=== PATIENT | male | born 1955 | race Caucasian/White ===

== ENCOUNTER 2017-03-17 10:30 | Outpatient (RCR) | payer MEDICARE, SELFPAY ==
[2017-03-10 10:02] VITALS: BP 137/74; PULSE 81; RESP 16; TEMP 36.6; BMI 32.7
--- NOTE | 2017-03-10 13:37 | PCM.WC.HP ---
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 History of Wound: This 61-year-old diabetic male presents to the wound center with chief complaint of nonhealing ulcer to right posterior heel. Patient states on February 21 he believes he stepped on a staple walking down the stairs and had a tear in his skin. This progressed over the following days into an ulcer. Patient saw Dr. See originally, who according to the patient ordered labs and x-rays. Dr. See also gave the patient a CAM walker. Eventually Dr. See sent the patient to [facility] wound center with the patient has been the last 2 weeks. While there the patient has been undergoing every other day dressing changes consisting of medihoney and a dry sterile dressing. Patient also states that he has had vascular studies done, however he cannot remember if it was venous, arterial, or both. The patient also recently received a knee walker for the right side. He has not used it much yet. The also states that the patient has not keeping pressure off of his right foot as much as he should be. Patient denies any purulence to the area. The patient denies any feelings of nausea, vomiting, chills, fever at this time. Past Medical History Past Medical History: please see intake list Allergies/Adverse Reactions: Allergies No Known Allergies Allergy (Verified 03/10/17 10:37) Home Medications: Ambulatory Orders Medication Instructions Recorded Aspirin [Aspirin, Baby] 81 mg PO DAILY@0800 08/13/14 Fish Oil/Dha/Epa [Fish Oil 1,200 1,200 mg PO 4X/DAY 08/13/14 mg Fish Oil] Flavoring Agent [Cinnamon] 1,000 mg PO 4X/DAY 08/13/14 Gabapentin [Neurontin] 200 mg PO DAILY 08/13/14 Gabapentin [Neurontin] 600 mg PO QHS 08/13/14 Insulin Aspart [Novolog] 10 unit SQ TID 08/13/14 Insulin Glargine,Hum.rec.anlog 30 unit SC QHS 08/13/14 [Lantus] Lisinopril [Zestril] 10 mg PO DAILY 08/13/14 Multivit-Min/FA/Lycopene/Lut 1 each PO DAILY 08/13/14 [Centrum Silver Tablet] Saw [place] 450 mg PO DAILY 08/13/14 Cholecalciferol (Vitamin D3) 100 gm MC DAILY 03/10/17 [Vitamin D3] Chromium Amino Acid Chelate 400 mcg PO DAILY 03/10/17 [Chromium] Smoking Status: Never smoker Tobacco Use: Non-smoker Review of Systems Constitutional: Reports: Weight Change. Denies: Chills, Fever Cardiovascular: Denies: Chest Pain, Palpitations Respiratory: Denies: Cough, Shortness of Breath Musculoskeletal: Reports: Foot Pain - slight tenderness to right heel Skin: Reports: Wounds - right heel - Physical Exam Vital Signs Temp Pulse Resp BP 97.8 F 81 16 137/74 H 03/10/17 10:02 03/10/17 10:02 03/10/17 10:02 03/10/17 10:02 General: Alert, Oriented x3, Cooperative Extremities: Capillary Refill Less than 3 Seconds, No Calf Tenderness - Negative Wojciech and Guerrero sign bilateral, Diminished Peripheral Pulses - DP pulses faintly palpable bilateral. PT pulses nonpalpable due to perimalleolar edema., Edema - Bilateral lower extremity edema, Tenderness - Slight tenderness to right heel Skin: Ulcer/ Wound - Chronic nonpressure nonhealing ulcer to plantar/posterior aspect right heel. Ulcer dimensions are noted below. Ulcer is unstageable due to overlying eschar that is well adhered. No surrounding cellulitis noted. No purulence. No malodor. No fluctuance appreciated at this time. No other signs of acute infection noted today. Wound Measurements and Assessment WC - Nurse 1 - General Ulcer Measurement Start: 03/10/17 10:02 Freq: Status: Active Protocol: Activity Type Activity Date Activity User E-Sign Co-Sign Detail Recorded Client Recorded Date Recorded By Document 03/10/17 10:02 [email or web address] [id number] 03/10/17 10:30 BMF 03/10/17 10:02 Wound Center Nurse 1 [Ulcer Assessment Protocol: WC.WD.LOC] #2- RT HEEL -Combined with other wound No -Current Size (cm) - Length 1.5 -Current Size (cm) - Width 3.9 -Current Size (cm) - Depth 0.3 -Total Square Cm 5.85 -Date of Last Picture (Recall this 03/10/17 field) -Photo Taken Yes -Epithelialization None Present -Tunneling No -Undermining/Tunneling Yes -Undermining/Tunneling Starts (O' 4 clock) -Undermining/Tunneling Ends (O'clock) 2 -Maximum Distance (cm) 0.2 -Exudate Amt Small (1-33%) -Exudate Type Serosanguineous -Wound Margin Distinct, Outline Attached -Granulation Amt Small (1-33%) -Granulation Quality Pale Red -Slough/Fibrin Yes -Necrosis Amt Large (67-100%) -Necrotic Tissue Type Eschar -Structure Exposed N/A -Texture (Miguelina-wound Skin Appearance) Callus Scarring -Moisture (Miguelina-wound Skin Appearance Dry/Scaly ) -Color (Miguelina-wound Skin Appearance) Assessed -Temperature (Miguelina-wound Skin No Abnormality Appearance) (Pt Warm) -Tenderness on Palpation (Miguelina-wound No Skin Appearance) -Ulcer Cleansing Rinsed/ Irrigated with Saline -Foul Odor after Cleansing No -Anesthetic Used 4% Lidocaine Solution [Edema Assessment] -Lower Limb Edema Present Yes -Right Calf (cm) 36 -Point of measurement (cm from the 1 medial instep) -Point of Measurement (cm from the 22.5 medial instep) -Point of measurement (cm from the 33.2 medial instep) -Point of Measurement (cm from the 19.9 medial instep) SANTHOSH - Nurse 2 - General Ulcer CM Notes Start: 03/10/17 10:02 Freq: Status: Active Protocol: Activity Type Activity Date Activity User E-Sign Co-Sign Detail Recorded Client Recorded Date Recorded By Document 03/10/17 11:29 MW [id number] 03/10/17 11:50 MW 03/10/17 11:29 Wound Center Nurse 2 [Procedure/Treatment] #2- RT HEEL -Time 11:29 -Correct Patient Yes -Correct Side, Site, Position Yes -Correct Procedure Yes -Procedure Performed No -Post Debridement Size (cm) - Length 1.5 -Post Debridement Size (cm) - Width 3.9 -Post Debridement Size (cm) - Depth 0.3 -Total Square Cm 5.85 -Wound/Ulcer Outcome Not Healed -Ulcer Cleansing Rinsed/ Irrigated with Saline -Foul Odor after Cleansing No -Cetacaine [place] No -Bleeding Controlled with Pressure -Treatment Response Procedure Tolerated Well [See Physician Procedure note for Specifics] Pain Scale: 0-10 Numeric [Pain] -Is Patient Pain Free? Yes Musculoskeletal: Tenderness - Slight tenderness appreciated to right posterior heel. Neurological: - - Protective sensation absent to greater than 2 out of 5 pedal sites tested at random using a 5.07 Wiley Raymon monofilament. Psych/Mental Status: Normal Affect, Appropriate Debridement Note Post-Debridement Measurements/Treatment WC - Nurse 2 - General Ulcer CM Notes Start: 03/10/17 10:02 Freq: Status: Active Protocol: Activity Type Activity Date Activity User E-Sign Co-Sign Detail Recorded Client Recorded Date Recorded By Document 03/10/17 11:29 MW [id number] 03/10/17 11:50 MW 03/10/17 11:29 Wound Center Nurse 2 #2- RT HEEL -Time 11:29 -Correct Patient Yes -Correct Side, Site, Position Yes -Correct Procedure Yes -Procedure Performed No -Post Debridement Size (cm) - Length 1.5 -Post Debridement Size (cm) - Width 3.9 -Post Debridement Size (cm) - Depth 0.3 -Total Square Cm 5.85 -Wound/Ulcer Outcome Not Healed -Ulcer Cleansing Rinsed/ Irrigated with Saline -Foul Odor after Cleansing No -Cetacaine [place] No -Bleeding Controlled with Pressure -Treatment Response Procedure Tolerated Well Pain Scale: 0-10 Numeric Is Patient Pain Free? 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 DM with neuropathy. PVD. Malnutrition. Plan: Initial patient examination and evaluation completed. No extensive debridement completed today due to no diagnostic testing studies. Saint was applied to the wound base followed by moistened 4 x 4's, dry 4 x 4's, Kerlix, and a light Tubigrip. Prescription for Santyl was given to the patient. He is to perform daily dressing changes consisting of the previously noted dressing. Repeat x-rays were ordered 3 views of the right foot as well as calcaneal axial. We will contact Dr. See's office, as well as [facility], in order to obtain any lab in other diagnostic testing that was completed. The results will all be reviewed before the patient's next visit, and any remaining lab work or diagnostic testing will be ordered at that time. It was stressed to the patient how important is to keep pressure off of his heel at all times. He was encouraged to use the knee walker at all times while walking. While sitting or laying in bed he was instructed to keep the heel floating over the edge of a pillow in order to have absolutely no pressure to the area. I also discussed with the patient the importance of a high protein diet to help supplement wound healing. Patient and the patient's were educated on signs and symptoms of local and systemic infection and were instructed to go to the emergency room immediately should they notice any. All questions were answered to the patient and the patient's satisfaction. They will follow-up in clinic in 1 week for further evaluation, or sooner if needed.
--- NOTE | 2017-03-14 14:27 | RAD_ITS ---
STUDY: X-RAY - RIGHT FOOT CLINICAL: Male, 61 years old. Right heel ulcer TECHNIQUE: 4 view(s) of the foot. COMPARISON: None. FINDINGS: Normal talus, calcaneus, and tarsal bones. Normal visualized subtalar, talonavicular, calcaneocuboid, tarsal and tarsometatarsal articulations. Normal metatarsi. Normal metatarsophalangeal joint of the great toe. Normal tibial and fibular sesamoid bones. Normal interphalangeal joint of the great toe. Normal phalanges of the great toe. Normal second through fifth metatarsophalangeal joints. Normal interphalangeal joints and phalanges of the lesser toes. There is a plantar heel ulcer. There are no central stimulator is. There are vascular calcifications RAD/Foot min 3 Views IMPRESSION: Plantar heel ulcer. No signs of osteomyelitis Electronically Signed: Byron Horta MD, FACR at 15:55 EST , Service support ,
[2017-03-17 10:46] VITALS: BP 143/73; PULSE 76; RESP 18; TEMP 36.8; BMI 32.7
--- NOTE | 2017-03-17 13:48 | PCM.WC.PN ---
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 Status: Acute Current Visit: Yes Code(s): L97.419 - Non-pressure chronic ulcer of right heel and midfoot with unspecified severity (2) Type 2 diabetes mellitus with diabetic polyneuropathy Status: Acute Current Visit: Yes Code(s): E11.42 - Type 2 diabetes mellitus with diabetic polyneuropathy (3) PVD (peripheral vascular disease) Status: Suspected Current Visit: Yes Code(s): I73.9 - Peripheral vascular disease, unspecified (4) Malnutrition Status: Suspected Current Visit: Yes Code(s): E46 - Unspecified protein-calorie malnutrition (5) Lower extremity edema Status: Chronic Current Visit: Yes Code(s): R60.0 - Localized edema Type of Wound Date of Service: 03/17/17 Chief Complaint: Chronic non healing ulcer to right posterior heel with fat layer exposed. History of Wound: This 61-year-old diabetic male presents for follow up of chronic nonhealing ulcer to right posterior heel. Patient states on February 21 he believes he stepped on a staple walking down the stairs and had a tear in his skin. This progressed over the following days into an ulcer. Patient has seen Dr. See as well as gone to [facility] wound center in the past. While at [facility], the patient was undergoing every other day dressing changes consisting of medihoney and a dry sterile dressing. The patient has a knee walker and claims to be using it, but not all the time. The also states that the patient has not keeping pressure off of his right foot as much as he should be, even after last weeks visit, although he has gotten better. They feel there has been improvement in the area since starting santyl last week. Patient denies any purulence to the area. The patient denies any feelings of nausea, vomiting, chills, fever at this time. Progress of Wound: Improving since last week. - Physical Exam Vital Signs Temp Pulse Resp BP 98.2 F 76 18 143/73 H 03/17/17 10:46 03/17/17 10:46 03/17/17 10:46 03/17/17 10:46 General: Alert, Oriented x3, Cooperative, No apparent distress Extremities: Capillary Refill Less than 3 Seconds, No Calf Tenderness - Negative stephan and iverson sign bilateral, Diminished Peripheral Pulses - DP pulses faintly palpable bilateral. PT pulses non palpable due to edema, Edema - bilateral lower extremity Skin: Ulcer/ Wound - Chronic nonpressure nonhealing ulcer to plantar/posterior aspect right heel. Ulcer dimensions are noted below. Adherent eschar no longer covering ulcer. Ulcer noted to be down to fat layer. Hyperkeratotic tissue noted surrounding ulcer. No surrounding cellulitis noted. No purulence. No malodor. No fluctuance appreciated at this time. No other signs of acute infection noted today. Center of ulcer had small area that probed 0.5 cm, but no probe to bone noted. Wound Measurements and Assessment - Nurse 1 - General Ulcer Measurement Start: 03/10/17 10:02 Freq: Status: Active Protocol: Activity Type Activity Date Activity User E-Sign Co-Sign Detail Recorded Client Recorded Date Recorded By Document 03/17/17 10:46 [id number] 03/17/17 10:50 03/17/17 10:46 Wound Center Nurse 1 [Ulcer Assessment Protocol: .WD.LOC] #2- RT HEEL -Combined with other wound No -Current Size (cm) - Length 1.8 -Current Size (cm) - Width 2.1 -Current Size (cm) - Depth 0.6 -Total Square Cm 3.78 -Photo Taken No -Epithelialization None Present -Tunneling No -Undermining/Tunneling No -Classification - Thickness Full Thickness without Exposed Support Structure -Exudate Amt Small (1-33%) -Exudate Type Serosanguineous -Wound Margin Fibrotic Scar, Thickened Scar -Granulation Amt Medium (34-66%) -Granulation Quality Pale [place] -Slough/Fibrin Yes -Necrosis Amt Medium (34-66%) -Necrotic Tissue Type Adherent Slough -Structure Exposed Fascia Fat Layer Exposed -Texture (Miguelina-wound Skin Appearance) Callus Friable Localized Edema Scarring -Moisture (Miguelina-wound Skin Appearance Maceration ) -Color (Miguelina-wound Skin Appearance) Ecchymosis Erythema -Temperature (Miguelina-wound Skin No Abnormality Appearance) (Pt Warm) -Tenderness on Palpation (Miguelina-wound No Skin Appearance) -Ulcer Cleansing Rinsed/ Irrigated with Saline -Foul Odor after Cleansing No -Anesthetic Used 4% Lidocaine Solution [Edema Assessment] -Lower Limb Edema Present Yes -Right Calf (cm) 34.2 -Right Ankle (cm) 22.2 - Nurse 2 - General Ulcer CM Notes Start: 03/10/17 10:02 Freq: Status: Active Protocol: Activity Type Activity Date Activity User E-Sign Co-Sign Detail Recorded Client Recorded Date Recorded By Document 03/17/17 11:31 MW [id number] 03/17/17 11:48 MW 03/17/17 11:31 Wound Center Nurse 2 [Procedure/Treatment] #2- RT HEEL -Time 11:31 -Correct Patient Yes -Correct Side, Site, Position Yes -Correct Procedure Yes -Procedure Performed Yes -Type of Procedure Debridement -Clinical Debridement Selective -Post Debridement Size (cm) - Length 1.8 -Post Debridement Size (cm) - Width 2.7 -Post Debridement Size (cm) - Depth 0.5 -Total Square Cm 4.86 -Wound/Ulcer Outcome Not Healed -Ulcer Cleansing Rinsed/ Irrigated with Saline -Foul Odor after Cleansing No -Bioengineered Tissue No -Cetacaine [place] No -Bleeding Controlled with Pressure -Treatment Response Procedure Tolerated Well [See Physician Procedure note for Specifics] Pain Scale: 0-10 Numeric [Pain] -Is Patient Pain Free? Yes Musculoskeletal: - - muscle strenght 5/5 for inverters, everters, dorsiflexors, and plantarflexors of the feet Neurological: - - epicritic sensation grossly absent from bilateral feet Psych/Mental Status: Normal Affect, Appropriate Debridement Note Post-Debridement Measurements/Treatment - Nurse 2 - General Ulcer CM Notes Start: 03/10/17 10:02 Freq: Status: Active Protocol: Activity Type Activity Date Activity User E-Sign Co-Sign Detail Recorded Client Recorded Date Recorded By Document 03/10/17 11:29 MW [id number] 03/10/17 11:50 MW Document 03/17/17 11:31 MW [id number] 03/17/17 11:48 MW 03/10/17 03/17/17 11:29 11:31 Wound Center Nurse 2 #2- RT HEEL -Time 11:29 11:31 -Correct Patient Yes Yes -Correct Side, Site, Position Yes Yes -Correct Procedure Yes Yes -Procedure Performed No Yes -Type of Procedure Debridement -Clinical Debridement Selective -Post Debridement Size (cm) - Length 1.5 1.8 -Post Debridement Size (cm) - Width 3.9 2.7 -Post Debridement Size (cm) - Depth 0.3 0.5 -Total Square Cm 5.85 4.86 -Wound/Ulcer Outcome Not Healed Not Healed -Ulcer Cleansing Rinsed/ Rinsed/ Irrigated with Irrigated with Saline Saline -Foul Odor after Cleansing No No -Bioengineered Tissue No -Cetacaine [place] No No -Bleeding Controlled with Pressure Pressure -Treatment Response Procedure Procedure Tolerated Well Tolerated Well Pain Scale: 0-10 Numeric Is Patient Pain Free? Yes Yes Wound debrided: right posterior plantar heel Laterality: Right Wound Grade/Stage: 2 Type of Debridement: Selective debridement Anesthesia Used: 4% Lidocaine Solution Depth: in the subcutaneous layer Percentage of wound debrided: 100 Instrument Used: 3mm curette Tissue Removed: slough, fibrin Severity: Fat Layer Exposed Amount of bleeding with debridement: Mild Bleeding Controlled with: Pressure Patient tolerated procedure well Assessment/Plan Clinical Impression(s) from Imaging Studies Foot X-Ray 03/14/17 14:27 IMPRESSION: Plantar heel ulcer. 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 DM with neuropathy. Malnutrition. Plan: Patient was again examined and evaluated today. Selective debridement completed as noted in the clinical panel. Hyperkeratotic rim was removed surrounding the ulcer. Santyl was again applied to the wound base followed by moistened 4 x 4's, dry 4 x 4's, Kerlix, and a light Tubigrip. He is to perform daily dressing changes consisting of the previously noted dressing. There was still some slough, fibrous tissue appreciated during todays visit so I would like to try one more week of santyl. Repeat x-rays were ordered 3 views of the right foot as well as calcaneal axial, and the results were read as ulcer to the heel with no signs of osteomyelitis noted. LEAS studies were reviewed that were faxed over from [facility], that showed a right LEONOR of 1.29. The report also suggested that a CTA may be warranted to assess vascular flow. Venous duplex scan and reflux study was also performed. The impression stated that 1. Venous duplex scan of both lower extremities is negative for deep venous thrombosis or obvious deep venous insufficiency. 2. Superficial venous insufficiency noted in the right greater saphenous vein to the knee and to the left greater saphenous vein also to the knee with some chronic nonocclusive thrombotic changes elsewhere in the superficial veins. We also obtained notes from Dr. See's office as well as patient's labs, these were reviewed and are in the patient's chart. Hemoglobin A1c was ordered today as well as a pre-albumin. We will review these results prior to next week's visit. It was again stressed to the patient how important is to keep pressure off of his heel at all times. He is to use the knee scooter at all times while walking. While sitting or laying in bed he was instructed to keep the heel floating over the edge of a pillow in order to have absolutely no pressure to the area. I also discussed with the patient the importance of a high protein diet to help supplement wound healing. Patient and the patient's were educated on signs and symptoms of local and systemic infection and were instructed to go to the emergency room immediately should they notice any. All questions were answered to the patient and the patient's satisfaction. They will follow-up in clinic in 1 week for further evaluation, or sooner if needed.
--- NOTE | 2017-03-17 13:59 | PN.PCM_ITS ---
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 Status: Acute Current Visit: Yes Code(s): L97.419 - Non-pressure chronic ulcer of right heel and midfoot with unspecified severity (2) Type 2 diabetes mellitus with diabetic polyneuropathy Status: Acute Current Visit: Yes Code(s): E11.42 - Type 2 diabetes mellitus with diabetic polyneuropathy (3) PVD (peripheral vascular disease) Status: Suspected Current Visit: Yes Code(s): I73.9 - Peripheral vascular disease, unspecified (4) Malnutrition Status: Suspected Current Visit: Yes Code(s): E46 - Unspecified protein- calorie malnutrition (5) Lower extremity edema Status: Chronic Current Visit: Yes Code(s): R60.0 - Localized edema Type of Wound Date of Service: 03/17/17 Chief Complaint: Chronic non healing ulcer to right posterior heel with fat layer exposed. History of Wound: This 61-year-old diabetic male presents for follow up of chronic nonhealing ulcer to right posterior heel. Patient states on February 21 he believes he stepped on a staple walking down the stairs and had a tear in his skin. This progressed over the following days into an ulcer. Patient has seen Dr. See as well as gone to [facility] wound center in the past. While at [facility], the patient was undergoing every other day dressing changes consisting of medihoney and a dry sterile dressing. The patient has a knee walker and claims to be using it, but not all the time. The also states that the patient has not keeping pressure off of his right foot as much as he should be, even after last weeks visit, although he has gotten better. They feel there has been improvement in the area since starting santyl last week. Patient denies any purulence to the area. The patient denies any feelings of nausea, vomiting, chills, fever at this time. Progress of Wound: Improving since last week. - Physical Exam Vital Signs Temp Pulse Resp BP 98.2 F 76 18 143/73 H 03/17/17 10:46 03/17/17 10:46 03/17/17 10:46 03/17/17 10:46 General: Alert, Oriented x3, Cooperative, No apparent distress Extremities: Capillary Refill Less than 3 Seconds, No Calf Tenderness - Negative stephan and iverson sign bilateral, Diminished Peripheral Pulses - DP pulses faintly palpable bilateral. PT pulses non palpable due to edema, Edema - bilateral lower extremity Skin: Ulcer/ Wound - Chronic nonpressure nonhealing ulcer to plantar/posterior aspect right heel. Ulcer dimensions are noted below. Adherent eschar no longer covering ulcer. Ulcer noted to be down to fat layer. Hyperkeratotic tissue noted surrounding ulcer. No surrounding cellulitis noted. No purulence. No malodor. No fluctuance appreciated at this time. No other signs of acute infection noted today. Center of ulcer had small area that probed 0.5 cm, but no probe to bone noted. Wound Measurements and Assessment - Nurse 1 - General Ulcer Measurement Start: 03/10/17 10:02 Freq: Status: Active Protocol: Activity Type Activity Date Activity User E-Sign Co-Sign Detail Recorded Client Recorded Date Recorded By Document 03/17/17 10:46 [id number] 03/17/17 10:50 03/17/17 10:46 Wound Center Nurse 1 [Ulcer Assessment Protocol: .WD.LOC] #2- RT HEEL -Combined with other wound No -Current Size (cm) - Length 1.8 -Current Size (cm) - Width 2.1 -Current Size (cm) - Depth 0.6 -Total Square Cm 3.78 -Photo Taken No -Epithelialization None Present -Tunneling No -Undermining/Tunneling No -Classification - Thickness Full Thickness without Exposed Support Structure -Exudate Amt Small (1-33%) -Exudate Type Serosanguineous -Wound Margin Fibrotic Scar, Thickened Scar -Granulation Amt Medium (34-66%) -Granulation Quality Pale [place] -Slough/Fibrin Yes -Necrosis Amt Medium (34-66%) -Necrotic Tissue Type Adherent Slough -Structure Exposed Fascia Fat Layer Exposed -Texture (Miguelina-wound Skin Appearance) Callus Friable Localized Edema Scarring -Moisture (Miguelina-wound Skin Appearance Maceration ) -Color (Miguelina-wound Skin Appearance) Ecchymosis Erythema -Temperature (Miguelina-wound Skin No Abnormality Appearance) (Pt Warm) -Tenderness on Palpation (Miguelina-wound No Skin Appearance) -Ulcer Cleansing Rinsed/ Irrigated with Saline -Foul Odor after Cleansing No -Anesthetic Used 4% Lidocaine Solution [Edema Assessment] -Lower Limb Edema Present Yes -Right Calf (cm) 34.2 -Right Ankle (cm) 22.2 - Nurse 2 - General Ulcer CM Notes Start: 03/10/17 10:02 Freq: Status: Active Protocol: Activity Type Activity Date Activity User E-Sign Co-Sign Detail Recorded Client Recorded Date Recorded By Document 03/17/17 11:31 MW [id number] 03/17/17 11:48 MW 03/17/17 11:31 Wound Center Nurse 2 [Procedure/Treatment] #2- RT HEEL -Time 11:31 -Correct Patient Yes -Correct Side, Site, Position Yes -Correct Procedure Yes -Procedure Performed Yes -Type of Procedure Debridement -Clinical Debridement Selective -Post Debridement Size (cm) - Length 1.8 -Post Debridement Size (cm) - Width 2.7 -Post Debridement Size (cm) - Depth 0.5 -Total Square Cm 4.86 -Wound/Ulcer Outcome Not Healed -Ulcer Cleansing Rinsed/ Irrigated with Saline -Foul Odor after Cleansing No -Bioengineered Tissue No -Cetacaine [place] No -Bleeding Controlled with Pressure -Treatment Response Procedure Tolerated Well [See Physician Procedure note for Specifics] Pain Scale: 0-10 Numeric [Pain] -Is Patient Pain Free? Yes Musculoskeletal: - - muscle strenght 5/5 for inverters, everters, dorsiflexors, and plantarflexors of the feet Neurological: - - epicritic sensation grossly absent from bilateral feet Psych/Mental Status: Normal Affect, Appropriate Debridement Note Post-Debridement Measurements/Treatment - Nurse 2 - General Ulcer CM Notes Start: 03/10/17 10:02 Freq: Status: Active Protocol: Activity Type Activity Date Activity User E-Sign Co-Sign Detail Recorded Client Recorded Date Recorded By Document 03/10/17 11:29 MW [id number] 03/10/17 11:50 MW Document 03/17/17 11:31 MW [id number] 03/17/17 11:48 MW 03/10/17 03/17/17 11:29 11:31 Wound Center Nurse 2 #2- RT HEEL -Time 11:29 11:31 -Correct Patient Yes Yes -Correct Side, Site, Position Yes Yes -Correct Procedure Yes Yes -Procedure Performed No Yes -Type of Procedure Debridement -Clinical Debridement Selective -Post Debridement Size (cm) - Length 1.5 1.8 -Post Debridement Size (cm) - Width 3.9 2.7 -Post Debridement Size (cm) - Depth 0.3 0.5 -Total Square Cm 5.85 4.86 -Wound/Ulcer Outcome Not Healed Not Healed -Ulcer Cleansing Rinsed/ Rinsed/ Irrigated with Irrigated with Saline Saline -Foul Odor after Cleansing No No -Bioengineered Tissue No -Cetacaine [place] No No -Bleeding Controlled with Pressure Pressure -Treatment Response Procedure Procedure Tolerated Well Tolerated Well Pain Scale: 0-10 Numeric Is Patient Pain Free? Yes Yes Wound debrided: right posterior plantar heel Laterality: Right Wound Grade/Stage: 2 Type of Debridement: Selective debridement Anesthesia Used: 4% Lidocaine Solution Depth: in the subcutaneous layer Percentage of wound debrided: 100 Instrument Used: 3mm curette Tissue Removed: slough, fibrin Severity: Fat Layer Exposed Amount of bleeding with debridement: Mild Bleeding Controlled with: Pressure Patient tolerated procedure well Assessment/Plan Clinical Impression(s) from Imaging Studies Foot X-Ray 03/14/17 14:27 IMPRESSION: Plantar heel ulcer. 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 DM with neuropathy. Malnutrition. Plan: Patient was again examined and evaluated today. Selective debridement completed as noted in the clinical panel. Hyperkeratotic rim was removed surrounding the ulcer. Santyl was again applied to the wound base followed by moistened 4 x 4's, dry 4 x 4's, Kerlix, and a light Tubigrip. He is to perform daily dressing changes consisting of the previously noted dressing. There was still some slough, fibrous tissue appreciated during todays visit so I would like to try one more week of santyl. Repeat x-rays were ordered 3 views of the right foot as well as calcaneal axial, and the results were read as ulcer to the heel with no signs of osteomyelitis noted. LEAS studies were reviewed that were faxed over from [facility], that showed a right LEONOR of 1.29. The report also suggested that a CTA may be warranted to assess vascular flow. Venous duplex scan and reflux study was also performed. The impression stated that 1. Venous duplex scan of both lower extremities is negative for deep venous thrombosis or obvious deep venous insufficiency. 2. Superficial venous insufficiency noted in the right greater saphenous vein to the knee and to the left greater saphenous vein also to the knee with some chronic nonocclusive thrombotic changes elsewhere in the superficial veins. We also obtained notes from Dr. See's office as well as patient's labs, these were reviewed and are in the patient's chart. Hemoglobin A1c was ordered today as well as a pre- albumin. We will review these results prior to next week's visit. It was again stressed to the patient how important is to keep pressure off of his heel at all times. He is to use the knee scooter at all times while walking. While sitting or laying in bed he was instructed to keep the heel floating over the edge of a pillow in order to have absolutely no pressure to the area. I also discussed with the patient the importance of a high protein diet to help supplement wound healing. Patient and the patient's were educated on signs and symptoms of local and systemic infection and were instructed to go to the emergency room immediately should they notice any. All questions were answered to the patient and the patient's satisfaction. They will follow- up in clinic in 1 week for further evaluation, or sooner if needed.
[2017-03-17 15:35] LABS: Prealbumin 15.8 mg/dL (20.0-40.0)
[2017-03-17 15:38] LABS: Hemoglobin A1c 8.2 % (4.2-6.3)
== END 2017-03-23 23:59 ==
LOC: WC 10:30
PROVIDERS: Visit Provider Podiatrist
DX: E11.621 Type 2 diabetes mellitus with foot ulcer (principal); E11.42 Type 2 diabetes mellitus with diabetic polyneuropathy; E11.51 Type 2 diabetes mellitus with diabetic peripheral angiopathy without gangrene; R60.0 Localized edema; L97.412 Non-pressure chronic ulcer of right heel and midfoot with fat layer exposed; L85.9 Epidermal thickening, unspecified
CPT/HCPCS: 73630; 83036; 84134; 97597; 97602; 99203; G0463

== ENCOUNTER 2017-04-14 10:30 | Outpatient (RCR) | payer MEDICARE, SELFPAY ==
[2017-03-17 10:46] VITALS: BP 143/73
[2017-03-24 01:12] VITALS: PULSE 76; RESP 18; TEMP 36.8
[2017-03-24 15:21] VITALS: BP 150/66; PULSE 84; RESP 18; TEMP 37.1; BMI 32.7
--- NOTE | 2017-03-24 17:07 | PCM.WC.PN ---
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 Status: Acute Current Visit: Yes Code(s): L97.419 - Non-pressure chronic ulcer of right heel and midfoot with unspecified severity (2) Type 2 diabetes mellitus with diabetic polyneuropathy Status: Acute Current Visit: Yes Code(s): E11.42 - Type 2 diabetes mellitus with diabetic polyneuropathy (3) Lower extremity edema Status: Chronic Current Visit: Yes Code(s): R60.0 - Localized edema (4) Malnutrition Status: Suspected Current Visit: Yes Code(s): E46 - Unspecified protein-calorie malnutrition (5) PVD (peripheral vascular disease) Status: Suspected Current Visit: Yes Code(s): I73.9 - Peripheral vascular disease, unspecified Type of Wound Date of Service: 03/25/17 Chief Complaint: Chronic non healing ulcer to right posterior heel with fat layer exposed. History of Wound: This 61-year-old diabetic male presents for follow up of chronic nonhealing ulcer to right posterior heel. Patient states on February 21 he believes he stepped on a staple walking down the stairs and had a tear in his skin. This progressed over the following days into an ulcer. Patient has seen Dr. See as well as gone to [facility] wound center in the past. While at [facility] beds at the [facility], the patient was undergoing every other day dressing changes consisting of medihoney and a dry sterile dressing. The patient has a knee walker and claims to be using it, but not all the time. The also states that the patient has not keeping pressure off of his right foot as much as he should be, even after last weeks visit, although he has gotten better. They feel there has been improvement in the area since starting santyl last week. Patient denies any purulence to the area. The patient denies any feelings of nausea, vomiting, chills, fever at this time. Progress of Wound: Stable - Physical Exam Vital Signs Temp Pulse Resp BP 98.7 F 84 18 150/66 H 03/24/17 15:21 03/24/17 15:21 03/24/17 15:21 03/24/17 15:21 General: Alert, Oriented x3, Cooperative, No apparent distress HEENT: PERRLA, EOMI Cardiovascular: Regular rate Extremities: No clubbing, No cyanosis, Diminished Peripheral Pulses, Edema Skin: Ulcer/ Wound - Chronic nonhealing ulcer plantar/posterior right heel. Boggy eschar covering ulcer with center of ulcer down to the fat layer, hyperkeratotic tissue present surrounding ulcer bed, no drainage or malodor at this time. Wound Measurements and Assessment WC - Nurse 1 - General Ulcer Measurement Start: 03/24/17 15:21 Freq: Status: Active Protocol: Activity Type Activity Date Activity User E-Sign Co-Sign Detail Recorded Client Recorded Date Recorded By Document 03/24/17 15:21 DL [id number] 03/24/17 15:27 DL 03/24/17 15:21 Wound Center Nurse 1 [Ulcer Assessment Protocol: SANTHOSH.WD.LOC] #2- RT HEEL -Current Size (cm) - Length 2.9 -Current Size (cm) - Width 4 -Current Size (cm) - Depth 0.5 -Total Square Cm 11.6 -Photo Taken No -Exudate Amt Medium (34-66%) -Exudate Type Serosanguineous -Wound Margin Distinct, Outline Attached -Granulation Amt Small (1-33%) -Granulation Quality [place] -Necrosis Amt Large (67-100%) -Necrotic Tissue Type Eschar -Structure Exposed N/A -Texture (Miguelina-wound Skin Appearance) Scarring -Moisture (Miguelina-wound Skin Appearance Dry/Scaly ) -Color (Miguelina-wound Skin Appearance) Hemosiderin Staining Rubor -Temperature (Miguelina-wound Skin No Abnormality Appearance) (Pt Warm) -Tenderness on Palpation (Miguelina-wound No Skin Appearance) -Ulcer Cleansing Rinsed/ Irrigated with Saline -Foul Odor after Cleansing No -Anesthetic Used 4% Lidocaine Solution [Edema Assessment] -Right Calf (cm) 35.2 -Right Ankle (cm) 21.8 WC - Nurse 2 - General Ulcer CM Notes Start: 03/24/17 15:21 Freq: Status: Active Protocol: Activity Type Activity Date Activity User E-Sign Co-Sign Detail Recorded Client Recorded Date Recorded By Document 03/24/17 16:18 DV [id number] 03/24/17 16:23 DV 03/24/17 16:18 Wound Center Nurse 2 [Procedure/Treatment] #2- RT HEEL -Time 16:19 -Correct Patient Yes -Correct Side, Site, Position Yes -Correct Procedure Yes -Procedure Performed Yes -Type of Procedure Debridement -Clinical Debridement Selective -Post Debridement Size (cm) - Length 2.9 -Post Debridement Size (cm) - Width 3.7 -Post Debridement Size (cm) - Depth 0.6 -Total Square Cm 10.73 -Wound/Ulcer Outcome Not Healed [See Physician Procedure note for Specifics] Pain Scale: 0-10 Numeric [Pain] -Is Patient Pain Free? Yes Psych/Mental Status: Normal Affect, Alert and oriented to time, place, person, mood and affect Debridement Note Post-Debridement Measurements/Treatment WC - Nurse 2 - General Ulcer CM Notes Start: 03/24/17 15:21 Freq: Status: Active Protocol: Activity Type Activity Date Activity User E-Sign Co-Sign Detail Recorded Client Recorded Date Recorded By Document 03/24/17 16:18 DV [id number] 03/24/17 16:23 DV 03/24/17 16:18 Wound Center Nurse 2 #2- RT HEEL -Time 16:19 -Correct Patient Yes -Correct Side, Site, Position Yes -Correct Procedure Yes -Procedure Performed Yes -Type of Procedure Debridement -Clinical Debridement Selective -Post Debridement Size (cm) - Length 2.9 -Post Debridement Size (cm) - Width 3.7 -Post Debridement Size (cm) - Depth 0.6 -Total Square Cm 10.73 -Wound/Ulcer Outcome Not Healed Pain Scale: 0-10 Numeric Is Patient Pain Free? Yes Wound debrided: Right heel Laterality: Right Wound Grade/Stage: Unstageable Type of Debridement: Selective debridement Anesthesia Used: 4% Lidocaine Solution Depth: - - Selective debridement to opening of center ulceration Percentage of wound debrided: 20 Instrument Used: 5mm curette Tissue Removed: Slough and adherent tissue center of ulceration Severity: Fat Layer Exposed Amount of bleeding with debridement: None Patient tolerated procedure well Assessment/Plan Active Problems Non-pressure chronic ulcer of right heel and midfoot with unspecified severity (Acute) Type 2 diabetes mellitus with diabetic polyneuropathy (Acute) Lower extremity edema (Chronic) Assessment: Ulcer to right heel with stable eschar. DM with neuropathy. Malnutrition. Plan: Patient was again examined and evaluated today in Dr. De La Torre's absence. Selective debridement completed as noted in the clinical panel. Santyl was again applied to the wound base followed by moistened 4 x 4's, dry 4 x 4's, Kerlix, and a light Tubigrip. He is to perform daily dressing changes consisting of the previously noted dressing. Continue with Santyl. Repeat x-rays were ordered 3 views of the right foot as well as calcaneal axial, and the results were read as ulcer to the heel with no signs of osteomyelitis noted. LEAS studies were reviewed that were faxed over from [facility], that showed a right LEONOR of 1.29. The report also suggested that a CTA may be warranted to assess vascular flow. Venous duplex scan and reflux study was also performed. The impression stated that 1. Venous duplex scan of both lower extremities is negative for deep venous thrombosis or obvious deep venous insufficiency. 2. Superficial venous insufficiency noted in the right greater saphenous vein to the knee and to the left greater saphenous vein also to the knee with some chronic nonocclusive thrombotic changes elsewhere in the superficial veins. We also obtained notes from Dr. See's office as well as patient's labs, these were reviewed and are in the patient's chart. Hemoglobin A1c 8.2 and pre-albumin 15.8, these values were reviewed with the patient and instructed him the importance of increasing his protein intake and of getting better control of his diabetes, gave him information about [facility] endocrinology practice. It was again stressed to the patient how important is to keep pressure off of his heel at all times. He is to use the knee scooter at all times while walking. While sitting or laying in bed he was instructed to keep the heel floating over the edge of a pillow in order to have absolutely no pressure to the area. I also discussed with the patient the importance of a high protein diet to help supplement wound healing. Patient and the patient's were educated on signs and symptoms of local and systemic infection and were instructed to go to the emergency room immediately should they notice any. A culture was collected during today's [facility] visit. All questions were answered to the patient and the patient's satisfaction. They will follow-up in clinic in 1 week for further evaluation, or sooner if needed. This note was generated with [employer] software. It may contain incorrect words, spelling, and punctuation that were not noted in checking the note before signing.
--- NOTE | 2017-03-25 17:18 | PN.PCM_ITS ---
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 Status: Acute Current Visit: Yes Code(s): L97.419 - Non-pressure chronic ulcer of right heel and midfoot with unspecified severity (2) Type 2 diabetes mellitus with diabetic polyneuropathy Status: Acute Current Visit: Yes Code(s): E11.42 - Type 2 diabetes mellitus with diabetic polyneuropathy (3) Lower extremity edema Status: Chronic Current Visit: Yes Code(s): R60.0 - Localized edema (4) Malnutrition Status: Suspected Current Visit: Yes Code(s): E46 - Unspecified protein- calorie malnutrition (5) PVD (peripheral vascular disease) Status: Suspected Current Visit: Yes Code(s): I73.9 - Peripheral vascular disease, unspecified Type of Wound Date of Service: 03/25/17 Chief Complaint: Chronic non healing ulcer to right posterior heel with fat layer exposed. History of Wound: This 61-year-old diabetic male presents for follow up of chronic nonhealing ulcer to right posterior heel. Patient states on February 21 he believes he stepped on a staple walking down the stairs and had a tear in his skin. This progressed over the following days into an ulcer. Patient has seen Dr. See as well as gone to [facility] wound center in the past. While at [facility], the patient was undergoing every other day dressing changes consisting of medihoney and a dry sterile dressing. The patient has a knee walker and claims to be using it, but not all the time. The also states that the patient has not keeping pressure off of his right foot as much as he should be, even after last weeks visit, although he has gotten better. They feel there has been improvement in the area since starting santyl last week. Patient denies any purulence to the area. The patient denies any feelings of nausea, vomiting, chills, fever at this time. Progress of Wound: Stable - Physical Exam Vital Signs Temp Pulse Resp BP 98.7 F 84 18 150/66 H 03/24/17 15:21 03/24/17 15:21 03/24/17 15:21 03/24/17 15:21 General: Alert, Oriented x3, Cooperative, No apparent distress HEENT: PERRLA, EOMI Cardiovascular: Regular rate Extremities: No clubbing, No cyanosis, Diminished Peripheral Pulses, Edema Skin: Ulcer/ Wound - Chronic nonhealing ulcer plantar/posterior right heel. Boggy eschar covering ulcer with center of ulcer down to the fat layer, hyperkeratotic tissue present surrounding ulcer bed, no drainage or malodor at this time. Wound Measurements and Assessment WC - Nurse 1 - General Ulcer Measurement Start: 03/24/17 15:21 Freq: Status: Active Protocol: Activity Type Activity Date Activity User E-Sign Co-Sign Detail Recorded Client Recorded Date Recorded By Document 03/24/17 15:21 DL [id number] 03/24/17 15:27 DL 03/24/17 15:21 Wound Center Nurse 1 [Ulcer Assessment Protocol: SANTHOSH.WD.LOC] #2- RT HEEL -Current Size (cm) - Length 2.9 -Current Size (cm) - Width 4 -Current Size (cm) - Depth 0.5 -Total Square Cm 11.6 -Photo Taken No -Exudate Amt Medium (34-66%) -Exudate Type Serosanguineous -Wound Margin Distinct, Outline Attached -Granulation Amt Small (1-33%) -Granulation Quality [place] -Necrosis Amt Large (67-100%) -Necrotic Tissue Type Eschar -Structure Exposed N/A -Texture (Miguelina-wound Skin Appearance) Scarring -Moisture (Miguelina-wound Skin Appearance Dry/Scaly ) -Color (Miguelina-wound Skin Appearance) Hemosiderin Staining Rubor -Temperature (Miguelina-wound Skin No Abnormality Appearance) (Pt Warm) -Tenderness on Palpation (Miguelina-wound No Skin Appearance) -Ulcer Cleansing Rinsed/ Irrigated with Saline -Foul Odor after Cleansing No -Anesthetic Used 4% Lidocaine Solution [Edema Assessment] -Right Calf (cm) 35.2 -Right Ankle (cm) 21.8 WC - Nurse 2 - General Ulcer CM Notes Start: 03/24/17 15:21 Freq: Status: Active Protocol: Activity Type Activity Date Activity User E-Sign Co-Sign Detail Recorded Client Recorded Date Recorded By Document 03/24/17 16:18 DV [id number] 03/24/17 16:23 DV 03/24/17 16:18 Wound Center Nurse 2 [Procedure/Treatment] #2- RT HEEL -Time 16:19 -Correct Patient Yes -Correct Side, Site, Position Yes -Correct Procedure Yes -Procedure Performed Yes -Type of Procedure Debridement -Clinical Debridement Selective -Post Debridement Size (cm) - Length 2.9 -Post Debridement Size (cm) - Width 3.7 -Post Debridement Size (cm) - Depth 0.6 -Total Square Cm 10.73 -Wound/Ulcer Outcome Not Healed [See Physician Procedure note for Specifics] Pain Scale: 0-10 Numeric [Pain] -Is Patient Pain Free? Yes Psych/Mental Status: Normal Affect, Alert and oriented to time, place, person, mood and affect Debridement Note Post-Debridement Measurements/Treatment WC - Nurse 2 - General Ulcer CM Notes Start: 03/24/17 15:21 Freq: Status: Active Protocol: Activity Type Activity Date Activity User E-Sign Co-Sign Detail Recorded Client Recorded Date Recorded By Document 03/24/17 16:18 DV [id number] 03/24/17 16:23 DV 03/24/17 16:18 Wound Center Nurse 2 #2- RT HEEL -Time 16:19 -Correct Patient Yes -Correct Side, Site, Position Yes -Correct Procedure Yes -Procedure Performed Yes -Type of Procedure Debridement -Clinical Debridement Selective -Post Debridement Size (cm) - Length 2.9 -Post Debridement Size (cm) - Width 3.7 -Post Debridement Size (cm) - Depth 0.6 -Total Square Cm 10.73 -Wound/Ulcer Outcome Not Healed Pain Scale: 0-10 Numeric Is Patient Pain Free? Yes Wound debrided: Right heel Laterality: Right Wound Grade/Stage: Unstageable Type of Debridement: Selective debridement Anesthesia Used: 4% Lidocaine Solution Depth: - - Selective debridement to opening of center ulceration Percentage of wound debrided: 20 Instrument Used: 5mm curette Tissue Removed: Slough and adherent tissue center of ulceration Severity: Fat Layer Exposed Amount of bleeding with debridement: None Patient tolerated procedure well Assessment/Plan Active Problems Non-pressure chronic ulcer of right heel and midfoot with unspecified severity ( Acute) Type 2 diabetes mellitus with diabetic polyneuropathy (Acute) Lower extremity edema (Chronic) Assessment: Ulcer to right heel with stable eschar. DM with neuropathy. Malnutrition. Plan: Patient was again examined and evaluated today in Dr. De La Torre's absence. Selective debridement completed as noted in the clinical panel. Santyl was again applied to the wound base followed by moistened 4 x 4's, dry 4 x 4's, Kerlix, and a light Tubigrip. He is to perform daily dressing changes consisting of the previously noted dressing. Continue with Santyl. Repeat x- rays were ordered 3 views of the right foot as well as calcaneal axial, and the results were read as ulcer to the heel with no signs of osteomyelitis noted. LEAS studies were reviewed that were faxed over from [facility], that showed a right LEONOR of 1.29. The report also suggested that a CTA may be warranted to assess vascular flow. Venous duplex scan and reflux study was also performed. The impression stated that 1. Venous duplex scan of both lower extremities is negative for deep venous thrombosis or obvious deep venous insufficiency. 2. Superficial venous insufficiency noted in the right greater saphenous vein to the knee and to the left greater saphenous vein also to the knee with some chronic nonocclusive thrombotic changes elsewhere in the superficial veins. We also obtained notes from Dr. See's office as well as patient's labs, these were reviewed and are in the patient's chart. Hemoglobin A1c 8.2 and pre- albumin 15.8, these values were reviewed with the patient and instructed him the importance of increasing his protein intake and of getting better control of his diabetes, gave him information about [facility] endocrinology practice. It was again stressed to the patient how important is to keep pressure off of his heel at all times. He is to use the knee scooter at all times while walking. While sitting or laying in bed he was instructed to keep the heel floating over the edge of a pillow in order to have absolutely no pressure to the area. I also discussed with the patient the importance of a high protein diet to help supplement wound healing. Patient and the patient's were educated on signs and symptoms of local and systemic infection and were instructed to go to the emergency room immediately should they notice any. A culture was collected during today's [facility] visit. All questions were answered to the patient and the patient's satisfaction. They will follow-up in clinic in 1 week for further evaluation, or sooner if needed. This note was generated with [employer] software. It may contain incorrect words, spelling, and punctuation that were not noted in checking the note before signing.
[2017-04-01 09:13] VITALS: BP 140/48; PULSE 79; RESP 18; TEMP 37.2; BMI 32.7
--- NOTE | 2017-04-01 12:45 | PCM.WC.PN ---
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 Status: Acute Current Visit: Yes Code(s): L97.419 - Non-pressure chronic ulcer of right heel and midfoot with unspecified severity (2) Type 2 diabetes mellitus with diabetic polyneuropathy Status: Acute Current Visit: Yes Code(s): E11.42 - Type 2 diabetes mellitus with diabetic polyneuropathy (3) Lower extremity edema Status: Chronic Current Visit: Yes Code(s): R60.0 - Localized edema (4) Malnutrition Status: Suspected Current Visit: Yes Code(s): E46 - Unspecified protein-calorie malnutrition (5) PVD (peripheral vascular disease) Status: Suspected Current Visit: Yes Code(s): I73.9 - Peripheral vascular disease, unspecified Type of Wound Date of Service: 04/01/17 Chief Complaint: Chronic non healing ulcer to right posterior heel with fat layer exposed. History of Wound: This 61-year-old diabetic male presents for follow up of chronic nonhealing ulcer to right posterior heel. Patient states on February 21 he believes he stepped on a staple walking down the stairs and had a tear in his skin. This progressed over the following days into an ulcer. Patient has seen Dr. See as well as gone to [facility] wound center in the past. While at [facility], the patient was undergoing every other day dressing changes consisting of medihoney and a dry sterile dressing. The patient has a knee walker and claims to be using it, but not all the time. The also states that the patient has not keeping pressure off of his right foot as much as he should be, even after last weeks visit, although he has gotten better. They feel there has been improvement in the area since starting santyl last week. Patient denies any purulence to the area. The patient denies any feelings of nausea, vomiting, chills, fever at this time. Progress of Wound: Today was the first time I have seen the heel it had a lot of callus around the ulcer with some necrotic areas in the center and covered with a thin film of yellow slough. Maceration around the lateral edges in but skin area was firm to touch not soft or mushy. She has been using Santyl to the area to clean. The wound itself has an odor patient has MRSA and another bug growing and it patient was started on Bactrim but that does not cover the MRSA patient will be started on rifampin daily and metronidazole for the anaerobes. She is to continue the Santyl at this point - Physical Exam Vital Signs Temp Pulse Resp BP 98.9 F 79 18 140/48 H 04/01/17 09:13 04/01/17 09:13 04/01/17 09:13 04/01/17 09:13 General: Oriented x3, Cooperative, Well developed HEENT: Atraumatic, PERRLA Oral: Moist Mucosa Neck: Supple, No JVD Lungs: Clear to auscultation, Normal air movement Cardiovascular: Regular rate, Regular Rhythm Abdomen: Bowel Sounds Present, Soft, Non Tender, No Hepato-splenomegaly Extremities: No clubbing, No edema, - - Right heel B[place] ulcer Wound Measurements and Assessment - Nurse 1 - General Ulcer Measurement Start: 03/24/17 15:21 Freq: Status: Active Protocol: Activity Type Activity Date Activity User E-Sign Co-Sign Detail Recorded Client Recorded Date Recorded By Document 04/01/17 09:13 [id number] 04/01/17 09:18 04/01/17 09:13 Wound Center Nurse 1 [Ulcer Assessment Protocol: .WD.LOC] #2- RT HEEL -Combined with other wound No -Current Size (cm) - Length 2.9 -Current Size (cm) - Width 3.5 -Current Size (cm) - Depth 0.3 -Total Square Cm 10.15 -Photo Taken No -Epithelialization None Present -Tunneling No -Undermining/Tunneling No -Circular Undermining No -Classification - Thickness Full Thickness without Exposed Support Structure -Exudate Amt Large (67-100%) -Exudate Type Purulent -Wound Margin Thickened & Rolled Under -Granulation Amt None Present (0 %) -Granulation Quality N/A -Slough/Fibrin Yes -Necrosis Amt Large (67-100%) -Necrotic Tissue Type Adherent Slough -Structure Exposed Fascia Fat Layer Exposed -Texture (Miguelina-wound Skin Appearance) Callus Friable Localized Edema Scarring -Moisture (Miguelina-wound Skin Appearance Maceration ) -Color (Miguelina-wound Skin Appearance) Erythema -Temperature (Miguelina-wound Skin No Abnormality Appearance) (Pt Warm) -Tenderness on Palpation (Miguelina-wound No Skin Appearance) -Ulcer Cleansing Rinsed/ Irrigated with Saline -Foul Odor after Cleansing No -Anesthetic Used 4% Lidocaine Solution [Edema Assessment] -Lower Limb Edema Present Yes -Right Calf (cm) 36.0 -Right Ankle (cm) 22.5 - Nurse 2 - General Ulcer CM Notes Start: 03/24/17 15:21 Freq: Status: Active Protocol: Activity Type Activity Date Activity User E-Sign Co-Sign Detail Recorded Client Recorded Date Recorded By Document 04/01/17 09:52 MW [id number] 04/01/17 10:11 MW 04/01/17 09:52 Wound Center Nurse 2 [Procedure/Treatment] #2- RT HEEL -Time 09:54 -Correct Patient Yes -Correct Side, Site, Position Yes -Correct Procedure Yes -Procedure Performed Yes -Type of Procedure Debridement -Clinical Debridement Subcutaneous -Post Debridement Size (cm) - Length 2.7 -Post Debridement Size (cm) - Width 3.7 -Post Debridement Size (cm) - Depth 0.3 -Total Square Cm 9.99 -Wound/Ulcer Outcome Not Healed -Ulcer Cleansing Rinsed/ Irrigated with Saline -Foul Odor after Cleansing No -Bioengineered Tissue No -Bleeding Controlled with Pressure -Treatment Response Procedure Tolerated Well [See Physician Procedure note for Specifics] Musculoskeletal: No Tenderness to Palpation of Joints or Extremities Lymphatic: No Cervical, Supraclavicular, or Inguinal Adenopathy Neurological: Cranial nerves II-XII grossly intact, Neuro grossly intact Psych/Mental Status: Normal Affect, Appropriate, Alert and oriented to time, place, person, mood and affect Debridement Note Post-Debridement Measurements/Treatment - Nurse 2 - General Ulcer CM Notes Start: 03/24/17 15:21 Freq: Status: Active Protocol: Activity Type Activity Date Activity User E-Sign Co-Sign Detail Recorded Client Recorded Date Recorded By Document 03/24/17 16:18 DV [id number] 03/24/17 16:23 DV Document 04/01/17 09:52 MW [id number] 04/01/17 10:11 MW 03/24/17 04/01/17 16:18 09:52 Wound Center Nurse 2 #2- RT HEEL -Time 16:19 09:54 -Correct Patient Yes Yes -Correct Side, Site, Position Yes Yes -Correct Procedure Yes Yes -Procedure Performed Yes Yes -Type of Procedure Debridement Debridement -Clinical Debridement Selective Subcutaneous -Post Debridement Size (cm) - Length 2.9 2.7 -Post Debridement Size (cm) - Width 3.7 3.7 -Post Debridement Size (cm) - Depth 0.6 0.3 -Total Square Cm 10.73 9.99 -Wound/Ulcer Outcome Not Healed Not Healed -Ulcer Cleansing Rinsed/ Irrigated with Saline -Foul Odor after Cleansing No -Bioengineered Tissue No -Bleeding Controlled with Pressure -Treatment Response Procedure Tolerated Well Pain Scale: 0-10 Numeric Is Patient Pain Free? Yes Wound debrided: Heel ulcer Laterality: Right Type of Debridement: Excisional debridement Anesthesia Used: 5% Lidocaine Gel Depth: Down to and including healthy tissue, in the subcutaneous layer, to muscle Percentage of wound debrided: 100 Instrument Used: 5mm curette, #15 blade, Forceps, - - Scissors Tissue Removed: Necrotic slough Severity: Fat Layer Exposed Amount of bleeding with debridement: Mild Bleeding Controlled with: Compression and gauze Assessment/Plan Active Problems Lower extremity edema (Chronic) Type 2 diabetes mellitus with diabetic polyneuropathy (Acute) Non-pressure chronic ulcer of right heel and midfoot with unspecified severity (Acute) Assessment: Ulcer to right heel with stable eschar. DM with neuropathy. Malnutrition. Plan: Patient was again examined and evaluated today in Dr. De La Torre's absence. . Santyl was again applied to the wound base followed by Adaptic and 4 x 4's, dry 4 x 4's, Kerlix, and a light Tubigrip. He is to perform daily dressing changes consisting of the previously noted dressing. Continue with Santyl. Repeat x-rays were ordered 3 views of the right foot as well as calcaneal axial, and the results were read as ulcer to the heel with no signs of osteomyelitis noted. LEAS studies were reviewed that were faxed over from [facility], that showed a right LEONOR of 1.29. The report also suggested that a CTA may be warranted to assess vascular flow. Venous duplex scan and reflux study was also performed. The impression stated that 1. Venous duplex scan of both lower extremities is negative for deep venous thrombosis or obvious deep venous insufficiency. 2. Superficial venous insufficiency noted in the right greater saphenous vein to the knee and to the left greater saphenous vein also to the knee with some chronic nonocclusive thrombotic changes elsewhere in the superficial veins. We also obtained notes from Dr. See's office as well as patient's labs, these were reviewed and are in the patient's chart. Hemoglobin A1c 8.2 and pre-albumin 15.8, these values were reviewed with the patient and instructed him the importance of increasing his protein intake and of getting better control of his diabetes, gave him information about [facility] endocrinology practice. It was again stressed to the patient how important is to keep pressure off of his heel at all times. He is to use the knee scooter at all times while walking. While sitting or laying in bed he was instructed to keep the heel floating over the edge of a pillow in order to have absolutely no pressure to the area. I also discussed with the patient the importance of a high protein diet to help supplement wound healing. Patient and the patient's were educated on signs and symptoms of local and systemic infection and were instructed to go to the emergency room immediately should they notice any. A culture was collected during today's [facility] visit. All questions were answered to the patient and the patient's satisfaction. They will follow-up in clinic in 1 week for further evaluation, or sooner if needed. This note was generated with [employer] dictation software. It may contain incorrect words, spelling, and punctuation that were not noted in checking the note before signing.
--- NOTE | 2017-04-01 12:53 | PN.PCM_ITS ---
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 Status: Acute Current Visit: Yes Code(s): L97.419 - Non-pressure chronic ulcer of right heel and midfoot with unspecified severity (2) Type 2 diabetes mellitus with diabetic polyneuropathy Status: Acute Current Visit: Yes Code(s): E11.42 - Type 2 diabetes mellitus with diabetic polyneuropathy (3) Lower extremity edema Status: Chronic Current Visit: Yes Code(s): R60.0 - Localized edema (4) Malnutrition Status: Suspected Current Visit: Yes Code(s): E46 - Unspecified protein- calorie malnutrition (5) PVD (peripheral vascular disease) Status: Suspected Current Visit: Yes Code(s): I73.9 - Peripheral vascular disease, unspecified Type of Wound Date of Service: 04/01/17 Chief Complaint: Chronic non healing ulcer to right posterior heel with fat layer exposed. History of Wound: This 61-year-old diabetic male presents for follow up of chronic nonhealing ulcer to right posterior heel. Patient states on February 21 he believes he stepped on a staple walking down the stairs and had a tear in his skin. This progressed over the following days into an ulcer. Patient has seen Dr. See as well as gone to [facility] wound center in the past. While at [facility], the patient was undergoing every other day dressing changes consisting of medihoney and a dry sterile dressing. The patient has a knee walker and claims to be using it, but not all the time. The also states that the patient has not keeping pressure off of his right foot as much as he should be, even after last weeks visit, although he has gotten better. They feel there has been improvement in the area since starting santyl last week. Patient denies any purulence to the area. The patient denies any feelings of nausea, vomiting, chills, fever at this time. Progress of Wound: Today was the first time I have seen the heel it had a lot of callus around the ulcer with some necrotic areas in the center and covered with a thin film of yellow slough. Maceration around the lateral edges in but skin area was firm to touch not soft or mushy. She has been using Santyl to the area to clean. The wound itself has an odor patient has MRSA and another bug growing and it patient was started on Bactrim but that does not cover the MRSA patient will be started on rifampin daily and metronidazole for the anaerobes. She is to continue the Santyl at this point - Physical Exam Vital Signs Temp Pulse Resp BP 98.9 F 79 18 140/48 H 04/01/17 09:13 04/01/17 09:13 04/01/17 09:13 04/01/17 09:13 General: Oriented x3, Cooperative, Well developed HEENT: Atraumatic, PERRLA Oral: Moist Mucosa Neck: Supple, No JVD Lungs: Clear to auscultation, Normal air movement Cardiovascular: Regular rate, Regular Rhythm Abdomen: Bowel Sounds Present, Soft, Non Tender, No Hepato-splenomegaly Extremities: No clubbing, No edema, - - Right heel Bittick ulcer Wound Measurements and Assessment - Nurse 1 - General Ulcer Measurement Start: 03/24/17 15:21 Freq: Status: Active Protocol: Activity Type Activity Date Activity User E-Sign Co-Sign Detail Recorded Client Recorded Date Recorded By Document 04/01/17 09:13 [id number] 04/01/17 09:18 04/01/17 09:13 Wound Center Nurse 1 [Ulcer Assessment Protocol: .WD.LOC] #2- RT HEEL -Combined with other wound No -Current Size (cm) - Length 2.9 -Current Size (cm) - Width 3.5 -Current Size (cm) - Depth 0.3 -Total Square Cm 10.15 -Photo Taken No -Epithelialization None Present -Tunneling No -Undermining/Tunneling No -Circular Undermining No -Classification - Thickness Full Thickness without Exposed Support Structure -Exudate Amt Large (67-100%) -Exudate Type Purulent -Wound Margin Thickened & Rolled Under -Granulation Amt None Present (0 %) -Granulation Quality N/A -Slough/Fibrin Yes -Necrosis Amt Large (67-100%) -Necrotic Tissue Type Adherent Slough -Structure Exposed Fascia Fat Layer Exposed -Texture (Miguelina-wound Skin Appearance) Callus Friable Localized Edema Scarring -Moisture (Miguelina-wound Skin Appearance Maceration ) -Color (Miguelina-wound Skin Appearance) Erythema -Temperature (Miguelina-wound Skin No Abnormality Appearance) (Pt Warm) -Tenderness on Palpation (Miguelina-wound No Skin Appearance) -Ulcer Cleansing Rinsed/ Irrigated with Saline -Foul Odor after Cleansing No -Anesthetic Used 4% Lidocaine Solution [Edema Assessment] -Lower Limb Edema Present Yes -Right Calf (cm) 36.0 -Right Ankle (cm) 22.5 - Nurse 2 - General Ulcer CM Notes Start: 03/24/17 15:21 Freq: Status: Active Protocol: Activity Type Activity Date Activity User E-Sign Co-Sign Detail Recorded Client Recorded Date Recorded By Document 04/01/17 09:52 MW [id number] 04/01/17 10:11 MW 04/01/17 09:52 Wound Center Nurse 2 [Procedure/Treatment] #2- RT HEEL -Time 09:54 -Correct Patient Yes -Correct Side, Site, Position Yes -Correct Procedure Yes -Procedure Performed Yes -Type of Procedure Debridement -Clinical Debridement Subcutaneous -Post Debridement Size (cm) - Length 2.7 -Post Debridement Size (cm) - Width 3.7 -Post Debridement Size (cm) - Depth 0.3 -Total Square Cm 9.99 -Wound/Ulcer Outcome Not Healed -Ulcer Cleansing Rinsed/ Irrigated with Saline -Foul Odor after Cleansing No -Bioengineered Tissue No -Bleeding Controlled with Pressure -Treatment Response Procedure Tolerated Well [See Physician Procedure note for Specifics] Musculoskeletal: No Tenderness to Palpation of Joints or Extremities Lymphatic: No Cervical, Supraclavicular, or Inguinal Adenopathy Neurological: Cranial nerves II-XII grossly intact, Neuro grossly intact Psych/Mental Status: Normal Affect, Appropriate, Alert and oriented to time, place, person, mood and affect Debridement Note Post-Debridement Measurements/Treatment - Nurse 2 - General Ulcer CM Notes Start: 03/24/17 15:21 Freq: Status: Active Protocol: Activity Type Activity Date Activity User E-Sign Co-Sign Detail Recorded Client Recorded Date Recorded By Document 03/24/17 16:18 DV [id number] 03/24/17 16:23 DV Document 04/01/17 09:52 MW [id number] 04/01/17 10:11 MW 03/24/17 04/01/17 16:18 09:52 Wound Center Nurse 2 #2- RT HEEL -Time 16:19 09:54 -Correct Patient Yes Yes -Correct Side, Site, Position Yes Yes -Correct Procedure Yes Yes -Procedure Performed Yes Yes -Type of Procedure Debridement Debridement -Clinical Debridement Selective Subcutaneous -Post Debridement Size (cm) - Length 2.9 2.7 -Post Debridement Size (cm) - Width 3.7 3.7 -Post Debridement Size (cm) - Depth 0.6 0.3 -Total Square Cm 10.73 9.99 -Wound/Ulcer Outcome Not Healed Not Healed -Ulcer Cleansing Rinsed/ Irrigated with Saline -Foul Odor after Cleansing No -Bioengineered Tissue No -Bleeding Controlled with Pressure -Treatment Response Procedure Tolerated Well Pain Scale: 0-10 Numeric Is Patient Pain Free? Yes Wound debrided: Heel ulcer Laterality: Right Type of Debridement: Excisional debridement Anesthesia Used: 5% Lidocaine Gel Depth: Down to and including healthy tissue, in the subcutaneous layer, to muscle Percentage of wound debrided: 100 Instrument Used: 5mm curette, #15 blade, Forceps, - - Scissors Tissue Removed: Necrotic slough Severity: Fat Layer Exposed Amount of bleeding with debridement: Mild Bleeding Controlled with: Compression and gauze Assessment/Plan Active Problems Lower extremity edema (Chronic) Type 2 diabetes mellitus with diabetic polyneuropathy (Acute) Non-pressure chronic ulcer of right heel and midfoot with unspecified severity ( Acute) Assessment: Ulcer to right heel with stable eschar. DM with neuropathy. Malnutrition. Plan: Patient was again examined and evaluated today in Dr. De La Torre's absence. . Santyl was again applied to the wound base followed by Adaptic and 4 x 4's, dry 4 x 4's, Kerlix, and a light Tubigrip. He is to perform daily dressing changes consisting of the previously noted dressing. Continue with Santyl. Repeat x- rays were ordered 3 views of the right foot as well as calcaneal axial, and the results were read as ulcer to the heel with no signs of osteomyelitis noted. LEAS studies were reviewed that were faxed over from [facility], that showed a right LEONOR of 1.29. The report also suggested that a CTA may be warranted to assess vascular flow. Venous duplex scan and reflux study was also performed. The impression stated that 1. Venous duplex scan of both lower extremities is negative for deep venous thrombosis or obvious deep venous insufficiency. 2. Superficial venous insufficiency noted in the right greater saphenous vein to the knee and to the left greater saphenous vein also to the knee with some chronic nonocclusive thrombotic changes elsewhere in the superficial veins. We also obtained notes from Dr. See's office as well as patient's labs, these were reviewed and are in the patient's chart. Hemoglobin A1c 8.2 and pre- albumin 15.8, these values were reviewed with the patient and instructed him the importance of increasing his protein intake and of getting better control of his diabetes, gave him information about [facility] endocrinology practice. It was again stressed to the patient how important is to keep pressure off of his heel at all times. He is to use the knee scooter at all times while walking. While sitting or laying in bed he was instructed to keep the heel floating over the edge of a pillow in order to have absolutely no pressure to the area. I also discussed with the patient the importance of a high protein diet to help supplement wound healing. Patient and the patient's were educated on signs and symptoms of local and systemic infection and were instructed to go to the emergency room immediately should they notice any. A culture was collected during today's [facility] visit. All questions were answered to the patient and the patient's satisfaction. They will follow-up in clinic in 1 week for further evaluation, or sooner if needed. This note was generated with [employer] dictation software. It may contain incorrect words, spelling, and punctuation that were not noted in checking the note before signing.
[2017-04-07 10:32] VITALS: BP 140/61; PULSE 95; RESP 16; TEMP 37; BMI 32.7
--- NOTE | 2017-04-07 13:07 | PCM.WC.PN ---
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 Status: Acute Current Visit: Yes Code(s): L97.419 - Non-pressure chronic ulcer of right heel and midfoot with unspecified severity (2) Type 2 diabetes mellitus with diabetic polyneuropathy Status: Acute Current Visit: Yes Code(s): E11.42 - Type 2 diabetes mellitus with diabetic polyneuropathy (3) Lower extremity edema Status: Chronic Current Visit: Yes Code(s): R60.0 - Localized edema (4) Malnutrition Status: Suspected Current Visit: Yes Code(s): E46 - Unspecified protein-calorie malnutrition (5) PVD (peripheral vascular disease) Status: Suspected Current Visit: Yes Code(s): I73.9 - Peripheral vascular disease, unspecified Type of Wound Date of Service: 04/07/17 Chief Complaint: Chronic non healing ulcer to right posterior heel with fat layer exposed. History of Wound: This 61-year-old diabetic male presents for follow up of chronic nonhealing ulcer to right posterior heel. Patient states on February 21 he believes he stepped on a staple walking down the stairs and had a tear in his skin. This progressed over the following days into an ulcer. Patient has seen Dr. See as well as gone to [facility] wound center in the past. While at [facility], the patient was undergoing every other day dressing changes consisting of medihoney and a dry sterile dressing. The patient has a knee walker and claims to be using it, but not all the time. The also states that the patient has not keeping pressure off of his right foot as much as he should be, even after last weeks visit, although he has gotten better. Patient denies any purulence to the area. The patient denies any feelings of nausea, vomiting, chills, fever at this time. Progress of Wound: No significant improvement since last weeks debridment. The ulcer has some necrotic areas in the center and covered with a thin film of yellow slough. The hyperkeratotic rim has been removed since last week. Improved area of maceration around the lateral edges in but skin area was firm to touch not soft. They have continued using Santyl to the area. No odor appreciated today. Patient has MRSA and another bug growing and it patient was started on Bactrim but that does not cover the MRSA. Patient has also been on rifampin daily and metronidazole for the anaerobes. - Physical Exam Vital Signs Temp Pulse Resp BP 98.6 F 95 16 140/61 H 04/07/17 10:32 04/07/17 10:32 04/07/17 10:32 04/07/17 10:32 General: Alert, Oriented x3, Cooperative, No apparent distress Extremities: Capillary Refill Less than 3 Seconds, No Calf Tenderness - Negative Wojciech and Guerrero sign bilateral, Diminished Peripheral Pulses - DP pulses faintly palpable bilateral. PT pulses nonpalpable bilateral due to edema, Edema - Bilateral lower extremity Skin: Ulcer/ Wound - Chronic nonpressure nonhealing ulcer to plantar/posterior aspect of the right heel. Ulcer dimensions noted below. Slight hyperkeratotic rim appreciated. Ulcer base is majority of adherent slough and fibrous tissue. Slight maceration appreciated around parts of the ulcer. Some necrotic tissue also appreciated. Slight erythema appreciated around the ulcer, however no cellulitis or extending cellulitis is appreciated, or increase in warmth. No purulence, no malodor. No fluctuance. Very slight bogginess appreciated to the center of the ulcer. Small area of probing to the center of the ulcer, but does not probe to bone. Wound Measurements and Assessment SANTHOSH - Nurse 1 - General Ulcer Measurement Start: 03/24/17 15:21 Freq: Status: Active Protocol: Activity Type Activity Date Activity User E-Sign Co-Sign Detail Recorded Client Recorded Date Recorded By Document 04/07/17 10:32 [facility] [id number] 04/07/17 10:44 [facility] 04/07/17 10:32 Wound Center Nurse 1 [Ulcer Assessment Protocol: SANTHOSH.WD.LOC] #2- RT HEEL -Combined with other wound No -Current Size (cm) - Length 3.5 -Current Size (cm) - Width 3.4 -Current Size (cm) - Depth 0.1 -Total Square Cm 11.90 -Date of Last Picture (Recall this 04/07/17 field) -Photo Taken Yes -Epithelialization None Present -Tunneling No -Undermining/Tunneling No -Exudate Amt Small (1-33%) -Exudate Type Serosanguineous -Wound Margin Distinct, Outline Attached -Granulation Amt None Present (0 %) -Slough/Fibrin Yes -Necrosis Amt Large (67-100%) -Necrotic Tissue Type Adherent Slough -Structure Exposed N/A -Texture (Miguelina-wound Skin Appearance) Localized Edema Scarring -Moisture (Miguelina-wound Skin Appearance Dry/Scaly ) -Color (Miguelina-wound Skin Appearance) Erythema -Temperature (Miguelina-wound Skin No Abnormality Appearance) (Pt Warm) -Tenderness on Palpation (Miguelina-wound Yes Skin Appearance) -Ulcer Cleansing Rinsed/ Irrigated with Saline -Foul Odor after Cleansing No -Anesthetic Used 4% Lidocaine Solution [Edema Assessment] -Lower Limb Edema Present No -Right Calf (cm) 35.9 -Right Ankle (cm) 21.8 WC - Nurse 2 - General Ulcer CM Notes Start: 03/24/17 15:21 Freq: Status: Active Protocol: Activity Type Activity Date Activity User E-Sign Co-Sign Detail Recorded Client Recorded Date Recorded By Document 04/07/17 10:55 MW [id number] 04/07/17 11:12 MW 04/07/17 10:55 Wound Center Nurse 2 [Procedure/Treatment] #2- RT HEEL -Time 10:55 -Correct Patient Yes -Correct Side, Site, Position Yes -Correct Procedure Yes -Procedure Performed Yes -Type of Procedure Debridement -Clinical Debridement Subcutaneous -Post Debridement Size (cm) - Length 2.9 -Post Debridement Size (cm) - Width 3.5 -Post Debridement Size (cm) - Depth 0.3 -Total Square Cm 10.15 -Wound/Ulcer Outcome Not Healed -Ulcer Cleansing Rinsed/ Irrigated with Saline -Foul Odor after Cleansing No -Bioengineered Tissue No -Bleeding Controlled with Pressure -Treatment Response Procedure Tolerated Well [See Physician Procedure note for Specifics] Pain Scale: 0-10 Numeric [Pain] -Is Patient Pain Free? Yes Musculoskeletal: - - Decreased ankle joint dorsiflexion bilateral Neurological: - - Epicritic sensation grossly absent from bilateral feet. Psych/Mental Status: Normal Affect, Appropriate Debridement Note Post-Debridement Measurements/Treatment WC - Nurse 2 - General Ulcer CM Notes Start: 03/24/17 15:21 Freq: Status: Active Protocol: Activity Type Activity Date Activity User E-Sign Co-Sign Detail Recorded Client Recorded Date Recorded By Document 03/24/17 16:18 DV [id number] 03/24/17 16:23 DV Document 04/01/17 09:52 MW [id number] 04/01/17 10:11 MW Document 04/07/17 10:55 MW [id number] 04/07/17 11:12 MW 03/24/17 04/01/17 04/07/17 16:18 09:52 10:55 Wound Center Nurse 2 #2- RT HEEL -Time 16:19 09:54 10:55 -Correct Patient Yes Yes Yes -Correct Side, Site, Position Yes Yes Yes -Correct Procedure Yes Yes Yes -Procedure Performed Yes Yes Yes -Type of Procedure Debridement Debridement Debridement -Clinical Debridement Selective Subcutaneous Subcutaneous -Post Debridement Size (cm) - Length 2.9 2.7 2.9 -Post Debridement Size (cm) - Width 3.7 3.7 3.5 -Post Debridement Size (cm) - Depth 0.6 0.3 0.3 -Total Square Cm 10.73 9.99 10.15 -Wound/Ulcer Outcome Not Healed Not Healed Not Healed -Ulcer Cleansing Rinsed/ Rinsed/ Irrigated with Irrigated with Saline Saline -Foul Odor after Cleansing No No -Bioengineered Tissue No No -Bleeding Controlled with Pressure Pressure -Treatment Response Procedure Procedure Tolerated Well Tolerated Well Pain Scale: 0-10 Numeric Is Patient Pain Free? Yes Yes Wound debrided: Right posterior plantar heel Laterality: Right Wound Grade/Stage: 2 Type of Debridement: Excisional debridement Anesthesia Used: 4% Lidocaine Solution Depth: in the subcutaneous layer Percentage of wound debrided: 100 Instrument Used: #15 blade, Forceps Tissue Removed: Adherent slough and fibrous tissue Severity: Fat Layer Exposed Amount of bleeding with debridement: Mild Bleeding Controlled with: Pressure Patient tolerated procedure well Assessment/Plan Active Problems Lower extremity edema (Chronic) Type 2 diabetes mellitus with diabetic polyneuropathy (Acute) Non-pressure chronic ulcer of right heel and midfoot with unspecified severity (Acute) Assessment: Ulcer to right heel with stable eschar. DM with neuropathy. Malnutrition. Plan: Patient was again examined and evaluated. No significant improvment in ulcer since last week. Slightly more slough and very slight boggyness appreciated to the ulcer. Debridement was completed as described in the clinical panel. Following debridement, Santyl was applied followed by a dry sterile dressing. Patient is to have daily dressing changes consisting of the above dressing. Due to slight maceration and boggyness, the patient was instructed to discontinue use of adaptic and saline moistened gauze. Patient to continue with high protein diet and it was again stressed how important keeping blood sugar under control is to healing process. It was also again stressed to the patient how important is to keep pressure off of his heel at all times. He is to use the knee scooter at all times while walking. While sitting or laying in bed he was instructed to keep the heel floating over the edge of a pillow in order to have absolutely no pressure to the area. Patient still has CAM boot in the room that I told him not to wear because of increased pressure. The also informs me that he does occasionally put pressure on his heel as well as wears the boot at home. I again stressed that while the patient is at home he is to be non weight bearing at all times with his foot elevated and the heel floated. Patient and the patient's were educated on signs and symptoms of local and systemic infection and were instructed to go to the emergency room immediately should they notice any. Patient is to continue all prescribed antibiotics until they are gone. All questions were answered to the patient and the patient's satisfaction. At this time, I am concerned with the patient's compliance. They will follow-up in clinic in 1 week for further evaluation, or sooner if needed. This note was generated with [employer] dictation software. It may contain incorrect words, spelling, and punctuation that were not noted in checking the note before signing.
--- NOTE | 2017-04-07 13:17 | PN.PCM_ITS ---
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 Status: Acute Current Visit: Yes Code(s): L97.419 - Non-pressure chronic ulcer of right heel and midfoot with unspecified severity (2) Type 2 diabetes mellitus with diabetic polyneuropathy Status: Acute Current Visit: Yes Code(s): E11.42 - Type 2 diabetes mellitus with diabetic polyneuropathy (3) Lower extremity edema Status: Chronic Current Visit: Yes Code(s): R60.0 - Localized edema (4) Malnutrition Status: Suspected Current Visit: Yes Code(s): E46 - Unspecified protein- calorie malnutrition (5) PVD (peripheral vascular disease) Status: Suspected Current Visit: Yes Code(s): I73.9 - Peripheral vascular disease, unspecified Type of Wound Date of Service: 04/07/17 Chief Complaint: Chronic non healing ulcer to right posterior heel with fat layer exposed. History of Wound: This 61-year-old diabetic male presents for follow up of chronic nonhealing ulcer to right posterior heel. Patient states on February 21 he believes he stepped on a staple walking down the stairs and had a tear in his skin. This progressed over the following days into an ulcer. Patient has seen Dr. See as well as gone to [facility] wound center in the past. While at [facility], the patient was undergoing every other day dressing changes consisting of medihoney and a dry sterile dressing. The patient has a knee walker and claims to be using it, but not all the time. The also states that the patient has not keeping pressure off of his right foot as much as he should be, even after last weeks visit, although he has gotten better. Patient denies any purulence to the area. The patient denies any feelings of nausea, vomiting, chills, fever at this time. Progress of Wound: No significant improvement since last weeks debridment. The ulcer has some necrotic areas in the center and covered with a thin film of yellow slough. The hyperkeratotic rim has been removed since last week. Improved area of maceration around the lateral edges in but skin area was firm to touch not soft. They have continued using Santyl to the area. No odor appreciated today. Patient has MRSA and another bug growing and it patient was started on Bactrim but that does not cover the MRSA. Patient has also been on rifampin daily and metronidazole for the anaerobes. - Physical Exam Vital Signs Temp Pulse Resp BP 98.6 F 95 16 140/61 H 04/07/17 10:32 04/07/17 10:32 04/07/17 10:32 04/07/17 10:32 General: Alert, Oriented x3, Cooperative, No apparent distress Extremities: Capillary Refill Less than 3 Seconds, No Calf Tenderness - Negative Wojciech and Guerrero sign bilateral, Diminished Peripheral Pulses - DP pulses faintly palpable bilateral. PT pulses nonpalpable bilateral due to edema , Edema - Bilateral lower extremity Skin: Ulcer/ Wound - Chronic nonpressure nonhealing ulcer to plantar/posterior aspect of the right heel. Ulcer dimensions noted below. Slight hyperkeratotic rim appreciated. Ulcer base is majority of adherent slough and fibrous tissue. Slight maceration appreciated around parts of the ulcer. Some necrotic tissue also appreciated. Slight erythema appreciated around the ulcer, however no cellulitis or extending cellulitis is appreciated, or increase in warmth. No purulence, no malodor. No fluctuance. Very slight bogginess appreciated to the center of the ulcer. Small area of probing to the center of the ulcer, but does not probe to bone. Wound Measurements and Assessment SANTHOSH - Nurse 1 - General Ulcer Measurement Start: 03/24/17 15:21 Freq: Status: Active Protocol: Activity Type Activity Date Activity User E-Sign Co-Sign Detail Recorded Client Recorded Date Recorded By Document 04/07/17 10:32 [facility] [id number] 04/07/17 10:44 [facility] 04/07/17 10:32 Wound Center Nurse 1 [Ulcer Assessment Protocol: SANTHOSH.WD.LOC] #2- RT HEEL -Combined with other wound No -Current Size (cm) - Length 3.5 -Current Size (cm) - Width 3.4 -Current Size (cm) - Depth 0.1 -Total Square Cm 11.90 -Date of Last Picture (Recall this 04/07/17 field) -Photo Taken Yes -Epithelialization None Present -Tunneling No -Undermining/Tunneling No -Exudate Amt Small (1-33%) -Exudate Type Serosanguineous -Wound Margin Distinct, Outline Attached -Granulation Amt None Present (0 %) -Slough/Fibrin Yes -Necrosis Amt Large (67-100%) -Necrotic Tissue Type Adherent Slough -Structure Exposed N/A -Texture (Miguelina-wound Skin Appearance) Localized Edema Scarring -Moisture (Miguelina-wound Skin Appearance Dry/Scaly ) -Color (Miguelina-wound Skin Appearance) Erythema -Temperature (Miguelina-wound Skin No Abnormality Appearance) (Pt Warm) -Tenderness on Palpation (Miguelina-wound Yes Skin Appearance) -Ulcer Cleansing Rinsed/ Irrigated with Saline -Foul Odor after Cleansing No -Anesthetic Used 4% Lidocaine Solution [Edema Assessment] -Lower Limb Edema Present No -Right Calf (cm) 35.9 -Right Ankle (cm) 21.8 WC - Nurse 2 - General Ulcer CM Notes Start: 03/24/17 15:21 Freq: Status: Active Protocol: Activity Type Activity Date Activity User E-Sign Co-Sign Detail Recorded Client Recorded Date Recorded By Document 04/07/17 10:55 MW [id number] 04/07/17 11:12 MW 04/07/17 10:55 Wound Center Nurse 2 [Procedure/Treatment] #2- RT HEEL -Time 10:55 -Correct Patient Yes -Correct Side, Site, Position Yes -Correct Procedure Yes -Procedure Performed Yes -Type of Procedure Debridement -Clinical Debridement Subcutaneous -Post Debridement Size (cm) - Length 2.9 -Post Debridement Size (cm) - Width 3.5 -Post Debridement Size (cm) - Depth 0.3 -Total Square Cm 10.15 -Wound/Ulcer Outcome Not Healed -Ulcer Cleansing Rinsed/ Irrigated with Saline -Foul Odor after Cleansing No -Bioengineered Tissue No -Bleeding Controlled with Pressure -Treatment Response Procedure Tolerated Well [See Physician Procedure note for Specifics] Pain Scale: 0-10 Numeric [Pain] -Is Patient Pain Free? Yes Musculoskeletal: - - Decreased ankle joint dorsiflexion bilateral Neurological: - - Epicritic sensation grossly absent from bilateral feet. Psych/Mental Status: Normal Affect, Appropriate Debridement Note Post-Debridement Measurements/Treatment WC - Nurse 2 - General Ulcer CM Notes Start: 03/24/17 15:21 Freq: Status: Active Protocol: Activity Type Activity Date Activity User E-Sign Co-Sign Detail Recorded Client Recorded Date Recorded By Document 03/24/17 16:18 DV [id number] 03/24/17 16:23 DV Document 04/01/17 09:52 MW [id number] 04/01/17 10:11 MW Document 04/07/17 10:55 MW [id number] 04/07/17 11:12 MW 03/24/17 04/01/17 04/07/17 16:18 09:52 10:55 Wound Center Nurse 2 #2- RT HEEL -Time 16:19 09:54 10:55 -Correct Patient Yes Yes Yes -Correct Side, Site, Position Yes Yes Yes -Correct Procedure Yes Yes Yes -Procedure Performed Yes Yes Yes -Type of Procedure Debridement Debridement Debridement -Clinical Debridement Selective Subcutaneous Subcutaneous -Post Debridement Size (cm) - Length 2.9 2.7 2.9 -Post Debridement Size (cm) - Width 3.7 3.7 3.5 -Post Debridement Size (cm) - Depth 0.6 0.3 0.3 -Total Square Cm 10.73 9.99 10.15 -Wound/Ulcer Outcome Not Healed Not Healed Not Healed -Ulcer Cleansing Rinsed/ Rinsed/ Irrigated with Irrigated with Saline Saline -Foul Odor after Cleansing No No -Bioengineered Tissue No No -Bleeding Controlled with Pressure Pressure -Treatment Response Procedure Procedure Tolerated Well Tolerated Well Pain Scale: 0-10 Numeric Is Patient Pain Free? Yes Yes Wound debrided: Right posterior plantar heel Laterality: Right Wound Grade/Stage: 2 Type of Debridement: Excisional debridement Anesthesia Used: 4% Lidocaine Solution Depth: in the subcutaneous layer Percentage of wound debrided: 100 Instrument Used: #15 blade, Forceps Tissue Removed: Adherent slough and fibrous tissue Severity: Fat Layer Exposed Amount of bleeding with debridement: Mild Bleeding Controlled with: Pressure Patient tolerated procedure well Assessment/Plan Active Problems Lower extremity edema (Chronic) Type 2 diabetes mellitus with diabetic polyneuropathy (Acute) Non-pressure chronic ulcer of right heel and midfoot with unspecified severity ( Acute) Assessment: Ulcer to right heel with stable eschar. DM with neuropathy. Malnutrition. Plan: Patient was again examined and evaluated. No significant improvment in ulcer since last week. Slightly more slough and very slight boggyness appreciated to the ulcer. Debridement was completed as described in the clinical panel. Following debridement, Santyl was applied followed by a dry sterile dressing. Patient is to have daily dressing changes consisting of the above dressing. Due to slight maceration and boggyness, the patient was instructed to discontinue use of adaptic and saline moistened gauze. Patient to continue with high protein diet and it was again stressed how important keeping blood sugar under control is to healing process. It was also again stressed to the patient how important is to keep pressure off of his heel at all times. He is to use the knee scooter at all times while walking. While sitting or laying in bed he was instructed to keep the heel floating over the edge of a pillow in order to have absolutely no pressure to the area. Patient still has CAM boot in the room that I told him not to wear because of increased pressure. The also informs me that he does occasionally put pressure on his heel as well as wears the boot at home. I again stressed that while the patient is at home he is to be non weight bearing at all times with his foot elevated and the heel floated. Patient and the patient's were educated on signs and symptoms of local and systemic infection and were instructed to go to the emergency room immediately should they notice any. Patient is to continue all prescribed antibiotics until they are gone. All questions were answered to the patient and the patient's satisfaction. At this time, I am concerned with the patient' s compliance. They will follow-up in clinic in 1 week for further evaluation, or sooner if needed. This note was generated with [employer] dictation software. It may contain incorrect words, spelling, and punctuation that were not noted in checking the note before signing.
[2017-04-14 10:29] VITALS: BP 123/80; PULSE 85; RESP 18; TEMP 36.4; BMI 32.7
--- NOTE | 2017-04-14 12:22 | PCM.WC.PN ---
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 Status: Acute Current Visit: Yes Code(s): L97.419 - Non-pressure chronic ulcer of right heel and midfoot with unspecified severity (2) Type 2 diabetes mellitus with diabetic polyneuropathy Status: Acute Current Visit: Yes Code(s): E11.42 - Type 2 diabetes mellitus with diabetic polyneuropathy (3) Lower extremity edema Status: Chronic Current Visit: Yes Code(s): R60.0 - Localized edema (4) Malnutrition Status: Suspected Current Visit: Yes Code(s): E46 - Unspecified protein-calorie malnutrition (5) PVD (peripheral vascular disease) Status: Suspected Current Visit: Yes Code(s): I73.9 - Peripheral vascular disease, unspecified Type of Wound Date of Service: 04/14/17 Chief Complaint: Chronic non healing ulcer to right posterior heel with fat layer exposed. History of Wound: This 61-year-old diabetic male presents for follow up of chronic nonhealing ulcer to right posterior heel. Patient states on February 21 he believes he stepped on a staple walking down the stairs and had a tear in his skin. This progressed over the following days into an ulcer. Patient has seen Dr. See as well as gone to [facility] wound center in the past. While at [facility], the patient was undergoing every other day dressing changes consisting of medihoney and a dry sterile dressing. The patient has a knee walker and claims to be using it, but not all the time. The also states that the patient has not keeping pressure off of his right foot as much as he should be, even after last weeks visit, although he has gotten better. Patient denies any purulence to the area. The patient denies any feelings of nausea, vomiting, chills, fever at this time. Progress of Wound: No change in ulcer since last week. The ulcer is still covered by thick adherent slough. There is slight hyperkeratotic rim surrounding ulcer still today. Improved area of maceration around the lateral edges in but skin area was firm to touch not soft. The patient and his have continued using Santyl to the area. No odor appreciated today. Patient has MRSA and another bug growing and it patient was started on Bactrim but that does not cover the MRSA. Patient has also been on rifampin daily and metronidazole for the anaerobes. Patient has completed bactrim and says he has two days left of other antibiotics. He again presents to clinic today wearing his CAM boot. - Physical Exam Vital Signs Temp Pulse Resp BP 97.5 F L 85 18 123/80 H 04/14/17 10:29 04/14/17 10:29 04/14/17 10:29 04/14/17 10:29 General: Alert, Oriented x3, Cooperative, No apparent distress Extremities: Capillary Refill Less than 3 Seconds, No Calf Tenderness - negative stephan and iverson sign, Diminished Peripheral Pulses - DP pulses faintly palpable and PT pulses non palpable due to slight edema, Edema - slight lower extremity Skin: Ulcer/ Wound - Chronic nonpressure nonhealing ulcer to plantar/posterior aspect of the right heel. Ulcer dimensions noted below. Slight hyperkeratotic rim appreciated. Ulcer base is majority of thick adherent slough and fibrous tissue. Slight maceration appreciated around parts of the ulcer. Some necrotic tissue also appreciated. Improved erythema appreciated around the ulcer, and continues to be no cellulitis or extending cellulitis appreciated. No increase in warmth. No purulence, no malodor. No fluctuance. Small area of probing to the center of the ulcer, but does not probe to bone. Area probes slightly deeper this week and is getting closer to bone. Wound Measurements and Assessment WC - Nurse 1 - General Ulcer Measurement Start: 03/24/17 15:21 Freq: Status: Active Protocol: Activity Type Activity Date Activity User E-Sign Co-Sign Detail Recorded Client Recorded Date Recorded By Document 04/14/17 10:29 [facility] [id number] 04/14/17 10:35 [facility] 04/14/17 10:29 Wound Center Nurse 1 [Ulcer Assessment] #2- RT HEEL -Combined with other wound No -Current Size (cm) - Length 2.9 -Current Size (cm) - Width 3.4 -Current Size (cm) - Depth 0.1 -Total Square Cm 9.86 -Photo Taken No -Epithelialization None Present -Tunneling No -Undermining/Tunneling No -Exudate Amt Small (1-33%) -Exudate Type Serous -Wound Margin Distinct, Outline Attached -Granulation Amt None Present (0 %) -Slough/Fibrin Yes -Necrosis Amt Large (67-100%) -Necrotic Tissue Type Adherent Slough -Structure Exposed N/A -Texture (Miguelina-wound Skin Appearance) Callus Scarring -Moisture (Miguelina-wound Skin Appearance Dry/Scaly ) -Color (Miguelina-wound Skin Appearance) Erythema -Temperature (Miguelina-wound Skin No Abnormality Appearance) (Pt Warm) -Tenderness on Palpation (Miguelina-wound No Skin Appearance) -Ulcer Cleansing Rinsed/ Irrigated with Saline -Foul Odor after Cleansing No -Anesthetic Used 4% Lidocaine Solution [Edema Assessment] -Lower Limb Edema Present No -Right Calf (cm) 35.7 -Right Ankle (cm) 21.9 WC - Nurse 2 - General Ulcer CM Notes Start: 03/24/17 15:21 Freq: Status: Active Protocol: Activity Type Activity Date Activity User E-Sign Co-Sign Detail Recorded Client Recorded Date Recorded By Document 04/14/17 10:59 MW [id number] 04/14/17 11:24 MW 04/14/17 10:59 Wound Center Nurse 2 [Procedure/Treatment] #2- RT HEEL -Time 10:59 -Correct Patient Yes -Correct Side, Site, Position Yes -Correct Procedure Yes -Procedure Performed Yes -Type of Procedure Debridement -Clinical Debridement Subcutaneous -Post Debridement Size (cm) - Length 3.0 -Post Debridement Size (cm) - Width 3.5 -Post Debridement Size (cm) - Depth 1.0 -Total Square Cm 10.50 -Wound/Ulcer Outcome Amputation -Ulcer Cleansing Rinsed/ Irrigated with Saline -Foul Odor after Cleansing No -Bioengineered Tissue No -Bleeding Controlled with Pressure -Treatment Response Procedure Tolerated Well [See Physician Procedure note for Specifics] Pain Scale: 0-10 Numeric [Pain] -Is Patient Pain Free? Yes Musculoskeletal: - - decreased ankle joint dorsiflexion Neurological: - - epicritic sensation grossly absent from feet Psych/Mental Status: Normal Affect, Appropriate Debridement Note Post-Debridement Measurements/Treatment WC - Nurse 2 - General Ulcer CM Notes Start: 03/24/17 15:21 Freq: Status: Active Protocol: Activity Type Activity Date Activity User E-Sign Co-Sign Detail Recorded Client Recorded Date Recorded By Document 03/24/17 16:18 DV [id number] 03/24/17 16:23 DV Document 04/01/17 09:52 MW [id number] 04/01/17 10:11 MW Document 04/07/17 10:55 MW [id number] 04/07/17 11:12 MW Document 04/14/17 10:59 MW [id number] 04/14/17 11:24 MW 03/24/17 04/01/17 04/07/17 16:18 09:52 10:55 Wound Center Nurse 2 #2- RT HEEL -Time 16:19 09:54 10:55 -Correct Patient Yes Yes Yes -Correct Side, Site, Position Yes Yes Yes -Correct Procedure Yes Yes Yes -Procedure Performed Yes Yes Yes -Type of Procedure Debridement Debridement Debridement -Clinical Debridement Selective Subcutaneous Subcutaneous -Post Debridement Size (cm) - Length 2.9 2.7 2.9 -Post Debridement Size (cm) - Width 3.7 3.7 3.5 -Post Debridement Size (cm) - Depth 0.6 0.3 0.3 -Total Square Cm 10.73 9.99 10.15 -Wound/Ulcer Outcome Not Healed Not Healed Not Healed -Ulcer Cleansing Rinsed/ Rinsed/ Irrigated with Irrigated with Saline Saline -Foul Odor after Cleansing No No -Bioengineered Tissue No No -Bleeding Controlled with Pressure Pressure -Treatment Response Procedure Procedure Tolerated Well Tolerated Well Pain Scale: 0-10 Numeric Is Patient Pain Free? Yes Yes 04/14/17 10:59 Wound Center Nurse 2 #2- RT HEEL -Time 10:59 -Correct Patient Yes -Correct Side, Site, Position Yes -Correct Procedure Yes -Procedure Performed Yes -Type of Procedure Debridement -Clinical Debridement Subcutaneous -Post Debridement Size (cm) - Length 3.0 -Post Debridement Size (cm) - Width 3.5 -Post Debridement Size (cm) - Depth 1.0 -Total Square Cm 10.50 -Wound/Ulcer Outcome Amputation -Ulcer Cleansing Rinsed/ Irrigated with Saline -Foul Odor after Cleansing No -Bioengineered Tissue No -Bleeding Controlled with Pressure -Treatment Response Procedure Tolerated Well Pain Scale: 0-10 Numeric Is Patient Pain Free? Yes Wound debrided: Right posterior plantar heel Laterality: Right Wound Grade/Stage: 3 Type of Debridement: Excisional debridement Anesthesia Used: 4% Lidocaine Solution Depth: in the subcutaneous layer Percentage of wound debrided: 100 Instrument Used: #15 blade, Forceps Tissue Removed: adherent slough, necrotic tissue, hyperkeratotic rim, fibrin Severity: Fat Layer Exposed Amount of bleeding with debridement: None Patient tolerated procedure well Assessment/Plan Active Problems Lower extremity edema (Chronic) Type 2 diabetes mellitus with diabetic polyneuropathy (Acute) Non-pressure chronic ulcer of right heel and midfoot with unspecified severity (Acute) Assessment: Ulcer to right heel with stable eschar. DM with neuropathy. Malnutrition. Plan: Patient was again examined and evaluated today. No significant improvment in ulcer again since last week. Ulcer completely covered by slough. Area of probing appreciated that is almost to bone. Debridement was completed as described in the clinical panel. Following debridement, Santyl was applied followed by a dry sterile dressing. Patient is to have daily dressing changes consisting of the above dressing for another week. Patient will be referred to Dr. Rios to have his vascular status further evaluated and to see what he feels the patient's healing potential will be if a surgical debridement is warranted. We will fax over the patient's LEAS and Venous duplex exam he had completed at [facility] in February. Patient also given order for follow up x-ray examination of the right foot 3 views as well as a calcaneal axial view. Patient to continue with high protein diet and it was again stressed how important keeping blood sugar under control is to healing process. After explicitly telling the patient and his that the patient is to not wear the CAM walker or any other shoes that will add pressure to the heal, the patient again showed up in clinic today wearing his CAM walker. It was also again stressed to the patient how important is to keep pressure off of his heel at all times and that this includes any type of pressure at all. I informed them that the reason there has been no improvement in recent weeks is because there is still being pressure applied to the heal. Since it seems to be slowly worsening with thick adherent slough, I informed the patient that there is a high likelihood that he will need a surgical debridement. I also again informed him and his that long standing heel ulcers that are deep like his, can lead to extensive debridements, partial calcaneal amputations, or even more proximal amputations on the leg. He is to use the knee scooter at all times while walking. While sitting or laying in bed he was instructed to keep the heel floating over the edge of a pillow in order to have absolutely no pressure to the area. Patient and the patient's were educated on signs and symptoms of local and systemic infection and were instructed to go to the emergency room immediately should they notice any. Patient is to continue all prescribed antibiotics until they are gone. All questions were answered to the patient and the patient's satisfaction. I continue to be concerned with the patient's compliance. They will follow-up in clinic in 1 week for further evaluation, or sooner if needed. This note was generated with [employer] dictation software. It may contain incorrect words, spelling, and punctuation that were not noted in checking the note before signing.
--- NOTE | 2017-04-14 12:33 | PN.PCM_ITS ---
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 Status: Acute Current Visit: Yes Code(s): L97.419 - Non-pressure chronic ulcer of right heel and midfoot with unspecified severity (2) Type 2 diabetes mellitus with diabetic polyneuropathy Status: Acute Current Visit: Yes Code(s): E11.42 - Type 2 diabetes mellitus with diabetic polyneuropathy (3) Lower extremity edema Status: Chronic Current Visit: Yes Code(s): R60.0 - Localized edema (4) Malnutrition Status: Suspected Current Visit: Yes Code(s): E46 - Unspecified protein- calorie malnutrition (5) PVD (peripheral vascular disease) Status: Suspected Current Visit: Yes Code(s): I73.9 - Peripheral vascular disease, unspecified Type of Wound Date of Service: 04/14/17 Chief Complaint: Chronic non healing ulcer to right posterior heel with fat layer exposed. History of Wound: This 61-year-old diabetic male presents for follow up of chronic nonhealing ulcer to right posterior heel. Patient states on February 21 he believes he stepped on a staple walking down the stairs and had a tear in his skin. This progressed over the following days into an ulcer. Patient has seen Dr. See as well as gone to [facility] wound center in the past. While at [facility], the patient was undergoing every other day dressing changes consisting of medihoney and a dry sterile dressing. The patient has a knee walker and claims to be using it, but not all the time. The also states that the patient has not keeping pressure off of his right foot as much as he should be, even after last weeks visit, although he has gotten better. Patient denies any purulence to the area. The patient denies any feelings of nausea, vomiting, chills, fever at this time. Progress of Wound: No change in ulcer since last week. The ulcer is still covered by thick adherent slough. There is slight hyperkeratotic rim surrounding ulcer still today. Improved area of maceration around the lateral edges in but skin area was firm to touch not soft. The patient and his have continued using Santyl to the area. No odor appreciated today. Patient has MRSA and another bug growing and it patient was started on Bactrim but that does not cover the MRSA. Patient has also been on rifampin daily and metronidazole for the anaerobes. Patient has completed bactrim and says he has two days left of other antibiotics. He again presents to clinic today wearing his CAM boot. - Physical Exam Vital Signs Temp Pulse Resp BP 97.5 F L 85 18 123/80 H 04/14/17 10:29 04/14/17 10:29 04/14/17 10:29 04/14/17 10:29 General: Alert, Oriented x3, Cooperative, No apparent distress Extremities: Capillary Refill Less than 3 Seconds, No Calf Tenderness - negative stephan and iverson sign, Diminished Peripheral Pulses - DP pulses faintly palpable and PT pulses non palpable due to slight edema, Edema - slight lower extremity Skin: Ulcer/ Wound - Chronic nonpressure nonhealing ulcer to plantar/posterior aspect of the right heel. Ulcer dimensions noted below. Slight hyperkeratotic rim appreciated. Ulcer base is majority of thick adherent slough and fibrous tissue. Slight maceration appreciated around parts of the ulcer. Some necrotic tissue also appreciated. Improved erythema appreciated around the ulcer, and continues to be no cellulitis or extending cellulitis appreciated. No increase in warmth. No purulence, no malodor. No fluctuance. Small area of probing to the center of the ulcer, but does not probe to bone. Area probes slightly deeper this week and is getting closer to bone. Wound Measurements and Assessment WC - Nurse 1 - General Ulcer Measurement Start: 03/24/17 15:21 Freq: Status: Active Protocol: Activity Type Activity Date Activity User E-Sign Co-Sign Detail Recorded Client Recorded Date Recorded By Document 04/14/17 10:29 [facility] [id number] 04/14/17 10:35 [facility] 04/14/17 10:29 Wound Center Nurse 1 [Ulcer Assessment] #2- RT HEEL -Combined with other wound No -Current Size (cm) - Length 2.9 -Current Size (cm) - Width 3.4 -Current Size (cm) - Depth 0.1 -Total Square Cm 9.86 -Photo Taken No -Epithelialization None Present -Tunneling No -Undermining/Tunneling No -Exudate Amt Small (1-33%) -Exudate Type Serous -Wound Margin Distinct, Outline Attached -Granulation Amt None Present (0 %) -Slough/Fibrin Yes -Necrosis Amt Large (67-100%) -Necrotic Tissue Type Adherent Slough -Structure Exposed N/A -Texture (Miguelina-wound Skin Appearance) Callus Scarring -Moisture (Miguelina-wound Skin Appearance Dry/Scaly ) -Color (Miguelina-wound Skin Appearance) Erythema -Temperature (Miguelina-wound Skin No Abnormality Appearance) (Pt Warm) -Tenderness on Palpation (Miguelina-wound No Skin Appearance) -Ulcer Cleansing Rinsed/ Irrigated with Saline -Foul Odor after Cleansing No -Anesthetic Used 4% Lidocaine Solution [Edema Assessment] -Lower Limb Edema Present No -Right Calf (cm) 35.7 -Right Ankle (cm) 21.9 WC - Nurse 2 - General Ulcer CM Notes Start: 03/24/17 15:21 Freq: Status: Active Protocol: Activity Type Activity Date Activity User E-Sign Co-Sign Detail Recorded Client Recorded Date Recorded By Document 04/14/17 10:59 MW [id number] 04/14/17 11:24 MW 04/14/17 10:59 Wound Center Nurse 2 [Procedure/Treatment] #2- RT HEEL -Time 10:59 -Correct Patient Yes -Correct Side, Site, Position Yes -Correct Procedure Yes -Procedure Performed Yes -Type of Procedure Debridement -Clinical Debridement Subcutaneous -Post Debridement Size (cm) - Length 3.0 -Post Debridement Size (cm) - Width 3.5 -Post Debridement Size (cm) - Depth 1.0 -Total Square Cm 10.50 -Wound/Ulcer Outcome Amputation -Ulcer Cleansing Rinsed/ Irrigated with Saline -Foul Odor after Cleansing No -Bioengineered Tissue No -Bleeding Controlled with Pressure -Treatment Response Procedure Tolerated Well [See Physician Procedure note for Specifics] Pain Scale: 0-10 Numeric [Pain] -Is Patient Pain Free? Yes Musculoskeletal: - - decreased ankle joint dorsiflexion Neurological: - - epicritic sensation grossly absent from feet Psych/Mental Status: Normal Affect, Appropriate Debridement Note Post-Debridement Measurements/Treatment WC - Nurse 2 - General Ulcer CM Notes Start: 03/24/17 15:21 Freq: Status: Active Protocol: Activity Type Activity Date Activity User E-Sign Co-Sign Detail Recorded Client Recorded Date Recorded By Document 03/24/17 16:18 DV [id number] 03/24/17 16:23 DV Document 04/01/17 09:52 MW [id number] 04/01/17 10:11 MW Document 04/07/17 10:55 MW [id number] 04/07/17 11:12 MW Document 04/14/17 10:59 MW [id number] 04/14/17 11:24 MW 03/24/17 04/01/17 04/07/17 16:18 09:52 10:55 Wound Center Nurse 2 #2- RT HEEL -Time 16:19 09:54 10:55 -Correct Patient Yes Yes Yes -Correct Side, Site, Position Yes Yes Yes -Correct Procedure Yes Yes Yes -Procedure Performed Yes Yes Yes -Type of Procedure Debridement Debridement Debridement -Clinical Debridement Selective Subcutaneous Subcutaneous -Post Debridement Size (cm) - Length 2.9 2.7 2.9 -Post Debridement Size (cm) - Width 3.7 3.7 3.5 -Post Debridement Size (cm) - Depth 0.6 0.3 0.3 -Total Square Cm 10.73 9.99 10.15 -Wound/Ulcer Outcome Not Healed Not Healed Not Healed -Ulcer Cleansing Rinsed/ Rinsed/ Irrigated with Irrigated with Saline Saline -Foul Odor after Cleansing No No -Bioengineered Tissue No No -Bleeding Controlled with Pressure Pressure -Treatment Response Procedure Procedure Tolerated Well Tolerated Well Pain Scale: 0-10 Numeric Is Patient Pain Free? Yes Yes 04/14/17 10:59 Wound Center Nurse 2 #2- RT HEEL -Time 10:59 -Correct Patient Yes -Correct Side, Site, Position Yes -Correct Procedure Yes -Procedure Performed Yes -Type of Procedure Debridement -Clinical Debridement Subcutaneous -Post Debridement Size (cm) - Length 3.0 -Post Debridement Size (cm) - Width 3.5 -Post Debridement Size (cm) - Depth 1.0 -Total Square Cm 10.50 -Wound/Ulcer Outcome Amputation -Ulcer Cleansing Rinsed/ Irrigated with Saline -Foul Odor after Cleansing No -Bioengineered Tissue No -Bleeding Controlled with Pressure -Treatment Response Procedure Tolerated Well Pain Scale: 0-10 Numeric Is Patient Pain Free? Yes Wound debrided: Right posterior plantar heel Laterality: Right Wound Grade/Stage: 3 Type of Debridement: Excisional debridement Anesthesia Used: 4% Lidocaine Solution Depth: in the subcutaneous layer Percentage of wound debrided: 100 Instrument Used: #15 blade, Forceps Tissue Removed: adherent slough, necrotic tissue, hyperkeratotic rim, fibrin Severity: Fat Layer Exposed Amount of bleeding with debridement: None Patient tolerated procedure well Assessment/Plan Active Problems Lower extremity edema (Chronic) Type 2 diabetes mellitus with diabetic polyneuropathy (Acute) Non-pressure chronic ulcer of right heel and midfoot with unspecified severity ( Acute) Assessment: Ulcer to right heel with stable eschar. DM with neuropathy. Malnutrition. Plan: Patient was again examined and evaluated today. No significant improvment in ulcer again since last week. Ulcer completely covered by slough. Area of probing appreciated that is almost to bone. Debridement was completed as described in the clinical panel. Following debridement, Santyl was applied followed by a dry sterile dressing. Patient is to have daily dressing changes consisting of the above dressing for another week. Patient will be referred to Dr. Rios to have his vascular status further evaluated and to see what he feels the patient's healing potential will be if a surgical debridement is warranted. We will fax over the patient's LEAS and Venous duplex exam he had completed at [facility] in February. Patient also given order for follow up x-ray examination of the right foot 3 views as well as a calcaneal axial view. Patient to continue with high protein diet and it was again stressed how important keeping blood sugar under control is to healing process. After explicitly telling the patient and his that the patient is to not wear the CAM walker or any other shoes that will add pressure to the heal, the patient again showed up in clinic today wearing his CAM walker. It was also again stressed to the patient how important is to keep pressure off of his heel at all times and that this includes any type of pressure at all. I informed them that the reason there has been no improvement in recent weeks is because there is still being pressure applied to the heal. Since it seems to be slowly worsening with thick adherent slough, I informed the patient that there is a high likelihood that he will need a surgical debridement. I also again informed him and his that long standing heel ulcers that are deep like his, can lead to extensive debridements, partial calcaneal amputations, or even more proximal amputations on the leg. He is to use the knee scooter at all times while walking. While sitting or laying in bed he was instructed to keep the heel floating over the edge of a pillow in order to have absolutely no pressure to the area. Patient and the patient's were educated on signs and symptoms of local and systemic infection and were instructed to go to the emergency room immediately should they notice any. Patient is to continue all prescribed antibiotics until they are gone. All questions were answered to the patient and the patient's satisfaction. I continue to be concerned with the patient's compliance. They will follow-up in clinic in 1 week for further evaluation, or sooner if needed. This note was generated with [employer] dictation software. It may contain incorrect words, spelling, and punctuation that were not noted in checking the note before signing.
--- NOTE | 2017-04-18 18:15 | RAD_ITS ---
STUDY: X-RAY - RIGHT FOOT CLINICAL: Male, 61 years old. Foot ulcer. TECHNIQUE: 3 view(s) of the foot. COMPARISON: March 14, 2017. FINDINGS: Normal talus, calcaneus, and tarsal bones. Normal visualized subtalar, talonavicular, calcaneocuboid, tarsal and tarsometatarsal articulations. Normal metatarsi. Normal metatarsophalangeal joint of the great toe. Normal tibial and fibular sesamoid bones. Normal interphalangeal joint of the great toe. Normal phalanges of the great toe. Normal second through fifth metatarsophalangeal joints. Normal interphalangeal joints and phalanges of the lesser toes. Plantar heel ulcer slightly larger as compared to prior study. Vascular calcifications are noted in the ankle and foot. RAD/Foot min 3 Views IMPRESSION: Slight increase in size of plantar heel ulcer. Electronically Signed: Lance Angelo MD at 4:13 EST , Service support ,
--- NOTE | 2017-04-18 18:16 | RAD_ITS ---
STUDY: X-RAY - RIGHT CALCANEUS REASON FOR EXAM: Male, 61 years old. Foot ulcer on heel. TECHNIQUE: 3 view(s) of the calcaneus were obtained. COMPARISON: Right foot April 18, 2017 and March 14, 2017. FINDINGS: Alignment of the calcaneus is normal. No fracture or dislocation. There is subtle lucency involving the posterior inferior cortex, seen on the lateral view, not present previously. This suggests demineralization secondary to inflammation. Plantar heel ulcer slightly increased in size since March 14, 2017. RAD/Calcaneus min 2 Views IMPRESSION: Increase in size plantar heel ulcer. Demineralization of a focal area of the posterior calcaneus adjacent to the ulcer which may represent osteomyelitis. Consider correlation with MRI or 3 phase limited bone scan. Electronically Signed: Lance Angelo MD at 4:17 EST , Service support ,
== END 2017-04-20 23:59 ==
LOC: WC 10:30
PROVIDERS: Visit Provider Podiatrist
DX: E11.621 Type 2 diabetes mellitus with foot ulcer (principal); E11.42 Type 2 diabetes mellitus with diabetic polyneuropathy; R60.0 Localized edema; E11.51 Type 2 diabetes mellitus with diabetic peripheral angiopathy without gangrene; L97.412 Non-pressure chronic ulcer of right heel and midfoot with fat layer exposed; L84 Corns and callosities; B95.62 Methicillin resistant Staphylococcus aureus infection as the cause of diseases classified elsewhere
CPT/HCPCS: 11042; 73630; 73650; 87070; 87075; 87077; 87186; 87205

== ENCOUNTER → 2017-05-09 12:52 | Outpatient (CLI) | payer MEDICARE, SELFPAY ==
--- NOTE | 2017-05-09 12:54 | ADUL_ITS ---
Reason For Study: Claudication Right Velocities Ext. Iliac Artery, dist = 98 cm./sec. Common Femoral Artery, dist = 89 cm./sec. Supf Femoral Artery, prox = 122 cm./sec. Supf Femoral Artery, mid = 93 cm./sec. Supf Femoral Artery, dist. = 75 cm./sec. Profunda Femoral Artery = 74 cm./sec. Popliteal Artery, prox. = 79 cm./sec. Popliteal Artery, mid = 82 cm./sec. Popliteal Artery, dist = 92 cm./sec. Post. Tibial Artery, prox = 49 cm./sec. Post. Tibial Artery, mid = 94 cm./sec. Post. Tibial Artery, dist = 344 cm./sec. Peroneal Artery, prox = 77 cm./sec. Peroneal Artery, mid = 83 cm./sec. Peroneal Artery,dist = 69 cm./sec. Ant. Tibial Artery, prox = 95 cm./sec. Ant. Tibial Artery, mid = 77 cm./sec. Ant. Tibial Artery, dist = 100 cm./sec. Rt DPA: 127 cm/s Rt SLEEVE SETTER LOCKSTITCH distal: prox to stenosis: 17cm/s, stenosis: 344cm/s, distal to stenosis: 22cm/s. Procedure Exam performed in department. Interpretation Summary 1. Right leg with severe stenosis in posterior tibial artery. Otherwise normal flow throughout leg through anterior tibial and peroneal. Ordering Physician: Adolfo Riso Referring Physician: Asha Lofton [facility] Performed By: Julienne Butterfield, JOSSELYN, RVT
--- NOTE | 2017-05-11 11:47 | LEAS ---
Arterial Study - Arterial Study Arterial Study: Date of scan 05/09/[address] Rios Interpretation: Right lower extremity with pulsatile flow noted in adequate waveform down through the ankle out through the digits duplex shows biphasic flow the posterior tibial and triphasic flow of the dorsalis pedis. ABIs unable to measure secondary noncompressibility throughout. Digital brachial index 0.5 Left lower extremity again with fairly normal waveform down at the ankle slightly diminished compared to the right side. Waveform out through the digits maintained. Duplex shows biphasic flow the posterior tibial and triphasic flow the dorsalis pedis. There is noncompressibility in both vessels unable to determine an LEONOR. Digital brachial index 0.42 Impression: 1. Right lower extremity with some evidence of arterial occlusive disease at rest with noncompressibility of the vessels consistent with medial calcinosis. But maintained triphasic flow through the dorsalis pedis. Next #2. Left lower extremity with some evidence of arterial occlusive disease at rest with noncompressibility of the vessels consistent with medial calcinosis. He does have triphasic flow the dorsalis pedis. 3. Bilateral small vessel disease with the digit brachial index 0.5 on the right 0.42 on the left
--- NOTE | 2017-05-11 11:51 | LEAS_ITS ---
Arterial Study - Arterial Study Arterial Study: Date of scan 05/09/[address] Rios Interpretation: Right lower extremity with pulsatile flow noted in adequate waveform down through the ankle out through the digits duplex shows biphasic flow the posterior tibial and triphasic flow of the dorsalis pedis. ABIs unable to measure secondary noncompressibility throughout. Digital brachial index 0.5 Left lower extremity again with fairly normal waveform down at the ankle slightly diminished compared to the right side. Waveform out through the digits maintained. Duplex shows biphasic flow the posterior tibial and triphasic flow the dorsalis pedis. There is noncompressibility in both vessels unable to determine an LEONOR. Digital brachial index 0.42 Impression: 1. Right lower extremity with some evidence of arterial occlusive disease at rest with noncompressibility of the vessels consistent with medial calcinosis. But maintained triphasic flow through the dorsalis pedis. Next #2. Left lower extremity with some evidence of arterial occlusive disease at rest with noncompressibility of the vessels consistent with medial calcinosis. He does have triphasic flow the dorsalis pedis. 3. Bilateral small vessel disease with the digit brachial index 0.5 on the right 0.42 on the left
== END ==
PROVIDERS: Visit Provider Surgery Vascular Surgery
DX: I70.212 Atherosclerosis of native arteries of extremities with intermittent claudication, left leg (principal); I70.234 Atherosclerosis of native arteries of right leg with ulceration of heel and midfoot
CPT/HCPCS: 93922; 93926

== ENCOUNTER 2017-05-19 10:15 | Outpatient (RCR) | payer MEDICARE, SELFPAY ==
[2017-04-21 00:54] VITALS: BP 140/48; PULSE 85; RESP 18; TEMP 36.4; BMI 32.7
[2017-04-21 10:37] VITALS: BP 118/74; PULSE 78; RESP 16; TEMP 36.4; BMI 32.7
--- NOTE | 2017-04-21 14:13 | PCM.WC.PN ---
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 Status: Acute Current Visit: No Code(s): L97.419 - Non-pressure chronic ulcer of right heel and midfoot with unspecified severity (2) Malnutrition Status: Suspected Current Visit: No Code(s): E46 - Unspecified protein-calorie malnutrition (3) PVD (peripheral vascular disease) Status: Suspected Current Visit: No Code(s): I73.9 - Peripheral vascular disease, unspecified (4) Type 2 diabetes mellitus with diabetic polyneuropathy Status: Acute Current Visit: No Code(s): E11.42 - Type 2 diabetes mellitus with diabetic polyneuropathy (5) Lower extremity edema Status: Chronic Current Visit: No Code(s): R60.0 - Localized edema Type of Wound Date of Service: 04/21/17 Chief Complaint: Chronic non healing ulcer to right posterior heel with fat layer exposed. History of Wound: This 61-year-old diabetic male presents for follow up of chronic nonhealing ulcer to right posterior heel. Patient states on February 21 he believes he stepped on a staple walking down the stairs and had a tear in his skin. This progressed over the following days into an ulcer. Patient has seen Dr. See as well as gone to [facility] wound center in the past. While at [facility], the patient was undergoing every other day dressing changes consisting of medihoney and a dry sterile dressing. The patient has a knee walker and claims to be using it, but not all the time. The also states that the patient has not keeping pressure off of his right foot as much as he should be, even after last weeks visit, although he has gotten better. Patient denies any purulence to the area. The patient denies any feelings of nausea, vomiting, chills, fever at this time. Progress of Wound: No change in ulcer since last week. The ulcer is still covered by thick adherent slough. There is slight hyperkeratotic rim surrounding ulcer still today. No maceration to the melanie-ulcer area. The patient and his have continued using Santyl to the area. No odor appreciated today. Patient had previously been cultured with MRSA and had been placed on appropriate antibiotics as noted in previous notes. He and his state that his chiropractor instructed him to clean his ulcer site with an enzyme beauty parlor cleaner. They are unsure exactly what it is. - Physical Exam Vital Signs Temp Pulse Resp BP 97.5 F L 78 16 118/74 04/21/17 10:37 04/21/17 10:37 04/21/17 10:37 04/21/17 10:37 General: Alert, Oriented x3, Cooperative, No apparent distress Extremities: Capillary Refill Less than 3 Seconds, No Calf Tenderness - Negative Wojciech and Guerrero sign, Diminished Peripheral Pulses - DP pulses faintly palpable and PT pulses nonpalpable due to slight edema to the lower extremity., Edema - Slight lower extremity edema. Patient says he is not using his compression Tubigrip's. Skin: Ulcer/ Wound - Chronic nonhealing ulcer to plantar posterior aspect of the right heel. The ulcer measurements are noted below. Slight hyperkeratotic rim appreciated again today. The ulcer base is majority of thick adherent slough and fibrous tissue. No surrounding erythema or cellulitis is appreciated today. No increase in warmth appreciated today. No purulence, no malodor, no fluctuance. There continues to be a small area that probes close to bone, and there is also some undermining appreciated from 3:00 to 9:00 and is approximately 1.5 cm at its deepest. Wound Measurements and Assessment WC - Nurse 1 - General Ulcer Measurement Start: 04/21/17 10:37 Freq: Status: Active Protocol: Activity Type Activity Date Activity User E-Sign Co-Sign Detail Recorded Client Recorded Date Recorded By Document 04/21/17 10:37 [facility] [id number] 04/21/17 10:46 [facility] 04/21/17 10:37 Wound Center Nurse 1 [Ulcer Assessment] #2- RT HEEL -Combined with other wound No -Current Size (cm) - Length 2.9 -Current Size (cm) - Width 3.5 -Current Size (cm) - Depth 1.1 -Total Square Cm 10.15 -Photo Taken No -Epithelialization None Present -Tunneling No -Undermining/Tunneling No -Exudate Amt Small (1-33%) -Exudate Type Serous -Wound Margin Distinct, Outline Attached -Granulation Amt None Present (0 %) -Slough/Fibrin Yes -Necrosis Amt Large (67-100%) -Necrotic Tissue Type Adherent Slough -Structure Exposed N/A -Texture (Melanie-wound Skin Appearance) Callus Scarring -Moisture (Melanie-wound Skin Appearance Maceration ) Dry/Scaly -Color (Melanie-wound Skin Appearance) Erythema -Temperature (Melanie-wound Skin No Abnormality Appearance) (Pt Warm) -Tenderness on Palpation (Melanie-wound Yes Skin Appearance) -Ulcer Cleansing Rinsed/ Irrigated with Saline -Foul Odor after Cleansing No -Anesthetic Used 4% Lidocaine Solution [Edema Assessment] -Lower Limb Edema Present No -Right Calf (cm) 35.1 -Right Ankle (cm) 21.6 - Nurse 2 - General Ulcer CM Notes Start: 04/21/17 10:37 Freq: Status: Active Protocol: Activity Type Activity Date Activity User E-Sign Co-Sign Detail Recorded Client Recorded Date Recorded By Document 04/21/17 11:31 MW [id number] 04/21/17 11:52 MW 04/21/17 11:31 Wound Center Nurse 2 [Procedure/Treatment] #2- RT HEEL -Time 11:31 -Correct Patient Yes -Correct Side, Site, Position Yes -Correct Procedure Yes -Procedure Performed Yes -Type of Procedure Debridement -Clinical Debridement Subcutaneous -Post Debridement Size (cm) - Length 3.1 -Post Debridement Size (cm) - Width 3.0 -Post Debridement Size (cm) - Depth 1.5 -Total Square Cm 9.30 -Wound/Ulcer Outcome Not Healed -Ulcer Cleansing Rinsed/ Irrigated with Saline -Foul Odor after Cleansing No -Bioengineered Tissue No -Bleeding Controlled with Pressure -Treatment Response Procedure Tolerated Well [See Physician Procedure note for Specifics] Pain Scale: 0-10 Numeric [Pain] -Is Patient Pain Free? Yes Musculoskeletal: - - Decreased ankle joint dorsiflexion bilateral. Neurological: - - Epicritic sensation grossly absent from bilateral feet Psych/Mental Status: Normal Affect, Appropriate Debridement Note Post-Debridement Measurements/Treatment WC - Nurse 2 - General Ulcer CM Notes Start: 04/21/17 10:37 Freq: Status: Active Protocol: Activity Type Activity Date Activity User E-Sign Co-Sign Detail Recorded Client Recorded Date Recorded By Document 04/21/17 11:31 MW [id number] 04/21/17 11:52 MW 04/21/17 11:31 Wound Center Nurse 2 #2- RT HEEL -Time 11:31 -Correct Patient Yes -Correct Side, Site, Position Yes -Correct Procedure Yes -Procedure Performed Yes -Type of Procedure Debridement -Clinical Debridement Subcutaneous -Post Debridement Size (cm) - Length 3.1 -Post Debridement Size (cm) - Width 3.0 -Post Debridement Size (cm) - Depth 1.5 -Total Square Cm 9.30 -Wound/Ulcer Outcome Not Healed -Ulcer Cleansing Rinsed/ Irrigated with Saline -Foul Odor after Cleansing No -Bioengineered Tissue No -Bleeding Controlled with Pressure -Treatment Response Procedure Tolerated Well Pain Scale: 0-10 Numeric Is Patient Pain Free? Yes Wound debrided: Right posterior plantar heel Laterality: Right Wound Grade/Stage: 3 Type of Debridement: Excisional debridement Anesthesia Used: 4% Lidocaine Solution Depth: in the subcutaneous layer Percentage of wound debrided: 100 Instrument Used: #15 blade, Forceps, - - Scissors Tissue Removed: Adherent slough, fibrin, hyperkeratotic tissue Severity: Fat Layer Exposed Amount of bleeding with debridement: Mild Bleeding Controlled with: Pressure Patient tolerated procedure well Assessment/Plan Assessment: Ulcer to right heel with stable eschar. DM with neuropathy. Malnutrition. Plan: Patient was again examined and evaluated today. No significant improvment in ulcer again since last week. Ulcer completely covered by slough. Area of probing still appreciated that is almost to bone. Undermining also appreciated this week as well. Debridement was completed as described in the clinical panel. Following debridement, Santyl was applied followed by a dry sterile dressing. Patient is to have daily dressing changes consisting of the above dressing for another week. Patient saw Dr. Rios recently, who will be suggesting a duplex arterial study that the patient will be having completed at [facility] in the near future. We will wait to see what Dr. Rios's assessment is if the patient ends up needing a surgical debridement in the future. Os calcis x-rays were obtained and the results were read as showing an increase in ulcer size since last x-rays examination, as well as showing demineralization of a focal area of the posterior calcaneus adjacent to the ulcer which may represent osteomyelitis. Consider correlation with MRI or 3 phase limited bone scan. The patient was scheduled today for an MRI of the left foot. Results will be reviewed. Patient to continue with high protein diet and it was again stressed how important keeping blood sugar under control is to healing process. It was also again stressed to the patient how important is to keep pressure off of his heel at all times and that this includes any type of pressure at all, as the patient has been noncompliant in the past with this. I informed them that the reason there has been no improvement in recent weeks is because there is still being pressure applied to the heal. Since it seems to be slowly worsening with thick adherent slough, I informed the patient that there is a high likelihood that he will need a surgical debridement. I also again informed him and his that long standing heel ulcers that are deep like his, can lead to extensive debridements, partial calcaneal amputations, or even more proximal amputations on the leg. He is to use the knee scooter at all times while walking. While sitting or laying in bed he was instructed to keep the heel floating over the edge of a pillow in order to have absolutely no pressure to the area. The patient and his were also instructed to stop cleaning or putting anything on the ulcer site that is not prescribed by the wound healing center. They were instructed this time to stop using the enzyme cleaning supply that was given to them by their chiropractor. Patient and the patient's were educated on signs and symptoms of local and systemic infection and were instructed to go to the emergency room immediately should they notice any. All questions were answered to the patient and the patient's satisfaction. I continue to be concerned with the patient's compliance. They will follow-up in clinic in 1 week for further evaluation, or sooner if needed. This note was generated with [email or web address] software. It may contain incorrect words, spelling, and punctuation that were not noted in checking the note before signing.
--- NOTE | 2017-04-21 14:25 | PN.PCM_ITS ---
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 Status: Acute Current Visit: No Code(s): L97.419 - Non-pressure chronic ulcer of right heel and midfoot with unspecified severity (2) Malnutrition Status: Suspected Current Visit: No Code(s): E46 - Unspecified protein- calorie malnutrition (3) PVD (peripheral vascular disease) Status: Suspected Current Visit: No Code(s): I73.9 - Peripheral vascular disease, unspecified (4) Type 2 diabetes mellitus with diabetic polyneuropathy Status: Acute Current Visit: No Code(s): E11.42 - Type 2 diabetes mellitus with diabetic polyneuropathy (5) Lower extremity edema Status: Chronic Current Visit: No Code(s): R60.0 - Localized edema Type of Wound Date of Service: 04/21/17 Chief Complaint: Chronic non healing ulcer to right posterior heel with fat layer exposed. History of Wound: This 61-year-old diabetic male presents for follow up of chronic nonhealing ulcer to right posterior heel. Patient states on February 21 he believes he stepped on a staple walking down the stairs and had a tear in his skin. This progressed over the following days into an ulcer. Patient has seen Dr. See as well as gone to [facility] wound center in the past. While at [facility], the patient was undergoing every other day dressing changes consisting of medihoney and a dry sterile dressing. The patient has a knee walker and claims to be using it, but not all the time. The also states that the patient has not keeping pressure off of his right foot as much as he should be, even after last weeks visit, although he has gotten better. Patient denies any purulence to the area. The patient denies any feelings of nausea, vomiting, chills, fever at this time. Progress of Wound: No change in ulcer since last week. The ulcer is still covered by thick adherent slough. There is slight hyperkeratotic rim surrounding ulcer still today. No maceration to the melanie-ulcer area. The patient and his have continued using Santyl to the area. No odor appreciated today. Patient had previously been cultured with MRSA and had been placed on appropriate antibiotics as noted in previous notes. He and his state that his chiropractor instructed him to clean his ulcer site with an enzyme tar heat exchanger cleaner. They are unsure exactly what it is. - Physical Exam Vital Signs Temp Pulse Resp BP 97.5 F L 78 16 118/74 04/21/17 10:37 04/21/17 10:37 04/21/17 10:37 04/21/17 10:37 General: Alert, Oriented x3, Cooperative, No apparent distress Extremities: Capillary Refill Less than 3 Seconds, No Calf Tenderness - Negative Wojciech and Guerrero sign, Diminished Peripheral Pulses - DP pulses faintly palpable and PT pulses nonpalpable due to slight edema to the lower extremity., Edema - Slight lower extremity edema. Patient says he is not using his compression Tubigrip's. Skin: Ulcer/ Wound - Chronic nonhealing ulcer to plantar posterior aspect of the right heel. The ulcer measurements are noted below. Slight hyperkeratotic rim appreciated again today. The ulcer base is majority of thick adherent slough and fibrous tissue. No surrounding erythema or cellulitis is appreciated today. No increase in warmth appreciated today. No purulence, no malodor, no fluctuance. There continues to be a small area that probes close to bone, and there is also some undermining appreciated from 3:00 to 9:00 and is approximately 1.5 cm at its deepest. Wound Measurements and Assessment WC - Nurse 1 - General Ulcer Measurement Start: 04/21/17 10:37 Freq: Status: Active Protocol: Activity Type Activity Date Activity User E-Sign Co-Sign Detail Recorded Client Recorded Date Recorded By Document 04/21/17 10:37 [facility] [id number] 04/21/17 10:46 [facility] 04/21/17 10:37 Wound Center Nurse 1 [Ulcer Assessment] #2- RT HEEL -Combined with other wound No -Current Size (cm) - Length 2.9 -Current Size (cm) - Width 3.5 -Current Size (cm) - Depth 1.1 -Total Square Cm 10.15 -Photo Taken No -Epithelialization None Present -Tunneling No -Undermining/Tunneling No -Exudate Amt Small (1-33%) -Exudate Type Serous -Wound Margin Distinct, Outline Attached -Granulation Amt None Present (0 %) -Slough/Fibrin Yes -Necrosis Amt Large (67-100%) -Necrotic Tissue Type Adherent Slough -Structure Exposed N/A -Texture (Melanie-wound Skin Appearance) Callus Scarring -Moisture (Melanie-wound Skin Appearance Maceration ) Dry/Scaly -Color (Melanie-wound Skin Appearance) Erythema -Temperature (Melanie-wound Skin No Abnormality Appearance) (Pt Warm) -Tenderness on Palpation (Melanie-wound Yes Skin Appearance) -Ulcer Cleansing Rinsed/ Irrigated with Saline -Foul Odor after Cleansing No -Anesthetic Used 4% Lidocaine Solution [Edema Assessment] -Lower Limb Edema Present No -Right Calf (cm) 35.1 -Right Ankle (cm) 21.6 - Nurse 2 - General Ulcer CM Notes Start: 04/21/17 10:37 Freq: Status: Active Protocol: Activity Type Activity Date Activity User E-Sign Co-Sign Detail Recorded Client Recorded Date Recorded By Document 04/21/17 11:31 MW [id number] 04/21/17 11:52 MW 04/21/17 11:31 Wound Center Nurse 2 [Procedure/Treatment] #2- RT HEEL -Time 11:31 -Correct Patient Yes -Correct Side, Site, Position Yes -Correct Procedure Yes -Procedure Performed Yes -Type of Procedure Debridement -Clinical Debridement Subcutaneous -Post Debridement Size (cm) - Length 3.1 -Post Debridement Size (cm) - Width 3.0 -Post Debridement Size (cm) - Depth 1.5 -Total Square Cm 9.30 -Wound/Ulcer Outcome Not Healed -Ulcer Cleansing Rinsed/ Irrigated with Saline -Foul Odor after Cleansing No -Bioengineered Tissue No -Bleeding Controlled with Pressure -Treatment Response Procedure Tolerated Well [See Physician Procedure note for Specifics] Pain Scale: 0-10 Numeric [Pain] -Is Patient Pain Free? Yes Musculoskeletal: - - Decreased ankle joint dorsiflexion bilateral. Neurological: - - Epicritic sensation grossly absent from bilateral feet Psych/Mental Status: Normal Affect, Appropriate Debridement Note Post-Debridement Measurements/Treatment WC - Nurse 2 - General Ulcer CM Notes Start: 04/21/17 10:37 Freq: Status: Active Protocol: Activity Type Activity Date Activity User E-Sign Co-Sign Detail Recorded Client Recorded Date Recorded By Document 04/21/17 11:31 MW [id number] 04/21/17 11:52 MW 04/21/17 11:31 Wound Center Nurse 2 #2- RT HEEL -Time 11:31 -Correct Patient Yes -Correct Side, Site, Position Yes -Correct Procedure Yes -Procedure Performed Yes -Type of Procedure Debridement -Clinical Debridement Subcutaneous -Post Debridement Size (cm) - Length 3.1 -Post Debridement Size (cm) - Width 3.0 -Post Debridement Size (cm) - Depth 1.5 -Total Square Cm 9.30 -Wound/Ulcer Outcome Not Healed -Ulcer Cleansing Rinsed/ Irrigated with Saline -Foul Odor after Cleansing No -Bioengineered Tissue No -Bleeding Controlled with Pressure -Treatment Response Procedure Tolerated Well Pain Scale: 0-10 Numeric Is Patient Pain Free? Yes Wound debrided: Right posterior plantar heel Laterality: Right Wound Grade/Stage: 3 Type of Debridement: Excisional debridement Anesthesia Used: 4% Lidocaine Solution Depth: in the subcutaneous layer Percentage of wound debrided: 100 Instrument Used: #15 blade, Forceps, - - Scissors Tissue Removed: Adherent slough, fibrin, hyperkeratotic tissue Severity: Fat Layer Exposed Amount of bleeding with debridement: Mild Bleeding Controlled with: Pressure Patient tolerated procedure well Assessment/Plan Assessment: Ulcer to right heel with stable eschar. DM with neuropathy. Malnutrition. Plan: Patient was again examined and evaluated today. No significant improvment in ulcer again since last week. Ulcer completely covered by slough. Area of probing still appreciated that is almost to bone. Undermining also appreciated this week as well. Debridement was completed as described in the clinical panel. Following debridement, Santyl was applied followed by a dry sterile dressing. Patient is to have daily dressing changes consisting of the above dressing for another week. Patient saw Dr. Rios recently, who will be suggesting a duplex arterial study that the patient will be having completed at [facility] in the near future. We will wait to see what Dr. Rios's assessment is if the patient ends up needing a surgical debridement in the future. Os calcis x-rays were obtained and the results were read as showing an increase in ulcer size since last x-rays examination, as well as showing demineralization of a focal area of the posterior calcaneus adjacent to the ulcer which may represent osteomyelitis. Consider correlation with MRI or 3 phase limited bone scan. The patient was scheduled today for an MRI of the left foot. Results will be reviewed. Patient to continue with high protein diet and it was again stressed how important keeping blood sugar under control is to healing process. It was also again stressed to the patient how important is to keep pressure off of his heel at all times and that this includes any type of pressure at all, as the patient has been noncompliant in the past with this. I informed them that the reason there has been no improvement in recent weeks is because there is still being pressure applied to the heal. Since it seems to be slowly worsening with thick adherent slough, I informed the patient that there is a high likelihood that he will need a surgical debridement. I also again informed him and his that long standing heel ulcers that are deep like his, can lead to extensive debridements, partial calcaneal amputations , or even more proximal amputations on the leg. He is to use the knee scooter at all times while walking. While sitting or laying in bed he was instructed to keep the heel floating over the edge of a pillow in order to have absolutely no pressure to the area. The patient and his were also instructed to stop cleaning or putting anything on the ulcer site that is not prescribed by the wound healing center. They were instructed this time to stop using the enzyme cleaning supply that was given to them by their chiropractor. Patient and the patient's were educated on signs and symptoms of local and systemic infection and were instructed to go to the emergency room immediately should they notice any. All questions were answered to the patient and the patient's satisfaction. I continue to be concerned with the patient's compliance. They will follow-up in clinic in 1 week for further evaluation, or sooner if needed. This note was generated with [employer] software. It may contain incorrect words, spelling, and punctuation that were not noted in checking the note before signing.
--- NOTE | 2017-04-25 07:27 | MRI_ITS ---
STUDY: MRI RIGHT REARFOOT WITHOUT CONTRAST REASON FOR EXAM: Diabetic with open wound of the right heel after stepping on a nail 02/21/2017. Evaluate osteomyelitis. TECHNIQUE: Standardized fat and water weighted pulse sequences were obtained in all 3 orthogonal planes. COMPARISON: Radiographs 04/18/2017. FINDINGS: There is a ulcer at the posterior aspect of the heel with mild adjacent edema in the subcutis adipose space (inversion recovery sagittal images 13-17). There is no demonstrated soft tissue abscess. There is mild bone edema in the posterior tuberosity of the calcaneus adjacent to the ulcer (inversion recovery sagittal images 11-17) with a small focus of decreased T1 bone marrow signal (T1 sagittal image 13), suggestive of early osteomyelitis. Normal posterior tibialis tendon. Normal flexor digitorum longus tendon. Normal flexor hallucis longus tendon. Normal peroneus longus and brevis tendons. Normal tibialis anterior tendon. Normal extensor hallucis longus tendon. Normal extensor digitorum longus tendons. Normal Achilles tendon and teno-osseous insertion. Normal plantar fascia. There is partial fat replacement of the intrinsic muscles of the rearfoot (T1 sagittal images 6-15) suggestive of peripheral arthropathy. There is mild scarring of the anterior talofibular ligament with a small ossification in the ligament (T2 axial image 26). Normal subtalar ligaments and sinus tarsi. Normal deltoid ligamentous complexes. Normal plantar calcaneonavicular (spring) ligament. Normal tibiotalar articulation. Normal talar dome. Normal subtalar articulations. Normal talonavicular articulation. Normal calcaneocuboid articulation. Normal navicular-cuneiform articulations. MRI/Lower Ext/No Jt/w/o IMPRESSION: Mild edema in the posterior tuberosity of the calcaneus deep to the skin ulcer, suggestive of early osteomyelitis. Atrophy of the intrinsic muscles of the rearfoot suggestive of peripheral neuropathy. Mild scarring of the anterior talofibular ligament. Electronically Signed: Erick Lemos MD at 9:22 EST Tel , Service support ,
--- NOTE | 2017-04-25 07:48 | RAD_ITS ---
STUDY: X-RAY - ORBITS REASON FOR EXAM: Male, 61 years old. This study is being performed as a clearance examination for exclusion of orbital metal, prior to the performance of an MRI examination. TECHNIQUE: 2 view(s) of the orbits were obtained. COMPARISON: None. FINDINGS: Normal bilateral orbits without a metallic orbital foreign body. Normal visualized facial bones. Normal paranasal sinuses. The soft tissue structures are unremarkable. RAD/Orbits for Foreign Body IMPRESSION: No demonstrated metallic orbital foreign body. The patient is cleared for an MRI examination. Electronically Signed: Colt Mejia MD at 8:25 EST Tel [phone], Service support ,
[2017-04-28 10:45] VITALS: BP 168/73; PULSE 80; RESP 18; TEMP 36.6; BMI 32.7
--- NOTE | 2017-04-28 14:40 | PCM.WC.PN ---
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 Status: Acute Current Visit: No Code(s): L97.419 - Non-pressure chronic ulcer of right heel and midfoot with unspecified severity (2) Malnutrition Status: Suspected Current Visit: No Code(s): E46 - Unspecified protein-calorie malnutrition (3) PVD (peripheral vascular disease) Status: Suspected Current Visit: No Code(s): I73.9 - Peripheral vascular disease, unspecified (4) Type 2 diabetes mellitus with diabetic polyneuropathy Status: Acute Current Visit: No Code(s): E11.42 - Type 2 diabetes mellitus with diabetic polyneuropathy (5) Lower extremity edema Status: Chronic Current Visit: No Code(s): R60.0 - Localized edema Type of Wound Date of Service: 04/28/17 Chief Complaint: Chronic non healing ulcer to right posterior heel with fat layer exposed. History of Wound: This 61-year-old diabetic male presents for follow up of chronic nonhealing ulcer to right posterior heel. Patient states on February 21 he believes he stepped on a staple walking down the stairs and had a tear in his skin. This progressed over the following days into an ulcer. Patient has seen Dr. See as well as gone to [facility] wound center in the past. While at [facility], the patient was undergoing every other day dressing changes consisting of medihoney and a dry sterile dressing. The patient has a knee walker and claims to be using it, but not all the time. The also states that the patient has not keeping pressure off of his right foot as much as he should be, even after last weeks visit, although he has gotten better. Patient denies any purulence to the area. The patient denies any feelings of nausea, vomiting, chills, fever at this time. Progress of Wound: No significant change in ulcer since last week. The ulcer is still covered by adherent slough. There is slight hyperkeratotic rim surrounding ulcer still today. No maceration to the miguelina-ulcer area. The patient and his have continued using Santyl to the area over the last week. No odor appreciated today. Patient had previously been cultured with MRSA and had been placed on appropriate antibiotics as noted in previous notes. They say since last week they have stopped trying to put the enzyme cleanser on the ulcer site. The does state that she feels as though her is still continuing to put pressure to his heel at times. - Physical Exam Vital Signs Temp Pulse Resp BP 98 F 80 18 168/73 H 04/28/17 10:45 04/28/17 10:45 04/28/17 10:45 04/28/17 10:45 General: Alert, Oriented x3, Cooperative Extremities: Capillary Refill Less than 3 Seconds, No Calf Tenderness - negative stephan and iverson sign, Diminished Peripheral Pulses - DP pulses faintly palpable and PT pulses nonpalpable due to slight edema to the lower extremity, Edema - bilateral lower extremity. patient continues to not use his tubigrips Skin: Ulcer/ Wound - Chronic nonhealing ulcer to plantar posterior aspect of the right heel. The ulcer measurements are noted below. Very small area of hyperkeratotic rim appreciated today. The ulcer base is majority of adherent slough and fibrous tissue. No surrounding erythema or cellulitis is appreciated today. No increase in warmth appreciated today. No purulence, no malodor, no fluctuance. There continues to be a small area that probes close to bone, and there continues to be some undermining appreciated from 3:00 to 9:00 and is approximately 1.5 cm at its deepest. Wound Measurements and Assessment WC - Nurse 1 - General Ulcer Measurement Start: 04/21/17 10:37 Freq: Status: Active Protocol: Activity Type Activity Date Activity User E-Sign Co-Sign Detail Recorded Client Recorded Date Recorded By Document 04/28/17 10:45 DL [id number] 04/28/17 10:56 DL 04/28/17 10:45 Wound Center Nurse 1 [Ulcer Assessment] #2- RT HEEL -Current Size (cm) - Length 2.7 -Current Size (cm) - Width 3 -Current Size (cm) - Depth 1.5 -Total Square Cm 8.1 -Photo Taken No -Undermining/Tunneling Starts (O' 9 clock) -Undermining/Tunneling Ends (O'clock) 3 -Maximum Distance (cm) 1.2 -Exudate Amt Medium (34-66%) -Exudate Type Serosanguineous -Wound Margin Distinct, Outline Attached -Granulation Amt None Present (0 %) -Necrosis Amt Large (67-100%) -Necrotic Tissue Type Adherent Slough -Structure Exposed N/A -Texture (Miguelina-wound Skin Appearance) Scarring -Moisture (Miguelina-wound Skin Appearance No Abnormality ) -Color (Miguelina-wound Skin Appearance) Rubor -Temperature (Miguelina-wound Skin No Abnormality Appearance) (Pt Warm) -Ulcer Cleansing Wound Cleanser -Foul Odor after Cleansing No -Anesthetic Used 4% Lidocaine Solution [Edema Assessment] -Right Calf (cm) 33 -Right Ankle (cm) 21.5 WC - Nurse 2 - General Ulcer CM Notes Start: 04/21/17 10:37 Freq: Status: Active Protocol: Activity Type Activity Date Activity User E-Sign Co-Sign Detail Recorded Client Recorded Date Recorded By Document 04/28/17 12:00 MW [id number] 04/28/17 12:04 MW 04/28/17 12:00 Wound Center Nurse 2 [Procedure/Treatment] #2- RT HEEL -Time 12:01 -Correct Patient Yes -Correct Side, Site, Position Yes -Correct Procedure Yes -Procedure Performed Yes -Type of Procedure Debridement -Clinical Debridement Subcutaneous -Post Debridement Size (cm) - Length 2.6 -Post Debridement Size (cm) - Width 3.0 -Post Debridement Size (cm) - Depth 1.2 -Total Square Cm 7.80 -Wound/Ulcer Outcome Not Healed -Ulcer Cleansing Rinsed/ Irrigated with Saline -Foul Odor after Cleansing No -Bioengineered Tissue No -Bleeding Controlled with Pressure -Treatment Response Procedure Tolerated Well [See Physician Procedure note for Specifics] Pain Scale: 0-10 Numeric [Pain] -Is Patient Pain Free? Yes Musculoskeletal: - - Patient denies tenderness to heel ulcer. Neurological: - - Epicritic sensation grossly absent from bilateral feet Psych/Mental Status: Normal Affect, Appropriate Debridement Note Post-Debridement Measurements/Treatment - Nurse 2 - General Ulcer CM Notes Start: 04/21/17 10:37 Freq: Status: Active Protocol: Activity Type Activity Date Activity User E-Sign Co-Sign Detail Recorded Client Recorded Date Recorded By Document 04/21/17 11:31 MW [id number] 04/21/17 11:52 MW Document 04/28/17 12:00 MW [id number] 04/28/17 12:04 MW 04/21/17 04/28/17 11:31 12:00 Wound Center Nurse 2 #2- RT HEEL -Time 11:31 12:01 -Correct Patient Yes Yes -Correct Side, Site, Position Yes Yes -Correct Procedure Yes Yes -Procedure Performed Yes Yes -Type of Procedure Debridement Debridement -Clinical Debridement Subcutaneous Subcutaneous -Post Debridement Size (cm) - Length 3.1 2.6 -Post Debridement Size (cm) - Width 3.0 3.0 -Post Debridement Size (cm) - Depth 1.5 1.2 -Total Square Cm 9.30 7.80 -Wound/Ulcer Outcome Not Healed Not Healed -Ulcer Cleansing Rinsed/ Rinsed/ Irrigated with Irrigated with Saline Saline -Foul Odor after Cleansing No No -Bioengineered Tissue No No -Bleeding Controlled with Pressure Pressure -Treatment Response Procedure Procedure Tolerated Well Tolerated Well Pain Scale: 0-10 Numeric Is Patient Pain Free? Yes Yes Wound debrided: Right posterior plantar heel Laterality: Right Wound Grade/Stage: 3 Type of Debridement: Excisional debridement Anesthesia Used: 4% Lidocaine Solution Depth: in the subcutaneous layer Percentage of wound debrided: 100 Instrument Used: #15 blade, Forceps Tissue Removed: Adherent slough, fibrous tissue, hyperkeratotic tissue Severity: Fat Layer Exposed Amount of bleeding with debridement: Mild Bleeding Controlled with: Pressure Patient tolerated procedure well Assessment/Plan Clinical Impression(s) from Imaging Studies Lower Extremity MRI 04/25/17 07:27 IMPRESSION: Mild edema in the posterior tuberosity of the calcaneus deep to the skin ulcer, suggestive of early osteomyelitis. Atrophy of the intrinsic muscles of the rearfoot suggestive of peripheral neuropathy. Mild scarring of the anterior talofibular ligament. Electronically Signed: Erick Lemos MD at 9:22 EST Tel , Service support , Orbit X-Ray 04/25/17 07:48 IMPRESSION: No demonstrated metallic orbital foreign body. The patient is cleared for an MRI examination. Electronically Signed: Colt Mejia MD at 8:25 EST Tel [phone], Service support , Assessment: Ulcer to right heel with stable eschar. DM with neuropathy. Malnutrition. Plan: Patient was again examined and evaluated today. No significant improvment in ulcer again since last week. Ulcer completely covered by slough. Area of probing still appreciated that is still almost to bone. Undermining continues to be appreciated this week as well. Debridement was completed as described in the clinical panel. Following debridement, Santyl was applied followed by a dry sterile dressing. Patient is to have daily dressing changes consisting of the above dressing for another week. Another prescription for santyl was given. Patient saw Dr. Rios recently, who ordered the patient to get a duplex arterial study that the patient will be having completed at [facility] on May 08. Soon after the test, the patient will follow up in office with Dr. Rios. We will wait to see what Dr. Rios's assessment is if the patient ends up needing a surgical debridement in the future. MRI was obtained. The official read stated that there is mild bone edema in the posterior tuberosity of the calcaneus adjacent to the ulcer with a small focus of decreased. T1 bone marrow signal, that could be suggestive of early osteomyelitis. Patient to continue with high protein diet and it was again stressed how important keeping blood sugar under control is to healing process. It was also again stressed to the patient how important is to keep pressure off of his heel at all times and that this includes any type of pressure at all, as the patient has been noncompliant in the past with this. I again informed them ad nauseum, that the reason there has been no improvement in recent weeks is because there is still being pressure applied to the heal. I again informed the patient that there is a high likelihood that he will need a surgical debridement. I also again informed him and his that there is possibility that this can lead to extensive debridements, partial calcaneal amputations, or even more proximal amputations on the leg. He is to use the knee scooter at all times while walking. While sitting or laying in bed he was instructed to keep the heel floating over the edge of a pillow in order to have absolutely no pressure to the area. The patient and his were also instructed to only dress the ulcer site as instructed at the wound center. Patient and the patient's were educated on signs and symptoms of local and systemic infection and were instructed to go to the emergency room immediately should they notice any. All questions were answered to the patient and the patient's 's satisfaction. I still continue to be concerned with the patient's compliance. They will follow-up in clinic in 1 week for further evaluation, or sooner if needed. This note was generated with [employer] software. It may contain incorrect words, spelling, and punctuation that were not noted in checking the note before signing.
--- NOTE | 2017-04-28 14:51 | PN.PCM_ITS ---
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 Status: Acute Current Visit: No Code(s): L97.419 - Non-pressure chronic ulcer of right heel and midfoot with unspecified severity (2) Malnutrition Status: Suspected Current Visit: No Code(s): E46 - Unspecified protein- calorie malnutrition (3) PVD (peripheral vascular disease) Status: Suspected Current Visit: No Code(s): I73.9 - Peripheral vascular disease, unspecified (4) Type 2 diabetes mellitus with diabetic polyneuropathy Status: Acute Current Visit: No Code(s): E11.42 - Type 2 diabetes mellitus with diabetic polyneuropathy (5) Lower extremity edema Status: Chronic Current Visit: No Code(s): R60.0 - Localized edema Type of Wound Date of Service: 04/28/17 Chief Complaint: Chronic non healing ulcer to right posterior heel with fat layer exposed. History of Wound: This 61-year-old diabetic male presents for follow up of chronic nonhealing ulcer to right posterior heel. Patient states on February 21 he believes he stepped on a staple walking down the stairs and had a tear in his skin. This progressed over the following days into an ulcer. Patient has seen Dr. See as well as gone to [facility] wound center in the past. While at [facility], the patient was undergoing every other day dressing changes consisting of medihoney and a dry sterile dressing. The patient has a knee walker and claims to be using it, but not all the time. The also states that the patient has not keeping pressure off of his right foot as much as he should be, even after last weeks visit, although he has gotten better. Patient denies any purulence to the area. The patient denies any feelings of nausea, vomiting, chills, fever at this time. Progress of Wound: No significant change in ulcer since last week. The ulcer is still covered by adherent slough. There is slight hyperkeratotic rim surrounding ulcer still today. No maceration to the miguelina-ulcer area. The patient and his have continued using Santyl to the area over the last week. No odor appreciated today. Patient had previously been cultured with MRSA and had been placed on appropriate antibiotics as noted in previous notes. They say since last week they have stopped trying to put the enzyme cleanser on the ulcer site. The does state that she feels as though her is still continuing to put pressure to his heel at times. - Physical Exam Vital Signs Temp Pulse Resp BP 98 F 80 18 168/73 H 04/28/17 10:45 04/28/17 10:45 04/28/17 10:45 04/28/17 10:45 General: Alert, Oriented x3, Cooperative Extremities: Capillary Refill Less than 3 Seconds, No Calf Tenderness - negative stephan and iverson sign, Diminished Peripheral Pulses - DP pulses faintly palpable and PT pulses nonpalpable due to slight edema to the lower extremity, Edema - bilateral lower extremity. patient continues to not use his tubigrips Skin: Ulcer/ Wound - Chronic nonhealing ulcer to plantar posterior aspect of the right heel. The ulcer measurements are noted below. Very small area of hyperkeratotic rim appreciated today. The ulcer base is majority of adherent slough and fibrous tissue. No surrounding erythema or cellulitis is appreciated today. No increase in warmth appreciated today. No purulence, no malodor, no fluctuance. There continues to be a small area that probes close to bone, and there continues to be some undermining appreciated from 3:00 to 9: 00 and is approximately 1.5 cm at its deepest. Wound Measurements and Assessment WC - Nurse 1 - General Ulcer Measurement Start: 04/21/17 10:37 Freq: Status: Active Protocol: Activity Type Activity Date Activity User E-Sign Co-Sign Detail Recorded Client Recorded Date Recorded By Document 04/28/17 10:45 DL [id number] 04/28/17 10:56 DL 04/28/17 10:45 Wound Center Nurse 1 [Ulcer Assessment] #2- RT HEEL -Current Size (cm) - Length 2.7 -Current Size (cm) - Width 3 -Current Size (cm) - Depth 1.5 -Total Square Cm 8.1 -Photo Taken No -Undermining/Tunneling Starts (O' 9 clock) -Undermining/Tunneling Ends (O'clock) 3 -Maximum Distance (cm) 1.2 -Exudate Amt Medium (34-66%) -Exudate Type Serosanguineous -Wound Margin Distinct, Outline Attached -Granulation Amt None Present (0 %) -Necrosis Amt Large (67-100%) -Necrotic Tissue Type Adherent Slough -Structure Exposed N/A -Texture (Miguelina-wound Skin Appearance) Scarring -Moisture (Miguelnia-wound Skin Appearance No Abnormality ) -Color (Miguelina-wound Skin Appearance) Rubor -Temperature (Miguelina-wound Skin No Abnormality Appearance) (Pt Warm) -Ulcer Cleansing Wound Cleanser -Foul Odor after Cleansing No -Anesthetic Used 4% Lidocaine Solution [Edema Assessment] -Right Calf (cm) 33 -Right Ankle (cm) 21.5 WC - Nurse 2 - General Ulcer CM Notes Start: 04/21/17 10:37 Freq: Status: Active Protocol: Activity Type Activity Date Activity User E-Sign Co-Sign Detail Recorded Client Recorded Date Recorded By Document 04/28/17 12:00 MW [id number] 04/28/17 12:04 MW 04/28/17 12:00 Wound Center Nurse 2 [Procedure/Treatment] #2- RT HEEL -Time 12:01 -Correct Patient Yes -Correct Side, Site, Position Yes -Correct Procedure Yes -Procedure Performed Yes -Type of Procedure Debridement -Clinical Debridement Subcutaneous -Post Debridement Size (cm) - Length 2.6 -Post Debridement Size (cm) - Width 3.0 -Post Debridement Size (cm) - Depth 1.2 -Total Square Cm 7.80 -Wound/Ulcer Outcome Not Healed -Ulcer Cleansing Rinsed/ Irrigated with Saline -Foul Odor after Cleansing No -Bioengineered Tissue No -Bleeding Controlled with Pressure -Treatment Response Procedure Tolerated Well [See Physician Procedure note for Specifics] Pain Scale: 0-10 Numeric [Pain] -Is Patient Pain Free? Yes Musculoskeletal: - - Patient denies tenderness to heel ulcer. Neurological: - - Epicritic sensation grossly absent from bilateral feet Psych/Mental Status: Normal Affect, Appropriate Debridement Note Post-Debridement Measurements/Treatment - Nurse 2 - General Ulcer CM Notes Start: 04/21/17 10:37 Freq: Status: Active Protocol: Activity Type Activity Date Activity User E-Sign Co-Sign Detail Recorded Client Recorded Date Recorded By Document 04/21/17 11:31 MW [id number] 04/21/17 11:52 MW Document 04/28/17 12:00 MW [id number] 04/28/17 12:04 MW 04/21/17 04/28/17 11:31 12:00 Wound Center Nurse 2 #2- RT HEEL -Time 11:31 12:01 -Correct Patient Yes Yes -Correct Side, Site, Position Yes Yes -Correct Procedure Yes Yes -Procedure Performed Yes Yes -Type of Procedure Debridement Debridement -Clinical Debridement Subcutaneous Subcutaneous -Post Debridement Size (cm) - Length 3.1 2.6 -Post Debridement Size (cm) - Width 3.0 3.0 -Post Debridement Size (cm) - Depth 1.5 1.2 -Total Square Cm 9.30 7.80 -Wound/Ulcer Outcome Not Healed Not Healed -Ulcer Cleansing Rinsed/ Rinsed/ Irrigated with Irrigated with Saline Saline -Foul Odor after Cleansing No No -Bioengineered Tissue No No -Bleeding Controlled with Pressure Pressure -Treatment Response Procedure Procedure Tolerated Well Tolerated Well Pain Scale: 0-10 Numeric Is Patient Pain Free? Yes Yes Wound debrided: Right posterior plantar heel Laterality: Right Wound Grade/Stage: 3 Type of Debridement: Excisional debridement Anesthesia Used: 4% Lidocaine Solution Depth: in the subcutaneous layer Percentage of wound debrided: 100 Instrument Used: #15 blade, Forceps Tissue Removed: Adherent slough, fibrous tissue, hyperkeratotic tissue Severity: Fat Layer Exposed Amount of bleeding with debridement: Mild Bleeding Controlled with: Pressure Patient tolerated procedure well Assessment/Plan Clinical Impression(s) from Imaging Studies Lower Extremity MRI 04/25/17 07:27 IMPRESSION: Mild edema in the posterior tuberosity of the calcaneus deep to the skin ulcer, suggestive of early osteomyelitis. Atrophy of the intrinsic muscles of the rearfoot suggestive of peripheral neuropathy. Mild scarring of the anterior talofibular ligament. Electronically Signed: Erick Lemos MD at 9:22 EST Tel , Service support , Orbit X-Ray 04/25/17 07:48 IMPRESSION: No demonstrated metallic orbital foreign body. The patient is cleared for an MRI examination. Electronically Signed: Colt Mejia MD at 8:25 EST Tel [phone], Service support , Assessment: Ulcer to right heel with stable eschar. DM with neuropathy. Malnutrition. Plan: Patient was again examined and evaluated today. No significant improvment in ulcer again since last week. Ulcer completely covered by slough. Area of probing still appreciated that is still almost to bone. Undermining continues to be appreciated this week as well. Debridement was completed as described in the clinical panel. Following debridement, Santyl was applied followed by a dry sterile dressing. Patient is to have daily dressing changes consisting of the above dressing for another week. Another prescription for santyl was given. Patient saw Dr. Rios recently, who ordered the patient to get a duplex arterial study that the patient will be having completed at [facility] on May 08. Soon after the test, the patient will follow up in office with Dr. Rios. We will wait to see what Dr. Rios's assessment is if the patient ends up needing a surgical debridement in the future. MRI was obtained. The official read stated that there is mild bone edema in the posterior tuberosity of the calcaneus adjacent to the ulcer with a small focus of decreased. T1 bone marrow signal, that could be suggestive of early osteomyelitis. Patient to continue with high protein diet and it was again stressed how important keeping blood sugar under control is to healing process. It was also again stressed to the patient how important is to keep pressure off of his heel at all times and that this includes any type of pressure at all, as the patient has been noncompliant in the past with this. I again informed them ad nauseum, that the reason there has been no improvement in recent weeks is because there is still being pressure applied to the heal. I again informed the patient that there is a high likelihood that he will need a surgical debridement. I also again informed him and his that there is possibility that this can lead to extensive debridements, partial calcaneal amputations, or even more proximal amputations on the leg. He is to use the knee scooter at all times while walking. While sitting or laying in bed he was instructed to keep the heel floating over the edge of a pillow in order to have absolutely no pressure to the area. The patient and his were also instructed to only dress the ulcer site as instructed at the wound center. Patient and the patient' s were educated on signs and symptoms of local and systemic infection and were instructed to go to the emergency room immediately should they notice any. All questions were answered to the patient and the patient's 's satisfaction. I still continue to be concerned with the patient's compliance. They will follow-up in clinic in 1 week for further evaluation, or sooner if needed. This note was generated with [employer] software. It may contain incorrect words, spelling, and punctuation that were not noted in checking the note before signing.
[2017-05-05 09:33] VITALS: BP 129/68; PULSE 86; RESP 20; TEMP 37; BMI 32.7
--- NOTE | 2017-05-05 12:33 | PCM.WC.PN ---
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 Status: Acute Current Visit: No Code(s): L97.419 - Non-pressure chronic ulcer of right heel and midfoot with unspecified severity (2) Malnutrition Status: Suspected Current Visit: No Code(s): E46 - Unspecified protein-calorie malnutrition (3) PVD (peripheral vascular disease) Status: Suspected Current Visit: No Code(s): I73.9 - Peripheral vascular disease, unspecified (4) Type 2 diabetes mellitus with diabetic polyneuropathy Status: Acute Current Visit: No Code(s): E11.42 - Type 2 diabetes mellitus with diabetic polyneuropathy (5) Lower extremity edema Status: Chronic Current Visit: No Code(s): R60.0 - Localized edema Type of Wound Date of Service: 05/05/17 Chief Complaint: Chronic non healing ulcer to right posterior heel with fat layer exposed. History of Wound: This 61-year-old diabetic male presents for follow up of chronic nonhealing ulcer to right posterior heel. Patient states on February 21 he believes he stepped on a staple walking down the stairs and had a tear in his skin. This progressed over the following days into an ulcer. Patient has seen Dr. See as well as gone to [facility] wound center in the past. While at [facility], the patient was undergoing every other day dressing changes consisting of medihoney and a dry sterile dressing. The patient has a knee walker and claims to be using it, but not all the time. The also states that the patient has not keeping pressure off of his right foot as much as he should be, even after last weeks visit, although he has gotten better. Patient denies any purulence to the area. The patient denies any feelings of nausea, vomiting, chills, fever at this time. Progress of Wound: Very slight improvement to base of ulcer this week. The ulcer is still covered by majority adherent slough. There is slight hyperkeratotic rim surrounding ulcer still today. Very slight maceration to the miguelina-ulcer area. The patient and his have continued using Santyl to the area over the last week. No odor appreciated today. Patient had previously been cultured with MRSA and had been placed on appropriate antibiotics as noted in previous notes. The does state that she feels that the has been puting pressure on the foot at times when he tries to walk with his crutches. - Physical Exam Vital Signs Temp Pulse Resp BP 98.6 F 86 20 H 129/68 H 05/05/17 09:33 05/05/17 09:33 05/05/17 09:33 05/05/17 09:33 General: Alert, Oriented x3, Cooperative, No apparent distress Extremities: Capillary Refill Less than 3 Seconds, No Calf Tenderness - negative stephan and iverson sign, Diminished Peripheral Pulses - DP pulses faintly palpable and PT pulses are non palpable due to aforemenitoned edema, Edema - some lower extremity edema appreciated Skin: Ulcer/ Wound - Chronic nonhealing ulcer to plantar posterior aspect of the right heel. The ulcer measurements are noted below. Very small area of hyperkeratotic rim appreciated again today. The ulcer base is majority of adherent slough and fibrous tissue. Very small amount of granular tissue noted tot he base this week as well. No surrounding erythema or cellulitis is appreciated today. No increase in warmth appreciated today. No purulence, no malodor, no fluctuance. There continues to be a small area that probes close to bone, and there continues to be some undermining appreciated from 3:00 to 9:00 and is approximately 1.5 cm at its deepest. This undermining has not gotten worse over the last week. Wound Measurements and Assessment WC - Nurse 1 - General Ulcer Measurement Start: 04/21/17 10:37 Freq: Status: Active Protocol: Activity Type Activity Date Activity User E-Sign Co-Sign Detail Recorded Client Recorded Date Recorded By Document 05/05/17 09:33 KRISSY [id number] 05/05/17 09:51 KRISSY 05/05/17 09:33 Wound Center Nurse 1 [Ulcer Assessment] #2- RT HEEL -Combined with other wound No -Current Size (cm) - Length 2.0 -Current Size (cm) - Width 2.5 -Current Size (cm) - Depth 1.0 -Total Square Cm 5.00 -Date of Last Picture (Recall this 05/05/17 field) -Photo Taken Yes -Epithelialization None Present -Tunneling No -Undermining/Tunneling Yes -Undermining/Tunneling Starts (O' 12 clock) -Undermining/Tunneling Ends (O'clock) 12 -Maximum Distance (cm) 1.0 -Circular Undermining Yes -Classification - Thickness Full Thickness without Exposed Support Structure -Exudate Amt Medium (34-66%) -Exudate Type Serosanguineous -Wound Margin Distinct, Outline Attached -Granulation Amt None Present (0 %) -Granulation Quality N/A -Slough/Fibrin Yes -Necrosis Amt Medium (34-66%) -Necrotic Tissue Type Adherent Slough -Structure Exposed Fat Layer Exposed -Texture (Miguelina-wound Skin Appearance) No Abnormality -Moisture (Miguelina-wound Skin Appearance Maceration ) -Color (Miguelina-wound Skin Appearance) No Abnormality -Temperature (Miguelina-wound Skin No Abnormality Appearance) (Pt Warm) -Tenderness on Palpation (Miguelina-wound No Skin Appearance) -Ulcer Cleansing Rinsed/ Irrigated with Saline -Foul Odor after Cleansing No -Anesthetic Used 4% Lidocaine Solution [Edema Assessment] -Lower Limb Edema Present No WC - Nurse 2 - General Ulcer CM Notes Start: 04/21/17 10:37 Freq: Status: Active Protocol: Activity Type Activity Date Activity User E-Sign Co-Sign Detail Recorded Client Recorded Date Recorded By Document 05/05/17 10:36 MW [id number] 05/05/17 10:54 MW 05/05/17 10:36 Wound Center Nurse 2 [Procedure/Treatment] #2- RT HEEL -Time 10:37 -Correct Patient Yes -Correct Side, Site, Position Yes -Correct Procedure Yes -Procedure Performed Yes -Type of Procedure Debridement -Clinical Debridement Subcutaneous -Post Debridement Size (cm) - Length 2.1 -Post Debridement Size (cm) - Width 3.0 -Post Debridement Size (cm) - Depth 1.3 -Total Square Cm 6.30 -Wound/Ulcer Outcome Not Healed -Ulcer Cleansing Rinsed/ Irrigated with Saline -Foul Odor after Cleansing No -Bioengineered Tissue No -Bleeding Controlled with Pressure -Treatment Response Procedure Tolerated Well [See Physician Procedure note for Specifics] Pain Scale: 0-10 Numeric [Pain] -Is Patient Pain Free? Yes Musculoskeletal: Tenderness - denies tenderness to ulcer site Neurological: - - epicritic sensation grossly absent from lower extremities Psych/Mental Status: Normal Affect, Appropriate Debridement Note Post-Debridement Measurements/Treatment WC - Nurse 2 - General Ulcer CM Notes Start: 04/21/17 10:37 Freq: Status: Active Protocol: Activity Type Activity Date Activity User E-Sign Co-Sign Detail Recorded Client Recorded Date Recorded By Document 04/21/17 11:31 MW [id number] 04/21/17 11:52 MW Document 04/28/17 12:00 MW [id number] 04/28/17 12:04 MW Document 05/05/17 10:36 MW [id number] 05/05/17 10:54 MW 04/21/17 04/28/17 05/05/17 11:31 12:00 10:36 Wound Center Nurse 2 #2- RT HEEL -Time 11:31 12:01 10:37 -Correct Patient Yes Yes Yes -Correct Side, Site, Position Yes Yes Yes -Correct Procedure Yes Yes Yes -Procedure Performed Yes Yes Yes -Type of Procedure Debridement Debridement Debridement -Clinical Debridement Subcutaneous Subcutaneous Subcutaneous -Post Debridement Size (cm) - Length 3.1 2.6 2.1 -Post Debridement Size (cm) - Width 3.0 3.0 3.0 -Post Debridement Size (cm) - Depth 1.5 1.2 1.3 -Total Square Cm 9.30 7.80 6.30 -Wound/Ulcer Outcome Not Healed Not Healed Not Healed -Ulcer Cleansing Rinsed/ Rinsed/ Rinsed/ Irrigated with Irrigated with Irrigated with Saline Saline Saline -Foul Odor after Cleansing No No No -Bioengineered Tissue No No No -Bleeding Controlled with Pressure Pressure Pressure -Treatment Response Procedure Procedure Procedure Tolerated Well Tolerated Well Tolerated Well Pain Scale: 0-10 Numeric Is Patient Pain Free? Yes Yes Yes Wound debrided: right plantar posterior heel Laterality: Right Wound Grade/Stage: 3 Type of Debridement: Excisional debridement Anesthesia Used: 4% Lidocaine Solution Depth: in the subcutaneous layer Percentage of wound debrided: 100 Instrument Used: #15 blade, Forceps Tissue Removed: Adherent slough, fibrous tissue, hyperkeratotic tissue Severity: Fat Layer Exposed Amount of bleeding with debridement: Mild Bleeding Controlled with: Pressure Patient tolerated procedure well Assessment/Plan Clinical Impression(s) from Imaging Studies Lower Extremity MRI 04/25/17 07:27 IMPRESSION: Mild edema in the posterior tuberosity of the calcaneus deep to the skin ulcer, suggestive of early osteomyelitis. Atrophy of the intrinsic muscles of the rearfoot suggestive of peripheral neuropathy. Mild scarring of the anterior talofibular ligament. Electronically Signed: Erick Lemos MD at 9:22 EST Tel , Service support , Orbit X-Ray 04/25/17 07:48 IMPRESSION: No demonstrated metallic orbital foreign body. The patient is cleared for an MRI examination. Electronically Signed: Colt Mejia MD at 8:25 EST Tel [phone], Service support , Assessment: Ulcer to right heel with stable eschar. DM with neuropathy. Malnutrition. Plan: Patient was again examined and evaluated today. Some improvement noted form last week to this week. Majority of ulcer still covered by slough. Area of probing still appreciated that is still almost to bone. Undermining continues to be appreciated this week as well. Debridement was completed as described in the clinical panel. The ulcer site was then cleansed with normal saline, and then a tissue sample was taken and sent for aerobic and anaerobic cultures. A swab culture was also taken for MRSA pcr. The results of each will be followed. We will also consult infectious disease to follow this patient as well. Following debridement, Santyl was applied followed by a dry sterile dressing. Patient is to have daily dressing changes consisting of the above dressing for another week. Patient saw Dr. Rios recently, who ordered the patient to get a duplex arterial study that the patient will be having completed at [facility] on May 09. Soon after the test on the , the patient will follow up in office with Dr. Rios. We will wait to see what Dr. Rios's assessment is if the patient ends up needing a surgical debridement in the future. Patient to continue with high protein diet and it was again stressed how important keeping blood sugar under control is to healing process. It was also again stressed to the patient how important is to keep pressure off of his heel at all times and that this includes any type of pressure at all, as the patient has been noncompliant in the past with this. I again informed them that the reason there has been no improvement in recent weeks is because there is still being pressure applied to the heal. I again informed the patient that there is a high likelihood that he will need a surgical debridement. I also again informed him and his that there is possibility that this can lead to extensive debridements, partial calcaneal amputations, or even more proximal amputations on the leg. He is to use the knee scooter at all times while walking. While sitting or laying in bed he was instructed to keep the heel floating over the edge of a pillow in order to have absolutely no pressure to the area. The patient and his were also instructed to only dress the ulcer site as instructed at the wound center. Patient and the patient's were educated on signs and symptoms of local and systemic infection and were instructed to go to the emergency room immediately should they notice any. All questions were answered to the patient and the patient's 's satisfaction. I still continue to be concerned with the patient's compliance. They will follow-up in clinic in 1 week for further evaluation, or sooner if needed. This note was generated with [employer] dictation software. It may contain incorrect words, spelling, and punctuation that were not noted in checking the note before signing.
--- NOTE | 2017-05-05 12:45 | PN.PCM_ITS ---
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 Status: Acute Current Visit: No Code(s): L97.419 - Non-pressure chronic ulcer of right heel and midfoot with unspecified severity (2) Malnutrition Status: Suspected Current Visit: No Code(s): E46 - Unspecified protein- calorie malnutrition (3) PVD (peripheral vascular disease) Status: Suspected Current Visit: No Code(s): I73.9 - Peripheral vascular disease, unspecified (4) Type 2 diabetes mellitus with diabetic polyneuropathy Status: Acute Current Visit: No Code(s): E11.42 - Type 2 diabetes mellitus with diabetic polyneuropathy (5) Lower extremity edema Status: Chronic Current Visit: No Code(s): R60.0 - Localized edema Type of Wound Date of Service: 05/05/17 Chief Complaint: Chronic non healing ulcer to right posterior heel with fat layer exposed. History of Wound: This 61-year-old diabetic male presents for follow up of chronic nonhealing ulcer to right posterior heel. Patient states on February 21 he believes he stepped on a staple walking down the stairs and had a tear in his skin. This progressed over the following days into an ulcer. Patient has seen Dr. See as well as gone to [facility] wound center in the past. While at [facility], the patient was undergoing every other day dressing changes consisting of medihoney and a dry sterile dressing. The patient has a knee walker and claims to be using it, but not all the time. The also states that the patient has not keeping pressure off of his right foot as much as he should be, even after last weeks visit, although he has gotten better. Patient denies any purulence to the area. The patient denies any feelings of nausea, vomiting, chills, fever at this time. Progress of Wound: Very slight improvement to base of ulcer this week. The ulcer is still covered by majority adherent slough. There is slight hyperkeratotic rim surrounding ulcer still today. Very slight maceration to the miguelina-ulcer area. The patient and his have continued using Santyl to the area over the last week. No odor appreciated today. Patient had previously been cultured with MRSA and had been placed on appropriate antibiotics as noted in previous notes. The does state that she feels that the has been puting pressure on the foot at times when he tries to walk with his crutches. - Physical Exam Vital Signs Temp Pulse Resp BP 98.6 F 86 20 H 129/68 H 05/05/17 09:33 05/05/17 09:33 05/05/17 09:33 05/05/17 09:33 General: Alert, Oriented x3, Cooperative, No apparent distress Extremities: Capillary Refill Less than 3 Seconds, No Calf Tenderness - negative stephan and iverson sign, Diminished Peripheral Pulses - DP pulses faintly palpable and PT pulses are non palpable due to aforemenitoned edema, Edema - some lower extremity edema appreciated Skin: Ulcer/ Wound - Chronic nonhealing ulcer to plantar posterior aspect of the right heel. The ulcer measurements are noted below. Very small area of hyperkeratotic rim appreciated again today. The ulcer base is majority of adherent slough and fibrous tissue. Very small amount of granular tissue noted tot he base this week as well. No surrounding erythema or cellulitis is appreciated today. No increase in warmth appreciated today. No purulence, no malodor, no fluctuance. There continues to be a small area that probes close to bone, and there continues to be some undermining appreciated from 3:00 to 9: 00 and is approximately 1.5 cm at its deepest. This undermining has not gotten worse over the last week. Wound Measurements and Assessment WC - Nurse 1 - General Ulcer Measurement Start: 04/21/17 10:37 Freq: Status: Active Protocol: Activity Type Activity Date Activity User E-Sign Co-Sign Detail Recorded Client Recorded Date Recorded By Document 05/05/17 09:33 KRISSY [id number] 05/05/17 09:51 KRISSY 05/05/17 09:33 Wound Center Nurse 1 [Ulcer Assessment] #2- RT HEEL -Combined with other wound No -Current Size (cm) - Length 2.0 -Current Size (cm) - Width 2.5 -Current Size (cm) - Depth 1.0 -Total Square Cm 5.00 -Date of Last Picture (Recall this 05/05/17 field) -Photo Taken Yes -Epithelialization None Present -Tunneling No -Undermining/Tunneling Yes -Undermining/Tunneling Starts (O' 12 clock) -Undermining/Tunneling Ends (O'clock) 12 -Maximum Distance (cm) 1.0 -Circular Undermining Yes -Classification - Thickness Full Thickness without Exposed Support Structure -Exudate Amt Medium (34-66%) -Exudate Type Serosanguineous -Wound Margin Distinct, Outline Attached -Granulation Amt None Present (0 %) -Granulation Quality N/A -Slough/Fibrin Yes -Necrosis Amt Medium (34-66%) -Necrotic Tissue Type Adherent Slough -Structure Exposed Fat Layer Exposed -Texture (Miguelina-wound Skin Appearance) No Abnormality -Moisture (Miguelina-wound Skin Appearance Maceration ) -Color (Miguelina-wound Skin Appearance) No Abnormality -Temperature (Miguelina-wound Skin No Abnormality Appearance) (Pt Warm) -Tenderness on Palpation (Miguelina-wound No Skin Appearance) -Ulcer Cleansing Rinsed/ Irrigated with Saline -Foul Odor after Cleansing No -Anesthetic Used 4% Lidocaine Solution [Edema Assessment] -Lower Limb Edema Present No WC - Nurse 2 - General Ulcer CM Notes Start: 04/21/17 10:37 Freq: Status: Active Protocol: Activity Type Activity Date Activity User E-Sign Co-Sign Detail Recorded Client Recorded Date Recorded By Document 05/05/17 10:36 MW [id number] 05/05/17 10:54 MW 05/05/17 10:36 Wound Center Nurse 2 [Procedure/Treatment] #2- RT HEEL -Time 10:37 -Correct Patient Yes -Correct Side, Site, Position Yes -Correct Procedure Yes -Procedure Performed Yes -Type of Procedure Debridement -Clinical Debridement Subcutaneous -Post Debridement Size (cm) - Length 2.1 -Post Debridement Size (cm) - Width 3.0 -Post Debridement Size (cm) - Depth 1.3 -Total Square Cm 6.30 -Wound/Ulcer Outcome Not Healed -Ulcer Cleansing Rinsed/ Irrigated with Saline -Foul Odor after Cleansing No -Bioengineered Tissue No -Bleeding Controlled with Pressure -Treatment Response Procedure Tolerated Well [See Physician Procedure note for Specifics] Pain Scale: 0-10 Numeric [Pain] -Is Patient Pain Free? Yes Musculoskeletal: Tenderness - denies tenderness to ulcer site Neurological: - - epicritic sensation grossly absent from lower extremities Psych/Mental Status: Normal Affect, Appropriate Debridement Note Post-Debridement Measurements/Treatment WC - Nurse 2 - General Ulcer CM Notes Start: 04/21/17 10:37 Freq: Status: Active Protocol: Activity Type Activity Date Activity User E-Sign Co-Sign Detail Recorded Client Recorded Date Recorded By Document 04/21/17 11:31 MW [id number] 04/21/17 11:52 MW Document 04/28/17 12:00 MW [id number] 04/28/17 12:04 MW Document 05/05/17 10:36 MW [id number] 05/05/17 10:54 MW 04/21/17 04/28/17 05/05/17 11:31 12:00 10:36 Wound Center Nurse 2 #2- RT HEEL -Time 11:31 12:01 10:37 -Correct Patient Yes Yes Yes -Correct Side, Site, Position Yes Yes Yes -Correct Procedure Yes Yes Yes -Procedure Performed Yes Yes Yes -Type of Procedure Debridement Debridement Debridement -Clinical Debridement Subcutaneous Subcutaneous Subcutaneous -Post Debridement Size (cm) - Length 3.1 2.6 2.1 -Post Debridement Size (cm) - Width 3.0 3.0 3.0 -Post Debridement Size (cm) - Depth 1.5 1.2 1.3 -Total Square Cm 9.30 7.80 6.30 -Wound/Ulcer Outcome Not Healed Not Healed Not Healed -Ulcer Cleansing Rinsed/ Rinsed/ Rinsed/ Irrigated with Irrigated with Irrigated with Saline Saline Saline -Foul Odor after Cleansing No No No -Bioengineered Tissue No No No -Bleeding Controlled with Pressure Pressure Pressure -Treatment Response Procedure Procedure Procedure Tolerated Well Tolerated Well Tolerated Well Pain Scale: 0-10 Numeric Is Patient Pain Free? Yes Yes Yes Wound debrided: right plantar posterior heel Laterality: Right Wound Grade/Stage: 3 Type of Debridement: Excisional debridement Anesthesia Used: 4% Lidocaine Solution Depth: in the subcutaneous layer Percentage of wound debrided: 100 Instrument Used: #15 blade, Forceps Tissue Removed: Adherent slough, fibrous tissue, hyperkeratotic tissue Severity: Fat Layer Exposed Amount of bleeding with debridement: Mild Bleeding Controlled with: Pressure Patient tolerated procedure well Assessment/Plan Clinical Impression(s) from Imaging Studies Lower Extremity MRI 04/25/17 07:27 IMPRESSION: Mild edema in the posterior tuberosity of the calcaneus deep to the skin ulcer, suggestive of early osteomyelitis. Atrophy of the intrinsic muscles of the rearfoot suggestive of peripheral neuropathy. Mild scarring of the anterior talofibular ligament. Electronically Signed: Erick Lemos MD at 9:22 EST Tel , Service support , Orbit X-Ray 04/25/17 07:48 IMPRESSION: No demonstrated metallic orbital foreign body. The patient is cleared for an MRI examination. Electronically Signed: Colt Mejia MD at 8:25 EST Tel [phone], Service support , Assessment: Ulcer to right heel with stable eschar. DM with neuropathy. Malnutrition. Plan: Patient was again examined and evaluated today. Some improvement noted form last week to this week. Majority of ulcer still covered by slough. Area of probing still appreciated that is still almost to bone. Undermining continues to be appreciated this week as well. Debridement was completed as described in the clinical panel. The ulcer site was then cleansed with normal saline, and then a tissue sample was taken and sent for aerobic and anaerobic cultures. A swab culture was also taken for MRSA pcr. The results of each will be followed. We will also consult infectious disease to follow this patient as well. Following debridement, Santyl was applied followed by a dry sterile dressing. Patient is to have daily dressing changes consisting of the above dressing for another week. Patient saw Dr. Rios recently, who ordered the patient to get a duplex arterial study that the patient will be having completed at [facility] on May 09. Soon after the test on the , the patient will follow up in office with Dr. Rios. We will wait to see what Dr. Rios's assessment is if the patient ends up needing a surgical debridement in the future. Patient to continue with high protein diet and it was again stressed how important keeping blood sugar under control is to healing process. It was also again stressed to the patient how important is to keep pressure off of his heel at all times and that this includes any type of pressure at all, as the patient has been noncompliant in the past with this. I again informed them that the reason there has been no improvement in recent weeks is because there is still being pressure applied to the heal. I again informed the patient that there is a high likelihood that he will need a surgical debridement. I also again informed him and his that there is possibility that this can lead to extensive debridements, partial calcaneal amputations, or even more proximal amputations on the leg. He is to use the knee scooter at all times while walking. While sitting or laying in bed he was instructed to keep the heel floating over the edge of a pillow in order to have absolutely no pressure to the area. The patient and his were also instructed to only dress the ulcer site as instructed at the wound center. Patient and the patient's were educated on signs and symptoms of local and systemic infection and were instructed to go to the emergency room immediately should they notice any. All questions were answered to the patient and the patient's 's satisfaction. I still continue to be concerned with the patient's compliance. They will follow -up in clinic in 1 week for further evaluation, or sooner if needed. This note was generated with [employer] dictation software. It may contain incorrect words, spelling, and punctuation that were not noted in checking the note before signing.
[2017-05-05 21:15] LABS: M R Staph aureus DNA By PCR Negative (Negative); Probe Check PASS; Specimen Processing Control PASS; Staph aureus DNA By PCR NEGATIVE (Negative)
[2017-05-12 10:15] VITALS: BP 139/60; PULSE 90; RESP 18; TEMP 35.9; BMI 32.7
--- NOTE | 2017-05-12 11:11 | CON.PCM_ITS ---
Problem List (1) Type 2 diabetes mellitus with diabetic polyneuropathy Status: Acute (2) Non-pressure chronic ulcer of right heel and midfoot with unspecified severity Status: Acute Reason for Consult: osteo Consulted by: Dr. De La Torre History of Present Illness: The patient is a 61 year old M with DM neuropathy and prior MRSA osteo of R toe who originally presented with R heel ulcer after stepping on a staple. Had progressive redness, ulceration, drainage, swelling. Wound cx 03/24/17 with MRSA , enterobacter, and anaerobes. Given course of rifampin, bactrim, and flagyl. Off abx for past month, and he and his think foot is slowly improving. He has been taking enzymes from his chiropracter for his foot. Minimal drainage, no fever. Seeing Dr. Rios for ongoing vascular eval. MRI of foot showed early osteo. Full ROS performed and neg except as noted above. - Medical History Past Medical History (Chronic Problems): Chronic Problems Lower extremity edema (Chronic) Allergies/Adverse Reactions: Allergies No Known Allergies Allergy (Verified 03/10/17 10:37) Home Medications: Ambulatory Orders Medication Instructions Recorded Aspirin [Aspirin, Baby] 81 mg PO DAILY@0800 08/13/14 Fish Oil/Dha/Epa [Fish Oil 1,200 1,200 mg PO 4X/DAY 08/13/14 mg Fish Oil] Flavoring Agent [Cinnamon] 1,000 mg PO 4X/DAY 08/13/14 Gabapentin [Neurontin] 100 mg PO BREAKFAST 08/13/14 Gabapentin [Neurontin] 300 mg PO QHS 08/13/14 Insulin Aspart [Novolog] 10 unit SQ TID 08/13/14 Insulin Glargine,Hum.rec.anlog 30 unit SC QHS 08/13/14 [Lantus] Lisinopril [Zestril] 10 mg PO DAILY 08/13/14 Multivit-Min/FA/Lycopene/Lut 1 each PO DAILY 08/13/14 [Centrum Silver Tablet] Saw [place] 450 mg PO DAILY 08/13/14 Cholecalciferol (Vitamin D3) 100 gm MC DAILY 03/10/17 [Vitamin D3] Chromium Amino Acid Chelate 400 mcg PO DAILY 03/10/17 [Chromium] - Social History SMOKING STATUS:: Former smoker Vital Signs Temp Pulse Resp BP 96.6 F L 90 18 139/60 H 03/22/18 10:15 05/12/17 10:15 05/12/17 10:15 05/12/17 10:15 Oxygen Delivery Method Room Air Weight: 100.425 kg Body Mass Index (BMI) 32.7 Microbiology Past 72 Hours 05/05/17 10:50 Gram Stain - Final Wound - Heel Right Wound Culture - Final Enterobacter cloacae complex Anaerobic Culture - Final Anaerobic cocci - Other Studies Radiology: [] reviewed Other Studies: [] Route of nutrition/ use of supplements: [] Nutritional Intake: [] IV Site: [] Toussaint Catheter: [] - Physical Exam General: Alert, Oriented x3, Cooperative, No apparent distress HEENT: Atraumatic, PERRLA, EOMI Neck: Supple, No Nodes Lungs: Clear to auscultation, Normal air movement Cardiovascular: Regular rate, Regular Rhythm Abdomen: Soft, Non Tender, Non-Distended Skin: Ulcer/ Wound - R heel ulcer with surrounding redness, swelling. No drainage currently. Musculoskeletal: No Tenderness to Palpation of Joints or Extremities Neurological: Cranial nerves II-XII grossly intact, - - peripheral neuropathy - Assessment/Plan Antibiotics: [] Assessment/Plan: [] R heel osteo - 03/24/17 cx with MRSA, enterobacter, and anaerobe. Given course of bactrim, rifampin, and flagyl at that time. Of note, rifampin should not be used as monotherapy for MRSA. Other MRSA oral options are limited if they are unable to afford linezolid. Most recent cx and PCR showed no MRSA, so I am ok with holding off on MRSA coverage at this point. Discussed options with him and his , and I think primary goal should be avoiding worsening of infection even though his foot has been relatively stable for the past month. Will start 6 week course of po bactrim and flagyl, checking mbp, cbc, and esr next week. Vascular intervention and surgical debridement would also help with healing and source control, and at that point would re-eval cultures and possible need for iv abx. Thank you, will follow, d/w Dr. De La Torre.
--- NOTE | 2017-05-12 13:35 | PCM.WC.PN ---
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 Status: Acute Current Visit: No Code(s): L97.419 - Non-pressure chronic ulcer of right heel and midfoot with unspecified severity (2) Malnutrition Status: Suspected Current Visit: No Code(s): E46 - Unspecified protein-calorie malnutrition (3) PVD (peripheral vascular disease) Status: Suspected Current Visit: No Code(s): I73.9 - Peripheral vascular disease, unspecified (4) Type 2 diabetes mellitus with diabetic polyneuropathy Status: Acute Current Visit: No Code(s): E11.42 - Type 2 diabetes mellitus with diabetic polyneuropathy (5) Lower extremity edema Status: Chronic Current Visit: No Code(s): R60.0 - Localized edema Type of Wound Date of Service: 05/12/17 Chief Complaint: Chronic non healing ulcer to right posterior heel with fat layer exposed. History of Wound: This 61-year-old diabetic male presents for follow up of chronic nonhealing ulcer to right posterior heel. Patient states on February 21 he believes he stepped on a staple walking down the stairs and had a tear in his skin. This progressed over the following days into an ulcer. Patient has seen Dr. See as well as gone to [facility] wound center in the past. While at [facility], the patient was undergoing every other day dressing changes consisting of medihoney and a dry sterile dressing. The patient has a knee walker and claims to be using it, but not all the time. The also states that the patient has not keeping pressure off of his right foot as much as he should be, even after last weeks visit, although he has gotten better. Patient denies any purulence to the area. The patient denies any feelings of nausea, vomiting, chills, fever at this time. Progress of Wound: Another very slight improvement to base of ulcer this week. The ulcer is still covered by majority adherent slough. There is slight hyperkeratotic rim surrounding ulcer still today. No maceration to the miguelina-ulcer area today. The patient and his have continued using Santyl to the area over the last week. No odor appreciated today. Patient had previously been cultured with MRSA and had been placed on appropriate antibiotics as noted in previous notes. The does state that she feels that the has been puting pressure on the foot at times when he tries to walk with his crutches still. - Physical Exam Vital Signs Temp Pulse Resp BP 96.6 F L 90 18 139/60 H 05/12/17 10:15 05/12/17 10:15 05/12/17 10:15 05/12/17 10:15 General: Alert, Oriented x3, Cooperative, No apparent distress Extremities: Capillary Refill Less than 3 Seconds, No Calf Tenderness - negative stephan and iverson sign, Diminished Peripheral Pulses - DP pulses faintly palpable and PT pulses are non palpable due to aforemenitoned edema, Edema - lower extremity edema noted Skin: Ulcer/ Wound - Chronic nonhealing ulcer to plantar posterior aspect of the right heel. The ulcer measurements are noted below. Very small area of hyperkeratotic rim appreciated again today. The ulcer base is majority of adherent slough and fibrous tissue. Very small amount of granular tissue noted to the base this week and is slightly improved form last week as well. No surrounding erythema or cellulitis is appreciated today. No increase in warmth appreciated today. No purulence, no malodor, no fluctuance. There continues to be a small area that probes close to bone, and there continues to be some undermining appreciated around the entire ulcer site and is approximately 1.5 cm at its deepest. This undermining has not gotten worse over the last week. Wound Measurements and Assessment WC - Nurse 1 - General Ulcer Measurement Start: 04/21/17 10:37 Freq: Status: Active Protocol: Activity Type Activity Date Activity User E-Sign Co-Sign Detail Recorded Client Recorded Date Recorded By Document 05/12/17 10:15 [id number] 05/12/17 10:36 05/12/17 10:15 Wound Center Nurse 1 [Ulcer Assessment] #2- RT HEEL -Combined with other wound No -Current Size (cm) - Length 2.0 -Current Size (cm) - Width 2.8 -Current Size (cm) - Depth 1.0 -Total Square Cm 5.60 -Photo Taken No -Epithelialization None Present -Tunneling No -Undermining/Tunneling Yes -Undermining/Tunneling Starts (O' 1 clock) -Undermining/Tunneling Ends (O'clock) 11 -Maximum Distance (cm) 1.0 -Circular Undermining Yes -Classification - Thickness Full Thickness without Exposed Support Structure -Classification - [place] Grading ( Grade 3 Diabetic Ulcer) -Exudate Amt Small (1-33%) -Exudate Type Yellow/Green -Wound Margin Fibrotic Scar, Thickened Scar -Granulation Amt Small (1-33%) -Granulation Quality [employer] -Slough/Fibrin Yes -Necrosis Amt Large (67-100%) -Necrotic Tissue Type Adherent Slough -Structure Exposed Fascia Fat Layer Exposed -Texture (Miguelina-wound Skin Appearance) Callus Localized Edema Scarring -Moisture (Miguelina-wound Skin Appearance Maceration ) -Color (Miguelina-wound Skin Appearance) Erythema -Temperature (Miguelina-wound Skin No Abnormality Appearance) (Pt Warm) -Tenderness on Palpation (Miguelina-wound No Skin Appearance) -Ulcer Cleansing Rinsed/ Irrigated with Saline -Foul Odor after Cleansing No -Anesthetic Used 5% Lidocaine Gel [Edema Assessment] -Lower Limb Edema Present Yes -Right Calf (cm) 32.5 -Right Ankle (cm) 22.5 WC - Nurse 2 - General Ulcer CM Notes Start: 04/21/17 10:37 Freq: Status: Active Protocol: Activity Type Activity Date Activity User E-Sign Co-Sign Detail Recorded Client Recorded Date Recorded By Document 05/12/17 11:14 MW [id number] 05/12/17 11:28 MW 05/12/17 11:14 Wound Center Nurse 2 [Procedure/Treatment] #2- RT HEEL -Time 11:14 -Correct Patient Yes -Correct Side, Site, Position Yes -Correct Procedure Yes -Procedure Performed Yes -Type of Procedure Debridement -Clinical Debridement Subcutaneous -Post Debridement Size (cm) - Length 2.3 -Post Debridement Size (cm) - Width 2.5 -Post Debridement Size (cm) - Depth 1.3 -Total Square Cm 5.75 -Wound/Ulcer Outcome Not Healed -Ulcer Cleansing Rinsed/ Irrigated with Saline -Foul Odor after Cleansing No -Bioengineered Tissue No -Bleeding Controlled with Pressure -Treatment Response Procedure Tolerated Well [See Physician Procedure note for Specifics] Pain Scale: 0-10 Numeric [Pain] -Is Patient Pain Free? Yes Musculoskeletal: - - denies tenderness to ulcer site Neurological: - - epicritic sensation grossly absent from lower extremities Psych/Mental Status: Normal Affect, Appropriate Debridement Note Post-Debridement Measurements/Treatment WC - Nurse 2 - General Ulcer CM Notes Start: 04/21/17 10:37 Freq: Status: Active Protocol: Activity Type Activity Date Activity User E-Sign Co-Sign Detail Recorded Client Recorded Date Recorded By Document 04/21/17 11:31 MW [id number] 04/21/17 11:52 MW Document 04/28/17 12:00 MW [id number] 04/28/17 12:04 MW Document 05/05/17 10:36 MW [id number] 05/05/17 10:54 MW Document 05/12/17 11:14 MW [id number] 05/12/17 11:28 MW 04/21/17 04/28/17 05/05/17 11:31 12:00 10:36 Wound Center Nurse 2 #2- RT HEEL -Time 11:31 12:01 10:37 -Correct Patient Yes Yes Yes -Correct Side, Site, Position Yes Yes Yes -Correct Procedure Yes Yes Yes -Procedure Performed Yes Yes Yes -Type of Procedure Debridement Debridement Debridement -Clinical Debridement Subcutaneous Subcutaneous Subcutaneous -Post Debridement Size (cm) - Length 3.1 2.6 2.1 -Post Debridement Size (cm) - Width 3.0 3.0 3.0 -Post Debridement Size (cm) - Depth 1.5 1.2 1.3 -Total Square Cm 9.30 7.80 6.30 -Wound/Ulcer Outcome Not Healed Not Healed Not Healed -Ulcer Cleansing Rinsed/ Rinsed/ Rinsed/ Irrigated with Irrigated with Irrigated with Saline Saline Saline -Foul Odor after Cleansing No No No -Bioengineered Tissue No No No -Bleeding Controlled with Pressure Pressure Pressure -Treatment Response Procedure Procedure Procedure Tolerated Well Tolerated Well Tolerated Well Pain Scale: 0-10 Numeric Is Patient Pain Free? Yes Yes Yes 05/12/17 11:14 Wound Center Nurse 2 #2- RT HEEL -Time 11:14 -Correct Patient Yes -Correct Side, Site, Position Yes -Correct Procedure Yes -Procedure Performed Yes -Type of Procedure Debridement -Clinical Debridement Subcutaneous -Post Debridement Size (cm) - Length 2.3 -Post Debridement Size (cm) - Width 2.5 -Post Debridement Size (cm) - Depth 1.3 -Total Square Cm 5.75 -Wound/Ulcer Outcome Not Healed -Ulcer Cleansing Rinsed/ Irrigated with Saline -Foul Odor after Cleansing No -Bioengineered Tissue No -Bleeding Controlled with Pressure -Treatment Response Procedure Tolerated Well Pain Scale: 0-10 Numeric Is Patient Pain Free? Yes Wound debrided: right plantar posterior heel Laterality: Right Wound Grade/Stage: 3 Type of Debridement: Excisional debridement Anesthesia Used: 4% Lidocaine Solution Depth: in the subcutaneous layer Percentage of wound debrided: 100 Instrument Used: #15 blade, Forceps Tissue Removed: adherent slough, fibrous tissue, hyperkeratotic tissue, biofilm Severity: Fat Layer Exposed Amount of bleeding with debridement: Mild Bleeding Controlled with: Pressure Patient tolerated procedure well Assessment/Plan Clinical Impression(s) from Imaging Studies Lower Extremity MRI 04/25/17 07:27 IMPRESSION: Mild edema in the posterior tuberosity of the calcaneus deep to the skin ulcer, suggestive of early osteomyelitis. Atrophy of the intrinsic muscles of the rearfoot suggestive of peripheral neuropathy. Mild scarring of the anterior talofibular ligament. Electronically Signed: Erick Lemos MD at 9:22 EST Tel , Service support , Orbit X-Ray 04/25/17 07:48 IMPRESSION: No demonstrated metallic orbital foreign body. The patient is cleared for an MRI examination. Electronically Signed: Colt Mejia MD at 8:25 EST Tel [phone], Service support , Assessment: Ulcer to right heel with stable eschar. DM with neuropathy. Malnutrition. Plan: Patient was again examined and evaluated today. Some slight improvement noted form last week to this week again. Majority of ulcer still covered by slough. Area of probing still appreciated that is still almost to bone. Undermining continues to be appreciated this week as well. Debridement was completed as described in the clinical panel. The ulcer site was then cleansed with normal saline. MRSA pcr was negative. The tissue sample sent last week grew anaerobic cocci and enterobacter cloacae complex. Dr. Naranjo with infectious disease saw the patient today as well and started him on Bactrim and Flagyl. Following debridement, Santyl was applied followed by a dry sterile dressing. Patient is to have daily dressing changes consisting of the above dressing for another week. Patient saw Dr. Rios recently, who ordered the patient to get a duplex arterial study that the patient had completed at [facility] on May 09. The patient will follow up in office with Dr. Rios on Tuesday. We will wait to see what Dr. Rios's assessment is if the patient ends up needing a surgical debridement in the future. Patient to continue with high protein diet and it was again stressed how important keeping blood sugar under control is to healing process. It was also again stressed to the patient how important is to keep pressure off of his heel at all times and that this includes any type of pressure at all, as the patient has been noncompliant in the past with this. I saw the patient in office today walkin with some pressure to his heel while trying to use crutches, even though I have told him to stick with his knee walker. I again informed them that the reason there has been no improvement in recent weeks is because there is still being pressure applied to the heal. I again informed the patient that there is a high likelihood that he will need a surgical debridement. I also again informed him and his that there is possibility that this can lead to extensive debridements, partial calcaneal amputations, or even more proximal amputations on the leg. He is to use the knee scooter at all times while walking. While sitting or laying in bed he was instructed to keep the heel floating over the edge of a pillow in order to have absolutely no pressure to the area. The patient and his were also instructed to only dress the ulcer site as instructed at the wound center. Patient and the patient's were educated on signs and symptoms of local and systemic infection and were instructed to go to the emergency room immediately should they notice any. All questions were answered to the patient and the patient's 's satisfaction. I still continue to be concerned with the patient's compliance. They will follow-up in clinic in 1 week for further evaluation, or sooner if needed. This note was generated with [employer] dictation software. It may contain incorrect words, spelling, and punctuation that were not noted in checking the note before signing.
--- NOTE | 2017-05-12 13:52 | PN.PCM_ITS ---
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 Status: Acute Current Visit: No Code(s): L97.419 - Non-pressure chronic ulcer of right heel and midfoot with unspecified severity (2) Malnutrition Status: Suspected Current Visit: No Code(s): E46 - Unspecified protein- calorie malnutrition (3) PVD (peripheral vascular disease) Status: Suspected Current Visit: No Code(s): I73.9 - Peripheral vascular disease, unspecified (4) Type 2 diabetes mellitus with diabetic polyneuropathy Status: Acute Current Visit: No Code(s): E11.42 - Type 2 diabetes mellitus with diabetic polyneuropathy (5) Lower extremity edema Status: Chronic Current Visit: No Code(s): R60.0 - Localized edema Type of Wound Date of Service: 05/12/17 Chief Complaint: Chronic non healing ulcer to right posterior heel with fat layer exposed. History of Wound: This 61-year-old diabetic male presents for follow up of chronic nonhealing ulcer to right posterior heel. Patient states on February 21 he believes he stepped on a staple walking down the stairs and had a tear in his skin. This progressed over the following days into an ulcer. Patient has seen Dr. See as well as gone to [facility] wound center in the past. While at [facility], the patient was undergoing every other day dressing changes consisting of medihoney and a dry sterile dressing. The patient has a knee walker and claims to be using it, but not all the time. The also states that the patient has not keeping pressure off of his right foot as much as he should be, even after last weeks visit, although he has gotten better. Patient denies any purulence to the area. The patient denies any feelings of nausea, vomiting, chills, fever at this time. Progress of Wound: Another very slight improvement to base of ulcer this week. The ulcer is still covered by majority adherent slough. There is slight hyperkeratotic rim surrounding ulcer still today. No maceration to the miguelina- ulcer area today. The patient and his have continued using Santyl to the area over the last week. No odor appreciated today. Patient had previously been cultured with MRSA and had been placed on appropriate antibiotics as noted in previous notes. The does state that she feels that the has been puting pressure on the foot at times when he tries to walk with his crutches still. - Physical Exam Vital Signs Temp Pulse Resp BP 96.6 F L 90 18 139/60 H 05/12/17 10:15 05/12/17 10:15 05/12/17 10:15 05/12/17 10:15 General: Alert, Oriented x3, Cooperative, No apparent distress Extremities: Capillary Refill Less than 3 Seconds, No Calf Tenderness - negative stephan and iverson sign, Diminished Peripheral Pulses - DP pulses faintly palpable and PT pulses are non palpable due to aforemenitoned edema, Edema - lower extremity edema noted Skin: Ulcer/ Wound - Chronic nonhealing ulcer to plantar posterior aspect of the right heel. The ulcer measurements are noted below. Very small area of hyperkeratotic rim appreciated again today. The ulcer base is majority of adherent slough and fibrous tissue. Very small amount of granular tissue noted to the base this week and is slightly improved form last week as well. No surrounding erythema or cellulitis is appreciated today. No increase in warmth appreciated today. No purulence, no malodor, no fluctuance. There continues to be a small area that probes close to bone, and there continues to be some undermining appreciated around the entire ulcer site and is approximately 1.5 cm at its deepest. This undermining has not gotten worse over the last week. Wound Measurements and Assessment WC - Nurse 1 - General Ulcer Measurement Start: 04/21/17 10:37 Freq: Status: Active Protocol: Activity Type Activity Date Activity User E-Sign Co-Sign Detail Recorded Client Recorded Date Recorded By Document 05/12/17 10:15 [id number] 05/12/17 10:36 05/12/17 10:15 Wound Center Nurse 1 [Ulcer Assessment] #2- RT HEEL -Combined with other wound No -Current Size (cm) - Length 2.0 -Current Size (cm) - Width 2.8 -Current Size (cm) - Depth 1.0 -Total Square Cm 5.60 -Photo Taken No -Epithelialization None Present -Tunneling No -Undermining/Tunneling Yes -Undermining/Tunneling Starts (O' 1 clock) -Undermining/Tunneling Ends (O'clock) 11 -Maximum Distance (cm) 1.0 -Circular Undermining Yes -Classification - Thickness Full Thickness without Exposed Support Structure -Classification - [place] Grading ( Grade 3 Diabetic Ulcer) -Exudate Amt Small (1-33%) -Exudate Type Yellow/Green -Wound Margin Fibrotic Scar, Thickened Scar -Granulation Amt Small (1-33%) -Granulation Quality [place] -Slough/Fibrin Yes -Necrosis Amt Large (67-100%) -Necrotic Tissue Type Adherent Slough -Structure Exposed Fascia Fat Layer Exposed -Texture (Miguelina-wound Skin Appearance) Callus Localized Edema Scarring -Moisture (Miguelina-wound Skin Appearance Maceration ) -Color (Miguelina-wound Skin Appearance) Erythema -Temperature (Miguelina-wound Skin No Abnormality Appearance) (Pt Warm) -Tenderness on Palpation (Miguelina-wound No Skin Appearance) -Ulcer Cleansing Rinsed/ Irrigated with Saline -Foul Odor after Cleansing No -Anesthetic Used 5% Lidocaine Gel [Edema Assessment] -Lower Limb Edema Present Yes -Right Calf (cm) 32.5 -Right Ankle (cm) 22.5 WC - Nurse 2 - General Ulcer CM Notes Start: 04/21/17 10:37 Freq: Status: Active Protocol: Activity Type Activity Date Activity User E-Sign Co-Sign Detail Recorded Client Recorded Date Recorded By Document 05/12/17 11:14 MW [id number] 05/12/17 11:28 MW 05/12/17 11:14 Wound Center Nurse 2 [Procedure/Treatment] #2- RT HEEL -Time 11:14 -Correct Patient Yes -Correct Side, Site, Position Yes -Correct Procedure Yes -Procedure Performed Yes -Type of Procedure Debridement -Clinical Debridement Subcutaneous -Post Debridement Size (cm) - Length 2.3 -Post Debridement Size (cm) - Width 2.5 -Post Debridement Size (cm) - Depth 1.3 -Total Square Cm 5.75 -Wound/Ulcer Outcome Not Healed -Ulcer Cleansing Rinsed/ Irrigated with Saline -Foul Odor after Cleansing No -Bioengineered Tissue No -Bleeding Controlled with Pressure -Treatment Response Procedure Tolerated Well [See Physician Procedure note for Specifics] Pain Scale: 0-10 Numeric [Pain] -Is Patient Pain Free? Yes Musculoskeletal: - - denies tenderness to ulcer site Neurological: - - epicritic sensation grossly absent from lower extremities Psych/Mental Status: Normal Affect, Appropriate Debridement Note Post-Debridement Measurements/Treatment WC - Nurse 2 - General Ulcer CM Notes Start: 04/21/17 10:37 Freq: Status: Active Protocol: Activity Type Activity Date Activity User E-Sign Co-Sign Detail Recorded Client Recorded Date Recorded By Document 04/21/17 11:31 MW [id number] 04/21/17 11:52 MW Document 04/28/17 12:00 MW [id number] 04/28/17 12:04 MW Document 05/05/17 10:36 MW [id number] 05/05/17 10:54 MW Document 05/12/17 11:14 MW [id number] 05/12/17 11:28 MW 04/21/17 04/28/17 05/05/17 11:31 12:00 10:36 Wound Center Nurse 2 #2- RT HEEL -Time 11:31 12:01 10:37 -Correct Patient Yes Yes Yes -Correct Side, Site, Position Yes Yes Yes -Correct Procedure Yes Yes Yes -Procedure Performed Yes Yes Yes -Type of Procedure Debridement Debridement Debridement -Clinical Debridement Subcutaneous Subcutaneous Subcutaneous -Post Debridement Size (cm) - Length 3.1 2.6 2.1 -Post Debridement Size (cm) - Width 3.0 3.0 3.0 -Post Debridement Size (cm) - Depth 1.5 1.2 1.3 -Total Square Cm 9.30 7.80 6.30 -Wound/Ulcer Outcome Not Healed Not Healed Not Healed -Ulcer Cleansing Rinsed/ Rinsed/ Rinsed/ Irrigated with Irrigated with Irrigated with Saline Saline Saline -Foul Odor after Cleansing No No No -Bioengineered Tissue No No No -Bleeding Controlled with Pressure Pressure Pressure -Treatment Response Procedure Procedure Procedure Tolerated Well Tolerated Well Tolerated Well Pain Scale: 0-10 Numeric Is Patient Pain Free? Yes Yes Yes 05/12/17 11:14 Wound Center Nurse 2 #2- RT HEEL -Time 11:14 -Correct Patient Yes -Correct Side, Site, Position Yes -Correct Procedure Yes -Procedure Performed Yes -Type of Procedure Debridement -Clinical Debridement Subcutaneous -Post Debridement Size (cm) - Length 2.3 -Post Debridement Size (cm) - Width 2.5 -Post Debridement Size (cm) - Depth 1.3 -Total Square Cm 5.75 -Wound/Ulcer Outcome Not Healed -Ulcer Cleansing Rinsed/ Irrigated with Saline -Foul Odor after Cleansing No -Bioengineered Tissue No -Bleeding Controlled with Pressure -Treatment Response Procedure Tolerated Well Pain Scale: 0-10 Numeric Is Patient Pain Free? Yes Wound debrided: right plantar posterior heel Laterality: Right Wound Grade/Stage: 3 Type of Debridement: Excisional debridement Anesthesia Used: 4% Lidocaine Solution Depth: in the subcutaneous layer Percentage of wound debrided: 100 Instrument Used: #15 blade, Forceps Tissue Removed: adherent slough, fibrous tissue, hyperkeratotic tissue, biofilm Severity: Fat Layer Exposed Amount of bleeding with debridement: Mild Bleeding Controlled with: Pressure Patient tolerated procedure well Assessment/Plan Clinical Impression(s) from Imaging Studies Lower Extremity MRI 04/25/17 07:27 IMPRESSION: Mild edema in the posterior tuberosity of the calcaneus deep to the skin ulcer, suggestive of early osteomyelitis. Atrophy of the intrinsic muscles of the rearfoot suggestive of peripheral neuropathy. Mild scarring of the anterior talofibular ligament. Electronically Signed: Erick Lemos MD at 9:22 EST Tel , Service support , Orbit X-Ray 04/25/17 07:48 IMPRESSION: No demonstrated metallic orbital foreign body. The patient is cleared for an MRI examination. Electronically Signed: Colt Mejia MD at 8:25 EST Tel [phone], Service support , Assessment: Ulcer to right heel with stable eschar. DM with neuropathy. Malnutrition. Plan: Patient was again examined and evaluated today. Some slight improvement noted form last week to this week again. Majority of ulcer still covered by slough. Area of probing still appreciated that is still almost to bone. Undermining continues to be appreciated this week as well. Debridement was completed as described in the clinical panel. The ulcer site was then cleansed with normal saline. MRSA pcr was negative. The tissue sample sent last week grew anaerobic cocci and enterobacter cloacae complex. Dr. Naranjo with infectious disease saw the patient today as well and started him on Bactrim and Flagyl. Following debridement, Santyl was applied followed by a dry sterile dressing. Patient is to have daily dressing changes consisting of the above dressing for another week. Patient saw Dr. Rios recently, who ordered the patient to get a duplex arterial study that the patient had completed at [facility] on May 09. The patient will follow up in office with Dr. Rios on Tuesday. We will wait to see what Dr. Rios's assessment is if the patient ends up needing a surgical debridement in the future. Patient to continue with high protein diet and it was again stressed how important keeping blood sugar under control is to healing process. It was also again stressed to the patient how important is to keep pressure off of his heel at all times and that this includes any type of pressure at all, as the patient has been noncompliant in the past with this. I saw the patient in office today walkin with some pressure to his heel while trying to use crutches, even though I have told him to stick with his knee walker. I again informed them that the reason there has been no improvement in recent weeks is because there is still being pressure applied to the heal. I again informed the patient that there is a high likelihood that he will need a surgical debridement. I also again informed him and his that there is possibility that this can lead to extensive debridements, partial calcaneal amputations, or even more proximal amputations on the leg. He is to use the knee scooter at all times while walking. While sitting or laying in bed he was instructed to keep the heel floating over the edge of a pillow in order to have absolutely no pressure to the area. The patient and his were also instructed to only dress the ulcer site as instructed at the wound center. Patient and the patient's were educated on signs and symptoms of local and systemic infection and were instructed to go to the emergency room immediately should they notice any. All questions were answered to the patient and the patient's 's satisfaction. I still continue to be concerned with the patient's compliance. They will follow -up in clinic in 1 week for further evaluation, or sooner if needed. This note was generated with [employer] dictation software. It may contain incorrect words, spelling, and punctuation that were not noted in checking the note before signing.
[2017-05-19 10:26] VITALS: BP 123/69; PULSE 78; RESP 20; TEMP 36.1; BMI 32.7
--- NOTE | 2017-05-19 15:32 | PCM.WC.PN ---
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 Status: Acute Current Visit: No Code(s): L97.419 - Non-pressure chronic ulcer of right heel and midfoot with unspecified severity (2) Malnutrition Status: Suspected Current Visit: No Code(s): E46 - Unspecified protein-calorie malnutrition (3) PVD (peripheral vascular disease) Status: Suspected Current Visit: No Code(s): I73.9 - Peripheral vascular disease, unspecified (4) Type 2 diabetes mellitus with diabetic polyneuropathy Status: Acute Current Visit: No Code(s): E11.42 - Type 2 diabetes mellitus with diabetic polyneuropathy (5) Lower extremity edema Status: Chronic Current Visit: No Code(s): R60.0 - Localized edema Type of Wound Date of Service: 05/19/17 Chief Complaint: Chronic non healing ulcer to right posterior heel with fat layer exposed. History of Wound: This 61-year-old diabetic male presents for follow up of chronic nonhealing ulcer to right posterior heel. Patient states on February 21 he believes he stepped on a staple walking down the stairs and had a tear in his skin. This progressed over the following days into an ulcer. Patient has seen Dr. See as well as gone to [facility] wound center in the past. While at [facility], the patient was undergoing every other day dressing changes consisting of medihoney and a dry sterile dressing. The patient has a knee walker and claims to be using it, but not all the time. The also states that the patient has not keeping pressure off of his right foot as much as he should be, even after last weeks visit, although he has gotten better. Patient denies any purulence to the area. The patient denies any feelings of nausea, vomiting, chills, fever at this time. Progress of Wound: Another very slight improvement to base of ulcer this week. The ulcer is still covered by majority adherent slough. There is slight hyperkeratotic rim surrounding ulcer still today. No maceration to the miguelina-ulcer area today. The patient and his have continued using Santyl to the area over the last week. No odor appreciated today. Patient had previously been cultured with MRSA and had been placed on appropriate antibiotics as noted in previous notes. They saw Dr. Rios last week. She also states that at their chiropractor office they are receiving laser treatments for circulation. - Physical Exam Vital Signs Temp Pulse Resp BP 97 F L 78 20 H 123/69 H 05/19/17 10:26 05/19/17 10:05/19/17 10:05/19/17 10:26 General: Alert, Oriented x3, Cooperative, No apparent distress Extremities: Capillary Refill Less than 3 Seconds, No Calf Tenderness - negative stephan and iverson sign bilateral, Diminished Peripheral Pulses - DP pulses palpable and PT pulses non palpable due to lower extremity edema, Edema - bilateral lower extremity edema Skin: Ulcer/ Wound - Chronic nonhealing ulcer to plantar posterior aspect of the right heel. The ulcer measurements are noted below. Very small area of hyperkeratotic rim appreciated again today. The ulcer base is majority of adherent slough and fibrous tissue. Slightly more granular tissue noted this week at the base. No surrounding erythema or cellulitis is appreciated today. No increase in warmth appreciated today. No purulence, no malodor, no fluctuance. There continues to be a small area that probes close to bone, and there continues to be some undermining appreciated around the entire ulcer site and is approximately 1.5 cm at its deepest. This undermining has not gotten worse over the last week again. Wound Measurements and Assessment WC - Nurse 1 - General Ulcer Measurement Start: 04/21/17 10:37 Freq: Status: Active Protocol: Activity Type Activity Date Activity User E-Sign Co-Sign Detail Recorded Client Recorded Date Recorded By Document 05/19/17 10:26 DL [id number] 05/19/17 10:34 DL 05/19/17 10:26 Wound Center Nurse 1 [Ulcer Assessment] #2- RT HEEL -Current Size (cm) - Length 1.9 -Current Size (cm) - Width 2.6 -Current Size (cm) - Depth 1.1 -Total Square Cm 4.94 -Undermining/Tunneling Starts (O' 7 clock) -Undermining/Tunneling Ends (O'clock) 1 -Maximum Distance (cm) 0.4 -Exudate Amt Medium (34-66%) -Exudate Type Serosanguineous -Wound Margin Thickened -Granulation Amt Small (1-33%) -Granulation Quality Red -Necrosis Amt Large (67-100%) -Necrotic Tissue Type Adherent Slough -Structure Exposed N/A -Texture (Miguelina-wound Skin Appearance) Callus Scarring -Moisture (Miguelina-wound Skin Appearance No Abnormality ) -Color (Miguelina-wound Skin Appearance) Erythema Rubor -Temperature (Miguelina-wound Skin No Abnormality Appearance) (Pt Warm) -Ulcer Cleansing Wound Cleanser -Foul Odor after Cleansing No -Anesthetic Used 4% Lidocaine Solution [Edema Assessment] -Right Calf (cm) 33 -Right Ankle (cm) 22.5 WC - Nurse 2 - General Ulcer CM Notes Start: 04/21/17 10:37 Freq: Status: Active Protocol: Activity Type Activity Date Activity User E-Sign Co-Sign Detail Recorded Client Recorded Date Recorded By Document 05/19/17 11:46 MW [id number] 05/19/17 12:05 MW 05/19/17 11:46 Wound Center Nurse 2 [Procedure/Treatment] #2- RT HEEL -Time 11:48 -Correct Patient Yes -Correct Side, Site, Position Yes -Correct Procedure Yes -Procedure Performed Yes -Type of Procedure Debridement -Clinical Debridement Subcutaneous -Post Debridement Size (cm) - Length 2.2 -Post Debridement Size (cm) - Width 2.7 -Post Debridement Size (cm) - Depth 1.3 -Total Square Cm 5.94 -Wound/Ulcer Outcome Not Healed -Ulcer Cleansing Rinsed/ Irrigated with Saline -Foul Odor after Cleansing No -Bioengineered Tissue No -Bleeding Controlled with Pressure -Other undermining 3-9 , 1.5cm -Treatment Response Procedure Tolerated Well [See Physician Procedure note for Specifics] Pain Scale: 0-10 Numeric [Pain] -Is Patient Pain Free? Yes Musculoskeletal: - - Patient denies tenderness to aforementioned ulcer Neurological: - - epicritic sensation grossly absent from bilateral lower extremities Psych/Mental Status: Normal Affect, Appropriate Debridement Note Post-Debridement Measurements/Treatment WC - Nurse 2 - General Ulcer CM Notes Start: 04/21/17 10:37 Freq: Status: Active Protocol: Activity Type Activity Date Activity User E-Sign Co-Sign Detail Recorded Client Recorded Date Recorded By Document 04/21/17 11:31 MW [id number] 04/21/17 11:52 MW Document 04/28/17 12:00 MW [id number] 04/28/17 12:04 MW Document 05/05/17 10:36 MW [id number] 05/05/17 10:54 MW Document 05/12/17 11:14 MW [id number] 05/12/17 11:28 MW Document 05/19/17 11:46 MW [id number] 05/19/17 12:05 MW 04/21/17 04/28/17 05/05/17 11:31 12:00 10:36 Wound Center Nurse 2 #2- RT HEEL -Time 11:31 12:01 10:37 -Correct Patient Yes Yes Yes -Correct Side, Site, Position Yes Yes Yes -Correct Procedure Yes Yes Yes -Procedure Performed Yes Yes Yes -Type of Procedure Debridement Debridement Debridement -Clinical Debridement Subcutaneous Subcutaneous Subcutaneous -Post Debridement Size (cm) - Length 3.1 2.6 2.1 -Post Debridement Size (cm) - Width 3.0 3.0 3.0 -Post Debridement Size (cm) - Depth 1.5 1.2 1.3 -Total Square Cm 9.30 7.80 6.30 -Wound/Ulcer Outcome Not Healed Not Healed Not Healed -Ulcer Cleansing Rinsed/ Rinsed/ Rinsed/ Irrigated with Irrigated with Irrigated with Saline Saline Saline -Foul Odor after Cleansing No No No -Bioengineered Tissue No No No -Bleeding Controlled with Pressure Pressure Pressure -Other -Treatment Response Procedure Procedure Procedure Tolerated Well Tolerated Well Tolerated Well Pain Scale: 0-10 Numeric Is Patient Pain Free? Yes Yes Yes 05/12/17 05/19/17 11:14 11:46 Wound Center Nurse 2 #2- RT HEEL -Time 11:14 11:48 -Correct Patient Yes Yes -Correct Side, Site, Position Yes Yes -Correct Procedure Yes Yes -Procedure Performed Yes Yes -Type of Procedure Debridement Debridement -Clinical Debridement Subcutaneous Subcutaneous -Post Debridement Size (cm) - Length 2.3 2.2 -Post Debridement Size (cm) - Width 2.5 2.7 -Post Debridement Size (cm) - Depth 1.3 1.3 -Total Square Cm 5.75 5.94 -Wound/Ulcer Outcome Not Healed Not Healed -Ulcer Cleansing Rinsed/ Rinsed/ Irrigated with Irrigated with Saline Saline -Foul Odor after Cleansing No No -Bioengineered Tissue No No -Bleeding Controlled with Pressure Pressure -Other undermining 3-9 , 1.5cm -Treatment Response Procedure Procedure Tolerated Well Tolerated Well Pain Scale: 0-10 Numeric Is Patient Pain Free? Yes Yes Wound debrided: right plantar posterior heel Laterality: Right Wound Grade/Stage: 3 Type of Debridement: Excisional debridement Anesthesia Used: 4% Lidocaine Solution Depth: in the subcutaneous layer Percentage of wound debrided: 100 Instrument Used: #15 blade, Forceps, - - scissors Tissue Removed: adherent slough, fibrous tissue, hyperkeratotic tissue Severity: Fat Layer Exposed Amount of bleeding with debridement: Mild Bleeding Controlled with: Pressure Patient tolerated procedure well Assessment/Plan Clinical Impression(s) from Imaging Studies Lower Extremity MRI 04/25/17 07:27 IMPRESSION: Mild edema in the posterior tuberosity of the calcaneus deep to the skin ulcer, suggestive of early osteomyelitis. Atrophy of the intrinsic muscles of the rearfoot suggestive of peripheral neuropathy. Mild scarring of the anterior talofibular ligament. Electronically Signed: Erick Lemos MD at 9:22 EST Tel , Service support , Orbit X-Ray 04/25/17 07:48 IMPRESSION: No demonstrated metallic orbital foreign body. The patient is cleared for an MRI examination. Electronically Signed: Colt Mejia MD at 8:25 EST Tel [phone], Service support , Assessment: Ulcer to right heel with stable eschar. DM with neuropathy. Malnutrition. Plan: Patient was again examined and evaluated today. Some slight improvement noted form last week to this week again. Majority of ulcer still covered by slough. Area of probing still appreciated that is still almost to bone. Undermining continues to be appreciated this week as well. Debridement was again completed as described in the clinical panel. The ulcer site was then cleansed with normal saline. Last culture sent grew anaerobic cocci and enterobacter cloacae complex. Dr. Naranjo has the patient on Bactrim and Flagyl. Following debridement, Santyl was again applied followed by a dry sterile dressing. Patient is to have daily dressing changes consisting of the above dressing for another week. Patient saw Dr. Rios last week. I spoke with Dr. 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 Dr. Rios said to have the patient call his office and they will get his angiogram scheduled. I discussed this in detail with the patient and the importance of having this performed. They are under the impression that the laser treatments being done at the patient's chiropractor office will help open up his vessels. I explained to them that this is not the same as what Dr. Rios wants to do and that it is imperative that they follow up with Dr. Rios to listen to what he wants to do. Patient to continue with high protein diet and it was again stressed how important keeping blood sugar under control is to healing process. It was also again stressed to the patient how important it is to keep pressure off of his heel at all times and that this includes any type of pressure at all, as the patient has been noncompliant in the past with this. Patient continues to use crutches after I advised against this. I again informed them that the reason there has been no improvement in recent weeks is because there is still being pressure applied to the heal. I again informed the patient that there is a high likelihood that he will need a surgical debridement. I also again informed him and his that there is possibility that this can lead to extensive debridements, partial calcaneal amputations, or even more proximal amputations on the leg. He is to use the knee scooter at all times while walking. While sitting or laying in bed he was instructed to keep the heel floating over the edge of a pillow in order to have absolutely no pressure to the area. The patient and his were also instructed to only dress the ulcer site as instructed at the wound center. Patient and the patient's were educated on signs and symptoms of local and systemic infection and were instructed to go to the emergency room immediately should they notice any. All questions were answered to the patient and the patient's 's satisfaction. I still continue to be concerned with the patient's compliance. They will follow-up in clinic in 1 week for further evaluation, or sooner if needed. This note was generated with [employer] software. It may contain incorrect words, spelling, and punctuation that were not noted in checking the note before signing.
--- NOTE | 2017-05-19 15:47 | PN.PCM_ITS ---
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 Status: Acute Current Visit: No Code(s): L97.419 - Non-pressure chronic ulcer of right heel and midfoot with unspecified severity (2) Malnutrition Status: Suspected Current Visit: No Code(s): E46 - Unspecified protein- calorie malnutrition (3) PVD (peripheral vascular disease) Status: Suspected Current Visit: No Code(s): I73.9 - Peripheral vascular disease, unspecified (4) Type 2 diabetes mellitus with diabetic polyneuropathy Status: Acute Current Visit: No Code(s): E11.42 - Type 2 diabetes mellitus with diabetic polyneuropathy (5) Lower extremity edema Status: Chronic Current Visit: No Code(s): R60.0 - Localized edema Type of Wound Date of Service: 05/19/17 Chief Complaint: Chronic non healing ulcer to right posterior heel with fat layer exposed. History of Wound: This 61-year-old diabetic male presents for follow up of chronic nonhealing ulcer to right posterior heel. Patient states on February 21 he believes he stepped on a staple walking down the stairs and had a tear in his skin. This progressed over the following days into an ulcer. Patient has seen Dr. See as well as gone to [facility] wound center in the past. While at [facility], the patient was undergoing every other day dressing changes consisting of medihoney and a dry sterile dressing. The patient has a knee walker and claims to be using it, but not all the time. The also states that the patient has not keeping pressure off of his right foot as much as he should be, even after last weeks visit, although he has gotten better. Patient denies any purulence to the area. The patient denies any feelings of nausea, vomiting, chills, fever at this time. Progress of Wound: Another very slight improvement to base of ulcer this week. The ulcer is still covered by majority adherent slough. There is slight hyperkeratotic rim surrounding ulcer still today. No maceration to the miguelina- ulcer area today. The patient and his have continued using Santyl to the area over the last week. No odor appreciated today. Patient had previously been cultured with MRSA and had been placed on appropriate antibiotics as noted in previous notes. They saw Dr. Rios last week. She also states that at their chiropractor office they are receiving laser treatments for circulation. - Physical Exam Vital Signs Temp Pulse Resp BP 97 F L 78 20 H 123/69 H 05/19/17 10:26 05/19/17 10:05/19/17 10:05/19/17 10:26 General: Alert, Oriented x3, Cooperative, No apparent distress Extremities: Capillary Refill Less than 3 Seconds, No Calf Tenderness - negative stephan and iverson sign bilateral, Diminished Peripheral Pulses - DP pulses palpable and PT pulses non palpable due to lower extremity edema, Edema - bilateral lower extremity edema Skin: Ulcer/ Wound - Chronic nonhealing ulcer to plantar posterior aspect of the right heel. The ulcer measurements are noted below. Very small area of hyperkeratotic rim appreciated again today. The ulcer base is majority of adherent slough and fibrous tissue. Slightly more granular tissue noted this week at the base. No surrounding erythema or cellulitis is appreciated today. No increase in warmth appreciated today. No purulence, no malodor, no fluctuance. There continues to be a small area that probes close to bone, and there continues to be some undermining appreciated around the entire ulcer site and is approximately 1.5 cm at its deepest. This undermining has not gotten worse over the last week again. Wound Measurements and Assessment WC - Nurse 1 - General Ulcer Measurement Start: 04/21/17 10:37 Freq: Status: Active Protocol: Activity Type Activity Date Activity User E-Sign Co-Sign Detail Recorded Client Recorded Date Recorded By Document 05/19/17 10:26 DL [id number] 05/19/17 10:34 DL 05/19/17 10:26 Wound Center Nurse 1 [Ulcer Assessment] #2- RT HEEL -Current Size (cm) - Length 1.9 -Current Size (cm) - Width 2.6 -Current Size (cm) - Depth 1.1 -Total Square Cm 4.94 -Undermining/Tunneling Starts (O' 7 clock) -Undermining/Tunneling Ends (O'clock) 1 -Maximum Distance (cm) 0.4 -Exudate Amt Medium (34-66%) -Exudate Type Serosanguineous -Wound Margin Thickened -Granulation Amt Small (1-33%) -Granulation Quality Red -Necrosis Amt Large (67-100%) -Necrotic Tissue Type Adherent Slough -Structure Exposed N/A -Texture (Miguelina-wound Skin Appearance) Callus Scarring -Moisture (Miguelina-wound Skin Appearance No Abnormality ) -Color (Miguelina-wound Skin Appearance) Erythema Rubor -Temperature (Miguelina-wound Skin No Abnormality Appearance) (Pt Warm) -Ulcer Cleansing Wound Cleanser -Foul Odor after Cleansing No -Anesthetic Used 4% Lidocaine Solution [Edema Assessment] -Right Calf (cm) 33 -Right Ankle (cm) 22.5 WC - Nurse 2 - General Ulcer CM Notes Start: 04/21/17 10:37 Freq: Status: Active Protocol: Activity Type Activity Date Activity User E-Sign Co-Sign Detail Recorded Client Recorded Date Recorded By Document 05/19/17 11:46 MW [id number] 05/19/17 12:05 MW 05/19/17 11:46 Wound Center Nurse 2 [Procedure/Treatment] #2- RT HEEL -Time 11:48 -Correct Patient Yes -Correct Side, Site, Position Yes -Correct Procedure Yes -Procedure Performed Yes -Type of Procedure Debridement -Clinical Debridement Subcutaneous -Post Debridement Size (cm) - Length 2.2 -Post Debridement Size (cm) - Width 2.7 -Post Debridement Size (cm) - Depth 1.3 -Total Square Cm 5.94 -Wound/Ulcer Outcome Not Healed -Ulcer Cleansing Rinsed/ Irrigated with Saline -Foul Odor after Cleansing No -Bioengineered Tissue No -Bleeding Controlled with Pressure -Other undermining 3-9 , 1.5cm -Treatment Response Procedure Tolerated Well [See Physician Procedure note for Specifics] Pain Scale: 0-10 Numeric [Pain] -Is Patient Pain Free? Yes Musculoskeletal: - - Patient denies tenderness to aforementioned ulcer Neurological: - - epicritic sensation grossly absent from bilateral lower extremities Psych/Mental Status: Normal Affect, Appropriate Debridement Note Post-Debridement Measurements/Treatment WC - Nurse 2 - General Ulcer CM Notes Start: 04/21/17 10:37 Freq: Status: Active Protocol: Activity Type Activity Date Activity User E-Sign Co-Sign Detail Recorded Client Recorded Date Recorded By Document 04/21/17 11:31 MW [id number] 04/21/17 11:52 MW Document 04/28/17 12:00 MW [id number] 04/28/17 12:04 MW Document 05/05/17 10:36 MW [id number] 05/05/17 10:54 MW Document 05/12/17 11:14 MW [id number] 05/12/17 11:28 MW Document 05/19/17 11:46 MW [id number] 05/19/17 12:05 MW 04/21/17 04/28/17 05/05/17 11:31 12:00 10:36 Wound Center Nurse 2 #2- RT HEEL -Time 11:31 12:01 10:37 -Correct Patient Yes Yes Yes -Correct Side, Site, Position Yes Yes Yes -Correct Procedure Yes Yes Yes -Procedure Performed Yes Yes Yes -Type of Procedure Debridement Debridement Debridement -Clinical Debridement Subcutaneous Subcutaneous Subcutaneous -Post Debridement Size (cm) - Length 3.1 2.6 2.1 -Post Debridement Size (cm) - Width 3.0 3.0 3.0 -Post Debridement Size (cm) - Depth 1.5 1.2 1.3 -Total Square Cm 9.30 7.80 6.30 -Wound/Ulcer Outcome Not Healed Not Healed Not Healed -Ulcer Cleansing Rinsed/ Rinsed/ Rinsed/ Irrigated with Irrigated with Irrigated with Saline Saline Saline -Foul Odor after Cleansing No No No -Bioengineered Tissue No No No -Bleeding Controlled with Pressure Pressure Pressure -Other -Treatment Response Procedure Procedure Procedure Tolerated Well Tolerated Well Tolerated Well Pain Scale: 0-10 Numeric Is Patient Pain Free? Yes Yes Yes 05/12/17 05/19/17 11:14 11:46 Wound Center Nurse 2 #2- RT HEEL -Time 11:14 11:48 -Correct Patient Yes Yes -Correct Side, Site, Position Yes Yes -Correct Procedure Yes Yes -Procedure Performed Yes Yes -Type of Procedure Debridement Debridement -Clinical Debridement Subcutaneous Subcutaneous -Post Debridement Size (cm) - Length 2.3 2.2 -Post Debridement Size (cm) - Width 2.5 2.7 -Post Debridement Size (cm) - Depth 1.3 1.3 -Total Square Cm 5.75 5.94 -Wound/Ulcer Outcome Not Healed Not Healed -Ulcer Cleansing Rinsed/ Rinsed/ Irrigated with Irrigated with Saline Saline -Foul Odor after Cleansing No No -Bioengineered Tissue No No -Bleeding Controlled with Pressure Pressure -Other undermining 3-9 , 1.5cm -Treatment Response Procedure Procedure Tolerated Well Tolerated Well Pain Scale: 0-10 Numeric Is Patient Pain Free? Yes Yes Wound debrided: right plantar posterior heel Laterality: Right Wound Grade/Stage: 3 Type of Debridement: Excisional debridement Anesthesia Used: 4% Lidocaine Solution Depth: in the subcutaneous layer Percentage of wound debrided: 100 Instrument Used: #15 blade, Forceps, - - scissors Tissue Removed: adherent slough, fibrous tissue, hyperkeratotic tissue Severity: Fat Layer Exposed Amount of bleeding with debridement: Mild Bleeding Controlled with: Pressure Patient tolerated procedure well Assessment/Plan Clinical Impression(s) from Imaging Studies Lower Extremity MRI 04/25/17 07:27 IMPRESSION: Mild edema in the posterior tuberosity of the calcaneus deep to the skin ulcer, suggestive of early osteomyelitis. Atrophy of the intrinsic muscles of the rearfoot suggestive of peripheral neuropathy. Mild scarring of the anterior talofibular ligament. Electronically Signed: Erick Lemos MD at 9:22 EST Tel , Service support , Orbit X-Ray 04/25/17 07:48 IMPRESSION: No demonstrated metallic orbital foreign body. The patient is cleared for an MRI examination. Electronically Signed: Colt Mejia MD at 8:25 EST Tel [phone], Service support , Assessment: Ulcer to right heel with stable eschar. DM with neuropathy. Malnutrition. Plan: Patient was again examined and evaluated today. Some slight improvement noted form last week to this week again. Majority of ulcer still covered by slough. Area of probing still appreciated that is still almost to bone. Undermining continues to be appreciated this week as well. Debridement was again completed as described in the clinical panel. The ulcer site was then cleansed with normal saline. Last culture sent grew anaerobic cocci and enterobacter cloacae complex. Dr. Naranjo has the patient on Bactrim and Flagyl. Following debridement, Santyl was again applied followed by a dry sterile dressing. Patient is to have daily dressing changes consisting of the above dressing for another week. Patient saw Dr. Rios last week. I spoke with Dr. 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 Dr. Rios said to have the patient call his office and they will get his angiogram scheduled. I discussed this in detail with the patient and the importance of having this performed. They are under the impression that the laser treatments being done at the patient's chiropractor office will help open up his vessels. I explained to them that this is not the same as what Dr. Rios wants to do and that it is imperative that they follow up with Dr. Rios to listen to what he wants to do. Patient to continue with high protein diet and it was again stressed how important keeping blood sugar under control is to healing process. It was also again stressed to the patient how important it is to keep pressure off of his heel at all times and that this includes any type of pressure at all, as the patient has been noncompliant in the past with this. Patient continues to use crutches after I advised against this. I again informed them that the reason there has been no improvement in recent weeks is because there is still being pressure applied to the heal. I again informed the patient that there is a high likelihood that he will need a surgical debridement. I also again informed him and his that there is possibility that this can lead to extensive debridements, partial calcaneal amputations, or even more proximal amputations on the leg. He is to use the knee scooter at all times while walking. While sitting or laying in bed he was instructed to keep the heel floating over the edge of a pillow in order to have absolutely no pressure to the area. The patient and his were also instructed to only dress the ulcer site as instructed at the wound center. Patient and the patient' s were educated on signs and symptoms of local and systemic infection and were instructed to go to the emergency room immediately should they notice any. All questions were answered to the patient and the patient's 's satisfaction. I still continue to be concerned with the patient's compliance. They will follow-up in clinic in 1 week for further evaluation, or sooner if needed. This note was generated with [employer] software. It may contain incorrect words, spelling, and punctuation that were not noted in checking the note before signing.
== END 2017-05-21 23:59 ==
LOC: WC 10:15
PROVIDERS: Visit Provider Podiatrist
DX: E11.622 Type 2 diabetes mellitus with other skin ulcer (principal); E11.42 Type 2 diabetes mellitus with diabetic polyneuropathy; E11.51 Type 2 diabetes mellitus with diabetic peripheral angiopathy without gangrene; L97.412 Non-pressure chronic ulcer of right heel and midfoot with fat layer exposed; R60.0 Localized edema; Z86.14 Personal history of Methicillin resistant Staphylococcus aureus infection; Z91.19 Patient's noncompliance with other medical treatment and regimen; Z79.899 Other long term (current) drug therapy; Z79.82 Long term (current) use of aspirin; Z79.4 Long term (current) use of insulin
CPT/HCPCS: 11042; 70030; 73718; 87070; 87075; 87077; 87186; 87205; 87640

== ENCOUNTER → 2017-05-23 10:08 | Outpatient (CLI) | payer MEDICARE, SELFPAY ==
[2017-05-23 11:15] LABS: Hematocrit 37.2 % (40-54); Hemoglobin 12.4 g/dl (13.0-16.5); Mean Corp Hgb Conc 33.3 g/gl (32-36); Mean Corpuscular Hgb 29.5 pg (27.0-32.0); Mean Corpuscular Volume 88.6 fL (80-94); Mean Platelet Vol. 10.2 fl (6.2-12.0); Platelet Count 293 K/mm3 (150-450); RBC Distribution Width CV 14.4 % (11.6-14.6); RBC Distribution Width SD 46.1 fl (35.1-43.9); White Blood Count 5.9 K/mm3 (4.4-11.0)
[2017-05-23 11:31] LABS: BUN 33 mg/dL (7-18); Creatinine, Serum 1.82 mg/dL (0.70-1.30); Glucose 105 mg/dL (74-106)
[2017-05-23 11:32] LABS: Anion Gap 4 (5-15); BUN/Creat Ratio 18.1 RATIO (10-20); Calcium,Total 8.6 mg/dL (8.5-10.1); Chloride 104 mmol/L (98-107); EST Glomerular Filtration Rate 41 mL/min (>60); Est Glom Filt Rate - Afr Amer 49 mL/min (>60); Potassium 5.3 mmol/L (3.5-5.1); Sodium Level 134 mmol/L (136-145)
[2017-05-23 11:37] LABS: Scan Indicated on CBC? Y/N NO
[2017-05-23 11:55] LABS: Erythrocyte Sedimentation Rate 23 mm/hr (0-20)
== END ==
PROVIDERS: Visit Provider Internal Medicine Infectious Disease
DX: M86.9 Osteomyelitis, unspecified (principal)
CPT/HCPCS: 36415; 80048; 85027; 85652

== ENCOUNTER → 2017-06-07 14:48 | Outpatient (CLI) | payer MEDICARE, SELFPAY ==
[2017-06-07 17:59] LABS: Absolute Lymphocyte Count 1.12 X10^3/ul (0.83-4.51); Basophil# 0.02 X10^3/uL; Basophil% 0.4 % (0-1); Eosinophils% 2.2 % (0-5); Hematocrit 38.1 % (40-54); Hemoglobin 12.8 g/dl (13.0-16.5); Lymphocyte # 1.12 X10^3/ul (4.0); Lymphocyte % 24.5 % (19-41); Mean Corp Hgb Conc 33.6 g/gl (32-36); Mean Corpuscular Hgb 29.8 pg (27.0-32.0); Mean Corpuscular Volume 88.8 fL (80-94); Mean Platelet Vol. 10.3 fl (6.2-12.0); Monocyte# 0.33 X10^3/uL; Monocyte% 7.2 % (0-10); Neutrophil # 3.01 X10^3/uL (2.7-7.7); Neutrophil % 65.7 % (47-70); Platelet Count 262 K/mm3 (150-450); RBC Distribution Width CV 14.9 % (11.6-14.6); RBC Distribution Width SD 48.2 fl (35.1-43.9); Red Blood Count 4.29 M/mm3 (4.6-6.2); White Blood Count 4.6 K/mm3 (4.4-11.0)
[2017-06-07 18:03] LABS: POSITIVE COUNT NO; POSITIVE DIFFERENTIAL NO; POSITIVE MORPHOLOGY NO
[2017-06-07 18:30] LABS: ALB/GLOB Ratio 1.1 RATIO (0.9-2.4); AST(SGOT) 14 U/L (15-37); Alanine Aminotransfer ALT/SGPT 24 U/L (16-61); Albumin, Serum 3.7 g/dL (3.2-5.0); Alkaline Phosphatase 59 U/L (45-117); Anion Gap 10 (5-15); BUN 34 mg/dL (7-18); BUN/Creat Ratio 21.7 RATIO (10-20); Calcium,Total 8.7 mg/dL (8.5-10.1); Chloride 102 mmol/L (98-107); Creatinine, Serum 1.57 mg/dL (0.70-1.30); EST Glomerular Filtration Rate 48 mL/min (>60); Est Glom Filt Rate - Afr Amer 58 mL/min (>60); Globulin 3.5 g/dL (2.2-4.2); Glucose 101 mg/dL (74-106); Potassium 5.2 mmol/L (3.5-5.1); Protein, Total 7.2 g/dL (6.4-8.2); Sodium Level 133 mmol/L (136-145)
== END ==
PROVIDERS: Visit Provider Family Medicine
DX: Z01.818 Encounter for other preprocedural examination (principal)
CPT/HCPCS: 36415; 80053; 85025

== ENCOUNTER 2017-06-14 11:09 | Day surgery (SDC) | payer MEDICARE, SELFPAY ==
--- NOTE | 2017-06-14 | BON_PTH ---
PATIENT: LISSETTE HEBERT [place] [facility] [place][id number] AGE/SX: 61/M ROOM: RE06/14/[address]: Dr. Osbaldo De La Torre DPM : 1955 BED: DIS: 06/14/2017 SPEC #: [id number] RECD: 06/14/17 14:52 STATUS: MANUEL REServando #: [id number] AIDAN: 06/14/17 00:[address]: Osbaldo De La Torre DEPT: SURGICAL PATHOLOGY RECD BY: Flex Gallo ENTERED: 06/14/17 14:53 SP TYPE: Bone OTHR DR: Megan Malik, AZURE DEVELOPER-C [facility] Tissues: Bone of foot, NOS Procedures: Decalcification bone/plaque Surgery Specimen Level III HEADER OPERATION: Debridement soft tissue and bone, bone biopsy, foot PRE-OP DIAGNOSIS: Ulcer right heel with osteomyelitis TISSUE SUBMITTED: Calcaneal bone MICROSCOPIC DIAGNOSIS Calcaneal bone, biopsy: Reactive and reparative change. No evidence of osteomyelitis. AM:nancy 06/17/17 MICROSCOPIC DESCRIPTION Slides are reviewed. GROSS DESCRIPTION Received in fixative is one container labeled with the patient's name and designated calcaneal bone. The specimen consists of a single irregular fragment of vega bone measuring 0.7 x 0.5 x 0.2 cm. The specimen is submitted in its entirety in one cassette after decalcification. / AM:nancy 06/14/17 TC:5 [facility]: [id number], [id number]
[2017-06-14 11:29] VITALS: BP 128/58; PULSE 74; RESP 16; TEMP 36.3; O2SAT 100; BMI 29.9
[2017-06-14 11:55] LABS: Bedside Glucose 100 mg/dL (70-110)
[2017-06-14] MEDS: Cefazolin 2 GM in 0.9% Normal Saline 100 ML IV (12:58)
[2017-06-14] MEDS: Bupivacaine Mpf 0.5% 30 ML VIAL (13:00)
--- NOTE | 2017-06-14 13:00 | RAD_ITS ---
STUDY: X-RAY - RIGHT FOOT CLINICAL: Male, 61 years old. Radial ulcer with calcaneal osteomyelitis. Debridement of all infected, necrotic nonviable soft tissue and bone of the right heel. TECHNIQUE: 2 intraprocedural, fluoroscopic view(s) of the foot. COMPARISON: None. FINDINGS: Fluoroscopy services provided for clinical procedure. Please refer to operating physician's procedure note for additional detail. There is no significant incidental finding. RAD/Foot 2 Views IMPRESSION: No significant incidental finding. Comment: Fluoroscopy services provided for clinical procedure. Please refer to operating physician's procedure note for additional detail. Fluoroscopy time 18 seconds. Electronically Signed: Nicolas Jacobs MD at 15:44 EDT , Service support ,
--- NOTE | 2017-06-14 13:56 | PCM.DC.POD ---
Discharge Diet: No Restrictions Discharge Activity: Use Crutches, - - knee scooter Weight Bearing Status: No weight bearing - to right lower extremity Keep extremity elevated above heart level: Legs - right Call your doctor if your incision/area has: Continuous Slow Oozing, Sudden Increased Bleeding, Increased Pain/ Swelling, Increased Redness, Foul Smelling Discharge Call your doctor if you observe: Fever of 101 or Higher, Calf discomfort, Uncontrolled pain Cleanse incision/area with: Keep Dressing Clean & Dry Allergies/Adverse Reactions: Allergies No Known Allergies Allergy (Verified 06/13/17 09:08) Medications to take at Discharge Aspirin [Aspirin, Baby] 81 mg PO DAILY@0800 08/13/14 Fish Oil/Dha/Epa [Fish Oil 1,200 mg Fish Oil] 1,200 mg PO 4X/DAY 08/13/14 Flavoring Agent [Cinnamon] 1,000 mg PO 4X/DAY 08/13/14 Gabapentin [Neurontin] 100 mg PO BREAKFAST 08/13/14 Gabapentin [Neurontin] 200 mg PO QHS 08/13/14 Insulin Aspart [Novolog] 10 unit SQ TID 08/13/14 Insulin Glargine,Hum.rec.anlog [Lantus] 20 unit SC QHS 08/13/14 Lisinopril [Zestril] 10 mg PO DAILY 08/13/14 Multivit-Min/FA/Lycopene/Lut [Centrum Silver Tablet] 1 each PO DAILY 08/13/14 Saw [place] 450 mg PO DAILY 08/13/14 Cholecalciferol (Vitamin D3) [Vitamin D3] 100 gm MC DAILY 03/10/17 Chromium Amino Acid Chelate [Chromium] 400 mcg PO DAILY 03/10/17 Primary Care Physician: Asha Marcos [Primary Care Provider] - Please Follow Up With: Osbaldo De La Torre DPM When: June 16 at wound healing center Proposed Discharge Date: 06/14/17
[2017-06-14 13:59] VITALS: BP 128/58; BP 97/52; PULSE 75; RESP 16; TEMP 36.1; O2SAT 97
--- NOTE | 2017-06-14 14:03 | PCM.IMDPSTOP ---
Immediate Post-Op Note Date of Procedure: 06/14/17 Primary Surgeon/Physician: Osbaldo De La Torre DPM tool repair technician: Malu Brown Pre-Operative Diagnosis: Ulcer to right heel with osteomyelitis of calcaneus Post-Operative Diagnosis: same Surgery/Procedure Performed:: Debridement of all infected, nectrotic, non-viable soft tissue and bone of the right heel with bone biopsy. Description of Surgical Findings:: Hemostasis controlled with anatomic dissection. See operative report for details Patient was transferred to PACU with vital signs stable and vascular status intact to the right foot. Patient tolerated the procedure and anesthesia well. Estimated Blood Loss: 50 mL Specimen's removed: 1. Right calcaneus bone sent to microbiology for aerobic, anaerobic, acid fast, and fungal evaluation. 2. Right calcaneus bone sent to pathology for further evaluation Type of Anesthesia:: Local MAC - right ankle block consisting of 20 mL of 0.5% marcaine plain preoperatively - Admit VTE Documentation VTE Present on Admission: Yes - aspirin VTE Mechan Device Prophylaxis: SCD's
[2017-06-14 14:05] VITALS: BP 128/58; BP 96/57; PULSE 70; RESP 16; O2SAT 97
[2017-06-14 14:10] VITALS: BP 102/55; BP 128/58; PULSE 70; RESP 16; O2SAT 96
--- NOTE | 2017-06-14 14:11 | OP.PN_ITS ---
Immediate Post-Op Note Date of Procedure: 06/14/17 Primary Surgeon/Physician: Osbaldo De La Torre DPM forklift truck operator: Malu Brown Pre-Operative Diagnosis: Ulcer to right heel with osteomyelitis of calcaneus Post-Operative Diagnosis: same Surgery/Procedure Performed:: Debridement of all infected, nectrotic, non- viable soft tissue and bone of the right heel with bone biopsy. Description of Surgical Findings:: Hemostasis controlled with anatomic dissection. See operative report for details Patient was transferred to PACU with vital signs stable and vascular status intact to the right foot. Patient tolerated the procedure and anesthesia well. Estimated Blood Loss: 50 mL Specimen's removed: 1. Right calcaneus bone sent to microbiology for aerobic, anaerobic, acid fast, and fungal evaluation. 2. Right calcaneus bone sent to pathology for further evaluation Type of Anesthesia:: Local MAC - right ankle block consisting of 20 mL of 0.5% marcaine plain preoperatively - Admit VTE Documentation VTE Present on Admission: Yes - aspirin VTE Mechan Device Prophylaxis: SCD's
[2017-06-14 14:15] VITALS: BP 113/56; BP 128/58; PULSE 70; RESP 14; TEMP 36.1; O2SAT 98
[2017-06-14 14:30] VITALS: BP 128/58
--- NOTE | 2017-06-14 14:36 | PCM.OPRPT ---
Problem List (1) Chronic ulcer of right heel Status: Acute (2) Osteomyelitis of right foot Status: Acute (3) Type 2 diabetes mellitus with diabetic polyneuropathy Status: Acute (4) PVD (peripheral vascular disease) Status: Suspected Report of Operation Date of Procedure: 06/14/17 Pre-Operative Diagnosis: Ulcer to right heel with osteomyelitis of calcaneus Post-Operative Diagnosis: same Surgery/Procedure Performed:: Debridement of all infected, nectrotic, non-viable soft tissue and bone of the right heel with bone biopsy. Description of Surgical Findings:: Hemostasis controlled with anatomic dissection. See operative report for details Materials: none human resources benefits manager: Malu Brown Type of Anesthesia:: Local MAC - right ankle block consisting of 20 mL of 0.5% marcaine plain preoperatively Specimen's removed: 1. Right calcaneus bone sent to microbiology for aerobic, anaerobic, acid fast, and fungal evaluation. 2. Right calcaneus bone sent to pathology for further evaluation Drains: none Estimated Blood Loss (mL): 50 mL Description of Procedure: Indications: This 61 year old diabetic male has a history of diabetes, PVD, obesity, and a chronic non healing ulcer to the right plantar/posterior heel. This patient is known to me through the wound healing center at [place]. He originally felt he injured his heel while walking down the stairs and stepping on something around February 21 of this year. He was originally be cared for by Dr. See. After some progression of the ulcer site, the patient was referred to [facility] wound center. Due to [facility] closing, the patient were then referred to [facility]. Original x-rays showed no bone involvement. Patient was started on wound care dressing using santyl, due to the slough, and fibrotic and necrotic tissue appreciated. The patient has a history of non compliance, especially with keeping weight off of his heel. I had multiple long discussions with both the patient and his about the importance of keeping weight off of the area while it healed. The patient and his also say that they have been going to a chiropractor in [place] who encouraged them to use an enzyme to put on his ulcer site, as well as encouraged them to use other treatment modalities at his office. They are unsure what the actual enzyme was. I again stated that they should not be placing anything on the ulcer site that we do not recommend in the wound center. As the ulcer slowly got deeper repeat x-rays were taken of the foot, and a calcaneal view suggested demineralization of a focal area of the posterior calcaneus adjacent to the ulcer which may represent osteomyelitis. An MRI was then ordered which was read as mild bone edema in the posterior tuberosity of the calcaneus adjacent to the ulcer with a small focus of decreased T1 bone marrow signal, suggestive of early osteomyelitis. Tissue cultures were also taken and after reviewing the results, Dr. Naranjo with infectious disease, saw the patient and started him on Bactrim and Flagyl, which the patient will finish up in the first week of June. I also discussed the case with Dr. Rios. 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 After talking with Dr. Rios about the results, he suggested the patient have an angiogram performed, which was completed on May 24, in order to increase blood flow to the right heel, and in order to optimize the patient as much as possible prior to a surgical debridement. Due to the state of the ulcer as well as its slow healing progress, I suggested a surgical debridement of all infected, non viable, necrotic soft tissue and bone with bone biopsy of the right heel. The planned procedure was then discussed in great detail and to the patient and his 's understanding. The patient and his both agree to proceed with the operation at this time. All of the risks and potential complications were reviewed with the patient. He understands the importance of proper compliance following this procedure to optimize the potential for healing, but no guarantees were given. He is advised that the complications and risks include, but are not limited to, further infection, need for further surgeries, recurrence, transfer lesions, deformity, weakness, loss of strength, loss of function, further ulceration, non healing, delayed healing, blood clots, chronic swelling, arthritis, Charcot foot/ankle, nerve damage, inability to walk, inability to wear shoes, severe pain, complex regional pain syndrome, need for below the knee amputation, loss of complete limb, or even loss of life. The alternative options were discussed with the patient and his as well and all of their questions were answered to their satisfaction. It was then agreed to proceed forward with the planned procedure. The consent form was reviewed with the patient and was freely signed. Again, no guarantees were given. Description of Procedure: The patient was brought back to the operating room and placed on the operating table in the supine position. The patient was given a dose of ancef preoperatively. The patient received MAC anesthesia per the anesthesiologist. A local anesthetic ankle block was then performed about the patient's right ankle consisting of 20 Ml of 0.5% marcaine plain. No tourniquet was used during this procedure and hemostasis was achieved using anatomic dissection and local control. The right foot and ankle were then scrubbed, prepped, and draped in the usual aseptic manner. A timeout was performed and the patient was properly identified and the surgical plan was confirmed. Next, attention was directed to the patients right heel, in the area of the ulcer. Pre operative measurements of the ulcer were 2.5 cm x 2.4 cm x 0.9 cm. with some slight undermining in all directions. The bone cannot be visualized through the ulcer site. There was no malodor or any purulence appreciated. The base of the ulcer was shown to be a mixture of adherent slough, fibrous and necrotic tissue, and biofilm with some slight hyperkeratotic tissue noted around the rim. There was no extending cellulitis or increase in warmth appreciated. At this time, a [employer] versa jet was then used on setting 5 for debridement of all necrotic, non viable, and infected soft tissue as just described around the ulcer site. Once complete, healthy granular tissue was appreciated to the base of the ulcer, and all undermining was removed. Following debridement, the post debridement measurements were noted to be 3.1 cm x 3.8 cm x 1.1 cm. There is better blood flow appreciated to the area following his angiogram, but still not optimal blood flow to this area. Once complete, a #15 scalpel blade was used to made a small stab incision in healthy tissue, just medial to the ulcer, overlying the calcaneus. The incision was then dissected down to the calcaneus carefully using a hemostat for blunt dissection. Once the calcaneus was encountered, a alla biopsy needle was then employed to take a bone biopsy from the right calcaneus. Position was confirmed intraoperatively using fluoroscopy. The bone was then split in half carefully. Part of the bone biopsy was sent to microbiology for aerobic, anaerobic, acid fast and fungal evaluation. The other part of the biopsy was then sent to pathology for further evaluation. Results from this will continue to be monitored. The surgical site was then flushed with copious amounts of normal sterile saline, followed by a dressing consisting of adaptic to the base, 4x4's, ABDs, kerlix, and and ANÍBAL bandage. The patient is to leave this dressing intact until he is seen in two days at the wound healing center for his regularly scheduled appointment. The patient tolerated the procedure and anesthesia well with no complications. Post operative orders and home going instructions were placed electronically. Post operative instructions were also reviewed with the patient and his in great detail after the procedure. The patient is to continue to be non weightbearing at all times to the right heel with the assistance of either his crutches or knee scooter. He can elevate the right lower extremity to help control swelling. If some strike through is noted to dressing, they can reinforce the dressing. Should strike through show through the reinforcement, the patient and his were instructed to contact me or go to the ER for further evaluation. They understand this. Otherwise, they are to keep the dressing clean, dry, and intact until seen at the wound healing center on 06/16. The patient was transferred to PACU with vital signs stable with vascular status intact and in good condition. Orders placed that patient is okay to discharge to home once PACU protocol met. No complications took place during this procedure. Will continue to follow this patient as outpatient at wound healing center. Grafts/Implants Used: none - Admit VTE Documentation VTE Present on Admission: Yes VTE Mechan Device Prophylaxis: SCD's
--- NOTE | 2017-06-15 16:24 | NURSING ---
This nurse spoke with ADRIENNE Avery regarding HBO potential today. States pt had surgery with Dr. De La Torre on 06/14/17. Did a surgical debridement and biopsy to test for osteomyelitis. According to surgiacl progress note osteo was indeed oresent. Pt to be seen by Wil Miner tomorrow 06/16/17 will follow with Wil Miner about initiating HBO tx.
== END 2017-06-14 14:45 | disposition home or self-care (01) ==
LOC: SDC 11:10 → AC 11:12
PROVIDERS: Visit Provider Podiatrist
PROC: (CPT 11042; principal; 2017-06-14 12:45)
DX: L97.418 Non-pressure chronic ulcer of right heel and midfoot with other specified severity (principal); E11.69 Type 2 diabetes mellitus with other specified complication; M86.171 Other acute osteomyelitis, right ankle and foot; I73.9 Peripheral vascular disease, unspecified; E11.42 Type 2 diabetes mellitus with diabetic polyneuropathy; I10 Essential (primary) hypertension; N28.9 Disorder of kidney and ureter, unspecified; E66.9 Obesity, unspecified; Z68.29 Body mass index [BMI] 29.0-29.9, adult; Z79.4 Long term (current) use of insulin; Z79.82 Long term (current) use of aspirin; Z79.899 Other long term (current) drug therapy; Z87.891 Personal history of nicotine dependence
CPT/HCPCS: 00400; 11042; 20220; 73620; 76000; 82962; 87015; 87070; 87075; 87102; 87116; 87205; 87206; 88304; 88311; J7120; J2405

== ENCOUNTER 2017-06-16 11:00 | Outpatient (RCR) | payer MEDICARE, SELFPAY ==
[2017-05-22 00:46] VITALS: BP 140/48; PULSE 78; RESP 20; TEMP 36.1; BMI 32.7
[2017-05-26 10:44] VITALS: BP 114/57; PULSE 81; RESP 18; TEMP 36.3; BMI 32.7
--- NOTE | 2017-05-26 14:06 | PCM.WC.PN ---
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 Status: Acute Current Visit: No Code(s): L97.419 - Non-pressure chronic ulcer of right heel and midfoot with unspecified severity (2) Type 2 diabetes mellitus with diabetic polyneuropathy Status: Acute Current Visit: No Code(s): E11.42 - Type 2 diabetes mellitus with diabetic polyneuropathy (3) Lower extremity edema Status: Chronic Current Visit: No Code(s): R60.0 - Localized edema (4) Malnutrition Status: Suspected Current Visit: No Code(s): E46 - Unspecified protein-calorie malnutrition (5) PVD (peripheral vascular disease) Status: Suspected Current Visit: No Code(s): I73.9 - Peripheral vascular disease, unspecified Type of Wound Date of Service: 05/26/17 Chief Complaint: Chronic non healing ulcer to right posterior heel with fat layer exposed. History of Wound: This 61-year-old diabetic male presents for follow up of chronic nonhealing ulcer to right posterior heel. Patient states on February 21 he believes he stepped on a staple walking down the stairs and had a tear in his skin. This progressed over the following days into an ulcer. Patient has seen Dr. See as well as gone to [facility] wound center in the past. While at [facility], the patient was undergoing every other day dressing changes consisting of medihoney and a dry sterile dressing. The patient has a knee walker and claims to be using it, but not all the time. The also states that the patient has not keeping pressure off of his right foot as much as he should be, even after last weeks visit, although he has gotten better. Patient denies any purulence to the area. The patient denies any feelings of nausea, vomiting, chills, fever at this time. Progress of Wound: Another very slight improvement to base of ulcer this week. The ulcer is still covered by adherent slough. There is slight hyperkeratotic rim surrounding ulcer still today. No maceration to the melanie-ulcer area today. The patient and his have continued using Santyl to the area over the last week. No odor appreciated today. Patient had previously been cultured with MRSA and had been placed on appropriate antibiotics as noted in previous notes. Dr. Rios performed an angioplasty on Tuesday at [facility] according to the patient and his . She also states that at their chiropractor office they are receiving laser treatments for circulation. - Physical Exam Vital Signs Temp Pulse Resp BP 97.3 F L 81 18 114/57 L 05/26/17 10:44 05/26/17 10:44 05/26/17 10:44 05/26/17 10:44 General: Alert, Oriented x3, Cooperative, No apparent distress Extremities: Capillary Refill Less than 3 Seconds, No Calf Tenderness - negative stephan and iverson sign bilateral, Diminished Peripheral Pulses - DP pulses palpable and PT pulses nonpalpable due to lower extremity edema, Edema - Bilateral lower extremity edema Skin: Ulcer/ Wound - Chronic nonhealing ulcer to plantar posterior aspect of the right heel. Ulcer measurements are noted below. Some hyperkeratotic tissue appreciated surrounding the rim of the ulcer today. The ulcer base is a mixture of granular tissue, adherent slough, fibrin. There is no surrounding erythema or cellulitis today. No increase in warmth around the ulcer site. There is no purulence, no malodor, no fluctuance. There is a small area that slightly probes to bone that is still appreciated. There is also some undermining appreciated around the entire ulcer site that is approximately 1.5 cm at its deepest, and that this is not gotten any worse over the last few weeks. Wound Measurements and Assessment WC - Nurse 1 - General Ulcer Measurement Start: 05/26/17 10:44 Freq: Status: Active Protocol: Activity Type Activity Date Activity User E-Sign Co-Sign Detail Recorded Client Recorded Date Recorded By Document 05/26/17 10:44 [id number] 05/26/17 10:48 05/26/17 10:44 Wound Center Nurse 1 [Ulcer Assessment] #2- RT HEEL -Combined with other wound No -Current Size (cm) - Length 2.2 -Current Size (cm) - Width 2.0 -Current Size (cm) - Depth 0.8 -Total Square Cm 4.40 -Photo Taken No -Epithelialization Small 1-33% -Tunneling No -Undermining/Tunneling Yes -Undermining/Tunneling Starts (O' 5 clock) -Undermining/Tunneling Ends (O'clock) 6 -Maximum Distance (cm) 1.5 -Undermining/Tunneling Starts #2 (O' 7 clock) -Undermining/Tunneling Ends #2 (O' 4 clock) -Maximum Distance #2 (cm) 1.0 -Circular Undermining No -Classification - Thickness Full Thickness without Exposed Support Structure -Exudate Amt Medium (34-66%) -Exudate Type Serosanguineous -Wound Margin Thickened & Rolled Under -Granulation Amt Small (1-33%) -Granulation Quality [place] -Slough/Fibrin Yes -Necrosis Amt Large (67-100%) -Necrotic Tissue Type Adherent Slough -Structure Exposed Fascia Fat Layer Exposed -Texture (Melanie-wound Skin Appearance) Callus Localized Edema Scarring -Moisture (Melanie-wound Skin Appearance Maceration ) -Color (Melanie-wound Skin Appearance) Erythema -Temperature (Melanie-wound Skin No Abnormality Appearance) (Pt Warm) -Ulcer Cleansing Not Cleansed -Foul Odor after Cleansing No -Anesthetic Used 4% Lidocaine Solution [Edema Assessment] -Lower Limb Edema Present Yes -Right Calf (cm) 34.5 -Right Ankle (cm) 22.0 WC - Nurse 2 - General Ulcer CM Notes Start: 05/26/17 10:44 Freq: Status: Active Protocol: Activity Type Activity Date Activity User E-Sign Co-Sign Detail Recorded Client Recorded Date Recorded By Document 05/26/17 11:18 MW [id number] 05/26/17 11:31 MW 05/26/17 11:18 Wound Center Nurse 2 [Procedure/Treatment] #2- RT HEEL -Time 11:18 -Correct Patient Yes -Correct Side, Site, Position Yes -Correct Procedure Yes -Procedure Performed Yes -Type of Procedure Debridement -Clinical Debridement Subcutaneous -Post Debridement Size (cm) - Length 2.4 -Post Debridement Size (cm) - Width 2.5 -Post Debridement Size (cm) - Depth 1.3 -Total Square Cm 6.00 -Wound/Ulcer Outcome Not Healed -Ulcer Cleansing Rinsed/ Irrigated with Saline -Foul Odor after Cleansing No -Bioengineered Tissue No -Bleeding Controlled with Pressure -Treatment Response Procedure Tolerated Well [See Physician Procedure note for Specifics] Pain Scale: 0-10 Numeric [Pain] -Is Patient Pain Free? Yes Musculoskeletal: - - Patient denies tenderness to the aforementioned ulcer Neurological: - - Epicritic sensation grossly absent from bilateral lower extremities Psych/Mental Status: Normal Affect, Appropriate Debridement Note Post-Debridement Measurements/Treatment WC - Nurse 2 - General Ulcer CM Notes Start: 05/26/17 10:44 Freq: Status: Active Protocol: Activity Type Activity Date Activity User E-Sign Co-Sign Detail Recorded Client Recorded Date Recorded By Document 05/26/17 11:18 MW [id number] 05/26/17 11:31 MW 05/26/17 11:18 Wound Center Nurse 2 #2- RT HEEL -Time 11:18 -Correct Patient Yes -Correct Side, Site, Position Yes -Correct Procedure Yes -Procedure Performed Yes -Type of Procedure Debridement -Clinical Debridement Subcutaneous -Post Debridement Size (cm) - Length 2.4 -Post Debridement Size (cm) - Width 2.5 -Post Debridement Size (cm) - Depth 1.3 -Total Square Cm 6.00 -Wound/Ulcer Outcome Not Healed -Ulcer Cleansing Rinsed/ Irrigated with Saline -Foul Odor after Cleansing No -Bioengineered Tissue No -Bleeding Controlled with Pressure -Treatment Response Procedure Tolerated Well Pain Scale: 0-10 Numeric Is Patient Pain Free? Yes Wound debrided: Right plantar posterior heel Laterality: Right Wound Grade/Stage: 3 Type of Debridement: Excisional debridement Anesthesia Used: 4% Lidocaine Solution Depth: in the subcutaneous layer Percentage of wound debrided: 100 Instrument Used: 7mm curette, #15 blade, Forceps Tissue Removed: Adherent slough, fibrous tissue, hyperkeratotic tissue Severity: Fat Layer Exposed Amount of bleeding with debridement: Mild Bleeding Controlled with: Pressure Patient tolerated procedure well Assessment/Plan Assessment: Ulcer to right heel with stable eschar. DM with neuropathy. Malnutrition. Plan: Patient was again examined and evaluated today. Slight improvement noted form last week to this week again, following angiogram by Dr. Rios on Tuesday. We will contact Dr. Rios's office to get a copy of the operative report and to get his input on the patient's healing potential. Majority of ulcer still covered by slough. Area of probing still appreciated that is still almost to bone. Undermining continues to be appreciated this week as well. Debridement was again completed as described in the clinical panel. The ulcer site was then cleansed with normal saline. Last culture sent grew anaerobic cocci and enterobacter cloacae complex. Dr. Naranjo has the patient on Bactrim and Flagyl. Following debridement, Santyl was again applied followed by a dry sterile dressing. Patient is to have daily dressing changes consisting of the above dressing for another week. Patient to continue with high protein diet and it was again stressed how important keeping blood sugar under control is to healing process. It was also again stressed to the patient how important it is to keep pressure off of his heel at all times and that this includes any type of pressure at all, as the patient has been noncompliant in the past with this. Patient continues to use crutches after I advised against this, even today was seen with his crutches and slight pressure being applied to the heel while in the wound center. I again informed them that the reason there has been no improvement in recent weeks is because there is still being pressure applied to the heal. I again informed the patient that there is a high likelihood that he will need a surgical debridement. I also again informed him and his that there is possibility that this can lead to extensive debridements, partial calcaneal amputations, or even more proximal amputations on the leg. He is to use the knee scooter at all times while walking. While sitting or laying in bed he was instructed to keep the heel floating over the edge of a pillow in order to have absolutely no pressure to the area. The patient and his were also instructed to only dress the ulcer site as instructed at the wound center. Patient and the patient's were educated on signs and symptoms of local and systemic infection and were instructed to go to the emergency room immediately should they notice any. All questions were answered to the patient and the patient's 's satisfaction. I still continue to be concerned with the patient's compliance. They will follow-up in clinic in 1 week for further evaluation, or sooner if needed. This note was generated with [employer] dictation software. It may contain incorrect words, spelling, and punctuation that were not noted in checking the note before signing.
--- NOTE | 2017-05-26 14:18 | PN.PCM_ITS ---
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 Status: Acute Current Visit: No Code(s): L97.419 - Non-pressure chronic ulcer of right heel and midfoot with unspecified severity (2) Type 2 diabetes mellitus with diabetic polyneuropathy Status: Acute Current Visit: No Code(s): E11.42 - Type 2 diabetes mellitus with diabetic polyneuropathy (3) Lower extremity edema Status: Chronic Current Visit: No Code(s): R60.0 - Localized edema (4) Malnutrition Status: Suspected Current Visit: No Code(s): E46 - Unspecified protein- calorie malnutrition (5) PVD (peripheral vascular disease) Status: Suspected Current Visit: No Code(s): I73.9 - Peripheral vascular disease, unspecified Type of Wound Date of Service: 05/26/17 Chief Complaint: Chronic non healing ulcer to right posterior heel with fat layer exposed. History of Wound: This 61-year-old diabetic male presents for follow up of chronic nonhealing ulcer to right posterior heel. Patient states on February 21 he believes he stepped on a staple walking down the stairs and had a tear in his skin. This progressed over the following days into an ulcer. Patient has seen Dr. See as well as gone to [facility] wound center in the past. While at [facility], the patient was undergoing every other day dressing changes consisting of medihoney and a dry sterile dressing. The patient has a knee walker and claims to be using it, but not all the time. The also states that the patient has not keeping pressure off of his right foot as much as he should be, even after last weeks visit, although he has gotten better. Patient denies any purulence to the area. The patient denies any feelings of nausea, vomiting, chills, fever at this time. Progress of Wound: Another very slight improvement to base of ulcer this week. The ulcer is still covered by adherent slough. There is slight hyperkeratotic rim surrounding ulcer still today. No maceration to the melanie-ulcer area today. The patient and his have continued using Santyl to the area over the last week. No odor appreciated today. Patient had previously been cultured with MRSA and had been placed on appropriate antibiotics as noted in previous notes. Dr. Rios performed an angioplasty on Tuesday at [facility] according to the patient and his . She also states that at their chiropractor office they are receiving laser treatments for circulation. - Physical Exam Vital Signs Temp Pulse Resp BP 97.3 F L 81 18 114/57 L 05/26/17 10:44 05/26/17 10:44 05/26/17 10:44 05/26/17 10:44 General: Alert, Oriented x3, Cooperative, No apparent distress Extremities: Capillary Refill Less than 3 Seconds, No Calf Tenderness - negative stephan and iverson sign bilateral, Diminished Peripheral Pulses - DP pulses palpable and PT pulses nonpalpable due to lower extremity edema, Edema - Bilateral lower extremity edema Skin: Ulcer/ Wound - Chronic nonhealing ulcer to plantar posterior aspect of the right heel. Ulcer measurements are noted below. Some hyperkeratotic tissue appreciated surrounding the rim of the ulcer today. The ulcer base is a mixture of granular tissue, adherent slough, fibrin. There is no surrounding erythema or cellulitis today. No increase in warmth around the ulcer site. There is no purulence, no malodor, no fluctuance. There is a small area that slightly probes to bone that is still appreciated. There is also some undermining appreciated around the entire ulcer site that is approximately 1.5 cm at its deepest, and that this is not gotten any worse over the last few weeks. Wound Measurements and Assessment WC - Nurse 1 - General Ulcer Measurement Start: 05/26/17 10:44 Freq: Status: Active Protocol: Activity Type Activity Date Activity User E-Sign Co-Sign Detail Recorded Client Recorded Date Recorded By Document 05/26/17 10:44 [id number] 05/26/17 10:48 05/26/17 10:44 Wound Center Nurse 1 [Ulcer Assessment] #2- RT HEEL -Combined with other wound No -Current Size (cm) - Length 2.2 -Current Size (cm) - Width 2.0 -Current Size (cm) - Depth 0.8 -Total Square Cm 4.40 -Photo Taken No -Epithelialization Small 1-33% -Tunneling No -Undermining/Tunneling Yes -Undermining/Tunneling Starts (O' 5 clock) -Undermining/Tunneling Ends (O'clock) 6 -Maximum Distance (cm) 1.5 -Undermining/Tunneling Starts #2 (O' 7 clock) -Undermining/Tunneling Ends #2 (O' 4 clock) -Maximum Distance #2 (cm) 1.0 -Circular Undermining No -Classification - Thickness Full Thickness without Exposed Support Structure -Exudate Amt Medium (34-66%) -Exudate Type Serosanguineous -Wound Margin Thickened & Rolled Under -Granulation Amt Small (1-33%) -Granulation Quality [place] -Slough/Fibrin Yes -Necrosis Amt Large (67-100%) -Necrotic Tissue Type Adherent Slough -Structure Exposed Fascia Fat Layer Exposed -Texture (Melanie-wound Skin Appearance) Callus Localized Edema Scarring -Moisture (Melanie-wound Skin Appearance Maceration ) -Color (Melanie-wound Skin Appearance) Erythema -Temperature (Melanie-wound Skin No Abnormality Appearance) (Pt Warm) -Ulcer Cleansing Not Cleansed -Foul Odor after Cleansing No -Anesthetic Used 4% Lidocaine Solution [Edema Assessment] -Lower Limb Edema Present Yes -Right Calf (cm) 34.5 -Right Ankle (cm) 22.0 WC - Nurse 2 - General Ulcer CM Notes Start: 05/26/17 10:44 Freq: Status: Active Protocol: Activity Type Activity Date Activity User E-Sign Co-Sign Detail Recorded Client Recorded Date Recorded By Document 05/26/17 11:18 MW [id number] 05/26/17 11:31 MW 05/26/17 11:18 Wound Center Nurse 2 [Procedure/Treatment] #2- RT HEEL -Time 11:18 -Correct Patient Yes -Correct Side, Site, Position Yes -Correct Procedure Yes -Procedure Performed Yes -Type of Procedure Debridement -Clinical Debridement Subcutaneous -Post Debridement Size (cm) - Length 2.4 -Post Debridement Size (cm) - Width 2.5 -Post Debridement Size (cm) - Depth 1.3 -Total Square Cm 6.00 -Wound/Ulcer Outcome Not Healed -Ulcer Cleansing Rinsed/ Irrigated with Saline -Foul Odor after Cleansing No -Bioengineered Tissue No -Bleeding Controlled with Pressure -Treatment Response Procedure Tolerated Well [See Physician Procedure note for Specifics] Pain Scale: 0-10 Numeric [Pain] -Is Patient Pain Free? Yes Musculoskeletal: - - Patient denies tenderness to the aforementioned ulcer Neurological: - - Epicritic sensation grossly absent from bilateral lower extremities Psych/Mental Status: Normal Affect, Appropriate Debridement Note Post-Debridement Measurements/Treatment WC - Nurse 2 - General Ulcer CM Notes Start: 05/26/17 10:44 Freq: Status: Active Protocol: Activity Type Activity Date Activity User E-Sign Co-Sign Detail Recorded Client Recorded Date Recorded By Document 05/26/17 11:18 MW [id number] 05/26/17 11:31 MW 05/26/17 11:18 Wound Center Nurse 2 #2- RT HEEL -Time 11:18 -Correct Patient Yes -Correct Side, Site, Position Yes -Correct Procedure Yes -Procedure Performed Yes -Type of Procedure Debridement -Clinical Debridement Subcutaneous -Post Debridement Size (cm) - Length 2.4 -Post Debridement Size (cm) - Width 2.5 -Post Debridement Size (cm) - Depth 1.3 -Total Square Cm 6.00 -Wound/Ulcer Outcome Not Healed -Ulcer Cleansing Rinsed/ Irrigated with Saline -Foul Odor after Cleansing No -Bioengineered Tissue No -Bleeding Controlled with Pressure -Treatment Response Procedure Tolerated Well Pain Scale: 0-10 Numeric Is Patient Pain Free? Yes Wound debrided: Right plantar posterior heel Laterality: Right Wound Grade/Stage: 3 Type of Debridement: Excisional debridement Anesthesia Used: 4% Lidocaine Solution Depth: in the subcutaneous layer Percentage of wound debrided: 100 Instrument Used: 7mm curette, #15 blade, Forceps Tissue Removed: Adherent slough, fibrous tissue, hyperkeratotic tissue Severity: Fat Layer Exposed Amount of bleeding with debridement: Mild Bleeding Controlled with: Pressure Patient tolerated procedure well Assessment/Plan Assessment: Ulcer to right heel with stable eschar. DM with neuropathy. Malnutrition. Plan: Patient was again examined and evaluated today. Slight improvement noted form last week to this week again, following angiogram by Dr. Rios on Tuesday. We will contact Dr. Rios's office to get a copy of the operative report and to get his input on the patient's healing potential. Majority of ulcer still covered by slough. Area of probing still appreciated that is still almost to bone. Undermining continues to be appreciated this week as well. Debridement was again completed as described in the clinical panel. The ulcer site was then cleansed with normal saline. Last culture sent grew anaerobic cocci and enterobacter cloacae complex. Dr. Naranjo has the patient on Bactrim and Flagyl. Following debridement, Santyl was again applied followed by a dry sterile dressing. Patient is to have daily dressing changes consisting of the above dressing for another week. Patient to continue with high protein diet and it was again stressed how important keeping blood sugar under control is to healing process. It was also again stressed to the patient how important it is to keep pressure off of his heel at all times and that this includes any type of pressure at all, as the patient has been noncompliant in the past with this. Patient continues to use crutches after I advised against this, even today was seen with his crutches and slight pressure being applied to the heel while in the wound center. I again informed them that the reason there has been no improvement in recent weeks is because there is still being pressure applied to the heal. I again informed the patient that there is a high likelihood that he will need a surgical debridement. I also again informed him and his that there is possibility that this can lead to extensive debridements, partial calcaneal amputations, or even more proximal amputations on the leg. He is to use the knee scooter at all times while walking. While sitting or laying in bed he was instructed to keep the heel floating over the edge of a pillow in order to have absolutely no pressure to the area. The patient and his were also instructed to only dress the ulcer site as instructed at the wound center. Patient and the patient's were educated on signs and symptoms of local and systemic infection and were instructed to go to the emergency room immediately should they notice any. All questions were answered to the patient and the patient's 's satisfaction. I still continue to be concerned with the patient's compliance. They will follow-up in clinic in 1 week for further evaluation, or sooner if needed. This note was generated with [employer] dictation software. It may contain incorrect words, spelling, and punctuation that were not noted in checking the note before signing.
[2017-06-02 11:08] VITALS: BP 150/67; PULSE 80; RESP 16; TEMP 36.6; BMI 32.7
--- NOTE | 2017-06-02 14:15 | PCM.WC.PN ---
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 Status: Acute Current Visit: No Code(s): L97.419 - Non-pressure chronic ulcer of right heel and midfoot with unspecified severity (2) Type 2 diabetes mellitus with diabetic polyneuropathy Status: Acute Current Visit: No Code(s): E11.42 - Type 2 diabetes mellitus with diabetic polyneuropathy (3) Lower extremity edema Status: Chronic Current Visit: No Code(s): R60.0 - Localized edema (4) Malnutrition Status: Suspected Current Visit: No Code(s): E46 - Unspecified protein-calorie malnutrition (5) PVD (peripheral vascular disease) Status: Suspected Current Visit: No Code(s): I73.9 - Peripheral vascular disease, unspecified Type of Wound Date of Service: 06/02/17 Chief Complaint: Chronic non healing ulcer to right posterior heel with fat layer exposed. History of Wound: This 61-year-old diabetic male presents for follow up of chronic nonhealing ulcer to right posterior heel. Patient states on February 21 he believes he stepped on a staple walking down the stairs and had a tear in his skin. This progressed over the following days into an ulcer. Patient has seen Dr. See as well as gone to [facility] undergoing every other day dressing changes consisting of medihoney and a dry sterile dressing. The patient has a knee walker and claims to be using it, but not all the time. The also states that the patient has not keeping pressure off of his right foot as much as he should be, even after last weeks visit, although he has gotten better. Patient denies any purulence to the area. The patient denies any feelings of nausea, vomiting, chills, fever at this time. Progress of Wound: Another very slight improvement to base of ulcer this week again. The ulcer is still covered by adherent slough. There is slight hyperkeratotic rim surrounding ulcer still today. No maceration to the melanie-ulcer area today. The patient and his have continued using Santyl to the area over the last week. No odor appreciated today. Patient had previously been cultured with MRSA and had been placed on appropriate antibiotics as noted in previous notes. Dr. Rios performed an angioplasty at [facility] according to the patient and his . She also states that at their chiropractor office they are still receiving laser treatments for circulation. - Physical Exam Vital Signs Temp Pulse Resp BP 97.8 F 80 16 150/67 H 06/02/17 11:08 06/02/17 11:08 06/02/17 11:08 06/02/17 11:08 General: Alert, Oriented x3, Cooperative, No apparent distress Extremities: Capillary Refill Less than 3 Seconds, No Calf Tenderness - negative stephan and iverson sign, Diminished Peripheral Pulses - DP pulses palpable and PT pulses non palpable due to edema., Edema - slight lower extremity edema noted Skin: Ulcer/ Wound - Chronic nonhealing ulcer to plantar posterior aspect of the right heel. Ulcer measurements are noted below. Very slight improvement to ulcer base noted again this week. Some hyperkeratotic tissue appreciated surrounding the rim of the ulcer today. The ulcer base is a mixture of granular tissue, adherent slough, fibrin. There is no surrounding erythema or cellulitis today. No increase in warmth around the ulcer site. There is no purulence, no malodor, no fluctuance. There is also some undermining appreciated around the entire ulcer site that is approximately 1.5 cm at its deepest, and that this is not gotten any worse over the last few weeks. Wound Measurements and Assessment WC - Nurse 1 - General Ulcer Measurement Start: 05/26/17 10:44 Freq: Status: Active Protocol: Activity Type Activity Date Activity User E-Sign Co-Sign Detail Recorded Client Recorded Date Recorded By Document 06/02/17 11:08 [facility] [id number] 06/02/17 11:22 [facility] 06/02/17 11:08 Wound Center Nurse 1 [Ulcer Assessment] #2- RT HEEL -Combined with other wound No -Current Size (cm) - Length 2.2 -Current Size (cm) - Width 2.6 -Current Size (cm) - Depth 0.6 -Total Square Cm 5.72 -Date of Last Picture (Recall this 06/02/17 field) -Photo Taken Yes -Epithelialization None Present -Tunneling Yes -Tunneling Position (O'clock) 4 -Tunneling Distance (cm) 1.4 -Tunneling Position #2 (O'clock) 2 -Tunneling Distance #2 (cm) 0.6 -Undermining/Tunneling No -Circular Undermining No -Exudate Amt Small (1-33%) -Exudate Type Serosanguineous -Wound Margin Distinct, Outline Attached -Granulation Amt Small (1-33%) -Granulation Quality [place] -Slough/Fibrin Yes -Necrosis Amt Large (67-100%) -Necrotic Tissue Type Adherent Slough -Structure Exposed N/A -Texture (Melanie-wound Skin Appearance) Scarring -Moisture (Melanie-wound Skin Appearance Dry/Scaly ) -Color (Melanie-wound Skin Appearance) Assessed -Temperature (Melanie-wound Skin No Abnormality Appearance) (Pt Warm) -Tenderness on Palpation (Melanie-wound Yes Skin Appearance) -Ulcer Cleansing Rinsed/ Irrigated with Saline -Foul Odor after Cleansing No -Anesthetic Used 5% Lidocaine Gel [Edema Assessment] -Lower Limb Edema Present No -Right Calf (cm) 34.5 -Right Ankle (cm) 21.5 WC - Nurse 2 - General Ulcer CM Notes Start: 05/26/17 10:44 Freq: Status: Active Protocol: Activity Type Activity Date Activity User E-Sign Co-Sign Detail Recorded Client Recorded Date Recorded By Document 06/02/17 12:26 MW [id number] 06/02/17 12:35 MW 06/02/17 12:26 Wound Center Nurse 2 [Procedure/Treatment] #2- RT HEEL -Time 12:27 -Correct Patient Yes -Correct Side, Site, Position Yes -Correct Procedure Yes -Procedure Performed Yes -Type of Procedure Debridement -Clinical Debridement Subcutaneous -Post Debridement Size (cm) - Length 2.5 -Post Debridement Size (cm) - Width 2.6 -Post Debridement Size (cm) - Depth 1.3 -Total Square Cm 6.50 -Wound/Ulcer Outcome Not Healed -Ulcer Cleansing Rinsed/ Irrigated with Saline -Foul Odor after Cleansing No -Bioengineered Tissue No -Bleeding Controlled with Pressure -Treatment Response Procedure Tolerated Well [See Physician Procedure note for Specifics] Pain Scale: 0-10 Numeric [Pain] -Is Patient Pain Free? Yes Musculoskeletal: - - Patient denies tenderness to aforementioned ulcer site Neurological: - - Epicritic sensation grossly absent from bilateral lower extremities Psych/Mental Status: Normal Affect, Appropriate Debridement Note Post-Debridement Measurements/Treatment WC - Nurse 2 - General Ulcer CM Notes Start: 05/26/17 10:44 Freq: Status: Active Protocol: Activity Type Activity Date Activity User E-Sign Co-Sign Detail Recorded Client Recorded Date Recorded By Document 05/26/17 11:18 MW [id number] 05/26/17 11:31 MW Document 06/02/17 12:26 MW [id number] 06/02/17 12:35 MW 05/26/17 06/02/17 11:18 12:26 Wound Center Nurse 2 #2- RT HEEL -Time 11:18 12:27 -Correct Patient Yes Yes -Correct Side, Site, Position Yes Yes -Correct Procedure Yes Yes -Procedure Performed Yes Yes -Type of Procedure Debridement Debridement -Clinical Debridement Subcutaneous Subcutaneous -Post Debridement Size (cm) - Length 2.4 2.5 -Post Debridement Size (cm) - Width 2.5 2.6 -Post Debridement Size (cm) - Depth 1.3 1.3 -Total Square Cm 6.00 6.50 -Wound/Ulcer Outcome Not Healed Not Healed -Ulcer Cleansing Rinsed/ Rinsed/ Irrigated with Irrigated with Saline Saline -Foul Odor after Cleansing No No -Bioengineered Tissue No No -Bleeding Controlled with Pressure Pressure -Treatment Response Procedure Procedure Tolerated Well Tolerated Well Pain Scale: 0-10 Numeric Is Patient Pain Free? Yes Yes Wound debrided: Right plantar posterior heel Laterality: Right Wound Grade/Stage: 3 Type of Debridement: Excisional debridement Anesthesia Used: 4% Lidocaine Solution Depth: in the subcutaneous layer Percentage of wound debrided: 100 Instrument Used: #15 blade, Forceps Tissue Removed: Adherent slough, fibrous tissue, hyperkeratotic tissue Severity: Fat Layer Exposed Amount of bleeding with debridement: Mild Bleeding Controlled with: Pressure Patient tolerated procedure well Assessment/Plan Assessment: Ulcer to right heel with stable eschar. DM with neuropathy. Malnutrition. Plan: Patient was again examined and evaluated today. Slight improvement noted form last week to this week again. Angiogram last tuesday by Dr. Rios. Majority of ulcer still covered by slough. Undermining continues to be appreciated this week as well. Debridement was again completed as described in the clinical panel. The ulcer site was then cleansed with normal saline. Following debridement, Santyl was again applied followed by a dry sterile dressing again. Patient is to have daily dressing changes consisting of the above dressing for another week. Patient to continue with high protein diet and it was again stressed how important keeping blood sugar under control is to healing process. Patient says he has lowered his [id number] to 6.1. It was also again stressed to the patient how important it is to keep pressure off of his heel at all times and that this includes any type of pressure at all, as the patient has been noncompliant in the past with this. Patient continues to use crutches after I advised against this. I again informed them that the reason there has been no improvement in recent weeks is because there is still being pressure applied to the heel. I again informed the patient that there is a high likelihood that he will need a surgical debridement. I told the patient and his that I will start to get the ball rolling with getting the procedure scheduled. I also again informed him and his that there is possibility that this can lead to extensive debridements, partial calcaneal amputations, or even more proximal amputations on the leg. He is to use the knee scooter at all times while walking. While sitting or laying in bed he was instructed to keep the heel floating over the edge of a pillow in order to have absolutely no pressure to the area. The patient and his were also instructed to only dress the ulcer site as instructed at the wound center. Patient and the patient's were educated on signs and symptoms of local and systemic infection and were instructed to go to the emergency room immediately should they notice any. All questions were answered to the patient and the patient's 's satisfaction. I still continue to be concerned with the patient's compliance. They will follow-up in clinic in 1 week for further evaluation, or sooner if needed. This note was generated with [employer] dictation software. It may contain incorrect words, spelling, and punctuation that were not noted in checking the note before signing.
--- NOTE | 2017-06-02 14:24 | PN.PCM_ITS ---
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 Status: Acute Current Visit: No Code(s): L97.419 - Non-pressure chronic ulcer of right heel and midfoot with unspecified severity (2) Type 2 diabetes mellitus with diabetic polyneuropathy Status: Acute Current Visit: No Code(s): E11.42 - Type 2 diabetes mellitus with diabetic polyneuropathy (3) Lower extremity edema Status: Chronic Current Visit: No Code(s): R60.0 - Localized edema (4) Malnutrition Status: Suspected Current Visit: No Code(s): E46 - Unspecified protein- calorie malnutrition (5) PVD (peripheral vascular disease) Status: Suspected Current Visit: No Code(s): I73.9 - Peripheral vascular disease, unspecified Type of Wound Date of Service: 06/02/17 Chief Complaint: Chronic non healing ulcer to right posterior heel with fat layer exposed. History of Wound: This 61-year-old diabetic male presents for follow up of chronic nonhealing ulcer to right posterior heel. Patient states on February 21 he believes he stepped on a staple walking down the stairs and had a tear in his skin. This progressed over the following days into an ulcer. Patient has seen Dr. See as well as gone to [facility] wound center in the past. While at [facility], the patient was undergoing every other day dressing changes consisting of medihoney and a dry sterile dressing. The patient has a knee walker and claims to be using it, but not all the time. The also states that the patient has not keeping pressure off of his right foot as much as he should be, even after last weeks visit, although he has gotten better. Patient denies any purulence to the area. The patient denies any feelings of nausea, vomiting, chills, fever at this time. Progress of Wound: Another very slight improvement to base of ulcer this week again. The ulcer is still covered by adherent slough. There is slight hyperkeratotic rim surrounding ulcer still today. No maceration to the melanie- ulcer area today. The patient and his have continued using Santyl to the area over the last week. No odor appreciated today. Patient had previously been cultured with MRSA and had been placed on appropriate antibiotics as noted in previous notes. Dr. Rios performed an angioplasty at [facility] according to the patient and his . She also states that at their chiropractor office they are still receiving laser treatments for circulation. - Physical Exam Vital Signs Temp Pulse Resp BP 97.8 F 80 16 150/67 H 06/02/17 11:08 06/02/17 11:08 06/02/17 11:08 06/02/17 11:08 General: Alert, Oriented x3, Cooperative, No apparent distress Extremities: Capillary Refill Less than 3 Seconds, No Calf Tenderness - negative stephan and iverson sign, Diminished Peripheral Pulses - DP pulses palpable and PT pulses non palpable due to edema., Edema - slight lower extremity edema noted Skin: Ulcer/ Wound - Chronic nonhealing ulcer to plantar posterior aspect of the right heel. Ulcer measurements are noted below. Very slight improvement to ulcer base noted again this week. Some hyperkeratotic tissue appreciated surrounding the rim of the ulcer today. The ulcer base is a mixture of granular tissue, adherent slough, fibrin. There is no surrounding erythema or cellulitis today. No increase in warmth around the ulcer site. There is no purulence, no malodor, no fluctuance. There is also some undermining appreciated around the entire ulcer site that is approximately 1.5 cm at its deepest, and that this is not gotten any worse over the last few weeks. Wound Measurements and Assessment WC - Nurse 1 - General Ulcer Measurement Start: 05/26/17 10:44 Freq: Status: Active Protocol: Activity Type Activity Date Activity User E-Sign Co-Sign Detail Recorded Client Recorded Date Recorded By Document 06/02/17 11:08 [facility] [id number] 06/02/17 11:22 [facility] 06/02/17 11:08 Wound Center Nurse 1 [Ulcer Assessment] #2- RT HEEL -Combined with other wound No -Current Size (cm) - Length 2.2 -Current Size (cm) - Width 2.6 -Current Size (cm) - Depth 0.6 -Total Square Cm 5.72 -Date of Last Picture (Recall this 06/02/17 field) -Photo Taken Yes -Epithelialization None Present -Tunneling Yes -Tunneling Position (O'clock) 4 -Tunneling Distance (cm) 1.4 -Tunneling Position #2 (O'clock) 2 -Tunneling Distance #2 (cm) 0.6 -Undermining/Tunneling No -Circular Undermining No -Exudate Amt Small (1-33%) -Exudate Type Serosanguineous -Wound Margin Distinct, Outline Attached -Granulation Amt Small (1-33%) -Granulation Quality Red -Slough/Fibrin Yes -Necrosis Amt Large (67-100%) -Necrotic Tissue Type Adherent Slough -Structure Exposed N/A -Texture (Melanie-wound Skin Appearance) Scarring -Moisture (Melanie-wound Skin Appearance Dry/Scaly ) -Color (Melanie-wound Skin Appearance) Assessed -Temperature (Melanie-wound Skin No Abnormality Appearance) (Pt Warm) -Tenderness on Palpation (Melanie-wound Yes Skin Appearance) -Ulcer Cleansing Rinsed/ Irrigated with Saline -Foul Odor after Cleansing No -Anesthetic Used 5% Lidocaine Gel [Edema Assessment] -Lower Limb Edema Present No -Right Calf (cm) 34.5 -Right Ankle (cm) 21.5 WC - Nurse 2 - General Ulcer CM Notes Start: 05/26/17 10:44 Freq: Status: Active Protocol: Activity Type Activity Date Activity User E-Sign Co-Sign Detail Recorded Client Recorded Date Recorded By Document 06/02/17 12:26 MW [id number] 06/02/17 12:35 MW 06/02/17 12:26 Wound Center Nurse 2 [Procedure/Treatment] #2- RT HEEL -Time 12:27 -Correct Patient Yes -Correct Side, Site, Position Yes -Correct Procedure Yes -Procedure Performed Yes -Type of Procedure Debridement -Clinical Debridement Subcutaneous -Post Debridement Size (cm) - Length 2.5 -Post Debridement Size (cm) - Width 2.6 -Post Debridement Size (cm) - Depth 1.3 -Total Square Cm 6.50 -Wound/Ulcer Outcome Not Healed -Ulcer Cleansing Rinsed/ Irrigated with Saline -Foul Odor after Cleansing No -Bioengineered Tissue No -Bleeding Controlled with Pressure -Treatment Response Procedure Tolerated Well [See Physician Procedure note for Specifics] Pain Scale: 0-10 Numeric [Pain] -Is Patient Pain Free? Yes Musculoskeletal: - - Patient denies tenderness to aforementioned ulcer site Neurological: - - Epicritic sensation grossly absent from bilateral lower extremities Psych/Mental Status: Normal Affect, Appropriate Debridement Note Post-Debridement Measurements/Treatment WC - Nurse 2 - General Ulcer CM Notes Start: 05/26/17 10:44 Freq: Status: Active Protocol: Activity Type Activity Date Activity User E-Sign Co-Sign Detail Recorded Client Recorded Date Recorded By Document 05/26/17 11:18 MW [id number] 05/26/17 11:31 MW Document 06/02/17 12:26 MW [id number] 06/02/17 12:35 MW 05/26/17 06/02/17 11:18 12:26 Wound Center Nurse 2 #2- RT HEEL -Time 11:18 12:27 -Correct Patient Yes Yes -Correct Side, Site, Position Yes Yes -Correct Procedure Yes Yes -Procedure Performed Yes Yes -Type of Procedure Debridement Debridement -Clinical Debridement Subcutaneous Subcutaneous -Post Debridement Size (cm) - Length 2.4 2.5 -Post Debridement Size (cm) - Width 2.5 2.6 -Post Debridement Size (cm) - Depth 1.3 1.3 -Total Square Cm 6.00 6.50 -Wound/Ulcer Outcome Not Healed Not Healed -Ulcer Cleansing Rinsed/ Rinsed/ Irrigated with Irrigated with Saline Saline -Foul Odor after Cleansing No No -Bioengineered Tissue No No -Bleeding Controlled with Pressure Pressure -Treatment Response Procedure Procedure Tolerated Well Tolerated Well Pain Scale: 0-10 Numeric Is Patient Pain Free? Yes Yes Wound debrided: Right plantar posterior heel Laterality: Right Wound Grade/Stage: 3 Type of Debridement: Excisional debridement Anesthesia Used: 4% Lidocaine Solution Depth: in the subcutaneous layer Percentage of wound debrided: 100 Instrument Used: #15 blade, Forceps Tissue Removed: Adherent slough, fibrous tissue, hyperkeratotic tissue Severity: Fat Layer Exposed Amount of bleeding with debridement: Mild Bleeding Controlled with: Pressure Patient tolerated procedure well Assessment/Plan Assessment: Ulcer to right heel with stable eschar. DM with neuropathy. Malnutrition. Plan: Patient was again examined and evaluated today. Slight improvement noted form last week to this week again. Angiogram last tuesday by Dr. Rios. Majority of ulcer still covered by slough. Undermining continues to be appreciated this week as well. Debridement was again completed as described in the clinical panel. The ulcer site was then cleansed with normal saline. Following debridement, Santyl was again applied followed by a dry sterile dressing again. Patient is to have daily dressing changes consisting of the above dressing for another week. Patient to continue with high protein diet and it was again stressed how important keeping blood sugar under control is to healing process. Patient says he has lowered his [id number] to 6.1. It was also again stressed to the patient how important it is to keep pressure off of his heel at all times and that this includes any type of pressure at all, as the patient has been noncompliant in the past with this. Patient continues to use crutches after I advised against this. I again informed them that the reason there has been no improvement in recent weeks is because there is still being pressure applied to the heel. I again informed the patient that there is a high likelihood that he will need a surgical debridement. I told the patient and his that I will start to get the ball rolling with getting the procedure scheduled. I also again informed him and his that there is possibility that this can lead to extensive debridements, partial calcaneal amputations, or even more proximal amputations on the leg. He is to use the knee scooter at all times while walking. While sitting or laying in bed he was instructed to keep the heel floating over the edge of a pillow in order to have absolutely no pressure to the area. The patient and his were also instructed to only dress the ulcer site as instructed at the wound center. Patient and the patient's were educated on signs and symptoms of local and systemic infection and were instructed to go to the emergency room immediately should they notice any. All questions were answered to the patient and the patient's 's satisfaction. I still continue to be concerned with the patient's compliance. They will follow-up in clinic in 1 week for further evaluation, or sooner if needed. This note was generated with [employer] dictation software. It may contain incorrect words, spelling, and punctuation that were not noted in checking the note before signing.
[2017-06-09 11:22] VITALS: BP 121/59; PULSE 86; RESP 18; TEMP 36.3; BMI 32.7
--- NOTE | 2017-06-09 14:15 | PCM.WC.PN ---
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 Status: Acute Current Visit: No Code(s): L97.419 - Non-pressure chronic ulcer of right heel and midfoot with unspecified severity (2) Type 2 diabetes mellitus with diabetic polyneuropathy Status: Acute Current Visit: No Code(s): E11.42 - Type 2 diabetes mellitus with diabetic polyneuropathy (3) Lower extremity edema Status: Chronic Current Visit: No Code(s): R60.0 - Localized edema (4) Malnutrition Status: Suspected Current Visit: No Code(s): E46 - Unspecified protein-calorie malnutrition (5) PVD (peripheral vascular disease) Status: Suspected Current Visit: No Code(s): I73.9 - Peripheral vascular disease, unspecified Type of Wound Date of Service: 06/09/17 Chief Complaint: Chronic non healing ulcer to right posterior heel with fat layer exposed. History of Wound: This 61-year-old diabetic male presents for follow up of chronic nonhealing ulcer to right posterior heel. Patient states on February 21 he believes he stepped on a staple walking down the stairs and had a tear in his skin. This progressed over the following days into an ulcer. Patient has seen Dr. See as well as gone to [facility] wound center in the past. While at [facility], the patient was undergoing every other day dressing changes consisting of medihoney and a dry sterile dressing. The patient has a knee walker and claims to be using it, but not all the time. The also states that the patient has not keeping pressure off of his right foot as much as he should be, even after last weeks visit, although he has gotten better. Patient denies any purulence to the area. The patient denies any feelings of nausea, vomiting, chills, fever at this time. Progress of Wound: Another very slight improvement to base of ulcer this week again. The ulcer is still covered by adherent slough. There is slight hyperkeratotic rim surrounding ulcer still today. No maceration to the melanie-ulcer area today. The patient and his have continued using Santyl to the area over the last week. No odor appreciated today. Patient had previously been cultured with MRSA and had been placed on appropriate antibiotics as noted in previous notes. Dr. Rios performed an angioplasty at [facility] according to the patient and his . She also states that at their chiropractor office they are still receiving laser treatments for circulation. Currently, the patient denies any feelings of nausea, vomiting, fever, or chills. - Physical Exam Vital Signs Temp Pulse Resp BP 97.3 F L 86 18 121/59 H 06/09/17 11:22 06/09/17 11:22 06/09/17 11:22 06/09/17 11:22 General: Alert, Oriented x3, Cooperative, No apparent distress Extremities: Capillary Refill Less than 3 Seconds, No Calf Tenderness - negative stephan and iverson sign bilateral, Diminished Peripheral Pulses - DP pulses palpable and PT pulses nonpalpable due to edema, Edema - Slight lower extremity edema Skin: Ulcer/ Wound - Chronic nonhealing ulcer to plantar posterior aspect of the right heel. Ulcer measurements are noted below. There again appears to be a very slight improvement to the ulcer base this week. There is still slight hyperkeratotic tissue appreciated surrounding the rim of the ulcer. The base continues to be a mixture of granular tissue, adherent slough, fibrin. There is no surrounding erythema or cellulitis appreciated at this time. There is no increase in warmth to the ulcer site. There is no purulence and no fluctuance. There is a small amount of undermining appreciated around the entire ulcer site noted to be approximately 1 cm at its deepest. Wound Measurements and Assessment WC - Nurse 1 - General Ulcer Measurement Start: 05/26/17 10:44 Freq: Status: Active Protocol: Activity Type Activity Date Activity User E-Sign Co-Sign Detail Recorded Client Recorded Date Recorded By Document 06/09/17 11:22 [id number] 06/09/17 11:25 06/09/17 11:22 Wound Center Nurse 1 [Ulcer Assessment] #2- RT HEEL -Combined with other wound No -Current Size (cm) - Length 2.5 -Current Size (cm) - Width 2.5 -Current Size (cm) - Depth 0.7 -Total Square Cm 6.25 -Photo Taken No -Epithelialization None Present -Undermining/Tunneling Yes -Undermining/Tunneling Starts (O' 11 clock) -Undermining/Tunneling Ends (O'clock) 5 -Maximum Distance (cm) 0.3 -Circular Undermining No -Classification - Thickness Full Thickness without Exposed Support Structure -Exudate Amt Small (1-33%) -Exudate Type Serosanguineous -Wound Margin Distinct, Outline Attached -Granulation Amt Small (1-33%) -Granulation Quality [place] -Slough/Fibrin Yes -Necrosis Amt Large (67-100%) -Necrotic Tissue Type Adherent Slough -Structure Exposed Fascia Fat Layer Exposed -Texture (Melanie-wound Skin Appearance) Callus Scarring -Moisture (Melanie-wound Skin Appearance No Abnormality ) -Color (Melanie-wound Skin Appearance) Erythema -Temperature (Melanie-wound Skin No Abnormality Appearance) (Pt Warm) -Tenderness on Palpation (Melanie-wound No Skin Appearance) -Ulcer Cleansing Rinsed/ Irrigated with Saline -Foul Odor after Cleansing No -Anesthetic Used 5% Lidocaine Gel [Edema Assessment] -Lower Limb Edema Present Yes -Right Calf (cm) 33.0 -Right Ankle (cm) 22.0 WC - Nurse 2 - General Ulcer CM Notes Start: 05/26/17 10:44 Freq: Status: Active Protocol: Activity Type Activity Date Activity User E-Sign Co-Sign Detail Recorded Client Recorded Date Recorded By Document 06/09/17 11:53 MW [id number] 06/09/17 12:01 MW 06/09/17 11:53 Wound Center Nurse 2 [Procedure/Treatment] #2- RT HEEL -Time 11:54 -Correct Patient Yes -Correct Side, Site, Position Yes -Correct Procedure Yes -Procedure Performed Yes -Type of Procedure Debridement -Clinical Debridement Subcutaneous -Post Debridement Size (cm) - Length 2.5 -Post Debridement Size (cm) - Width 2.4 -Post Debridement Size (cm) - Depth 1.3 -Total Square Cm 6.00 -Wound/Ulcer Outcome Not Healed -Ulcer Cleansing Rinsed/ Irrigated with Saline -Foul Odor after Cleansing No -Bioengineered Tissue No -Bleeding Controlled with Pressure -Treatment Response Procedure Tolerated Well [See Physician Procedure note for Specifics] Pain Scale: 0-10 Numeric [Pain] -Is Patient Pain Free? Yes Musculoskeletal: Tenderness - Patient denies tenderness to the aforementioned ulcer site Neurological: - - Epicritic sensation grossly absent from bilateral lower extremities Psych/Mental Status: Normal Affect, Appropriate Debridement Note Post-Debridement Measurements/Treatment WC - Nurse 2 - General Ulcer CM Notes Start: 05/26/17 10:44 Freq: Status: Active Protocol: Activity Type Activity Date Activity User E-Sign Co-Sign Detail Recorded Client Recorded Date Recorded By Document 05/26/17 11:18 MW [id number] 05/26/17 11:31 MW Document 06/02/17 12:26 MW [id number] 06/02/17 12:35 MW Document 06/09/17 11:53 MW [id number] 06/09/17 12:01 MW 05/26/17 06/02/17 06/09/17 11:18 12:26 11:53 Wound Center Nurse 2 #2- RT HEEL -Time 11:18 12:27 11:54 -Correct Patient Yes Yes Yes -Correct Side, Site, Position Yes Yes Yes -Correct Procedure Yes Yes Yes -Procedure Performed Yes Yes Yes -Type of Procedure Debridement Debridement Debridement -Clinical Debridement Subcutaneous Subcutaneous Subcutaneous -Post Debridement Size (cm) - Length 2.4 2.5 2.5 -Post Debridement Size (cm) - Width 2.5 2.6 2.4 -Post Debridement Size (cm) - Depth 1.3 1.3 1.3 -Total Square Cm 6.00 6.50 6.00 -Wound/Ulcer Outcome Not Healed Not Healed Not Healed -Ulcer Cleansing Rinsed/ Rinsed/ Rinsed/ Irrigated with Irrigated with Irrigated with Saline Saline Saline -Foul Odor after Cleansing No No No -Bioengineered Tissue No No No -Bleeding Controlled with Pressure Pressure Pressure -Treatment Response Procedure Procedure Procedure Tolerated Well Tolerated Well Tolerated Well Pain Scale: 0-10 Numeric Is Patient Pain Free? Yes Yes Yes Wound debrided: Right plantar posterior heel Laterality: Right Wound Grade/Stage: 3 Type of Debridement: Excisional debridement Anesthesia Used: 4% Lidocaine Solution Depth: in the subcutaneous layer Percentage of wound debrided: 100 Instrument Used: 5mm curette Tissue Removed: Adherent slough, fibrous tissue, hyperkeratotic tissue Severity: Fat Layer Exposed Amount of bleeding with debridement: Mild Bleeding Controlled with: Pressure Patient tolerated procedure well Assessment/Plan Assessment: Ulcer to right heel with stable eschar. DM with neuropathy. Malnutrition. Plan: Patient was again examined and evaluated today. Slight improvement noted form last week to this week again. Angiogram performed recently by Dr. Rios. Majority of ulcer still covered by slough. Undermining continues to be appreciated this week as well. Debridement was again completed as described in the clinical panel. The ulcer site was then cleansed with normal saline. Following debridement, Santyl was again applied followed by a dry sterile dressing again. Patient is to have daily dressing changes consisting of the above dressing for another week. Patient to continue with high protein diet and it was again stressed how important keeping blood sugar under control is to healing process. Patient says he had recent blood work again and his hemoglobin A1c went back up over 8. It was also again stressed to the patient how important it is to keep pressure off of his heel at all times and that this includes any type of pressure at all, as the patient has been noncompliant in the past with this. Patient continues to use crutches after I advised against this. I again informed them that the reason there has been no improvement in recent weeks is because there is still being pressure applied to the heel. The patient is scheduled for surgical debridement of all infected, non viable, necrotic soft tissue and bone with bone biopsy. I discussed at length all of the risks, benefits, possible outcomes, and alternative options with the patient and his . All questions were answered to the patient and his 's satisfaction. They agree to proceed with the planned procedure at this time. Consent was reviwed with them both as well in detail and signed. I also again informed him and his that there is possibility that this can lead to extensive debridements, partial calcaneal amputations, or even more proximal amputations on the leg, among other possible outcomes. He is to use the knee scooter at all times while walking. While sitting or laying in bed he was instructed to keep the heel floating over the edge of a pillow in order to have absolutely no pressure to the area. The patient and his were also instructed to only dress the ulcer site as instructed at the wound center. Patient and the patient's were educated on signs and symptoms of local and systemic infection and were instructed to go to the emergency room immediately should they notice any. All questions were answered to the patient and the patient's 's satisfaction. I still continue to be concerned with the patient's compliance. They will follow-up in clinic in 1 week for further evaluation, or sooner if needed. This note was generated with [employer] software. It may contain incorrect words, spelling, and punctuation that were not noted in checking the note before signing.
--- NOTE | 2017-06-09 14:24 | PN.PCM_ITS ---
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 Status: Acute Current Visit: No Code(s): L97.419 - Non-pressure chronic ulcer of right heel and midfoot with unspecified severity (2) Type 2 diabetes mellitus with diabetic polyneuropathy Status: Acute Current Visit: No Code(s): E11.42 - Type 2 diabetes mellitus with diabetic polyneuropathy (3) Lower extremity edema Status: Chronic Current Visit: No Code(s): R60.0 - Localized edema (4) Malnutrition Status: Suspected Current Visit: No Code(s): E46 - Unspecified protein- calorie malnutrition (5) PVD (peripheral vascular disease) Status: Suspected Current Visit: No Code(s): I73.9 - Peripheral vascular disease, unspecified Type of Wound Date of Service: 06/09/17 Chief Complaint: Chronic non healing ulcer to right posterior heel with fat layer exposed. History of Wound: This 61-year-old diabetic male presents for follow up of chronic nonhealing ulcer to right posterior heel. Patient states on February 21 he believes he stepped on a staple walking down the stairs and had a tear in his skin. This progressed over the following days into an ulcer. Patient has seen Dr. See as well as gone to [facility] wound center in the past. While at [facility], the patient was undergoing every other day dressing changes consisting of medihoney and a dry sterile dressing. The patient has a knee walker and claims to be using it, but not all the time. The also states that the patient has not keeping pressure off of his right foot as much as he should be, even after last weeks visit, although he has gotten better. Patient denies any purulence to the area. The patient denies any feelings of nausea, vomiting, chills, fever at this time. Progress of Wound: Another very slight improvement to base of ulcer this week again. The ulcer is still covered by adherent slough. There is slight hyperkeratotic rim surrounding ulcer still today. No maceration to the melanie- ulcer area today. The patient and his have continued using Santyl to the area over the last week. No odor appreciated today. Patient had previously been cultured with MRSA and had been placed on appropriate antibiotics as noted in previous notes. Dr. Rios performed an angioplasty at [facility] according to the patient and his . She also states that at their chiropractor office they are still receiving laser treatments for circulation. Currently, the patient denies any feelings of nausea, vomiting, fever, or chills. - Physical Exam Vital Signs Temp Pulse Resp BP 97.3 F L 86 18 121/59 H 06/09/17 11:22 06/09/17 11:22 06/09/17 11:22 06/09/17 11:22 General: Alert, Oriented x3, Cooperative, No apparent distress Extremities: Capillary Refill Less than 3 Seconds, No Calf Tenderness - negative stephan and iverson sign bilateral, Diminished Peripheral Pulses - DP pulses palpable and PT pulses nonpalpable due to edema, Edema - Slight lower extremity edema Skin: Ulcer/ Wound - Chronic nonhealing ulcer to plantar posterior aspect of the right heel. Ulcer measurements are noted below. There again appears to be a very slight improvement to the ulcer base this week. There is still slight hyperkeratotic tissue appreciated surrounding the rim of the ulcer. The base continues to be a mixture of granular tissue, adherent slough, fibrin. There is no surrounding erythema or cellulitis appreciated at this time. There is no increase in warmth to the ulcer site. There is no purulence and no fluctuance. There is a small amount of undermining appreciated around the entire ulcer site noted to be approximately 1 cm at its deepest. Wound Measurements and Assessment WC - Nurse 1 - General Ulcer Measurement Start: 05/26/17 10:44 Freq: Status: Active Protocol: Activity Type Activity Date Activity User E-Sign Co-Sign Detail Recorded Client Recorded Date Recorded By Document 06/09/17 11:22 [id number] 06/09/17 11:25 06/09/17 11:22 Wound Center Nurse 1 [Ulcer Assessment] #2- RT HEEL -Combined with other wound No -Current Size (cm) - Length 2.5 -Current Size (cm) - Width 2.5 -Current Size (cm) - Depth 0.7 -Total Square Cm 6.25 -Photo Taken No -Epithelialization None Present -Undermining/Tunneling Yes -Undermining/Tunneling Starts (O' 11 clock) -Undermining/Tunneling Ends (O'clock) 5 -Maximum Distance (cm) 0.3 -Circular Undermining No -Classification - Thickness Full Thickness without Exposed Support Structure -Exudate Amt Small (1-33%) -Exudate Type Serosanguineous -Wound Margin Distinct, Outline Attached -Granulation Amt Small (1-33%) -Granulation Quality [place] -Slough/Fibrin Yes -Necrosis Amt Large (67-100%) -Necrotic Tissue Type Adherent Slough -Structure Exposed Fascia Fat Layer Exposed -Texture (Melanie-wound Skin Appearance) Callus Scarring -Moisture (Melanie-wound Skin Appearance No Abnormality ) -Color (Melanie-wound Skin Appearance) Erythema -Temperature (Melanie-wound Skin No Abnormality Appearance) (Pt Warm) -Tenderness on Palpation (Melanie-wound No Skin Appearance) -Ulcer Cleansing Rinsed/ Irrigated with Saline -Foul Odor after Cleansing No -Anesthetic Used 5% Lidocaine Gel [Edema Assessment] -Lower Limb Edema Present Yes -Right Calf (cm) 33.0 -Right Ankle (cm) 22.0 WC - Nurse 2 - General Ulcer CM Notes Start: 05/26/17 10:44 Freq: Status: Active Protocol: Activity Type Activity Date Activity User E-Sign Co-Sign Detail Recorded Client Recorded Date Recorded By Document 06/09/17 11:53 MW [id number] 06/09/17 12:01 MW 06/09/17 11:53 Wound Center Nurse 2 [Procedure/Treatment] #2- RT HEEL -Time 11:54 -Correct Patient Yes -Correct Side, Site, Position Yes -Correct Procedure Yes -Procedure Performed Yes -Type of Procedure Debridement -Clinical Debridement Subcutaneous -Post Debridement Size (cm) - Length 2.5 -Post Debridement Size (cm) - Width 2.4 -Post Debridement Size (cm) - Depth 1.3 -Total Square Cm 6.00 -Wound/Ulcer Outcome Not Healed -Ulcer Cleansing Rinsed/ Irrigated with Saline -Foul Odor after Cleansing No -Bioengineered Tissue No -Bleeding Controlled with Pressure -Treatment Response Procedure Tolerated Well [See Physician Procedure note for Specifics] Pain Scale: 0-10 Numeric [Pain] -Is Patient Pain Free? Yes Musculoskeletal: Tenderness - Patient denies tenderness to the aforementioned ulcer site Neurological: - - Epicritic sensation grossly absent from bilateral lower extremities Psych/Mental Status: Normal Affect, Appropriate Debridement Note Post-Debridement Measurements/Treatment WC - Nurse 2 - General Ulcer CM Notes Start: 05/26/17 10:44 Freq: Status: Active Protocol: Activity Type Activity Date Activity User E-Sign Co-Sign Detail Recorded Client Recorded Date Recorded By Document 05/26/17 11:18 MW [id number] 05/26/17 11:31 MW Document 06/02/17 12:26 MW [id number] 06/02/17 12:35 MW Document 06/09/17 11:53 MW [id number] 06/09/17 12:01 MW 05/26/17 06/02/17 06/09/17 11:18 12:26 11:53 Wound Center Nurse 2 #2- RT HEEL -Time 11:18 12:27 11:54 -Correct Patient Yes Yes Yes -Correct Side, Site, Position Yes Yes Yes -Correct Procedure Yes Yes Yes -Procedure Performed Yes Yes Yes -Type of Procedure Debridement Debridement Debridement -Clinical Debridement Subcutaneous Subcutaneous Subcutaneous -Post Debridement Size (cm) - Length 2.4 2.5 2.5 -Post Debridement Size (cm) - Width 2.5 2.6 2.4 -Post Debridement Size (cm) - Depth 1.3 1.3 1.3 -Total Square Cm 6.00 6.50 6.00 -Wound/Ulcer Outcome Not Healed Not Healed Not Healed -Ulcer Cleansing Rinsed/ Rinsed/ Rinsed/ Irrigated with Irrigated with Irrigated with Saline Saline Saline -Foul Odor after Cleansing No No No -Bioengineered Tissue No No No -Bleeding Controlled with Pressure Pressure Pressure -Treatment Response Procedure Procedure Procedure Tolerated Well Tolerated Well Tolerated Well Pain Scale: 0-10 Numeric Is Patient Pain Free? Yes Yes Yes Wound debrided: Right plantar posterior heel Laterality: Right Wound Grade/Stage: 3 Type of Debridement: Excisional debridement Anesthesia Used: 4% Lidocaine Solution Depth: in the subcutaneous layer Percentage of wound debrided: 100 Instrument Used: 5mm curette Tissue Removed: Adherent slough, fibrous tissue, hyperkeratotic tissue Severity: Fat Layer Exposed Amount of bleeding with debridement: Mild Bleeding Controlled with: Pressure Patient tolerated procedure well Assessment/Plan Assessment: Ulcer to right heel with stable eschar. DM with neuropathy. Malnutrition. Plan: Patient was again examined and evaluated today. Slight improvement noted form last week to this week again. Angiogram performed recently by Dr. Rios. Majority of ulcer still covered by slough. Undermining continues to be appreciated this week as well. Debridement was again completed as described in the clinical panel. The ulcer site was then cleansed with normal saline. Following debridement, Santyl was again applied followed by a dry sterile dressing again. Patient is to have daily dressing changes consisting of the above dressing for another week. Patient to continue with high protein diet and it was again stressed how important keeping blood sugar under control is to healing process. Patient says he had recent blood work again and his hemoglobin A1c went back up over 8. It was also again stressed to the patient how important it is to keep pressure off of his heel at all times and that this includes any type of pressure at all, as the patient has been noncompliant in the past with this. Patient continues to use crutches after I advised against this. I again informed them that the reason there has been no improvement in recent weeks is because there is still being pressure applied to the heel. The patient is scheduled for surgical debridement of all infected, non viable, necrotic soft tissue and bone with bone biopsy. I discussed at length all of the risks, benefits, possible outcomes, and alternative options with the patient and his . All questions were answered to the patient and his 's satisfaction. They agree to proceed with the planned procedure at this time. Consent was reviwed with them both as well in detail and signed. I also again informed him and his that there is possibility that this can lead to extensive debridements, partial calcaneal amputations, or even more proximal amputations on the leg, among other possible outcomes. He is to use the knee scooter at all times while walking. While sitting or laying in bed he was instructed to keep the heel floating over the edge of a pillow in order to have absolutely no pressure to the area. The patient and his were also instructed to only dress the ulcer site as instructed at the wound center. Patient and the patient's were educated on signs and symptoms of local and systemic infection and were instructed to go to the emergency room immediately should they notice any. All questions were answered to the patient and the patient's 's satisfaction. I still continue to be concerned with the patient's compliance. They will follow-up in clinic in 1 week for further evaluation, or sooner if needed. This note was generated with [employer] software. It may contain incorrect words, spelling, and punctuation that were not noted in checking the note before signing.
[2017-06-16 11:06] VITALS: BP 133/66; PULSE 83; RESP 16; TEMP 36.6; BMI 32.7
--- NOTE | 2017-06-16 14:21 | PCM.WC.PN ---
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 Status: Acute Current Visit: No Code(s): L97.419 - Non-pressure chronic ulcer of right heel and midfoot with unspecified severity (2) Type 2 diabetes mellitus with diabetic polyneuropathy Status: Acute Current Visit: No Code(s): E11.42 - Type 2 diabetes mellitus with diabetic polyneuropathy (3) Lower extremity edema Status: Chronic Current Visit: No Code(s): R60.0 - Localized edema (4) Malnutrition Status: Suspected Current Visit: No Code(s): E46 - Unspecified protein-calorie malnutrition (5) PVD (peripheral vascular disease) Status: Suspected Current Visit: No Code(s): I73.9 - Peripheral vascular disease, unspecified Type of Wound Date of Service: 06/16/17 Chief Complaint: Chronic non healing ulcer to right posterior heel with fat layer exposed. History of Wound: This 61-year-old diabetic male presents for follow up of chronic nonhealing ulcer to right posterior heel. Patient states on February 21 he believes he stepped on a staple walking down the stairs and had a tear in his skin. This progressed over the following days into an ulcer. Patient has seen Dr. See as well as gone to [facility] wound center in the past. While at [facility], the patient was undergoing every other day dressing changes consisting of medihoney and a dry sterile dressing. The patient has a knee walker and claims to be using it, but not all the time. The also states that the patient has not keeping pressure off of his right foot as much as he should be, even after last weeks visit, although he has gotten better. Patient denies any purulence to the area. The patient denies any feelings of nausea, vomiting, chills, fever at this time. Progress of Wound: Patient presents to clinic today after having undergone surgical debridement of right heel ulcer on Tuesdayjune 14. Patient has left the dressing clean, dry, and intact since the procedure. He has had no complications since the procedure. No maceration to the melanie-ulcer area today. Dr. Rios performed an angioplasty at [facility] according to the patient and his prior to his surgical debridement. She also states that at their chiropractor office they are still receiving laser treatments for circulation. Currently, the patient denies any feelings of nausea, vomiting, fever, or chills. - Physical Exam Vital Signs Temp Pulse Resp BP 98 F 83 16 133/66 H 06/16/17 11:06 06/16/17 11:06 06/16/17 11:06 06/16/17 11:06 General: Alert, Oriented x3, Cooperative, No apparent distress Extremities: Capillary Refill Less than 3 Seconds, No Calf Tenderness - negative stephan and iverson sign, Diminished Peripheral Pulses - DP pulses palpable and PT pulses nonpalpable due to lower extremity edema, Edema - Slight lower extremity edema appreciated Skin: Ulcer/ Wound - Chronic nonhealing ulcer to the plantar posterior aspect of the right heel. Patient two days S/P surgical debridment of ulcer site. There is an improvement in the appearance of the base of the ulcer. There is small amount of adherent slough appreciated today as well as granular tissue. There is no surrounding erythema or extending cellulitis. There is no significant increase in warmth at this time. There is no purulence or malodor noted. A small amount of slight undermining remains from 2:00 to 4:00. Wound Measurements and Assessment WC - Nurse 1 - General Ulcer Measurement Start: 05/26/17 10:44 Freq: Status: Active Protocol: Activity Type Activity Date Activity User E-Sign Co-Sign Detail Recorded Client Recorded Date Recorded By Document 06/16/17 11:06 [facility] [id number] 06/16/17 11:23 [facility] 06/16/17 11:06 Wound Center Nurse 1 [Ulcer Assessment] #2- RT HEEL -Combined with other wound No -Current Size (cm) - Length 3.5 -Current Size (cm) - Width 2.9 -Current Size (cm) - Depth 1 -Total Square Cm 10.15 -Date of Last Picture (Recall this 06/16/17 field) -Photo Taken Yes -Epithelialization None Present -Tunneling Yes -Tunneling Position (O'clock) 3 -Tunneling Distance (cm) 1 -Undermining/Tunneling No -Circular Undermining No -Exudate Amt Large (67-100%) -Exudate Type Sanguineous -Wound Margin Distinct, Outline Attached -Granulation Amt Medium (34-66%) -Granulation Quality Red -Slough/Fibrin Yes -Necrosis Amt Medium (34-66%) -Necrotic Tissue Type Adherent Slough -Texture (Melanie-wound Skin Appearance) Scarring -Moisture (Melanie-wound Skin Appearance Dry/Scaly ) -Color (Melanie-wound Skin Appearance) Assessed -Temperature (Melanie-wound Skin No Abnormality Appearance) (Pt Warm) -Tenderness on Palpation (Melanie-wound No Skin Appearance) -Ulcer Cleansing Rinsed/ Irrigated with Saline -Foul Odor after Cleansing No -Anesthetic Used 4% Lidocaine Solution WC - Nurse 2 - General Ulcer CM Notes Start: 05/26/17 10:44 Freq: Status: Active Protocol: Activity Type Activity Date Activity User E-Sign Co-Sign Detail Recorded Client Recorded Date Recorded By Document 06/16/17 12:14 MW [id number] 06/16/17 12:19 MW 06/16/17 12:14 Wound Center Nurse 2 [Procedure/Treatment] -Time 12:14 -Correct Patient Yes -Correct Side, Site, Position Yes -Correct Procedure Yes -Procedure Performed Yes -Type of Procedure Debridement -Clinical Debridement Subcutaneous -Post Debridement Size (cm) - Length 3.7 -Post Debridement Size (cm) - Width 3.0 -Post Debridement Size (cm) - Depth 0.9 -Total Square Cm 11.10 -Wound/Ulcer Outcome Not Healed -Ulcer Cleansing Rinsed/ Irrigated with Saline -Foul Odor after Cleansing No -Bioengineered Tissue No -Bleeding Controlled with Pressure -Other undermining 2-4 - 0.8cm -Treatment Response Procedure Tolerated Well [See Physician Procedure note for Specifics] Pain Scale: 0-10 Numeric [Pain] -Is Patient Pain Free? Yes Musculoskeletal: - - Patient denies tenderness to the aforementioned ulcer site Neurological: - - Epicritic sensation grossly absent from bilateral lower extremities Psych/Mental Status: Normal Affect, Appropriate Debridement Note Post-Debridement Measurements/Treatment WC - Nurse 2 - General Ulcer CM Notes Start: 05/26/17 10:44 Freq: Status: Active Protocol: Activity Type Activity Date Activity User E-Sign Co-Sign Detail Recorded Client Recorded Date Recorded By Document 05/26/17 11:18 MW [id number] 05/26/17 11:31 MW Document 06/02/17 12:26 MW [id number] 06/02/17 12:35 MW Document 06/09/17 11:53 MW [id number] 06/09/17 12:01 MW Document 06/16/17 12:14 MW [id number] 06/16/17 12:19 MW 05/26/17 06/02/17 06/09/17 11:18 12:26 11:53 Wound Center Nurse 2 #2- RT HEEL -Time 11:18 12:27 11:54 -Correct Patient Yes Yes Yes -Correct Side, Site, Position Yes Yes Yes -Correct Procedure Yes Yes Yes -Procedure Performed Yes Yes Yes -Type of Procedure Debridement Debridement Debridement -Clinical Debridement Subcutaneous Subcutaneous Subcutaneous -Post Debridement Size (cm) - Length 2.4 2.5 2.5 -Post Debridement Size (cm) - Width 2.5 2.6 2.4 -Post Debridement Size (cm) - Depth 1.3 1.3 1.3 -Total Square Cm 6.00 6.50 6.00 -Wound/Ulcer Outcome Not Healed Not Healed Not Healed -Ulcer Cleansing Rinsed/ Rinsed/ Rinsed/ Irrigated with Irrigated with Irrigated with Saline Saline Saline -Foul Odor after Cleansing No No No -Bioengineered Tissue No No No -Bleeding Controlled with Pressure Pressure Pressure -Other -Treatment Response Procedure Procedure Procedure Tolerated Well Tolerated Well Tolerated Well Pain Scale: 0-10 Numeric Is Patient Pain Free? Yes Yes Yes 06/16/17 12:14 Wound Center Nurse 2 #2- RT HEEL -Time 12:14 -Correct Patient Yes -Correct Side, Site, Position Yes -Correct Procedure Yes -Procedure Performed Yes -Type of Procedure Debridement -Clinical Debridement Subcutaneous -Post Debridement Size (cm) - Length 3.7 -Post Debridement Size (cm) - Width 3.0 -Post Debridement Size (cm) - Depth 0.9 -Total Square Cm 11.10 -Wound/Ulcer Outcome Not Healed -Ulcer Cleansing Rinsed/ Irrigated with Saline -Foul Odor after Cleansing No -Bioengineered Tissue No -Bleeding Controlled with Pressure -Other undermining 2-4 - 0.8cm -Treatment Response Procedure Tolerated Well Pain Scale: 0-10 Numeric Is Patient Pain Free? Yes Wound debrided: Right plantar posterior heel Laterality: Right Wound Grade/Stage: 3 Type of Debridement: Excisional debridement Anesthesia Used: 4% Lidocaine Solution Depth: in the subcutaneous layer Percentage of wound debrided: 100 Instrument Used: 5mm curette Tissue Removed: Adherent slough Severity: Fat Layer Exposed Amount of bleeding with debridement: Mild Bleeding Controlled with: Pressure Patient tolerated procedure well Assessment/Plan Assessment: Ulcer to right heel with stable eschar. DM with neuropathy. Malnutrition. Plan: Patient was again examined and evaluated today. Patient is S/P surgical debridement with versajet of all necrotic, non-viable, and infected soft tissue with bone biopsy. Results from bone biopsy are still pending and results will continue to be followed. Details from surgery are noted in the operative report. Angiogram performed prior to surgical debridement by Dr. Rios. Debridement was again completed as described in the clinical panel. The ulcer site was then cleansed with normal saline. Following debridement, Santyl was again applied followed by a wet to dry dressing. Patient is to have daily dressing changes consisting of the above dressing until the wound vac is approved and received. We will apply for wound vac for patient today. Once recieved he will have a nurse visit for application. Patient to continue with high protein diet and it was again stressed how important keeping blood sugar under control is to healing process. Patient says he had recent blood work again and his hemoglobin A1c went back up over 8. It was also again stressed to the patient how important it is to keep pressure off of his heel at all times and that this includes any type of pressure at all, as the patient has been noncompliant in the past with this. I also again informed him and his that there is possibility that although his procedure went well, there is still a chance that this can lead to extensive debridements, partial calcaneal amputations, or even more proximal amputations on the leg, among other possible outcomes. He is to use the knee scooter at all times while walking. While sitting or laying in bed he was instructed to keep the heel floating over the edge of a pillow in order to have absolutely no pressure to the area. The patient and his were also instructed to only dress the ulcer site as instructed at the wound center. Patient and the patient's were educated on signs and symptoms of local and systemic infection and were instructed to go to the emergency room immediately should they notice any. All questions were answered to the patient and the patient's 's satisfaction. I still continue to be concerned with the patient's compliance. They will follow-up in clinic in 1 week for further evaluation, or sooner if needed. This note was generated with [employer] dictation software. It may contain incorrect words, spelling, and punctuation that were not noted in checking the note before signing.
--- NOTE | 2017-06-16 14:33 | PN.PCM_ITS ---
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 Status: Acute Current Visit: No Code(s): L97.419 - Non-pressure chronic ulcer of right heel and midfoot with unspecified severity (2) Type 2 diabetes mellitus with diabetic polyneuropathy Status: Acute Current Visit: No Code(s): E11.42 - Type 2 diabetes mellitus with diabetic polyneuropathy (3) Lower extremity edema Status: Chronic Current Visit: No Code(s): R60.0 - Localized edema (4) Malnutrition Status: Suspected Current Visit: No Code(s): E46 - Unspecified protein- calorie malnutrition (5) PVD (peripheral vascular disease) Status: Suspected Current Visit: No Code(s): I73.9 - Peripheral vascular disease, unspecified Type of Wound Date of Service: 06/16/17 Chief Complaint: Chronic non healing ulcer to right posterior heel with fat layer exposed. History of Wound: This 61-year-old diabetic male presents for follow up of chronic nonhealing ulcer to right posterior heel. Patient states on February 21 he believes he stepped on a staple walking down the stairs and had a tear in his skin. This progressed over the following days into an ulcer. Patient has seen Dr. See as well as gone to [facility] wound center in the past. While at [facility], the patient was undergoing every other day dressing changes consisting of medihoney and a dry sterile dressing. The patient has a knee walker and claims to be using it, but not all the time. The also states that the patient has not keeping pressure off of his right foot as much as he should be, even after last weeks visit, although he has gotten better. Patient denies any purulence to the area. The patient denies any feelings of nausea, vomiting, chills, fever at this time. Progress of Wound: Patient presents to clinic today after having undergone surgical debridement of right heel ulcer on Tuesdayjune 14. Patient has left the dressing clean, dry, and intact since the procedure. He has had no complications since the procedure. No maceration to the melanie-ulcer area today. Dr. Rios performed an angioplasty at [facility] according to the patient and his prior to his surgical debridement. She also states that at their chiropractor office they are still receiving laser treatments for circulation. Currently, the patient denies any feelings of nausea, vomiting, fever, or chills. - Physical Exam Vital Signs Temp Pulse Resp BP 98 F 83 16 133/66 H 06/16/17 11:06 06/16/17 11:06 06/16/17 11:06 06/16/17 11:06 General: Alert, Oriented x3, Cooperative, No apparent distress Extremities: Capillary Refill Less than 3 Seconds, No Calf Tenderness - negative stephan and iverson sign, Diminished Peripheral Pulses - DP pulses palpable and PT pulses nonpalpable due to lower extremity edema, Edema - Slight lower extremity edema appreciated Skin: Ulcer/ Wound - Chronic nonhealing ulcer to the plantar posterior aspect of the right heel. Patient two days S/P surgical debridment of ulcer site. There is an improvement in the appearance of the base of the ulcer. There is small amount of adherent slough appreciated today as well as granular tissue. There is no surrounding erythema or extending cellulitis. There is no significant increase in warmth at this time. There is no purulence or malodor noted. A small amount of slight undermining remains from 2:00 to 4:00. Wound Measurements and Assessment WC - Nurse 1 - General Ulcer Measurement Start: 05/26/17 10:44 Freq: Status: Active Protocol: Activity Type Activity Date Activity User E-Sign Co-Sign Detail Recorded Client Recorded Date Recorded By Document 06/16/17 11:06 [facility] [id number] 06/16/17 11:23 [facility] 06/16/17 11:06 Wound Center Nurse 1 [Ulcer Assessment] #2- RT HEEL -Combined with other wound No -Current Size (cm) - Length 3.5 -Current Size (cm) - Width 2.9 -Current Size (cm) - Depth 1 -Total Square Cm 10.15 -Date of Last Picture (Recall this 06/16/17 field) -Photo Taken Yes -Epithelialization None Present -Tunneling Yes -Tunneling Position (O'clock) 3 -Tunneling Distance (cm) 1 -Undermining/Tunneling No -Circular Undermining No -Exudate Amt Large (67-100%) -Exudate Type Sanguineous -Wound Margin Distinct, Outline Attached -Granulation Amt Medium (34-66%) -Granulation Quality Red -Slough/Fibrin Yes -Necrosis Amt Medium (34-66%) -Necrotic Tissue Type Adherent Slough -Texture (Melanie-wound Skin Appearance) Scarring -Moisture (Melanie-wound Skin Appearance Dry/Scaly ) -Color (Melanie-wound Skin Appearance) Assessed -Temperature (Melanie-wound Skin No Abnormality Appearance) (Pt Warm) -Tenderness on Palpation (Melanie-wound No Skin Appearance) -Ulcer Cleansing Rinsed/ Irrigated with Saline -Foul Odor after Cleansing No -Anesthetic Used 4% Lidocaine Solution WC - Nurse 2 - General Ulcer CM Notes Start: 05/26/17 10:44 Freq: Status: Active Protocol: Activity Type Activity Date Activity User E-Sign Co-Sign Detail Recorded Client Recorded Date Recorded By Document 06/16/17 12:14 MW [id number] 06/16/17 12:19 MW 06/16/17 12:14 Wound Center Nurse 2 [Procedure/Treatment] -Time 12:14 -Correct Patient Yes -Correct Side, Site, Position Yes -Correct Procedure Yes -Procedure Performed Yes -Type of Procedure Debridement -Clinical Debridement Subcutaneous -Post Debridement Size (cm) - Length 3.7 -Post Debridement Size (cm) - Width 3.0 -Post Debridement Size (cm) - Depth 0.9 -Total Square Cm 11.10 -Wound/Ulcer Outcome Not Healed -Ulcer Cleansing Rinsed/ Irrigated with Saline -Foul Odor after Cleansing No -Bioengineered Tissue No -Bleeding Controlled with Pressure -Other undermining 2-4 - 0.8cm -Treatment Response Procedure Tolerated Well [See Physician Procedure note for Specifics] Pain Scale: 0-10 Numeric [Pain] -Is Patient Pain Free? Yes Musculoskeletal: - - Patient denies tenderness to the aforementioned ulcer site Neurological: - - Epicritic sensation grossly absent from bilateral lower extremities Psych/Mental Status: Normal Affect, Appropriate Debridement Note Post-Debridement Measurements/Treatment WC - Nurse 2 - General Ulcer CM Notes Start: 05/26/17 10:44 Freq: Status: Active Protocol: Activity Type Activity Date Activity User E-Sign Co-Sign Detail Recorded Client Recorded Date Recorded By Document 05/26/17 11:18 MW [id number] 05/26/17 11:31 MW Document 06/02/17 12:26 MW [id number] 06/02/17 12:35 MW Document 06/09/17 11:53 MW [id number] 06/09/17 12:01 MW Document 06/16/17 12:14 MW [id number] 06/16/17 12:19 MW 05/26/17 06/02/17 06/09/17 11:18 12:26 11:53 Wound Center Nurse 2 #2- RT HEEL -Time 11:18 12:27 11:54 -Correct Patient Yes Yes Yes -Correct Side, Site, Position Yes Yes Yes -Correct Procedure Yes Yes Yes -Procedure Performed Yes Yes Yes -Type of Procedure Debridement Debridement Debridement -Clinical Debridement Subcutaneous Subcutaneous Subcutaneous -Post Debridement Size (cm) - Length 2.4 2.5 2.5 -Post Debridement Size (cm) - Width 2.5 2.6 2.4 -Post Debridement Size (cm) - Depth 1.3 1.3 1.3 -Total Square Cm 6.00 6.50 6.00 -Wound/Ulcer Outcome Not Healed Not Healed Not Healed -Ulcer Cleansing Rinsed/ Rinsed/ Rinsed/ Irrigated with Irrigated with Irrigated with Saline Saline Saline -Foul Odor after Cleansing No No No -Bioengineered Tissue No No No -Bleeding Controlled with Pressure Pressure Pressure -Other -Treatment Response Procedure Procedure Procedure Tolerated Well Tolerated Well Tolerated Well Pain Scale: 0-10 Numeric Is Patient Pain Free? Yes Yes Yes 06/16/17 12:14 Wound Center Nurse 2 #2- RT HEEL -Time 12:14 -Correct Patient Yes -Correct Side, Site, Position Yes -Correct Procedure Yes -Procedure Performed Yes -Type of Procedure Debridement -Clinical Debridement Subcutaneous -Post Debridement Size (cm) - Length 3.7 -Post Debridement Size (cm) - Width 3.0 -Post Debridement Size (cm) - Depth 0.9 -Total Square Cm 11.10 -Wound/Ulcer Outcome Not Healed -Ulcer Cleansing Rinsed/ Irrigated with Saline -Foul Odor after Cleansing No -Bioengineered Tissue No -Bleeding Controlled with Pressure -Other undermining 2-4 - 0.8cm -Treatment Response Procedure Tolerated Well Pain Scale: 0-10 Numeric Is Patient Pain Free? Yes Wound debrided: Right plantar posterior heel Laterality: Right Wound Grade/Stage: 3 Type of Debridement: Excisional debridement Anesthesia Used: 4% Lidocaine Solution Depth: in the subcutaneous layer Percentage of wound debrided: 100 Instrument Used: 5mm curette Tissue Removed: Adherent slough Severity: Fat Layer Exposed Amount of bleeding with debridement: Mild Bleeding Controlled with: Pressure Patient tolerated procedure well Assessment/Plan Assessment: Ulcer to right heel with stable eschar. DM with neuropathy. Malnutrition. Plan: Patient was again examined and evaluated today. Patient is S/P surgical debridement with versajet of all necrotic, non-viable, and infected soft tissue with bone biopsy. Results from bone biopsy are still pending and results will continue to be followed. Details from surgery are noted in the operative report. Angiogram performed prior to surgical debridement by Dr. Rios. Debridement was again completed as described in the clinical panel. The ulcer site was then cleansed with normal saline. Following debridement, Santyl was again applied followed by a wet to dry dressing. Patient is to have daily dressing changes consisting of the above dressing until the wound vac is approved and received. We will apply for wound vac for patient today. Once recieved he will have a nurse visit for application. Patient to continue with high protein diet and it was again stressed how important keeping blood sugar under control is to healing process. Patient says he had recent blood work again and his hemoglobin A1c went back up over 8. It was also again stressed to the patient how important it is to keep pressure off of his heel at all times and that this includes any type of pressure at all, as the patient has been noncompliant in the past with this. I also again informed him and his that there is possibility that although his procedure went well, there is still a chance that this can lead to extensive debridements, partial calcaneal amputations, or even more proximal amputations on the leg, among other possible outcomes. He is to use the knee scooter at all times while walking. While sitting or laying in bed he was instructed to keep the heel floating over the edge of a pillow in order to have absolutely no pressure to the area. The patient and his were also instructed to only dress the ulcer site as instructed at the wound center. Patient and the patient's were educated on signs and symptoms of local and systemic infection and were instructed to go to the emergency room immediately should they notice any. All questions were answered to the patient and the patient's 's satisfaction. I still continue to be concerned with the patient's compliance. They will follow-up in clinic in 1 week for further evaluation, or sooner if needed. This note was generated with [facility] dictation software. It may contain incorrect words, spelling, and punctuation that were not noted in checking the note before signing.
== END 2017-06-20 23:59 ==
LOC: WC 11:00
PROVIDERS: Visit Provider Podiatrist
DX: E11.621 Type 2 diabetes mellitus with foot ulcer (principal); E11.42 Type 2 diabetes mellitus with diabetic polyneuropathy; R60.0 Localized edema; E11.51 Type 2 diabetes mellitus with diabetic peripheral angiopathy without gangrene; L97.412 Non-pressure chronic ulcer of right heel and midfoot with fat layer exposed; Z86.14 Personal history of Methicillin resistant Staphylococcus aureus infection; Z91.19 Patient's noncompliance with other medical treatment and regimen
CPT/HCPCS: 11042

== ENCOUNTER 2017-07-21 10:30 | Outpatient (RCR) | payer MEDICARE, SELFPAY ==
[2017-06-21 00:39] VITALS: BP 140/48; PULSE 83; RESP 16; TEMP 36.6; BMI 32.7
[2017-06-23 11:37] VITALS: BP 96/58; PULSE 83; RESP 18; TEMP 36.7; BMI 32.7
--- NOTE | 2017-06-23 15:10 | PCM.WC.PN ---
(1) Chronic ulcer of right heel Status: Acute Current Visit: No Code(s): L97.419 - Non-pressure chronic ulcer of right heel and midfoot with unspecified severity (2) Type 2 diabetes mellitus with diabetic polyneuropathy Status: Acute Current Visit: No Code(s): E11.42 - Type 2 diabetes mellitus with diabetic polyneuropathy (3) Osteomyelitis of right foot Status: Acute Current Visit: No Code(s): M86.9 - Osteomyelitis, unspecified (4) Lower extremity edema Status: Chronic Current Visit: No Code(s): R60.0 - Localized edema (5) Malnutrition Status: Suspected Current Visit: No Code(s): E46 - Unspecified protein-calorie malnutrition (6) PVD (peripheral vascular disease) Status: Suspected Current Visit: No Code(s): I73.9 - Peripheral vascular disease, unspecified (7) Non-pressure chronic ulcer of right heel and midfoot with unspecified severity Status: Acute Current Visit: No Code(s): L97.419 - Non-pressure chronic ulcer of right heel and midfoot with unspecified severity Type of Wound Date of Service: 06/23/17 Chief Complaint: Chronic non healing ulcer to right posterior heel with fat layer exposed. History of Wound: This 61-year-old diabetic male presents for follow up of chronic nonhealing ulcer to right posterior heel. Patient states on February 21 he believes he stepped on a staple walking down the stairs and had a tear in his skin. This progressed over the following days into an ulcer. Patient has seen Dr. See as well as gone to [facility] wound center in the past. While at [facility], the patient was undergoing every other day dressing changes consisting of medihoney and a dry sterile dressing. The patient has a knee walker and claims to be using it, but not all the time. The also states that the patient has not keeping pressure off of his right foot as much as he should be, even after last weeks visit, although he has gotten better. Patient denies any purulence to the area. The patient denies any feelings of nausea, vomiting, chills, fever at this time. Progress of Wound: Patient presents to clinic today after having undergone surgical debridement of right heel ulcer on Tuesdayjune 14. He has continued over the last week to have santyl dressings applied. He continues to have no complications. Dr. Rios performed an angioplasty at [facility] according to the patient and his prior to his surgical debridement of his ulcer. He also states that at their chiropractor office they are still receiving laser treatments for circulation. Currently, the patient denies any feelings of nausea, vomiting, fever, or chills. - Physical Exam Vital Signs Temp Pulse Resp BP 98.0 F 83 18 96/58 L 06/23/17 11:37 06/23/17 11:37 06/23/17 11:37 06/23/17 11:37 General: Alert, Oriented x3, Cooperative, No apparent distress Extremities: Capillary Refill Less than 3 Seconds, No Calf Tenderness - Negative Wojciech and Guerrero sign, Diminished Peripheral Pulses - DP pulses palpable and PT pulses nonpalpable due to lower extremity edema, Edema - Slight lower extremity edema appreciated Skin: Ulcer/ Wound - Chronic ulcer to the plantar posterior aspect of the right heel. Patient underwent surgical debridement of this ulcer site on June 14. There continues to be slight improvement in the appearance of the ulcer base at this time. There continues to be a small amount of adherent slough appreciated as well as granular tissue. There continues to be no surrounding erythema or cellulitis at this time. There is no purulence, malodor, or increase in warmth. A very small amount of undermining still remains at 2 to 4:00 Wound Measurements and Assessment WC - Nurse 1 - General Ulcer Measurement Start: 06/23/17 11:37 Freq: Status: Active Protocol: Activity Type Activity Date Activity User E-Sign Co-Sign Detail Recorded Client Recorded Date Recorded By Document 06/23/17 11:37 KRISSY [id number] 06/23/17 11:48 [email or web address] 06/23/17 11:37 Wound Center Nurse 1 [Ulcer Assessment] #2- RT HEEL -Combined with other wound No -Current Size (cm) - Length 3.0 -Current Size (cm) - Width 3.0 -Current Size (cm) - Depth 1.0 -Total Square Cm 9.00 -Date of Last Picture (Recall this 06/16/17 field) -Photo Taken No -Epithelialization None Present -Tunneling No -Undermining/Tunneling Yes -Undermining/Tunneling Starts (O' 9 clock) -Undermining/Tunneling Ends (O'clock) 9 -Maximum Distance (cm) 1.0 -Circular Undermining No -Classification - Thickness Full Thickness without Exposed Support Structure -Classification - Dumont Grading ( Grade 3 Diabetic Ulcer) -Change in Wound Grade/Stage No Query Text:If change please identify the Stage/Grade in the comment (ie. S2 G3) -Exudate Amt Medium (34-66%) -Exudate Type Serosanguineous -Wound Margin Distinct, Outline Attached -Granulation Amt Medium (34-66%) -Granulation Quality Red -Slough/Fibrin Yes -Necrosis Amt None Present (0 %) -Necrotic Tissue Type Adherent Slough -Structure Exposed Fascia Fat Layer Exposed -Texture (Miguelina-wound Skin Appearance) No Abnormality -Moisture (Miguelina-wound Skin Appearance No Abnormality ) -Color (Miguelina-wound Skin Appearance) No Abnormality -Temperature (Miguelina-wound Skin No Abnormality Appearance) (Pt Warm) -Tenderness on Palpation (Miguelina-wound No Skin Appearance) -Ulcer Cleansing Rinsed/ Irrigated with Saline -Anesthetic Used 4% Lidocaine Solution [Edema Assessment] -Lower Limb Edema Present Yes -Right Calf (cm) 35.0 -Right Ankle (cm) 23.0 WC - Nurse 2 - General Ulcer CM Notes Start: 06/23/17 11:37 Freq: Status: Active Protocol: Activity Type Activity Date Activity User E-Sign Co-Sign Detail Recorded Client Recorded Date Recorded By Document 06/23/17 12:04 MW [id number] 06/23/17 12:18 MW 06/23/17 12:04 Wound Center Nurse 2 [Procedure/Treatment] #2- RT HEEL -Time 12:05 -Correct Patient Yes -Correct Side, Site, Position Yes -Correct Procedure Yes -Procedure Performed Yes -Type of Procedure Debridement -Clinical Debridement Subcutaneous -Post Debridement Size (cm) - Length 3.0 -Post Debridement Size (cm) - Width 3.4 -Post Debridement Size (cm) - Depth 0.9 -Total Square Cm 10.20 -Wound/Ulcer Outcome Not Healed -Ulcer Cleansing Rinsed/ Irrigated with Saline -Foul Odor after Cleansing No -Type of bioengineered Tissue GRAFIX-Core -Expiration Date 04/29/20 -Product Lot Number [id number] -Percent Used 100 -Saline Lot Number [id number] -Bleeding Controlled with Pressure -Treatment Response Procedure Tolerated Well [See Physician Procedure note for Specifics] Pain Scale: 0-10 Numeric [Pain] -Is Patient Pain Free? Yes Musculoskeletal: - - Patient denies tenderness to the aforementioned ulcer site Neurological: - - Epicritic sensation grossly absent from bilateral lower extremities Psych/Mental Status: Normal Affect, Appropriate Debridement Note Post-Debridement Measurements/Treatment WC - Nurse 2 - General Ulcer CM Notes Start: 06/23/17 11:37 Freq: Status: Active Protocol: Activity Type Activity Date Activity User E-Sign Co-Sign Detail Recorded Client Recorded Date Recorded By Document 06/23/17 12:04 MW [id number] 06/23/17 12:18 MW 06/23/17 12:04 Wound Center Nurse 2 #2- RT HEEL -Time 12:05 -Correct Patient Yes -Correct Side, Site, Position Yes -Correct Procedure Yes -Procedure Performed Yes -Type of Procedure Debridement -Clinical Debridement Subcutaneous -Post Debridement Size (cm) - Length 3.0 -Post Debridement Size (cm) - Width 3.4 -Post Debridement Size (cm) - Depth 0.9 -Total Square Cm 10.20 -Wound/Ulcer Outcome Not Healed -Ulcer Cleansing Rinsed/ Irrigated with Saline -Foul Odor after Cleansing No -Type of bioengineered Tissue GRAFIX-Core -Expiration Date 04/29/20 -Product Lot Number [id number] -Percent Used 100 -Saline Lot Number [id number] -Bleeding Controlled with Pressure -Treatment Response Procedure Tolerated Well Pain Scale: 0-10 Numeric Is Patient Pain Free? Yes Wound debrided: Right plantar posterior heel Laterality: Right Wound Grade/Stage: 3 Type of Debridement: Excisional debridement Anesthesia Used: 4% Lidocaine Solution Depth: in the subcutaneous layer Percentage of wound debrided: 100 Instrument Used: 5mm curette Tissue Removed: Adherent slough Severity: Fat Layer Exposed Amount of bleeding with debridement: Mild Bleeding Controlled with: Pressure Patient tolerated procedure well Assessment/Plan Assessment: Ulcer to right heel with stable eschar. DM with neuropathy. Malnutrition. Plan: Patient was again examined and evaluated today. Patient is S/P surgical debridement with versajet of all necrotic, non-viable, and infected soft tissue with bone biopsy. Details from surgery are noted in the operative report. Angiogram performed prior to surgical debridement by Dr. Rios. Debridement was again completed today as described in the clinical panel. The ulcer site was then cleansed with normal saline. Following debridement, the first graffix core application was performed, followed by adaptic, steristrips, and a dry sterile dressing. Patient and his were instructed to keep the dressing clean, dry, and intact for one week. If necessary, they were informed they could change the outer layer dressing, but are not to go past the adaptic and steri strips. They say they understand this. We will apply for wound vac for patient and he will have it with him at his next visit. We will place another graffix core followed by wound vac at next visit. Patient to continue with high protein diet and it was again stressed how important keeping blood sugar under control is to healing process. Patient says he had recent blood work again and his hemoglobin A1c went back up over 8. It was also again stressed to the patient how important it is to keep pressure off of his heel at all times and that this includes any type of pressure at all, as the patient has been noncompliant in the past with this. I also again informed him and his that there is possibility that although his procedure went well, there is still a chance that this can lead to extensive debridements, partial calcaneal amputations, or even more proximal amputations on the leg, among other possible outcomes. He is to use the knee scooter at all times while walking. While sitting or laying in bed he was instructed to keep the heel floating over the edge of a pillow in order to have absolutely no pressure to the area. The patient and his were also instructed to only dress the ulcer site as instructed at the wound center. Patient and the patient's were educated on signs and symptoms of local and systemic infection and were instructed to go to the emergency room immediately should they notice any. All questions were answered to the patient and the patient's 's satisfaction. I still continue to be concerned with the patient's compliance. They will follow-up in clinic in 1 week for further evaluation, or sooner if needed. This note was generated with [employer] dictation software. It may contain incorrect words, spelling, and punctuation that were not noted in checking the note before signing.
--- NOTE | 2017-06-23 15:20 | PN.PCM_ITS ---
(1) Chronic ulcer of right heel Status: Acute Current Visit: No Code(s): L97.419 - Non-pressure chronic ulcer of right heel and midfoot with unspecified severity (2) Type 2 diabetes mellitus with diabetic polyneuropathy Status: Acute Current Visit: No Code(s): E11.42 - Type 2 diabetes mellitus with diabetic polyneuropathy (3) Osteomyelitis of right foot Status: Acute Current Visit: No Code(s): M86.9 - Osteomyelitis, unspecified (4) Lower extremity edema Status: Chronic Current Visit: No Code(s): R60.0 - Localized edema (5) Malnutrition Status: Suspected Current Visit: No Code(s): E46 - Unspecified protein- calorie malnutrition (6) PVD (peripheral vascular disease) Status: Suspected Current Visit: No Code(s): I73.9 - Peripheral vascular disease, unspecified (7) Non-pressure chronic ulcer of right heel and midfoot with unspecified severity Status: Acute Current Visit: No Code(s): L97.419 - Non-pressure chronic ulcer of right heel and midfoot with unspecified severity Type of Wound Date of Service: 06/23/17 Chief Complaint: Chronic non healing ulcer to right posterior heel with fat layer exposed. History of Wound: This 61-year-old diabetic male presents for follow up of chronic nonhealing ulcer to right posterior heel. Patient states on February 21 he believes he stepped on a staple walking down the stairs and had a tear in his skin. This progressed over the following days into an ulcer. Patient has seen Dr. See as well as gone to [facility] wound center in the past. While at [facility], the patient was undergoing every other day dressing changes consisting of medihoney and a dry sterile dressing. The patient has a knee walker and claims to be using it, but not all the time. The also states that the patient has not keeping pressure off of his right foot as much as he should be, even after last weeks visit, although he has gotten better. Patient denies any purulence to the area. The patient denies any feelings of nausea, vomiting, chills, fever at this time. Progress of Wound: Patient presents to clinic today after having undergone surgical debridement of right heel ulcer on Tuesdayjune 14. He has continued over the last week to have santyl dressings applied. He continues to have no complications. Dr. Rios performed an angioplasty at [facility] according to the patient and his prior to his surgical debridement of his ulcer. He also states that at their chiropractor office they are still receiving laser treatments for circulation. Currently, the patient denies any feelings of nausea , vomiting, fever, or chills. - Physical Exam Vital Signs Temp Pulse Resp BP 98.0 F 83 18 96/58 L 06/23/17 11:37 06/23/17 11:37 06/23/17 11:37 06/23/17 11:37 General: Alert, Oriented x3, Cooperative, No apparent distress Extremities: Capillary Refill Less than 3 Seconds, No Calf Tenderness - Negative Wojciech and Guerrero sign, Diminished Peripheral Pulses - DP pulses palpable and PT pulses nonpalpable due to lower extremity edema, Edema - Slight lower extremity edema appreciated Skin: Ulcer/ Wound - Chronic ulcer to the plantar posterior aspect of the right heel. Patient underwent surgical debridement of this ulcer site on June 14. There continues to be slight improvement in the appearance of the ulcer base at this time. There continues to be a small amount of adherent slough appreciated as well as granular tissue. There continues to be no surrounding erythema or cellulitis at this time. There is no purulence, malodor, or increase in warmth. A very small amount of undermining still remains at 2 to 4:00 Wound Measurements and Assessment WC - Nurse 1 - General Ulcer Measurement Start: 06/23/17 11:37 Freq: Status: Active Protocol: Activity Type Activity Date Activity User E-Sign Co-Sign Detail Recorded Client Recorded Date Recorded By Document 06/23/17 11:37 [email or web address] [id number] 06/23/17 11:48 [email or web address] 06/23/17 11:37 Wound Center Nurse 1 [Ulcer Assessment] #2- RT HEEL -Combined with other wound No -Current Size (cm) - Length 3.0 -Current Size (cm) - Width 3.0 -Current Size (cm) - Depth 1.0 -Total Square Cm 9.00 -Date of Last Picture (Recall this 06/16/17 field) -Photo Taken No -Epithelialization None Present -Tunneling No -Undermining/Tunneling Yes -Undermining/Tunneling Starts (O' 9 clock) -Undermining/Tunneling Ends (O'clock) 9 -Maximum Distance (cm) 1.0 -Circular Undermining No -Classification - Thickness Full Thickness without Exposed Support Structure -Classification - [place] Grading ( Grade 3 Diabetic Ulcer) -Change in Wound Grade/Stage No Query Text:If change please identify the Stage/Grade in the comment (ie. S2 G3) -Exudate Amt Medium (34-66%) -Exudate Type Serosanguineous -Wound Margin Distinct, Outline Attached -Granulation Amt Medium (34-66%) -Granulation Quality Red -Slough/Fibrin Yes -Necrosis Amt None Present (0 %) -Necrotic Tissue Type Adherent Slough -Structure Exposed Fascia Fat Layer Exposed -Texture (Miguelina-wound Skin Appearance) No Abnormality -Moisture (Miguelina-wound Skin Appearance No Abnormality ) -Color (Miguelina-wound Skin Appearance) No Abnormality -Temperature (Miguelina-wound Skin No Abnormality Appearance) (Pt Warm) -Tenderness on Palpation (Miguelina-wound No Skin Appearance) -Ulcer Cleansing Rinsed/ Irrigated with Saline -Anesthetic Used 4% Lidocaine Solution [Edema Assessment] -Lower Limb Edema Present Yes -Right Calf (cm) 35.0 -Right Ankle (cm) 23.0 WC - Nurse 2 - General Ulcer CM Notes Start: 06/23/17 11:37 Freq: Status: Active Protocol: Activity Type Activity Date Activity User E-Sign Co-Sign Detail Recorded Client Recorded Date Recorded By Document 06/23/17 12:04 MW [id number] 06/23/17 12:18 MW 06/23/17 12:04 Wound Center Nurse 2 [Procedure/Treatment] #2- RT HEEL -Time 12:05 -Correct Patient Yes -Correct Side, Site, Position Yes -Correct Procedure Yes -Procedure Performed Yes -Type of Procedure Debridement -Clinical Debridement Subcutaneous -Post Debridement Size (cm) - Length 3.0 -Post Debridement Size (cm) - Width 3.4 -Post Debridement Size (cm) - Depth 0.9 -Total Square Cm 10.20 -Wound/Ulcer Outcome Not Healed -Ulcer Cleansing Rinsed/ Irrigated with Saline -Foul Odor after Cleansing No -Type of bioengineered Tissue GRAFIX-Core -Expiration Date 04/29/20 -Product Lot Number [id number] -Percent Used 100 -Saline Lot Number [id number] -Bleeding Controlled with Pressure -Treatment Response Procedure Tolerated Well [See Physician Procedure note for Specifics] Pain Scale: 0-10 Numeric [Pain] -Is Patient Pain Free? Yes Musculoskeletal: - - Patient denies tenderness to the aforementioned ulcer site Neurological: - - Epicritic sensation grossly absent from bilateral lower extremities Psych/Mental Status: Normal Affect, Appropriate Debridement Note Post-Debridement Measurements/Treatment WC - Nurse 2 - General Ulcer CM Notes Start: 06/23/17 11:37 Freq: Status: Active Protocol: Activity Type Activity Date Activity User E-Sign Co-Sign Detail Recorded Client Recorded Date Recorded By Document 06/23/17 12:04 MW [id number] 06/23/17 12:18 MW 06/23/17 12:04 Wound Center Nurse 2 #2- RT HEEL -Time 12:05 -Correct Patient Yes -Correct Side, Site, Position Yes -Correct Procedure Yes -Procedure Performed Yes -Type of Procedure Debridement -Clinical Debridement Subcutaneous -Post Debridement Size (cm) - Length 3.0 -Post Debridement Size (cm) - Width 3.4 -Post Debridement Size (cm) - Depth 0.9 -Total Square Cm 10.20 -Wound/Ulcer Outcome Not Healed -Ulcer Cleansing Rinsed/ Irrigated with Saline -Foul Odor after Cleansing No -Type of bioengineered Tissue GRAFIX-Core -Expiration Date 04/29/20 -Product Lot Number [id number] -Percent Used 100 -Saline Lot Number [id number] -Bleeding Controlled with Pressure -Treatment Response Procedure Tolerated Well Pain Scale: 0-10 Numeric Is Patient Pain Free? Yes Wound debrided: Right plantar posterior heel Laterality: Right Wound Grade/Stage: 3 Type of Debridement: Excisional debridement Anesthesia Used: 4% Lidocaine Solution Depth: in the subcutaneous layer Percentage of wound debrided: 100 Instrument Used: 5mm curette Tissue Removed: Adherent slough Severity: Fat Layer Exposed Amount of bleeding with debridement: Mild Bleeding Controlled with: Pressure Patient tolerated procedure well Assessment/Plan Assessment: Ulcer to right heel with stable eschar. DM with neuropathy. Malnutrition. Plan: Patient was again examined and evaluated today. Patient is S/P surgical debridement with versajet of all necrotic, non-viable, and infected soft tissue with bone biopsy. Details from surgery are noted in the operative report. Angiogram performed prior to surgical debridement by Dr. Rios. Debridement was again completed today as described in the clinical panel. The ulcer site was then cleansed with normal saline. Following debridement, the first graffix core application was performed, followed by adaptic, steristrips, and a dry sterile dressing. Patient and his were instructed to keep the dressing clean, dry, and intact for one week. If necessary, they were informed they could change the outer layer dressing, but are not to go past the adaptic and steri strips. They say they understand this. We will apply for wound vac for patient and he will have it with him at his next visit. We will place another graffix core followed by wound vac at next visit. Patient to continue with high protein diet and it was again stressed how important keeping blood sugar under control is to healing process. Patient says he had recent blood work again and his hemoglobin A1c went back up over 8. It was also again stressed to the patient how important it is to keep pressure off of his heel at all times and that this includes any type of pressure at all, as the patient has been noncompliant in the past with this. I also again informed him and his that there is possibility that although his procedure went well, there is still a chance that this can lead to extensive debridements, partial calcaneal amputations, or even more proximal amputations on the leg, among other possible outcomes. He is to use the knee scooter at all times while walking. While sitting or laying in bed he was instructed to keep the heel floating over the edge of a pillow in order to have absolutely no pressure to the area. The patient and his were also instructed to only dress the ulcer site as instructed at the wound center. Patient and the patient's were educated on signs and symptoms of local and systemic infection and were instructed to go to the emergency room immediately should they notice any. All questions were answered to the patient and the patient's 's satisfaction. I still continue to be concerned with the patient's compliance. They will follow-up in clinic in 1 week for further evaluation, or sooner if needed. This note was generated with [employer] dictation software. It may contain incorrect words, spelling, and punctuation that were not noted in checking the note before signing.
[2017-06-30 12:17] VITALS: BP 133/70; PULSE 83; RESP 18; TEMP 36.3; BMI 32.7
--- NOTE | 2017-06-30 13:02 | PCM.WC.PN ---
(1) Chronic ulcer of right heel Status: Acute Current Visit: No Code(s): L97.419 - Non-pressure chronic ulcer of right heel and midfoot with unspecified severity (2) Type 2 diabetes mellitus with diabetic polyneuropathy Status: Acute Current Visit: No Code(s): E11.42 - Type 2 diabetes mellitus with diabetic polyneuropathy (3) Osteomyelitis of right foot Status: Acute Current Visit: No Code(s): M86.9 - Osteomyelitis, unspecified (4) Lower extremity edema Status: Chronic Current Visit: No Code(s): R60.0 - Localized edema (5) Malnutrition Status: Suspected Current Visit: No Code(s): E46 - Unspecified protein-calorie malnutrition (6) PVD (peripheral vascular disease) Status: Suspected Current Visit: No Code(s): I73.9 - Peripheral vascular disease, unspecified (7) Non-pressure chronic ulcer of right heel and midfoot with unspecified severity Status: Acute Current Visit: No Code(s): L97.419 - Non-pressure chronic ulcer of right heel and midfoot with unspecified severity Type of Wound Date of Service: 06/30/17 Chief Complaint: Chronic non healing ulcer to right posterior heel with fat layer exposed. History of Wound: This 61-year-old diabetic male presents for follow up of chronic nonhealing ulcer to right posterior heel. Patient states on February 21 he believes he stepped on a staple walking down the stairs and had a tear in his skin. This progressed over the following days into an ulcer. Patient has seen Dr. See as well as gone to [facility] wound center in the past. While at [facility], the patient was undergoing every other day dressing changes consisting of medihoney and a dry sterile dressing. The patient has a knee walker and claims to be using it, but not all the time. The also states that the patient has not keeping pressure off of his right foot as much as he should be, even after last weeks visit, although he has gotten better. Patient denies any purulence to the area. The patient denies any feelings of nausea, vomiting, chills, fever at this time. Progress of Wound: Patient presents to for follow up of right heel ulcer. He has left his dressing intact since last week after having his first graffix application. He continues to have no complications. Dr. Rios performed an angioplasty at [facility] according to the patient and his prior to his surgical debridement of his ulcer. He also states that at their chiropractor office they are still receiving laser treatments for circulation. Currently, the patient denies any feelings of nausea, vomiting, fever, or chills. - Physical Exam Vital Signs Temp Pulse Resp BP 97.3 F L 83 18 133/70 H 06/30/17 12:17 06/30/17 12:17 06/30/17 12:17 06/30/17 12:17 General: Alert, Oriented x3, Cooperative, No apparent distress Extremities: Capillary Refill Less than 3 Seconds, No Calf Tenderness - Negative Wojciech and Guerrero sign, Diminished Peripheral Pulses - DP pulses palpable and PT pulses nonpalpable due to lower extremity edema, Edema - Slight lower extremity edema Skin: Ulcer/ Wound - Chronic ulcer to the plantar posterior aspect of the right heel. Patient underwent surgical debridement for this on June 14. There continues to be slight improvement in size and appearance of ulcer. Small amount of adherent slough still noted at this time. There continues to be no surrounding cellulitis. There is no purulence, no malodor, no increase in warmth. Previous areas of undermining are slowly filling in. Wound Measurements and Assessment WC - Nurse 1 - General Ulcer Measurement Start: 06/23/17 11:37 Freq: Status: Active Protocol: Activity Type Activity Date Activity User E-Sign Co-Sign Detail Recorded Client Recorded Date Recorded By Document 06/30/17 12:17 [id number] 06/30/17 12:20 TM 06/30/17 12:17 Wound Center Nurse 1 [Ulcer Assessment] #2- RT HEEL -Combined with other wound No -Current Size (cm) - Length 3.0 -Current Size (cm) - Width 2.5 -Current Size (cm) - Depth 0.6 -Total Square Cm 7.50 -Photo Taken No -Epithelialization Small 1-33% -Tunneling No -Undermining/Tunneling No -Circular Undermining No -Classification - Thickness Full Thickness without Exposed Support Structure -Exudate Amt Medium (34-66%) -Exudate Type Serosanguineous -Wound Margin Distinct, Outline Attached -Granulation Amt Large (67-100%) -Granulation Quality Pale [place] -Slough/Fibrin Yes -Necrosis Amt Small (1-33%) -Necrotic Tissue Type Adherent Slough -Structure Exposed Fascia Fat Layer Exposed -Texture (Miguelina-wound Skin Appearance) No Abnormality -Moisture (Miguelina-wound Skin Appearance Maceration ) -Color (Miguelina-wound Skin Appearance) No Abnormality -Temperature (Miguelina-wound Skin No Abnormality Appearance) (Pt Warm) -Tenderness on Palpation (Miguelina-wound No Skin Appearance) -Ulcer Cleansing Rinsed/ Irrigated with Saline -Foul Odor after Cleansing No -Anesthetic Used 5% Lidocaine Gel [Edema Assessment] -Lower Limb Edema Present Yes -Right Calf (cm) 33.0 -Right Ankle (cm) 22.0 WC - Nurse 2 - General Ulcer CM Notes Start: 06/23/17 11:37 Freq: Status: Active Protocol: Activity Type Activity Date Activity User E-Sign Co-Sign Detail Recorded Client Recorded Date Recorded By Document 06/30/17 12:35 MW [id number] 06/30/17 12:49 MW 06/30/17 12:35 Wound Center Nurse 2 [Procedure/Treatment] #2- RT HEEL -Time 12:35 -Correct Patient Yes -Correct Side, Site, Position Yes -Correct Procedure Yes -Procedure Performed Yes -Type of Procedure Debridement -Clinical Debridement Subcutaneous -Post Debridement Size (cm) - Length 3.0 -Post Debridement Size (cm) - Width 3.2 -Post Debridement Size (cm) - Depth 0.8 -Total Square Cm 9.60 -Wound/Ulcer Outcome Not Healed -Ulcer Cleansing Rinsed/ Irrigated with Saline -Foul Odor after Cleansing No -Type of bioengineered Tissue GRAFIX-Core -Expiration Date 04/22/20 -Product Lot Number [id number] -Percent Used 100 -Saline Lot Number [id number] -Bleeding Controlled with Pressure -Treatment Response Procedure Tolerated Well [See Physician Procedure note for Specifics] Pain Scale: 0-10 Numeric [Pain] -Is Patient Pain Free? Yes Musculoskeletal: - - Patient denies tenderness to the aforementioned ulcer site Neurological: - - Epicritic sensation grossly absent from bilateral lower extremities Psych/Mental Status: Normal Affect, Appropriate Debridement Note Post-Debridement Measurements/Treatment WC - Nurse 2 - General Ulcer CM Notes Start: 06/23/17 11:37 Freq: Status: Active Protocol: Activity Type Activity Date Activity User E-Sign Co-Sign Detail Recorded Client Recorded Date Recorded By Document 06/23/17 12:04 MW [id number] 06/23/17 12:18 MW Document 06/30/17 12:35 MW [id number] 06/30/17 12:49 MW 06/23/17 06/30/17 12:04 12:35 Wound Center Nurse 2 #2- RT HEEL -Time 12:05 12:35 -Correct Patient Yes Yes -Correct Side, Site, Position Yes Yes -Correct Procedure Yes Yes -Procedure Performed Yes Yes -Type of Procedure Debridement Debridement -Clinical Debridement Subcutaneous Subcutaneous -Post Debridement Size (cm) - Length 3.0 3.0 -Post Debridement Size (cm) - Width 3.4 3.2 -Post Debridement Size (cm) - Depth 0.9 0.8 -Total Square Cm 10.20 9.60 -Wound/Ulcer Outcome Not Healed Not Healed -Ulcer Cleansing Rinsed/ Rinsed/ Irrigated with Irrigated with Saline Saline -Foul Odor after Cleansing No No -Type of bioengineered Tissue GRAFIX-Core GRAFIX-Core -Expiration Date 04/29/20 04/22/20 -Product Lot Number [id number] -Percent Used 100 100 -Saline Lot Number [id number] -Bleeding Controlled with Pressure Pressure -Treatment Response Procedure Procedure Tolerated Well Tolerated Well Pain Scale: 0-10 Numeric Is Patient Pain Free? Yes Yes Wound debrided: Right plantar posterior heel Laterality: Right Wound Grade/Stage: 3 Type of Debridement: Excisional debridement Anesthesia Used: 4% Lidocaine Solution Depth: in the subcutaneous layer Percentage of wound debrided: 100 Instrument Used: 5mm curette Tissue Removed: Adherent slough Severity: Fat Layer Exposed Amount of bleeding with debridement: Mild Bleeding Controlled with: Pressure Patient tolerated procedure well Assessment/Plan Assessment: Ulcer to right heel with stable eschar. DM with neuropathy. Malnutrition. Plan: Patient was again examined and evaluated today. Patient is S/P surgical debridement with versajet of all necrotic, non-viable, and infected soft tissue with bone biopsy on June 14. Details from surgery are noted in the operative report. Angiogram performed prior to surgical debridement by Dr. Rios. Debridement was again completed today as described in the clinical panel today. Following debridement, the second graffix core application was applied, followed by adaptic, steristrips, and a dry sterile dressing. Patient and his were instructed to keep the dressing clean, dry, and intact for one week. If necessary, they were informed they could change the outer layer dressing, but are not to go past the adaptic and steri strips. They say they understand this. We will apply for wound vac for patient and he will have it with him at his next visit, as they were unable to have this ready for this week again. Patient will have nurse visit for vac placement at 100 continuous setting on Tuesday. We will place another graffix core followed by wound vac at next visit. Patient to continue with high protein diet and it was again stressed how important keeping blood sugar under control is to healing process. Patient says he had recent blood work again and his hemoglobin A1c went back up over 8. It was also again stressed to the patient how important it is to keep pressure off of his heel at all times and that this includes any type of pressure at all, as the patient has been noncompliant in the past with this. I also again informed him and his that there is possibility that although his procedure went well, there is still a chance that this can lead to extensive debridements, partial calcaneal amputations, or even more proximal amputations on the leg, among other possible outcomes. He is to use the knee scooter at all times while walking. While sitting or laying in bed he was instructed to keep the heel floating over the edge of a pillow in order to have absolutely no pressure to the area. The patient and his were also instructed to only dress the ulcer site as instructed at the wound center. Patient and the patient's were educated on signs and symptoms of local and systemic infection and were instructed to go to the emergency room immediately should they notice any. All questions were answered to the patient and the patient's 's satisfaction. I still continue to be concerned with the patient's compliance. They will follow-up in clinic in 1 week for further evaluation, or sooner if needed. This note was generated with [employer] dictation software. It may contain incorrect words, spelling, and punctuation that were not noted in checking the note before signing.
--- NOTE | 2017-06-30 13:10 | PN.PCM_ITS ---
(1) Chronic ulcer of right heel Status: Acute Current Visit: No Code(s): L97.419 - Non-pressure chronic ulcer of right heel and midfoot with unspecified severity (2) Type 2 diabetes mellitus with diabetic polyneuropathy Status: Acute Current Visit: No Code(s): E11.42 - Type 2 diabetes mellitus with diabetic polyneuropathy (3) Osteomyelitis of right foot Status: Acute Current Visit: No Code(s): M86.9 - Osteomyelitis, unspecified (4) Lower extremity edema Status: Chronic Current Visit: No Code(s): R60.0 - Localized edema (5) Malnutrition Status: Suspected Current Visit: No Code(s): E46 - Unspecified protein- calorie malnutrition (6) PVD (peripheral vascular disease) Status: Suspected Current Visit: No Code(s): I73.9 - Peripheral vascular disease, unspecified (7) Non-pressure chronic ulcer of right heel and midfoot with unspecified severity Status: Acute Current Visit: No Code(s): L97.419 - Non-pressure chronic ulcer of right heel and midfoot with unspecified severity Type of Wound Date of Service: 06/30/17 Chief Complaint: Chronic non healing ulcer to right posterior heel with fat layer exposed. History of Wound: This 61-year-old diabetic male presents for follow up of chronic nonhealing ulcer to right posterior heel. Patient states on February 21 he believes he stepped on a staple walking down the stairs and had a tear in his skin. This progressed over the following days into an ulcer. Patient has seen Dr. See as well as gone to [facility] wound center in the past. While at [facility], the patient was undergoing every other day dressing changes consisting of medihoney and a dry sterile dressing. The patient has a knee walker and claims to be using it, but not all the time. The also states that the patient has not keeping pressure off of his right foot as much as he should be, even after last weeks visit, although he has gotten better. Patient denies any purulence to the area. The patient denies any feelings of nausea, vomiting, chills, fever at this time. Progress of Wound: Patient presents to for follow up of right heel ulcer. He has left his dressing intact since last week after having his first graffix application. He continues to have no complications. Dr. Rios performed an angioplasty at [facility] according to the patient and his prior to his surgical debridement of his ulcer. He also states that at their chiropractor office they are still receiving laser treatments for circulation. Currently, the patient denies any feelings of nausea, vomiting, fever, or chills. - Physical Exam Vital Signs Temp Pulse Resp BP 97.3 F L 83 18 133/70 H 06/30/17 12:17 06/30/17 12:17 06/30/17 12:17 06/30/17 12:17 General: Alert, Oriented x3, Cooperative, No apparent distress Extremities: Capillary Refill Less than 3 Seconds, No Calf Tenderness - Negative Wojciech and Guerrero sign, Diminished Peripheral Pulses - DP pulses palpable and PT pulses nonpalpable due to lower extremity edema, Edema - Slight lower extremity edema Skin: Ulcer/ Wound - Chronic ulcer to the plantar posterior aspect of the right heel. Patient underwent surgical debridement for this on June 14. There continues to be slight improvement in size and appearance of ulcer. Small amount of adherent slough still noted at this time. There continues to be no surrounding cellulitis. There is no purulence, no malodor, no increase in warmth. Previous areas of undermining are slowly filling in. Wound Measurements and Assessment WC - Nurse 1 - General Ulcer Measurement Start: 06/23/17 11:37 Freq: Status: Active Protocol: Activity Type Activity Date Activity User E-Sign Co-Sign Detail Recorded Client Recorded Date Recorded By Document 06/30/17 12:17 [id number] 06/30/17 12:20 TM 06/30/17 12:17 Wound Center Nurse 1 [Ulcer Assessment] #2- RT HEEL -Combined with other wound No -Current Size (cm) - Length 3.0 -Current Size (cm) - Width 2.5 -Current Size (cm) - Depth 0.6 -Total Square Cm 7.50 -Photo Taken No -Epithelialization Small 1-33% -Tunneling No -Undermining/Tunneling No -Circular Undermining No -Classification - Thickness Full Thickness without Exposed Support Structure -Exudate Amt Medium (34-66%) -Exudate Type Serosanguineous -Wound Margin Distinct, Outline Attached -Granulation Amt Large (67-100%) -Granulation Quality Pale Delleker -Slough/Fibrin Yes -Necrosis Amt Small (1-33%) -Necrotic Tissue Type Adherent Slough -Structure Exposed Fascia Fat Layer Exposed -Texture (Miguelina-wound Skin Appearance) No Abnormality -Moisture (Miguelina-wound Skin Appearance Maceration ) -Color (Miguelina-wound Skin Appearance) No Abnormality -Temperature (Miguelina-wound Skin No Abnormality Appearance) (Pt Warm) -Tenderness on Palpation (Miguelina-wound No Skin Appearance) -Ulcer Cleansing Rinsed/ Irrigated with Saline -Foul Odor after Cleansing No -Anesthetic Used 5% Lidocaine Gel [Edema Assessment] -Lower Limb Edema Present Yes -Right Calf (cm) 33.0 -Right Ankle (cm) 22.0 WC - Nurse 2 - General Ulcer CM Notes Start: 06/23/17 11:37 Freq: Status: Active Protocol: Activity Type Activity Date Activity User E-Sign Co-Sign Detail Recorded Client Recorded Date Recorded By Document 06/30/17 12:35 MW [id number] 06/30/17 12:49 MW 06/30/17 12:35 Wound Center Nurse 2 [Procedure/Treatment] #2- RT HEEL -Time 12:35 -Correct Patient Yes -Correct Side, Site, Position Yes -Correct Procedure Yes -Procedure Performed Yes -Type of Procedure Debridement -Clinical Debridement Subcutaneous -Post Debridement Size (cm) - Length 3.0 -Post Debridement Size (cm) - Width 3.2 -Post Debridement Size (cm) - Depth 0.8 -Total Square Cm 9.60 -Wound/Ulcer Outcome Not Healed -Ulcer Cleansing Rinsed/ Irrigated with Saline -Foul Odor after Cleansing No -Type of bioengineered Tissue GRAFIX-Core -Expiration Date 04/22/20 -Product Lot Number [id number] -Percent Used 100 -Saline Lot Number [id number] -Bleeding Controlled with Pressure -Treatment Response Procedure Tolerated Well [See Physician Procedure note for Specifics] Pain Scale: 0-10 Numeric [Pain] -Is Patient Pain Free? Yes Musculoskeletal: - - Patient denies tenderness to the aforementioned ulcer site Neurological: - - Epicritic sensation grossly absent from bilateral lower extremities Psych/Mental Status: Normal Affect, Appropriate Debridement Note Post-Debridement Measurements/Treatment WC - Nurse 2 - General Ulcer CM Notes Start: 06/23/17 11:37 Freq: Status: Active Protocol: Activity Type Activity Date Activity User E-Sign Co-Sign Detail Recorded Client Recorded Date Recorded By Document 06/23/17 12:04 MW [id number] 06/23/17 12:18 MW Document 06/30/17 12:35 MW [id number] 06/30/17 12:49 MW 06/23/17 06/30/17 12:04 12:35 Wound Center Nurse 2 #2- RT HEEL -Time 12:05 12:35 -Correct Patient Yes Yes -Correct Side, Site, Position Yes Yes -Correct Procedure Yes Yes -Procedure Performed Yes Yes -Type of Procedure Debridement Debridement -Clinical Debridement Subcutaneous Subcutaneous -Post Debridement Size (cm) - Length 3.0 3.0 -Post Debridement Size (cm) - Width 3.4 3.2 -Post Debridement Size (cm) - Depth 0.9 0.8 -Total Square Cm 10.20 9.60 -Wound/Ulcer Outcome Not Healed Not Healed -Ulcer Cleansing Rinsed/ Rinsed/ Irrigated with Irrigated with Saline Saline -Foul Odor after Cleansing No No -Type of bioengineered Tissue GRAFIX-Core GRAFIX-Core -Expiration Date 04/29/20 04/22/20 -Product Lot Number [id number] -Percent Used 100 100 -Saline Lot Number [id number] -Bleeding Controlled with Pressure Pressure -Treatment Response Procedure Procedure Tolerated Well Tolerated Well Pain Scale: 0-10 Numeric Is Patient Pain Free? Yes Yes Wound debrided: Right plantar posterior heel Laterality: Right Wound Grade/Stage: 3 Type of Debridement: Excisional debridement Anesthesia Used: 4% Lidocaine Solution Depth: in the subcutaneous layer Percentage of wound debrided: 100 Instrument Used: 5mm curette Tissue Removed: Adherent slough Severity: Fat Layer Exposed Amount of bleeding with debridement: Mild Bleeding Controlled with: Pressure Patient tolerated procedure well Assessment/Plan Assessment: Ulcer to right heel with stable eschar. DM with neuropathy. Malnutrition. Plan: Patient was again examined and evaluated today. Patient is S/P surgical debridement with versajet of all necrotic, non-viable, and infected soft tissue with bone biopsy on June 14. Details from surgery are noted in the operative report. Angiogram performed prior to surgical debridement by Dr. Rios. Debridement was again completed today as described in the clinical panel today. Following debridement, the second graffix core application was applied, followed by adaptic, steristrips, and a dry sterile dressing. Patient and his were instructed to keep the dressing clean, dry, and intact for one week. If necessary, they were informed they could change the outer layer dressing, but are not to go past the adaptic and steri strips. They say they understand this. We will apply for wound vac for patient and he will have it with him at his next visit, as they were unable to have this ready for this week again. Patient will have nurse visit for vac placement at 100 continuous setting on Tuesday. We will place another graffix core followed by wound vac at next visit. Patient to continue with high protein diet and it was again stressed how important keeping blood sugar under control is to healing process. Patient says he had recent blood work again and his hemoglobin A1c went back up over 8. It was also again stressed to the patient how important it is to keep pressure off of his heel at all times and that this includes any type of pressure at all, as the patient has been noncompliant in the past with this. I also again informed him and his that there is possibility that although his procedure went well , there is still a chance that this can lead to extensive debridements, partial calcaneal amputations, or even more proximal amputations on the leg, among other possible outcomes. He is to use the knee scooter at all times while walking. While sitting or laying in bed he was instructed to keep the heel floating over the edge of a pillow in order to have absolutely no pressure to the area. The patient and his were also instructed to only dress the ulcer site as instructed at the wound center. Patient and the patient's were educated on signs and symptoms of local and systemic infection and were instructed to go to the emergency room immediately should they notice any. All questions were answered to the patient and the patient's 's satisfaction. I still continue to be concerned with the patient's compliance. They will follow -up in clinic in 1 week for further evaluation, or sooner if needed. This note was generated with [employer] dictation software. It may contain incorrect words, spelling, and punctuation that were not noted in checking the note before signing.
[2017-07-04 14:39] VITALS: BP 133/53; PULSE 75; RESP 16; TEMP 36.6; BMI 32.7
[2017-07-07 10:03] VITALS: BP 136/72; PULSE 78; RESP 16; TEMP 36.3; BMI 32.7
--- NOTE | 2017-07-07 10:42 | PCM.WC.PN ---
(1) Chronic ulcer of right heel Status: Acute Current Visit: No Code(s): L97.419 - Non-pressure chronic ulcer of right heel and midfoot with unspecified severity (2) Type 2 diabetes mellitus with diabetic polyneuropathy Status: Acute Current Visit: No Code(s): E11.42 - Type 2 diabetes mellitus with diabetic polyneuropathy (3) Osteomyelitis of right foot Status: Acute Current Visit: No Code(s): M86.9 - Osteomyelitis, unspecified (4) Lower extremity edema Status: Chronic Current Visit: No Code(s): R60.0 - Localized edema (5) Malnutrition Status: Suspected Current Visit: No Code(s): E46 - Unspecified protein-calorie malnutrition (6) PVD (peripheral vascular disease) Status: Suspected Current Visit: No Code(s): I73.9 - Peripheral vascular disease, unspecified (7) Non-pressure chronic ulcer of right heel and midfoot with unspecified severity Status: Acute Current Visit: No Code(s): L97.419 - Non-pressure chronic ulcer of right heel and midfoot with unspecified severity Type of Wound Date of Service: 07/07/17 Chief Complaint: Chronic non healing ulcer to right posterior heel with fat layer exposed. History of Wound: This 61-year-old diabetic male presents for follow up of chronic nonhealing ulcer to right posterior heel. Patient states on February 21 he believes he stepped on a staple walking down the stairs and had a tear in his skin. This progressed over the following days into an ulcer. Patient has seen Dr. See as well as gone to [facility] wound center in the past. While at [facility], the patient was undergoing every other day dressing changes consisting of medihoney and a dry sterile dressing. The patient has a knee walker and claims to be using it, but not all the time. The also states that the patient has not keeping pressure off of his right foot as much as he should be, even after last weeks visit, although he has gotten better. Patient denies any purulence to the area. The patient denies any feelings of nausea, vomiting, chills, fever at this time. Progress of Wound: Patient presents to for follow up of right heel ulcer. He presents after having his third graffix application last week followed by wound vac application this past Tuesday. Patient states he has done well with this since Tuesday. Currently, the patient denies any feelings of nausea, vomiting, fever, or chills. - Physical Exam Vital Signs Temp Pulse Resp BP 97.3 F L 78 16 136/72 H 07/07/17 10:03 07/07/17 10:03 07/07/17 10:03 07/07/17 10:03 General: Alert, Oriented x3, Cooperative, No apparent distress Extremities: Capillary Refill Less than 3 Seconds, No Calf Tenderness - Negative Wojciech and Guerrero sign, Diminished Peripheral Pulses - DP pulses palpable and PT pulses nonpalpable due to lower extremity edema, Edema - Slight lower extremity edema Skin: Ulcer/ Wound - Chronic ulcer to the plantar posterior aspect of the right heel. Patient had a surgical debridement on June 14. There continues to be slow improvement in appearance of the base of the ulcer. There is a small amount of adherent slough still noted at this time as well as some fibrin. There is very slight maceration appreciated melanie ulcer. There continues to be no surrounding or extending cellulitis, no purulence, no malodor, no increase in warmth. Almost no undermining appreciated today. Wound Measurements and Assessment WC - Nurse 1 - General Ulcer Measurement Start: 06/23/17 11:37 Freq: Status: Active Protocol: Activity Type Activity Date Activity User E-Sign Co-Sign Detail Recorded Client Recorded Date Recorded By Document 07/04/17 14:39 [id number] 07/04/17 14:40 Document 07/07/17 10:03 [facility] [id number] 07/07/17 10:17 [facility] 07/04/17 07/07/17 14:39 10:03 [Ulcer Assessment] #2- RT HEEL -Combined with other wound No -Current Size (cm) - Length 3 -Current Size (cm) - Width 2.9 -Current Size (cm) - Depth 0.7 -Total Square Cm 8.7 -Photo Taken No -Epithelialization None Present -Tunneling No -Undermining/Tunneling No -Circular Undermining No -Exudate Amt None Present (0 %) -Wound Margin Distinct, Outline Attached -Granulation Amt Medium (34-66%) -Granulation Quality Red -Slough/Fibrin Yes -Necrosis Amt Medium (34-66%) -Necrotic Tissue Type Adherent Slough -Structure Exposed N/A -Texture (Melanie-wound Skin Appearance) Scarring -Moisture (Melanie-wound Skin Appearance Maceration ) -Color (Melanie-wound Skin Appearance) Palor -Temperature (Melanie-wound Skin No Abnormality Appearance) (Pt Warm) -Tenderness on Palpation (Melanie-wound No Skin Appearance) -Ulcer Cleansing Wound Cleanser -Foul Odor after Cleansing No -Anesthetic Used 4% Lidocaine Solution Wound Center Nurse 1 [Edema Assessment] -Lower Limb Edema Present NA No -Right Calf (cm) 34.1 -Right Ankle (cm) 21.6 WC - Nurse 2 - General Ulcer CM Notes Start: 06/23/17 11:37 Freq: Status: Active Protocol: Activity Type Activity Date Activity User E-Sign Co-Sign Detail Recorded Client Recorded Date Recorded By Document 07/07/17 10:29 JS [id number] 07/07/17 10:32 JS 07/07/17 10:29 Wound Center Nurse 2 [Procedure/Treatment] #2- RT HEEL -Time 10:29 -Correct Patient Yes -Correct Side, Site, Position Yes -Correct Procedure Yes -Procedure Performed Yes -Type of Procedure Debridement -Clinical Debridement Subcutaneous -Post Debridement Size (cm) - Length 3.2 -Post Debridement Size (cm) - Width 2.8 -Post Debridement Size (cm) - Depth 0.8 -Total Square Cm 8.96 -Wound/Ulcer Outcome Not Healed -Ulcer Cleansing Rinsed/ Irrigated with Saline -Foul Odor after Cleansing No -Type of bioengineered Tissue GRAFIX-Core -Expiration Date 03/18/20 -Product Lot Number [id number] -Percent Used 100 -Saline Lot Number [id number] -Topical Lidocaine (%) 4 -Lidocaine (ml) 10 -Bleeding Controlled with NA -Treatment Response Procedure Tolerated Well [See Physician Procedure note for Specifics] Pain Scale: 0-10 Numeric [Pain] -Is Patient Pain Free? Yes Musculoskeletal: - - Patient denies tenderness with ulcer manipulation Neurological: - - Epicritic sensation grossly absent from bilateral lower extremities Psych/Mental Status: Normal Affect, Appropriate Debridement Note Post-Debridement Measurements/Treatment WC - Nurse 2 - General Ulcer CM Notes Start: 06/23/17 11:37 Freq: Status: Active Protocol: Activity Type Activity Date Activity User E-Sign Co-Sign Detail Recorded Client Recorded Date Recorded By Document 06/23/17 12:04 [id number] 06/23/17 12:18 MW Document 06/30/17 12:35 MW [id number] 06/30/17 12:49 MW Document 07/07/17 10:29 JS [id number] 07/07/17 10:32 JS 06/23/17 06/30/17 07/07/17 12:04 12:35 10:29 Wound Center Nurse 2 #2- RT HEEL -Time 12:05 12:35 10:29 -Correct Patient Yes Yes Yes -Correct Side, Site, Position Yes Yes Yes -Correct Procedure Yes Yes Yes -Procedure Performed Yes Yes Yes -Type of Procedure Debridement Debridement Debridement -Clinical Debridement Subcutaneous Subcutaneous Subcutaneous -Post Debridement Size (cm) - Length 3.0 3.0 3.2 -Post Debridement Size (cm) - Width 3.4 3.2 2.8 -Post Debridement Size (cm) - Depth 0.9 0.8 0.8 -Total Square Cm 10.20 9.60 8.96 -Wound/Ulcer Outcome Not Healed Not Healed Not Healed -Ulcer Cleansing Rinsed/ Rinsed/ Rinsed/ Irrigated with Irrigated with Irrigated with Saline Saline Saline -Foul Odor after Cleansing No No No -Type of bioengineered Tissue GRAFIX-Core GRAFIX-Core GRAFIX-Core -Expiration Date 04/29/20 04/22/20 03/18/20 -Product Lot Number [id number] -Percent Used 100 100 100 -Saline Lot Number [id number] -Topical Lidocaine (%) 4 -Lidocaine (ml) 10 -Bleeding Controlled with Pressure Pressure NA -Treatment Response Procedure Procedure Procedure Tolerated Well Tolerated Well Tolerated Well Pain Scale: 0-10 Numeric Is Patient Pain Free? Yes Yes Yes Wound debrided: Right plantar posterior heel Laterality: Right Wound Grade/Stage: 3 Type of Debridement: Excisional debridement Anesthesia Used: 4% Lidocaine Solution Depth: in the subcutaneous layer Percentage of wound debrided: 100 Instrument Used: 5mm curette Tissue Removed: Adherent slough, fibrin Severity: Fat Layer Exposed Amount of bleeding with debridement: Mild Bleeding Controlled with: Pressure Patient tolerated procedure well Assessment/Plan Assessment: Ulcer to right heel with stable eschar. DM with neuropathy. Malnutrition. Plan: Patient was again examined and evaluated today. Patient is S/P surgical debridement with versajet of all necrotic, non-viable, and infected soft tissue with bone biopsy on June 14. Details from surgery are noted in the operative report. Angiogram performed prior to surgical debridement by Dr. Rios. Subcutaneous debridement was again completed today as described in the clinical panel. Following debridement, the third graffix core application was applied, followed by adaptic, steristrips, and a wound vac. This vac was set at 100 continuous flow. This will be changed at a nursing visit on Tuesday. The graffix core, adaptic, and steri strips should be left in place at vac change Tuesday. Patient and his were instructed to keep the dressing clean, dry, and intact. They say they understand this. We will place another graffix core followed by wound vac at next visit. Patient to continue with high protein diet and it was again stressed how important keeping blood sugar under control is to healing process. It was also again stressed to the patient how important it is to keep pressure off of his heel at all times and that this includes any type of pressure at all, as the patient has been noncompliant in the past with this. I also again informed him and his that there is possibility that although his procedure went well, there is still a chance that this can lead to extensive debridements, partial calcaneal amputations, or even more proximal amputations on the leg, among other possible outcomes. He is to use the knee scooter at all times while walking. While sitting or laying in bed he was instructed to keep the heel floating over the edge of a pillow in order to have absolutely no pressure to the area. Patient and the patient's were educated on signs and symptoms of local and systemic infection and were instructed to go to the emergency room immediately should they notice any. All questions were answered to the patient and the patient's 's satisfaction. I still continue to be concerned with the patient's compliance. They will follow-up in clinic in 1 week for further evaluation, or sooner if needed. This note was generated with [employer] software. It may contain incorrect words, spelling, and punctuation that were not noted in checking the note before signing.
--- NOTE | 2017-07-07 10:51 | PN.PCM_ITS ---
(1) Chronic ulcer of right heel Status: Acute Current Visit: No Code(s): L97.419 - Non-pressure chronic ulcer of right heel and midfoot with unspecified severity (2) Type 2 diabetes mellitus with diabetic polyneuropathy Status: Acute Current Visit: No Code(s): E11.42 - Type 2 diabetes mellitus with diabetic polyneuropathy (3) Osteomyelitis of right foot Status: Acute Current Visit: No Code(s): M86.9 - Osteomyelitis, unspecified (4) Lower extremity edema Status: Chronic Current Visit: No Code(s): R60.0 - Localized edema (5) Malnutrition Status: Suspected Current Visit: No Code(s): E46 - Unspecified protein- calorie malnutrition (6) PVD (peripheral vascular disease) Status: Suspected Current Visit: No Code(s): I73.9 - Peripheral vascular disease, unspecified (7) Non-pressure chronic ulcer of right heel and midfoot with unspecified severity Status: Acute Current Visit: No Code(s): L97.419 - Non-pressure chronic ulcer of right heel and midfoot with unspecified severity Type of Wound Date of Service: 07/07/17 Chief Complaint: Chronic non healing ulcer to right posterior heel with fat layer exposed. History of Wound: This 61-year-old diabetic male presents for follow up of chronic nonhealing ulcer to right posterior heel. Patient states on February 21 he believes he stepped on a staple walking down the stairs and had a tear in his skin. This progressed over the following days into an ulcer. Patient has seen Dr. See as well as gone to [facility] wound center in the past. While at [facility], the patient was undergoing every other day dressing changes consisting of medihoney and a dry sterile dressing. The patient has a knee walker and claims to be using it, but not all the time. The also states that the patient has not keeping pressure off of his right foot as much as he should be, even after last weeks visit, although he has gotten better. Patient denies any purulence to the area. The patient denies any feelings of nausea, vomiting, chills, fever at this time. Progress of Wound: Patient presents to for follow up of right heel ulcer. He presents after having his third graffix application last week followed by wound vac application this past Tuesday. Patient states he has done well with this since Tuesday. Currently, the patient denies any feelings of nausea, vomiting, fever, or chills. - Physical Exam Vital Signs Temp Pulse Resp BP 97.3 F L 78 16 136/72 H 07/07/17 10:03 07/07/17 10:03 07/07/17 10:03 07/07/17 10:03 General: Alert, Oriented x3, Cooperative, No apparent distress Extremities: Capillary Refill Less than 3 Seconds, No Calf Tenderness - Negative Wojciech and Guerrero sign, Diminished Peripheral Pulses - DP pulses palpable and PT pulses nonpalpable due to lower extremity edema, Edema - Slight lower extremity edema Skin: Ulcer/ Wound - Chronic ulcer to the plantar posterior aspect of the right heel. Patient had a surgical debridement on June 14. There continues to be slow improvement in appearance of the base of the ulcer. There is a small amount of adherent slough still noted at this time as well as some fibrin. There is very slight maceration appreciated melanie ulcer. There continues to be no surrounding or extending cellulitis, no purulence, no malodor, no increase in warmth. Almost no undermining appreciated today. Wound Measurements and Assessment WC - Nurse 1 - General Ulcer Measurement Start: 06/23/17 11:37 Freq: Status: Active Protocol: Activity Type Activity Date Activity User E-Sign Co-Sign Detail Recorded Client Recorded Date Recorded By Document 07/04/17 14:39 [id number] 07/04/17 14:40 Document 07/07/17 10:03 [facility] [id number] 07/07/17 10:17 [facility] 07/04/17 07/07/17 14:39 10:03 [Ulcer Assessment] #2- RT HEEL -Combined with other wound No -Current Size (cm) - Length 3 -Current Size (cm) - Width 2.9 -Current Size (cm) - Depth 0.7 -Total Square Cm 8.7 -Photo Taken No -Epithelialization None Present -Tunneling No -Undermining/Tunneling No -Circular Undermining No -Exudate Amt None Present (0 %) -Wound Margin Distinct, Outline Attached -Granulation Amt Medium (34-66%) -Granulation Quality Red -Slough/Fibrin Yes -Necrosis Amt Medium (34-66%) -Necrotic Tissue Type Adherent Slough -Structure Exposed N/A -Texture (Melanie-wound Skin Appearance) Scarring -Moisture (Melanie-wound Skin Appearance Maceration ) -Color (Melanie-wound Skin Appearance) Palor -Temperature (Melanie-wound Skin No Abnormality Appearance) (Pt Warm) -Tenderness on Palpation (Melanie-wound No Skin Appearance) -Ulcer Cleansing Wound Cleanser -Foul Odor after Cleansing No -Anesthetic Used 4% Lidocaine Solution Wound Center Nurse 1 [Edema Assessment] -Lower Limb Edema Present NA No -Right Calf (cm) 34.1 -Right Ankle (cm) 21.6 WC - Nurse 2 - General Ulcer CM Notes Start: 06/23/17 11:37 Freq: Status: Active Protocol: Activity Type Activity Date Activity User E-Sign Co-Sign Detail Recorded Client Recorded Date Recorded By Document 07/07/17 10:29 JS [id number] 07/07/17 10:32 JS 07/07/17 10:29 Wound Center Nurse 2 [Procedure/Treatment] #2- RT HEEL -Time 10:29 -Correct Patient Yes -Correct Side, Site, Position Yes -Correct Procedure Yes -Procedure Performed Yes -Type of Procedure Debridement -Clinical Debridement Subcutaneous -Post Debridement Size (cm) - Length 3.2 -Post Debridement Size (cm) - Width 2.8 -Post Debridement Size (cm) - Depth 0.8 -Total Square Cm 8.96 -Wound/Ulcer Outcome Not Healed -Ulcer Cleansing Rinsed/ Irrigated with Saline -Foul Odor after Cleansing No -Type of bioengineered Tissue GRAFIX-Core -Expiration Date 03/18/20 -Product Lot Number [id number] -Percent Used 100 -Saline Lot Number [id number] -Topical Lidocaine (%) 4 -Lidocaine (ml) 10 -Bleeding Controlled with NA -Treatment Response Procedure Tolerated Well [See Physician Procedure note for Specifics] Pain Scale: 0-10 Numeric [Pain] -Is Patient Pain Free? Yes Musculoskeletal: - - Patient denies tenderness with ulcer manipulation Neurological: - - Epicritic sensation grossly absent from bilateral lower extremities Psych/Mental Status: Normal Affect, Appropriate Debridement Note Post-Debridement Measurements/Treatment WC - Nurse 2 - General Ulcer CM Notes Start: 06/23/17 11:37 Freq: Status: Active Protocol: Activity Type Activity Date Activity User E-Sign Co-Sign Detail Recorded Client Recorded Date Recorded By Document 06/23/17 12:04 [id number] 06/23/17 12:18 MW Document 06/30/17 12:35 MW [id number] 06/30/17 12:49 MW Document 07/07/17 10:29 JS [id number] 07/07/17 10:32 JS 06/23/17 06/30/17 07/07/17 12:04 12:35 10:29 Wound Center Nurse 2 #2- RT HEEL -Time 12:05 12:35 10:29 -Correct Patient Yes Yes Yes -Correct Side, Site, Position Yes Yes Yes -Correct Procedure Yes Yes Yes -Procedure Performed Yes Yes Yes -Type of Procedure Debridement Debridement Debridement -Clinical Debridement Subcutaneous Subcutaneous Subcutaneous -Post Debridement Size (cm) - Length 3.0 3.0 3.2 -Post Debridement Size (cm) - Width 3.4 3.2 2.8 -Post Debridement Size (cm) - Depth 0.9 0.8 0.8 -Total Square Cm 10.20 9.60 8.96 -Wound/Ulcer Outcome Not Healed Not Healed Not Healed -Ulcer Cleansing Rinsed/ Rinsed/ Rinsed/ Irrigated with Irrigated with Irrigated with Saline Saline Saline -Foul Odor after Cleansing No No No -Type of bioengineered Tissue GRAFIX-Core GRAFIX-Core GRAFIX-Core -Expiration Date 04/29/20 04/22/20 03/18/20 -Product Lot Number [id number] -Percent Used 100 100 100 -Saline Lot Number [id number] -Topical Lidocaine (%) 4 -Lidocaine (ml) 10 -Bleeding Controlled with Pressure Pressure NA -Treatment Response Procedure Procedure Procedure Tolerated Well Tolerated Well Tolerated Well Pain Scale: 0-10 Numeric Is Patient Pain Free? Yes Yes Yes Wound debrided: Right plantar posterior heel Laterality: Right Wound Grade/Stage: 3 Type of Debridement: Excisional debridement Anesthesia Used: 4% Lidocaine Solution Depth: in the subcutaneous layer Percentage of wound debrided: 100 Instrument Used: 5mm curette Tissue Removed: Adherent slough, fibrin Severity: Fat Layer Exposed Amount of bleeding with debridement: Mild Bleeding Controlled with: Pressure Patient tolerated procedure well Assessment/Plan Assessment: Ulcer to right heel with stable eschar. DM with neuropathy. Malnutrition. Plan: Patient was again examined and evaluated today. Patient is S/P surgical debridement with versajet of all necrotic, non-viable, and infected soft tissue with bone biopsy on June 14. Details from surgery are noted in the operative report. Angiogram performed prior to surgical debridement by Dr. Rios. Subcutaneous debridement was again completed today as described in the clinical panel. Following debridement, the third graffix core application was applied, followed by adaptic, steristrips, and a wound vac. This vac was set at 100 continuous flow. This will be changed at a nursing visit on Tuesday. The graffix core, adaptic, and steri strips should be left in place at vac change Tuesday. Patient and his were instructed to keep the dressing clean, dry, and intact. They say they understand this. We will place another graffix core followed by wound vac at next visit. Patient to continue with high protein diet and it was again stressed how important keeping blood sugar under control is to healing process. It was also again stressed to the patient how important it is to keep pressure off of his heel at all times and that this includes any type of pressure at all, as the patient has been noncompliant in the past with this. I also again informed him and his that there is possibility that although his procedure went well, there is still a chance that this can lead to extensive debridements, partial calcaneal amputations, or even more proximal amputations on the leg, among other possible outcomes. He is to use the knee scooter at all times while walking. While sitting or laying in bed he was instructed to keep the heel floating over the edge of a pillow in order to have absolutely no pressure to the area. Patient and the patient's were educated on signs and symptoms of local and systemic infection and were instructed to go to the emergency room immediately should they notice any. All questions were answered to the patient and the patient's 's satisfaction. I still continue to be concerned with the patient's compliance. They will follow -up in clinic in 1 week for further evaluation, or sooner if needed. This note was generated with [employer] software. It may contain incorrect words, spelling, and punctuation that were not noted in checking the note before signing.
[2017-07-11 14:38] VITALS: BP 151/73; PULSE 80; RESP 16; TEMP 36.7; BMI 32.7
--- NOTE | 2017-07-14 14:28 | PCM.WC.PN ---
(1) Chronic ulcer of right heel Status: Acute Current Visit: No Code(s): L97.419 - Non-pressure chronic ulcer of right heel and midfoot with unspecified severity (2) Type 2 diabetes mellitus with diabetic polyneuropathy Status: Acute Current Visit: No Code(s): E11.42 - Type 2 diabetes mellitus with diabetic polyneuropathy (3) Osteomyelitis of right foot Status: Acute Current Visit: No Code(s): M86.9 - Osteomyelitis, unspecified (4) Lower extremity edema Status: Chronic Current Visit: No Code(s): R60.0 - Localized edema (5) Malnutrition Status: Suspected Current Visit: No Code(s): E46 - Unspecified protein-calorie malnutrition (6) PVD (peripheral vascular disease) Status: Suspected Current Visit: No Code(s): I73.9 - Peripheral vascular disease, unspecified (7) Non-pressure chronic ulcer of right heel and midfoot with unspecified severity Status: Acute Current Visit: No Code(s): L97.419 - Non-pressure chronic ulcer of right heel and midfoot with unspecified severity Type of Wound Date of Service: 07/14/17 Chief Complaint: Chronic non healing ulcer to right posterior heel with fat layer exposed. History of Wound: This 61-year-old diabetic male presents for follow up of chronic nonhealing ulcer to right posterior heel. Patient states on February 21 he believes he stepped on a staple walking down the stairs and had a tear in his skin. This progressed over the following days into an ulcer. Patient has seen Dr. See as well as gone to [facility] wound center in the past. While at [facility], the patient was undergoing every other day dressing changes consisting of medihoney and a dry sterile dressing. The patient has a knee walker and claims to be using it, but not all the time. The also states that the patient has not keeping pressure off of his right foot as much as he should be, even after last weeks visit, although he has gotten better. Patient denies any purulence to the area. The patient denies any feelings of nausea, vomiting, chills, fever at this time. Progress of Wound: Patient presents to for follow up of right heel ulcer. He presents after having another graffix application last week followed by wound vac application. Patient states he has done well with this again this week. Currently, the patient denies any feelings of nausea, vomiting, fever, or chills. - Physical Exam Vital Signs Temp Pulse Resp BP 98.0 F 80 16 151/73 H 07/11/17 14:38 07/11/17 14:38 07/11/17 14:38 07/11/17 14:38 General: Alert, Oriented x3, Cooperative, No apparent distress Extremities: Capillary Refill Less than 3 Seconds, No Calf Tenderness - Negative Wojciech and Guerrero sign, Diminished Peripheral Pulses - DP pulses palpable and PT pulses nonpalpable due to lower extremity edema, Edema - Slight lower extremity edema Skin: Ulcer/ Wound - Chronic ulcer to the plantar posterior aspect of the right heel. Surgical debridement completed June 14. Slight improvement continued to be noted. There continues to be a small amount of adherent slough as well as fibrin to the area. No maceration appreciated this week. There continues to be no extending cellulitis, no purulence, no malodor, no significant increase in warmth, no undermining. Wound Measurements and Assessment WC - Nurse 1 - General Ulcer Measurement Start: 06/23/17 11:37 Freq: Status: Active Protocol: Activity Type Activity Date Activity User E-Sign Co-Sign Detail Recorded Client Recorded Date Recorded By Document 07/11/17 14:38 RICCO [id number] 07/11/17 14:39 RICCO 07/11/17 14:38 Wound Center Nurse 1 [Edema Assessment] -Lower Limb Edema Present NA - Nurse 2 - General Ulcer CM Notes Start: 06/23/17 11:37 Freq: Status: Active Protocol: Activity Type Activity Date Activity User E-Sign Co-Sign Detail Recorded Client Recorded Date Recorded By Document 07/14/17 11:36 [id number] 07/14/17 11:38 07/14/17 11:36 Wound Center Nurse 2 [Procedure/Treatment] #2- RT HEEL -Time 11:36 -Correct Patient Yes -Correct Side, Site, Position Yes -Correct Procedure Yes -Procedure Performed Yes -Type of Procedure Debridement -Clinical Debridement Subcutaneous -Post Debridement Size (cm) - Length 3.0 -Post Debridement Size (cm) - Width 3.2 -Post Debridement Size (cm) - Depth 0.6 -Total Square Cm 9.60 -Wound/Ulcer Outcome Not Healed -Ulcer Cleansing Rinsed/ Irrigated with Saline -Foul Odor after Cleansing No -Bioengineered Tissue Yes -Type of bioengineered Tissue GRAFIX-Core -Expiration Date 05/06/20 -Product Lot Number [id number] -Percent Used 100 -Saline Lot Number [id number] -Topical Lidocaine (%) 4 -Lidocaine (ml) 10 -Bleeding Controlled with NA -Treatment Response Procedure Tolerated Well [See Physician Procedure note for Specifics] Pain Scale: 0-10 Numeric [Pain] -Is Patient Pain Free? Yes Musculoskeletal: - - Patient denies tenderness with manipulation of ulcer site Neurological: - - Epicritic sensation grossly absent from bilateral lower extremities Psych/Mental Status: Normal Affect, Appropriate Debridement Note Post-Debridement Measurements/Treatment WC - Nurse 2 - General Ulcer CM Notes Start: 06/23/17 11:37 Freq: Status: Active Protocol: Activity Type Activity Date Activity User E-Sign Co-Sign Detail Recorded Client Recorded Date Recorded By Document 06/23/17 12:04 MW [id number] 06/23/17 12:18 MW Document 06/30/17 12:35 MW [id number] 06/30/17 12:49 MW Document 07/07/17 10:29 JS [id number] 07/07/17 10:32 JS Document 07/14/17 11:36 JS [id number] 07/14/17 11:38 JS 06/23/17 06/30/17 07/07/17 12:04 12:35 10:29 Wound Center Nurse 2 #2- RT HEEL -Time 12:05 12:35 10:29 -Correct Patient Yes Yes Yes -Correct Side, Site, Position Yes Yes Yes -Correct Procedure Yes Yes Yes -Procedure Performed Yes Yes Yes -Type of Procedure Debridement Debridement Debridement -Clinical Debridement Subcutaneous Subcutaneous Subcutaneous -Post Debridement Size (cm) - Length 3.0 3.0 3.2 -Post Debridement Size (cm) - Width 3.4 3.2 2.8 -Post Debridement Size (cm) - Depth 0.9 0.8 0.8 -Total Square Cm 10.20 9.60 8.96 -Wound/Ulcer Outcome Not Healed Not Healed Not Healed -Ulcer Cleansing Rinsed/ Rinsed/ Rinsed/ Irrigated with Irrigated with Irrigated with Saline Saline Saline -Foul Odor after Cleansing No No No -Bioengineered Tissue -Type of bioengineered Tissue GRAFIX-Core GRAFIX-Core GRAFIX-Core -Expiration Date 04/29/20 04/22/20 03/18/20 -Product Lot Number [id number] -Percent Used 100 100 100 -Saline Lot Number [id number] -Topical Lidocaine (%) 4 -Lidocaine (ml) 10 -Bleeding Controlled with Pressure Pressure NA -Treatment Response Procedure Procedure Procedure Tolerated Well Tolerated Well Tolerated Well Pain Scale: 0-10 Numeric Is Patient Pain Free? Yes Yes Yes 07/14/17 11:36 Wound Center Nurse 2 #2- RT HEEL -Time 11:36 -Correct Patient Yes -Correct Side, Site, Position Yes -Correct Procedure Yes -Procedure Performed Yes -Type of Procedure Debridement -Clinical Debridement Subcutaneous -Post Debridement Size (cm) - Length 3.0 -Post Debridement Size (cm) - Width 3.2 -Post Debridement Size (cm) - Depth 0.6 -Total Square Cm 9.60 -Wound/Ulcer Outcome Not Healed -Ulcer Cleansing Rinsed/ Irrigated with Saline -Foul Odor after Cleansing No -Bioengineered Tissue Yes -Type of bioengineered Tissue GRAFIX-Core -Expiration Date 05/06/20 -Product Lot Number [id number] -Percent Used 100 -Saline Lot Number [id number] -Topical Lidocaine (%) 4 -Lidocaine (ml) 10 -Bleeding Controlled with NA -Treatment Response Procedure Tolerated Well Pain Scale: 0-10 Numeric Is Patient Pain Free? Yes Wound debrided: Right plantar posterior heel Laterality: Right Wound Grade/Stage: 3 Type of Debridement: Excisional debridement Anesthesia Used: 4% Lidocaine Solution Depth: in the subcutaneous layer Percentage of wound debrided: 100 Instrument Used: 5mm curette Tissue Removed: Adherent slough, fibrin Severity: Fat Layer Exposed Amount of bleeding with debridement: Mild Bleeding Controlled with: Pressure Patient tolerated procedure well Assessment/Plan Assessment: Ulcer to right heel with stable eschar. DM with neuropathy. Malnutrition. Plan: Patient was again examined and evaluated today. Patient is S/P surgical debridement with versajet of all necrotic, non-viable, and infected soft tissue with bone biopsy on June 14. Details from surgery are noted in the operative report. Angiogram performed prior to surgical debridement by Dr. Rios. Subcutaneous debridement was again completed today as described in the clinical panel. Following debridement, the fourth graffix core application was applied, followed by adaptic, steristrips, and a wound vac. This vac was set at 100 continuous flow. This will be changed at a nursing visit on Tuesday again just like last week. The graffix core, adaptic, and steri strips should be left in place at vac change Tuesday. Patient and his were instructed to keep the dressing clean, dry, and intact. They say they understand this. We will place another graffix core followed by wound vac at next visit. Patient to continue with high protein diet and it was again stressed how important keeping blood sugar under control is to healing process. It was also again stressed to the patient how important it is to keep pressure off of his heel at all times and that this includes any type of pressure at all, as the patient has been noncompliant in the past with this. I also again informed him and his that there is possibility that although his procedure went well, there is still a chance that this can lead to extensive debridements, partial calcaneal amputations, or even more proximal amputations on the leg, among other possible outcomes. He is to use the knee scooter at all times while walking. While sitting or laying in bed he was instructed to keep the heel floating over the edge of a pillow in order to have absolutely no pressure to the area. Patient and the patient's were educated on signs and symptoms of local and systemic infection and were instructed to go to the emergency room immediately should they notice any. All questions were answered to the patient and the patient's 's satisfaction. I still continue to be concerned with the patient's compliance. They will follow-up in clinic in 1 week for further evaluation, or sooner if needed. This note was generated with [employer] dictation software. It may contain incorrect words, spelling, and punctuation that were not noted in checking the note before signing.
--- NOTE | 2017-07-14 14:36 | PN.PCM_ITS ---
(1) Chronic ulcer of right heel Status: Acute Current Visit: No Code(s): L97.419 - Non-pressure chronic ulcer of right heel and midfoot with unspecified severity (2) Type 2 diabetes mellitus with diabetic polyneuropathy Status: Acute Current Visit: No Code(s): E11.42 - Type 2 diabetes mellitus with diabetic polyneuropathy (3) Osteomyelitis of right foot Status: Acute Current Visit: No Code(s): M86.9 - Osteomyelitis, unspecified (4) Lower extremity edema Status: Chronic Current Visit: No Code(s): R60.0 - Localized edema (5) Malnutrition Status: Suspected Current Visit: No Code(s): E46 - Unspecified protein- calorie malnutrition (6) PVD (peripheral vascular disease) Status: Suspected Current Visit: No Code(s): I73.9 - Peripheral vascular disease, unspecified (7) Non-pressure chronic ulcer of right heel and midfoot with unspecified severity Status: Acute Current Visit: No Code(s): L97.419 - Non-pressure chronic ulcer of right heel and midfoot with unspecified severity Type of Wound Date of Service: 07/14/17 Chief Complaint: Chronic non healing ulcer to right posterior heel with fat layer exposed. History of Wound: This 61-year-old diabetic male presents for follow up of chronic nonhealing ulcer to right posterior heel. Patient states on February 21 he believes he stepped on a staple walking down the stairs and had a tear in his skin. This progressed over the following days into an ulcer. Patient has seen Dr. See as well as gone to [facility] wound center in the past. While at [facility], the patient was undergoing every other day dressing changes consisting of medihoney and a dry sterile dressing. The patient has a knee walker and claims to be using it, but not all the time. The also states that the patient has not keeping pressure off of his right foot as much as he should be, even after last weeks visit, although he has gotten better. Patient denies any purulence to the area. The patient denies any feelings of nausea, vomiting, chills, fever at this time. Progress of Wound: Patient presents to for follow up of right heel ulcer. He presents after having another graffix application last week followed by wound vac application. Patient states he has done well with this again this week. Currently, the patient denies any feelings of nausea, vomiting, fever, or chills. - Physical Exam Vital Signs Temp Pulse Resp BP 98.0 F 80 16 151/73 H 07/11/17 14:38 07/11/17 14:38 07/11/17 14:38 07/11/17 14:38 General: Alert, Oriented x3, Cooperative, No apparent distress Extremities: Capillary Refill Less than 3 Seconds, No Calf Tenderness - Negative Wojciech and Guerrero sign, Diminished Peripheral Pulses - DP pulses palpable and PT pulses nonpalpable due to lower extremity edema, Edema - Slight lower extremity edema Skin: Ulcer/ Wound - Chronic ulcer to the plantar posterior aspect of the right heel. Surgical debridement completed June 14. Slight improvement continued to be noted. There continues to be a small amount of adherent slough as well as fibrin to the area. No maceration appreciated this week. There continues to be no extending cellulitis, no purulence, no malodor, no significant increase in warmth, no undermining. Wound Measurements and Assessment WC - Nurse 1 - General Ulcer Measurement Start: 06/23/17 11:37 Freq: Status: Active Protocol: Activity Type Activity Date Activity User E-Sign Co-Sign Detail Recorded Client Recorded Date Recorded By Document 07/11/17 14:38 RICCO [id number] 07/11/17 14:39 RICCO 07/11/17 14:38 Wound Center Nurse 1 [Edema Assessment] -Lower Limb Edema Present NA - Nurse 2 - General Ulcer CM Notes Start: 06/23/17 11:37 Freq: Status: Active Protocol: Activity Type Activity Date Activity User E-Sign Co-Sign Detail Recorded Client Recorded Date Recorded By Document 07/14/17 11:36 [id number] 07/14/17 11:38 07/14/17 11:36 Wound Center Nurse 2 [Procedure/Treatment] #2- RT HEEL -Time 11:36 -Correct Patient Yes -Correct Side, Site, Position Yes -Correct Procedure Yes -Procedure Performed Yes -Type of Procedure Debridement -Clinical Debridement Subcutaneous -Post Debridement Size (cm) - Length 3.0 -Post Debridement Size (cm) - Width 3.2 -Post Debridement Size (cm) - Depth 0.6 -Total Square Cm 9.60 -Wound/Ulcer Outcome Not Healed -Ulcer Cleansing Rinsed/ Irrigated with Saline -Foul Odor after Cleansing No -Bioengineered Tissue Yes -Type of bioengineered Tissue GRAFIX-Core -Expiration Date 05/06/20 -Product Lot Number [id number] -Percent Used 100 -Saline Lot Number [id number] -Topical Lidocaine (%) 4 -Lidocaine (ml) 10 -Bleeding Controlled with NA -Treatment Response Procedure Tolerated Well [See Physician Procedure note for Specifics] Pain Scale: 0-10 Numeric [Pain] -Is Patient Pain Free? Yes Musculoskeletal: - - Patient denies tenderness with manipulation of ulcer site Neurological: - - Epicritic sensation grossly absent from bilateral lower extremities Psych/Mental Status: Normal Affect, Appropriate Debridement Note Post-Debridement Measurements/Treatment WC - Nurse 2 - General Ulcer CM Notes Start: 06/23/17 11:37 Freq: Status: Active Protocol: Activity Type Activity Date Activity User E-Sign Co-Sign Detail Recorded Client Recorded Date Recorded By Document 06/23/17 12:04 MW [id number] 06/23/17 12:18 MW Document 06/30/17 12:35 MW [id number] 06/30/17 12:49 MW Document 07/07/17 10:29 JS [id number] 07/07/17 10:32 JS Document 07/14/17 11:36 JS [id number] 07/14/17 11:38 JS 06/23/17 06/30/17 07/07/17 12:04 12:35 10:29 Wound Center Nurse 2 #2- RT HEEL -Time 12:05 12:35 10:29 -Correct Patient Yes Yes Yes -Correct Side, Site, Position Yes Yes Yes -Correct Procedure Yes Yes Yes -Procedure Performed Yes Yes Yes -Type of Procedure Debridement Debridement Debridement -Clinical Debridement Subcutaneous Subcutaneous Subcutaneous -Post Debridement Size (cm) - Length 3.0 3.0 3.2 -Post Debridement Size (cm) - Width 3.4 3.2 2.8 -Post Debridement Size (cm) - Depth 0.9 0.8 0.8 -Total Square Cm 10.20 9.60 8.96 -Wound/Ulcer Outcome Not Healed Not Healed Not Healed -Ulcer Cleansing Rinsed/ Rinsed/ Rinsed/ Irrigated with Irrigated with Irrigated with Saline Saline Saline -Foul Odor after Cleansing No No No -Bioengineered Tissue -Type of bioengineered Tissue GRAFIX-Core GRAFIX-Core GRAFIX-Core -Expiration Date 04/29/20 04/22/20 03/18/20 -Product Lot Number [id number] -Percent Used 100 100 100 -Saline Lot Number [id number] -Topical Lidocaine (%) 4 -Lidocaine (ml) 10 -Bleeding Controlled with Pressure Pressure NA -Treatment Response Procedure Procedure Procedure Tolerated Well Tolerated Well Tolerated Well Pain Scale: 0-10 Numeric Is Patient Pain Free? Yes Yes Yes 07/14/17 11:36 Wound Center Nurse 2 #2- RT HEEL -Time 11:36 -Correct Patient Yes -Correct Side, Site, Position Yes -Correct Procedure Yes -Procedure Performed Yes -Type of Procedure Debridement -Clinical Debridement Subcutaneous -Post Debridement Size (cm) - Length 3.0 -Post Debridement Size (cm) - Width 3.2 -Post Debridement Size (cm) - Depth 0.6 -Total Square Cm 9.60 -Wound/Ulcer Outcome Not Healed -Ulcer Cleansing Rinsed/ Irrigated with Saline -Foul Odor after Cleansing No -Bioengineered Tissue Yes -Type of bioengineered Tissue GRAFIX-Core -Expiration Date 05/06/20 -Product Lot Number [id number] -Percent Used 100 -Saline Lot Number [id number] -Topical Lidocaine (%) 4 -Lidocaine (ml) 10 -Bleeding Controlled with NA -Treatment Response Procedure Tolerated Well Pain Scale: 0-10 Numeric Is Patient Pain Free? Yes Wound debrided: Right plantar posterior heel Laterality: Right Wound Grade/Stage: 3 Type of Debridement: Excisional debridement Anesthesia Used: 4% Lidocaine Solution Depth: in the subcutaneous layer Percentage of wound debrided: 100 Instrument Used: 5mm curette Tissue Removed: Adherent slough, fibrin Severity: Fat Layer Exposed Amount of bleeding with debridement: Mild Bleeding Controlled with: Pressure Patient tolerated procedure well Assessment/Plan Assessment: Ulcer to right heel with stable eschar. DM with neuropathy. Malnutrition. Plan: Patient was again examined and evaluated today. Patient is S/P surgical debridement with versajet of all necrotic, non-viable, and infected soft tissue with bone biopsy on June 14. Details from surgery are noted in the operative report. Angiogram performed prior to surgical debridement by Dr. Rios. Subcutaneous debridement was again completed today as described in the clinical panel. Following debridement, the fourth graffix core application was applied, followed by adaptic, steristrips, and a wound vac. This vac was set at 100 continuous flow. This will be changed at a nursing visit on Tuesday again just like last week. The graffix core, adaptic, and steri strips should be left in place at vac change Tuesday. Patient and his were instructed to keep the dressing clean, dry, and intact. They say they understand this. We will place another graffix core followed by wound vac at next visit. Patient to continue with high protein diet and it was again stressed how important keeping blood sugar under control is to healing process. It was also again stressed to the patient how important it is to keep pressure off of his heel at all times and that this includes any type of pressure at all, as the patient has been noncompliant in the past with this. I also again informed him and his that there is possibility that although his procedure went well, there is still a chance that this can lead to extensive debridements, partial calcaneal amputations, or even more proximal amputations on the leg, among other possible outcomes. He is to use the knee scooter at all times while walking. While sitting or laying in bed he was instructed to keep the heel floating over the edge of a pillow in order to have absolutely no pressure to the area. Patient and the patient's were educated on signs and symptoms of local and systemic infection and were instructed to go to the emergency room immediately should they notice any. All questions were answered to the patient and the patient's 's satisfaction. I still continue to be concerned with the patient's compliance. They will follow-up in clinic in 1 week for further evaluation, or sooner if needed. This note was generated with [employer] dictation software. It may contain incorrect words, spelling, and punctuation that were not noted in checking the note before signing.
[2017-07-21 10:21] VITALS: BP 130/72; PULSE 84; RESP 18; TEMP 37.1; BMI 32.7
--- NOTE | 2017-07-21 13:59 | PCM.WC.PN ---
(1) Chronic ulcer of right heel Status: Acute Current Visit: No Code(s): L97.419 - Non-pressure chronic ulcer of right heel and midfoot with unspecified severity (2) Type 2 diabetes mellitus with diabetic polyneuropathy Status: Acute Current Visit: No Code(s): E11.42 - Type 2 diabetes mellitus with diabetic polyneuropathy (3) Osteomyelitis of right foot Status: Acute Current Visit: No Code(s): M86.9 - Osteomyelitis, unspecified (4) Lower extremity edema Status: Chronic Current Visit: No Code(s): R60.0 - Localized edema (5) Malnutrition Status: Suspected Current Visit: No Code(s): E46 - Unspecified protein-calorie malnutrition (6) PVD (peripheral vascular disease) Status: Suspected Current Visit: No Code(s): I73.9 - Peripheral vascular disease, unspecified (7) Non-pressure chronic ulcer of right heel and midfoot with unspecified severity Status: Acute Current Visit: No Code(s): L97.419 - Non-pressure chronic ulcer of right heel and midfoot with unspecified severity Type of Wound Date of Service: 07/21/17 Chief Complaint: Chronic non healing ulcer to right posterior heel with fat layer exposed. History of Wound: This 61-year-old diabetic male presents for follow up of chronic nonhealing ulcer to right posterior heel. Patient states on February 21 he believes he stepped on a staple walking down the stairs and had a tear in his skin. This progressed over the following days into an ulcer. Patient has seen Dr. See as well as gone to [facility] wound center in the past. While at [facility], the patient was undergoing every other day dressing changes consisting of medihoney and a dry sterile dressing. The patient has a knee walker and claims to be using it, but not all the time. The also states that the patient has not keeping pressure off of his right foot as much as he should be, even after last weeks visit, although he has gotten better. Patient denies any purulence to the area. The patient denies any feelings of nausea, vomiting, chills, fever at this time. Progress of Wound: Patient presents to for follow up of right heel ulcer. He presents after having another graffix application last week followed by wound vac application. Patient states he has done well with this again this week. Currently, the patient denies any feelings of nausea, vomiting, fever, or chills. - Physical Exam Vital Signs Temp Pulse Resp BP 98.7 F 84 18 130/72 H 07/21/17 10:21 07/21/17 10:21 07/21/17 10:21 07/21/17 10:21 General: Alert, Oriented x3, Cooperative, No apparent distress Extremities: Capillary Refill Less than 3 Seconds, No Calf Tenderness, Diminished Peripheral Pulses - Negative Wojciech and Guerrero sign DP pulses palpable and PT pulses nonpalpable due to lower extremity edema, Edema - Slight lower extremity edema Skin: Ulcer/ Wound - Chronic ulcer to the plantar posterior aspect of the right heel. Surgical debridement was completed June 14. There continues to be slow improvement appreciated. There is a small amount of adherent slough as well as fibrin to the area. There continues to be no maceration this week. There is no extending cellulitis, no purulence, no malodor, no increase in warmth, no probing to bone, no undermining. Wound Measurements and Assessment WC - Nurse 1 - General Ulcer Measurement Start: 06/23/17 11:37 Freq: Status: Active Protocol: Activity Type Activity Date Activity User E-Sign Co-Sign Detail Recorded Client Recorded Date Recorded By Document 07/21/17 10:21 DL [id number] 07/21/17 10:32 DL 07/21/17 10:21 Wound Center Nurse 1 [Ulcer Assessment] #2- RT HEEL -Current Size (cm) - Length 2.7 -Current Size (cm) - Width 2.7 -Current Size (cm) - Depth 0.6 -Total Square Cm 7.29 -Photo Taken No -Exudate Amt Large (67-100%) -Exudate Type Serosanguineous -Wound Margin Thickened -Granulation Amt Medium (34-66%) -Granulation Quality Red -Necrosis Amt Medium (34-66%) -Necrotic Tissue Type Adherent Slough -Structure Exposed N/A -Texture (Miguelina-wound Skin Appearance) No Abnormality -Moisture (Miguelina-wound Skin Appearance Maceration ) -Color (Miguelina-wound Skin Appearance) No Abnormality -Temperature (Miguelina-wound Skin No Abnormality Appearance) (Pt Warm) -Ulcer Cleansing Wound Cleanser -Foul Odor after Cleansing Yes, Due to Product Use -Anesthetic Used 4% Lidocaine Solution [Edema Assessment] -Right Calf (cm) 33.2 -Right Ankle (cm) 21 WC - Nurse 2 - General Ulcer CM Notes Start: 06/23/17 11:37 Freq: Status: Active Protocol: Activity Type Activity Date Activity User E-Sign Co-Sign Detail Recorded Client Recorded Date Recorded By Document 07/21/17 11:03 JS [id number] 07/21/17 11:06 JS 07/21/17 11:03 Wound Center Nurse 2 [Procedure/Treatment] #2- RT HEEL -Time 11:04 -Correct Patient Yes -Correct Side, Site, Position Yes -Correct Procedure Yes -Procedure Performed Yes -Type of Procedure Debridement -Clinical Debridement Subcutaneous -Post Debridement Size (cm) - Length 2.7 -Post Debridement Size (cm) - Width 3.1 -Post Debridement Size (cm) - Depth 0.5 -Total Square Cm 8.37 -Wound/Ulcer Outcome Not Healed -Ulcer Cleansing Rinsed/ Irrigated with Saline -Foul Odor after Cleansing No -Bioengineered Tissue Yes -Type of bioengineered Tissue GRAFIX-Core -Expiration Date 05/06/20 -Product Lot Number [id number] -Percent Used 100 -Saline Lot Number [id number] -Topical Lidocaine (%) 4 -Lidocaine (ml) 5 -Bleeding Controlled with NA -Treatment Response Procedure Tolerated Well [See Physician Procedure note for Specifics] Pain Scale: 0-10 Numeric [Pain] -Is Patient Pain Free? Yes Musculoskeletal: - - Patient denies tenderness with manipulation of ulcer site Neurological: - - Epicritic sensation grossly absent from bilateral lower extremities Psych/Mental Status: Normal Affect, Appropriate Debridement Note Post-Debridement Measurements/Treatment - Nurse 2 - General Ulcer CM Notes Start: 06/23/17 11:37 Freq: Status: Active Protocol: Activity Type Activity Date Activity User E-Sign Co-Sign Detail Recorded Client Recorded Date Recorded By Document 06/23/17 12:04 MW [email or web address] 06/23/17 12:18 MW Document 06/30/17 12:35 MW [id number] 06/30/17 12:49 MW Document 07/07/17 10:29 JS [id number] 07/07/17 10:32 JS Document 07/14/17 11:36 JS [id number] 07/14/17 11:38 JS Document 07/21/17 11:03 JS [id number] 07/21/17 11:06 06/23/17 06/30/17 07/07/17 12:04 12:35 10:29 Wound Center Nurse 2 #2- RT HEEL -Time 12:05 12:35 10:29 -Correct Patient Yes Yes Yes -Correct Side, Site, Position Yes Yes Yes -Correct Procedure Yes Yes Yes -Procedure Performed Yes Yes Yes -Type of Procedure Debridement Debridement Debridement -Clinical Debridement Subcutaneous Subcutaneous Subcutaneous -Post Debridement Size (cm) - Length 3.0 3.0 3.2 -Post Debridement Size (cm) - Width 3.4 3.2 2.8 -Post Debridement Size (cm) - Depth 0.9 0.8 0.8 -Total Square Cm 10.20 9.60 8.96 -Wound/Ulcer Outcome Not Healed Not Healed Not Healed -Ulcer Cleansing Rinsed/ Rinsed/ Rinsed/ Irrigated with Irrigated with Irrigated with Saline Saline Saline -Foul Odor after Cleansing No No No -Bioengineered Tissue -Type of bioengineered Tissue GRAFIX-Core GRAFIX-Core GRAFIX-Core -Expiration Date 04/29/20 04/22/20 03/18/20 -Product Lot Number [id number] -Percent Used 100 100 100 -Saline Lot Number [id number] -Topical Lidocaine (%) 4 -Lidocaine (ml) 10 -Bleeding Controlled with Pressure Pressure NA -Treatment Response Procedure Procedure Procedure Tolerated Well Tolerated Well Tolerated Well Pain Scale: 0-10 Numeric Is Patient Pain Free? Yes Yes Yes 07/14/17 07/21/17 11:36 11:03 Wound Center Nurse 2 #2- RT HEEL -Time 11:36 11:04 -Correct Patient Yes Yes -Correct Side, Site, Position Yes Yes -Correct Procedure Yes Yes -Procedure Performed Yes Yes -Type of Procedure Debridement Debridement -Clinical Debridement Subcutaneous Subcutaneous -Post Debridement Size (cm) - Length 3.0 2.7 -Post Debridement Size (cm) - Width 3.2 3.1 -Post Debridement Size (cm) - Depth 0.6 0.5 -Total Square Cm 9.60 8.37 -Wound/Ulcer Outcome Not Healed Not Healed -Ulcer Cleansing Rinsed/ Rinsed/ Irrigated with Irrigated with Saline Saline -Foul Odor after Cleansing No No -Bioengineered Tissue Yes Yes -Type of bioengineered Tissue GRAFIX-Core GRAFIX-Core -Expiration Date 05/06/20 05/06/20 -Product Lot Number [id number] -Percent Used 100 100 -Saline Lot Number [id number] -Topical Lidocaine (%) 4 4 -Lidocaine (ml) 10 5 -Bleeding Controlled with NA NA -Treatment Response Procedure Procedure Tolerated Well Tolerated Well Pain Scale: 0-10 Numeric Is Patient Pain Free? Yes Yes Wound debrided: Right plantar posterior heel Laterality: Right Wound Grade/Stage: 3 Type of Debridement: Excisional debridement Anesthesia Used: 4% Lidocaine Solution Depth: in the subcutaneous layer Percentage of wound debrided: 100 Instrument Used: 5mm curette Tissue Removed: Adherent slough, fibrin Severity: Fat Layer Exposed Amount of bleeding with debridement: Mild Bleeding Controlled with: Pressure Patient tolerated procedure well Assessment/Plan Assessment: Ulcer to right heel with stable eschar. DM with neuropathy. Malnutrition. Plan: Patient was again examined and evaluated today. Patient is S/P surgical debridement with versajet of all necrotic, non-viable, and infected soft tissue with bone biopsy on June 14. Details from surgery are noted in the operative report. Angiogram performed prior to surgical debridement by Dr. Rios. Subcutaneous debridement was again completed today as described in the clinical panel. Following debridement, the fifth graffix core application was applied, followed by adaptic, steristrips, and a wound vac. This vac was set at 100 continuous flow. This will be changed at a nursing visit on Tuesday again just like last week, however the vac will be reapplied at 125 mmHg on Tuesday. The graffix core, adaptic, and steri strips should be left in place at vac change Tuesday. Patient and his were instructed to keep the dressing clean, dry, and intact. They say they understand this. Patient to continue with high protein diet and it was again stressed how important keeping blood sugar under control is to healing process. It was also again stressed to the patient how important it is to keep pressure off of his heel at all times and that this includes any type of pressure at all, as the patient has been noncompliant in the past with this. I also again informed him and his that there is possibility that although his procedure went well, there is still a chance that this can lead to extensive debridements, partial calcaneal amputations, or even more proximal amputations on the leg, among other possible outcomes. He is to use the knee scooter at all times while walking. While sitting or laying in bed he was instructed to keep the heel floating over the edge of a pillow in order to have absolutely no pressure to the area. Patient and the patient's were educated on signs and symptoms of local and systemic infection and were instructed to go to the emergency room immediately should they notice any. All questions were answered to the patient and the patient's 's satisfaction. I still continue to be concerned with the patient's compliance. They will follow-up in clinic in 1 week for further evaluation, or sooner if needed. This note was generated with [employer] dictation software. It may contain incorrect words, spelling, and punctuation that were not noted in checking the note before signing.
--- NOTE | 2017-07-21 14:05 | PN.PCM_ITS ---
(1) Chronic ulcer of right heel Status: Acute Current Visit: No Code(s): L97.419 - Non-pressure chronic ulcer of right heel and midfoot with unspecified severity (2) Type 2 diabetes mellitus with diabetic polyneuropathy Status: Acute Current Visit: No Code(s): E11.42 - Type 2 diabetes mellitus with diabetic polyneuropathy (3) Osteomyelitis of right foot Status: Acute Current Visit: No Code(s): M86.9 - Osteomyelitis, unspecified (4) Lower extremity edema Status: Chronic Current Visit: No Code(s): R60.0 - Localized edema (5) Malnutrition Status: Suspected Current Visit: No Code(s): E46 - Unspecified protein- calorie malnutrition (6) PVD (peripheral vascular disease) Status: Suspected Current Visit: No Code(s): I73.9 - Peripheral vascular disease, unspecified (7) Non-pressure chronic ulcer of right heel and midfoot with unspecified severity Status: Acute Current Visit: No Code(s): L97.419 - Non-pressure chronic ulcer of right heel and midfoot with unspecified severity Type of Wound Date of Service: 07/21/17 Chief Complaint: Chronic non healing ulcer to right posterior heel with fat layer exposed. History of Wound: This 61-year-old diabetic male presents for follow up of chronic nonhealing ulcer to right posterior heel. Patient states on February 21 he believes he stepped on a staple walking down the stairs and had a tear in his skin. This progressed over the following days into an ulcer. Patient has seen Dr. See as well as gone to [facility] wound center in the past. While at [facility], the patient was undergoing every other day dressing changes consisting of medihoney and a dry sterile dressing. The patient has a knee walker and claims to be using it, but not all the time. The also states that the patient has not keeping pressure off of his right foot as much as he should be, even after last weeks visit, although he has gotten better. Patient denies any purulence to the area. The patient denies any feelings of nausea, vomiting, chills, fever at this time. Progress of Wound: Patient presents to for follow up of right heel ulcer. He presents after having another graffix application last week followed by wound vac application. Patient states he has done well with this again this week. Currently, the patient denies any feelings of nausea, vomiting, fever, or chills. - Physical Exam Vital Signs Temp Pulse Resp BP 98.7 F 84 18 130/72 H 07/21/17 10:21 07/21/17 10:21 07/21/17 10:21 07/21/17 10:21 General: Alert, Oriented x3, Cooperative, No apparent distress Extremities: Capillary Refill Less than 3 Seconds, No Calf Tenderness, Diminished Peripheral Pulses - Negative Wojciech and Guerrero sign DP pulses palpable and PT pulses nonpalpable due to lower extremity edema, Edema - Slight lower extremity edema Skin: Ulcer/ Wound - Chronic ulcer to the plantar posterior aspect of the right heel. Surgical debridement was completed June 14. There continues to be slow improvement appreciated. There is a small amount of adherent slough as well as fibrin to the area. There continues to be no maceration this week. There is no extending cellulitis, no purulence, no malodor, no increase in warmth, no probing to bone, no undermining. Wound Measurements and Assessment WC - Nurse 1 - General Ulcer Measurement Start: 06/23/17 11:37 Freq: Status: Active Protocol: Activity Type Activity Date Activity User E-Sign Co-Sign Detail Recorded Client Recorded Date Recorded By Document 07/21/17 10:21 DL [id number] 07/21/17 10:32 DL 07/21/17 10:21 Wound Center Nurse 1 [Ulcer Assessment] #2- RT HEEL -Current Size (cm) - Length 2.7 -Current Size (cm) - Width 2.7 -Current Size (cm) - Depth 0.6 -Total Square Cm 7.29 -Photo Taken No -Exudate Amt Large (67-100%) -Exudate Type Serosanguineous -Wound Margin Thickened -Granulation Amt Medium (34-66%) -Granulation Quality Red -Necrosis Amt Medium (34-66%) -Necrotic Tissue Type Adherent Slough -Structure Exposed N/A -Texture (Miguelina-wound Skin Appearance) No Abnormality -Moisture (Miguelina-wound Skin Appearance Maceration ) -Color (Miguelina-wound Skin Appearance) No Abnormality -Temperature (Miguelina-wound Skin No Abnormality Appearance) (Pt Warm) -Ulcer Cleansing Wound Cleanser -Foul Odor after Cleansing Yes, Due to Product Use -Anesthetic Used 4% Lidocaine Solution [Edema Assessment] -Right Calf (cm) 33.2 -Right Ankle (cm) 21 WC - Nurse 2 - General Ulcer CM Notes Start: 06/23/17 11:37 Freq: Status: Active Protocol: Activity Type Activity Date Activity User E-Sign Co-Sign Detail Recorded Client Recorded Date Recorded By Document 07/21/17 11:03 JS [id number] 07/21/17 11:06 JS 07/21/17 11:03 Wound Center Nurse 2 [Procedure/Treatment] #2- RT HEEL -Time 11:04 -Correct Patient Yes -Correct Side, Site, Position Yes -Correct Procedure Yes -Procedure Performed Yes -Type of Procedure Debridement -Clinical Debridement Subcutaneous -Post Debridement Size (cm) - Length 2.7 -Post Debridement Size (cm) - Width 3.1 -Post Debridement Size (cm) - Depth 0.5 -Total Square Cm 8.37 -Wound/Ulcer Outcome Not Healed -Ulcer Cleansing Rinsed/ Irrigated with Saline -Foul Odor after Cleansing No -Bioengineered Tissue Yes -Type of bioengineered Tissue GRAFIX-Core -Expiration Date 05/06/20 -Product Lot Number [id number] -Percent Used 100 -Saline Lot Number [id number] -Topical Lidocaine (%) 4 -Lidocaine (ml) 5 -Bleeding Controlled with NA -Treatment Response Procedure Tolerated Well [See Physician Procedure note for Specifics] Pain Scale: 0-10 Numeric [Pain] -Is Patient Pain Free? Yes Musculoskeletal: - - Patient denies tenderness with manipulation of ulcer site Neurological: - - Epicritic sensation grossly absent from bilateral lower extremities Psych/Mental Status: Normal Affect, Appropriate Debridement Note Post-Debridement Measurements/Treatment - Nurse 2 - General Ulcer CM Notes Start: 06/23/17 11:37 Freq: Status: Active Protocol: Activity Type Activity Date Activity User E-Sign Co-Sign Detail Recorded Client Recorded Date Recorded By Document 06/23/17 12:04 MW [id number] 06/23/17 12:18 MW Document 06/30/17 12:35 MW [id number] 06/30/17 12:49 MW Document 07/07/17 10:29 JS [id number] 07/07/17 10:32 JS Document 07/14/17 11:36 JS [id number] 07/14/17 11:38 JS Document 07/21/17 11:03 JS [id number] 07/21/17 11:06 06/23/17 06/30/17 07/07/17 12:04 12:35 10:29 Wound Center Nurse 2 #2- RT HEEL -Time 12:05 12:35 10:29 -Correct Patient Yes Yes Yes -Correct Side, Site, Position Yes Yes Yes -Correct Procedure Yes Yes Yes -Procedure Performed Yes Yes Yes -Type of Procedure Debridement Debridement Debridement -Clinical Debridement Subcutaneous Subcutaneous Subcutaneous -Post Debridement Size (cm) - Length 3.0 3.0 3.2 -Post Debridement Size (cm) - Width 3.4 3.2 2.8 -Post Debridement Size (cm) - Depth 0.9 0.8 0.8 -Total Square Cm 10.20 9.60 8.96 -Wound/Ulcer Outcome Not Healed Not Healed Not Healed -Ulcer Cleansing Rinsed/ Rinsed/ Rinsed/ Irrigated with Irrigated with Irrigated with Saline Saline Saline -Foul Odor after Cleansing No No No -Bioengineered Tissue -Type of bioengineered Tissue GRAFIX-Core GRAFIX-Core GRAFIX-Core -Expiration Date 04/29/20 04/22/20 03/18/20 -Product Lot Number [id number] -Percent Used 100 100 100 -Saline Lot Number [id number] -Topical Lidocaine (%) 4 -Lidocaine (ml) 10 -Bleeding Controlled with Pressure Pressure NA -Treatment Response Procedure Procedure Procedure Tolerated Well Tolerated Well Tolerated Well Pain Scale: 0-10 Numeric Is Patient Pain Free? Yes Yes Yes 07/14/17 07/21/17 11:36 11:03 Wound Center Nurse 2 #2- RT HEEL -Time 11:36 11:04 -Correct Patient Yes Yes -Correct Side, Site, Position Yes Yes -Correct Procedure Yes Yes -Procedure Performed Yes Yes -Type of Procedure Debridement Debridement -Clinical Debridement Subcutaneous Subcutaneous -Post Debridement Size (cm) - Length 3.0 2.7 -Post Debridement Size (cm) - Width 3.2 3.1 -Post Debridement Size (cm) - Depth 0.6 0.5 -Total Square Cm 9.60 8.37 -Wound/Ulcer Outcome Not Healed Not Healed -Ulcer Cleansing Rinsed/ Rinsed/ Irrigated with Irrigated with Saline Saline -Foul Odor after Cleansing No No -Bioengineered Tissue Yes Yes -Type of bioengineered Tissue GRAFIX-Core GRAFIX-Core -Expiration Date 05/06/20 05/06/20 -Product Lot Number [id number] -Percent Used 100 100 -Saline Lot Number [id number] -Topical Lidocaine (%) 4 4 -Lidocaine (ml) 10 5 -Bleeding Controlled with NA NA -Treatment Response Procedure Procedure Tolerated Well Tolerated Well Pain Scale: 0-10 Numeric Is Patient Pain Free? Yes Yes Wound debrided: Right plantar posterior heel Laterality: Right Wound Grade/Stage: 3 Type of Debridement: Excisional debridement Anesthesia Used: 4% Lidocaine Solution Depth: in the subcutaneous layer Percentage of wound debrided: 100 Instrument Used: 5mm curette Tissue Removed: Adherent slough, fibrin Severity: Fat Layer Exposed Amount of bleeding with debridement: Mild Bleeding Controlled with: Pressure Patient tolerated procedure well Assessment/Plan Assessment: Ulcer to right heel with stable eschar. DM with neuropathy. Malnutrition. Plan: Patient was again examined and evaluated today. Patient is S/P surgical debridement with versajet of all necrotic, non-viable, and infected soft tissue with bone biopsy on June 14. Details from surgery are noted in the operative report. Angiogram performed prior to surgical debridement by Dr. Rios. Subcutaneous debridement was again completed today as described in the clinical panel. Following debridement, the fifth graffix core application was applied, followed by adaptic, steristrips, and a wound vac. This vac was set at 100 continuous flow. This will be changed at a nursing visit on Tuesday again just like last week, however the vac will be reapplied at 125 mmHg on Tuesday. The graffix core, adaptic, and steri strips should be left in place at vac change Tuesday. Patient and his were instructed to keep the dressing clean, dry, and intact. They say they understand this. Patient to continue with high protein diet and it was again stressed how important keeping blood sugar under control is to healing process. It was also again stressed to the patient how important it is to keep pressure off of his heel at all times and that this includes any type of pressure at all, as the patient has been noncompliant in the past with this. I also again informed him and his that there is possibility that although his procedure went well, there is still a chance that this can lead to extensive debridements, partial calcaneal amputations, or even more proximal amputations on the leg, among other possible outcomes. He is to use the knee scooter at all times while walking. While sitting or laying in bed he was instructed to keep the heel floating over the edge of a pillow in order to have absolutely no pressure to the area. Patient and the patient's were educated on signs and symptoms of local and systemic infection and were instructed to go to the emergency room immediately should they notice any. All questions were answered to the patient and the patient's 's satisfaction. I still continue to be concerned with the patient's compliance. They will follow -up in clinic in 1 week for further evaluation, or sooner if needed. This note was generated with [employer] dictation software. It may contain incorrect words, spelling, and punctuation that were not noted in checking the note before signing.
== END 2017-07-21 23:59 ==
LOC: WC 10:30
PROVIDERS: Visit Provider Podiatrist
DX: E11.621 Type 2 diabetes mellitus with foot ulcer (principal); E11.42 Type 2 diabetes mellitus with diabetic polyneuropathy; E11.51 Type 2 diabetes mellitus with diabetic peripheral angiopathy without gangrene; R60.0 Localized edema; L97.412 Non-pressure chronic ulcer of right heel and midfoot with fat layer exposed
CPT/HCPCS: 15275; 97605; 99211; Q4132; G0463

== ENCOUNTER 2017-08-18 09:30 | Outpatient (RCR) | payer MEDICARE, SELFPAY ==
[2017-07-22 00:36] VITALS: BP 130/72; PULSE 84; RESP 18; TEMP 37.1; BMI 32.7
[2017-08-04 09:29] VITALS: BP 156/73; PULSE 74; RESP 18; TEMP 36.4; BMI 32.7
--- NOTE | 2017-08-04 11:08 | PCM.WC.PN ---
(1) Chronic ulcer of right heel Status: Acute Current Visit: No Code(s): L97.419 - Non-pressure chronic ulcer of right heel and midfoot with unspecified severity (2) Lower extremity edema Status: Chronic Current Visit: No Code(s): R60.0 - Localized edema (3) PVD (peripheral vascular disease) Status: Suspected Current Visit: No Code(s): I73.9 - Peripheral vascular disease, unspecified (4) Type 2 diabetes mellitus with diabetic polyneuropathy Status: Acute Current Visit: No Code(s): E11.42 - Type 2 diabetes mellitus with diabetic polyneuropathy Type of Wound Date of Service: 08/04/17 Chief Complaint: Chronic non healing ulcer to right posterior heel with fat layer exposed. History of Wound: This 61-year-old diabetic male presents for follow up of chronic nonhealing ulcer to right posterior heel. Patient states on February 21 he believes he stepped on a staple walking down the stairs and had a tear in his skin. This progressed over the following days into an ulcer. Patient has seen Dr. See as well as gone to [facility] wound center in the past. While at [facility], the patient was undergoing every other day dressing changes consisting of medihoney and a dry sterile dressing. The patient has a knee walker and claims to be using it, but not all the time. The also states that the patient has not keeping pressure off of his right foot as much as he should be, even after last weeks visit, although he has gotten better. Patient denies any purulence to the area. The patient denies any feelings of nausea, vomiting, chills, fever at this time. Progress of Wound: Patient presents to for follow up of right heel ulcer. He presents after having another graffix application last week followed by wound vac application. He had a nursing visit Tuesday for vac change. Patient states he has done well with this again this week. Currently, the patient denies any feelings of nausea, vomiting, fever, or chills. - Physical Exam Vital Signs Temp Pulse Resp BP 97.5 F L 74 18 156/73 H 08/04/17 09:29 08/04/17 09:29 08/04/17 09:29 08/04/17 09:29 General: Alert, Oriented x3, Cooperative, No apparent distress Extremities: Capillary Refill Less than 3 Seconds, No Calf Tenderness - negative stephan and iverson sign, Diminished Peripheral Pulses - DP pulses palpable and PT pulses nonpalpable due to lower extremity edema, Edema - Lower extremity edema Skin: Ulcer/ Wound - Chronic ulcer to the plantar posterior aspect of the right heel. Surgical debridement was completed June 14. Continued improvement appreciated. There is a small amount of adherent slough as well as fibrin to the area. There continues to be no maceration this week. There is no extending cellulitis, no purulence, no malodor, no increase in warmth, no probing to bone, no undermining. Wound Measurements and Assessment WC - Nurse 1 - General Ulcer Measurement Start: 08/04/17 09:29 Freq: Status: Active Protocol: Activity Type Activity Date Activity User E-Sign Co-Sign Detail Recorded Client Recorded Date Recorded By Document 08/04/17 09:29 RB [id number] 08/04/17 09:41 RB 08/04/17 09:29 Wound Center Nurse 1 [Ulcer Assessment] #2- RT HEEL -Combined with other wound No -Current Size (cm) - Length 2.5 -Current Size (cm) - Width 2.3 -Current Size (cm) - Depth 0.5 -Total Square Cm 5.75 -Photo Taken No -Tunneling No -Undermining/Tunneling No -Circular Undermining No -Classification - Thickness Full Thickness without Exposed Support Structure -Exudate Amt Small (1-33%) -Exudate Type Serosanguineous -Wound Margin Thickened & Rolled Under -Granulation Amt Medium (34-66%) -Granulation Quality [place] -Slough/Fibrin Yes -Necrosis Amt Small (1-33%) -Necrotic Tissue Type Adherent Slough -Structure Exposed N/A -Texture (Miguelina-wound Skin Appearance) Assessed -Moisture (Miguelina-wound Skin Appearance Maceration ) -Color (Miguelina-wound Skin Appearance) Assessed -Temperature (Miguelina-wound Skin No Abnormality Appearance) (Pt Warm) -Tenderness on Palpation (Miguelina-wound No Skin Appearance) -Ulcer Cleansing Wound Cleanser -Foul Odor after Cleansing No -Anesthetic Used 4% Lidocaine Solution [Edema Assessment] -Lower Limb Edema Present Yes -Right Calf (cm) 33.5 -Right Ankle (cm) 21.6 WC - Nurse 2 - General Ulcer CM Notes Start: 08/04/17 09:29 Freq: Status: Active Protocol: Activity Type Activity Date Activity User E-Sign Co-Sign Detail Recorded Client Recorded Date Recorded By Document 08/04/17 09:57 [id number] 08/04/17 10:24 08/04/17 09:57 Wound Center Nurse 2 [Procedure/Treatment] #2- RT HEEL -Time 09:57 -Correct Patient Yes -Correct Side, Site, Position Yes -Correct Procedure Yes -Procedure Performed Yes -Type of Procedure Debridement -Clinical Debridement Subcutaneous -Post Debridement Size (cm) - Length 1.9 -Post Debridement Size (cm) - Width 1.9 -Post Debridement Size (cm) - Depth 0.4 -Total Square Cm 3.61 -Wound/Ulcer Outcome Not Healed -Ulcer Cleansing Rinsed/ Irrigated with Saline -Foul Odor after Cleansing Yes, Due to Product Use -Bioengineered Tissue Yes -Type of bioengineered Tissue GRAFIX-Core -Expiration Date 05/23/20 -Product Lot Number [id number] -Percent Used 100 -Saline Lot Number [id number] -Topical Lidocaine (%) 4 -Lidocaine (ml) 5 -Bleeding Controlled with Pressure -Treatment Response Procedure Tolerated Well [See Physician Procedure note for Specifics] Pain Scale: 0-10 Numeric [Pain] -Is Patient Pain Free? Yes Musculoskeletal: - - Patient denies tenderness with manipulation of ulcer site Neurological: - - Epicritic sensation grossly absent to lower extremity Psych/Mental Status: Normal Affect, Appropriate Debridement Note Post-Debridement Measurements/Treatment WC - Nurse 2 - General Ulcer CM Notes Start: 08/04/17 09:29 Freq: Status: Active Protocol: Activity Type Activity Date Activity User E-Sign Co-Sign Detail Recorded Client Recorded Date Recorded By Document 08/04/17 09:57 [id number] 08/04/17 10:24 08/04/17 09:57 Wound Center Nurse 2 #2- RT HEEL -Time 09:57 -Correct Patient Yes -Correct Side, Site, Position Yes -Correct Procedure Yes -Procedure Performed Yes -Type of Procedure Debridement -Clinical Debridement Subcutaneous -Post Debridement Size (cm) - Length 1.9 -Post Debridement Size (cm) - Width 1.9 -Post Debridement Size (cm) - Depth 0.4 -Total Square Cm 3.61 -Wound/Ulcer Outcome Not Healed -Ulcer Cleansing Rinsed/ Irrigated with Saline -Foul Odor after Cleansing Yes, Due to Product Use -Bioengineered Tissue Yes -Type of bioengineered Tissue GRAFIX-Core -Expiration Date 05/23/20 -Product Lot Number [id number] -Percent Used 100 -Saline Lot Number [id number] -Topical Lidocaine (%) 4 -Lidocaine (ml) 5 -Bleeding Controlled with Pressure -Treatment Response Procedure Tolerated Well Pain Scale: 0-10 Numeric Is Patient Pain Free? Yes Wound debrided: Right plantar posterior heel Laterality: Right Wound Grade/Stage: 3 Type of Debridement: Excisional debridement Anesthesia Used: 4% Lidocaine Solution Depth: in the subcutaneous layer Percentage of wound debrided: 100 Instrument Used: 5mm curette Tissue Removed: Adherent slough, fibrin Severity: Fat Layer Exposed Amount of bleeding with debridement: Mild Bleeding Controlled with: Pressure Patient tolerated procedure well Assessment/Plan Assessment: Ulcer to right heel with stable eschar. DM with neuropathy. Malnutrition. Plan: Patient was again examined and evaluated today. Patient is S/P surgical debridement with versajet of all necrotic, non-viable, and infected soft tissue with bone biopsy on June 14. Details from surgery are noted in the operative report. Angiogram performed prior to surgical debridement by Dr. Rios. Subcutaneous debridement was again completed today as described in the clinical panel. Following debridement, the sixth graffix core application was applied, followed by adaptic, steristrips, and a wound vac. This vac was set at 100 continuous flow. This will be changed at a nursing visit on Tuesday again just like last week, however the vac will be reapplied at 125 mmHg on Tuesday. The graffix core, adaptic, and steri strips should be left in place at vac change Tuesday. Patient and his were instructed to keep the dressing clean, dry, and intact. They say they understand this. Patient to continue with high protein diet and it was again stressed how important keeping blood sugar under control is to healing process. It was also again stressed to the patient how important it is to keep pressure off of his heel at all times and that this includes any type of pressure at all, as the patient has been noncompliant in the past with this. I also again informed him and his that there is possibility that although his procedure went well, there is still a chance that this can lead to extensive debridements, partial calcaneal amputations, or even more proximal amputations on the leg, among other possible outcomes. He is to use the knee scooter at all times while walking. While sitting or laying in bed he was instructed to keep the heel floating over the edge of a pillow in order to have absolutely no pressure to the area. Patient and the patient's were educated on signs and symptoms of local and systemic infection and were instructed to go to the emergency room immediately should they notice any. All questions were answered to the patient and the patient's 's satisfaction. I still continue to be concerned with the patient's compliance. They will follow-up in clinic in 1 week for further evaluation, or sooner if needed. This note was generated with [employer] dictation software. It may contain incorrect words, spelling, and punctuation that were not noted in checking the note before signing.
--- NOTE | 2017-08-04 11:15 | PN.PCM_ITS ---
(1) Chronic ulcer of right heel Status: Acute Current Visit: No Code(s): L97.419 - Non-pressure chronic ulcer of right heel and midfoot with unspecified severity (2) Lower extremity edema Status: Chronic Current Visit: No Code(s): R60.0 - Localized edema (3) PVD (peripheral vascular disease) Status: Suspected Current Visit: No Code(s): I73.9 - Peripheral vascular disease, unspecified (4) Type 2 diabetes mellitus with diabetic polyneuropathy Status: Acute Current Visit: No Code(s): E11.42 - Type 2 diabetes mellitus with diabetic polyneuropathy Type of Wound Date of Service: 08/04/17 Chief Complaint: Chronic non healing ulcer to right posterior heel with fat layer exposed. History of Wound: This 61-year-old diabetic male presents for follow up of chronic nonhealing ulcer to right posterior heel. Patient states on February 21 he believes he stepped on a staple walking down the stairs and had a tear in his skin. This progressed over the following days into an ulcer. Patient has seen Dr. See as well as gone to [facility] the patient was undergoing every other day dressing changes consisting of medihoney and a dry sterile dressing. The patient has a knee walker and claims to be using it, but not all the time. The also states that the patient has not keeping pressure off of his right foot as much as he should be, even after last weeks visit, although he has gotten better. Patient denies any purulence to the area. The patient denies any feelings of nausea, vomiting, chills, fever at this time. Progress of Wound: Patient presents to for follow up of right heel ulcer. He presents after having another graffix application last week followed by wound vac application. He had a nursing visit Tuesday for vac change. Patient states he has done well with this again this week. Currently, the patient denies any feelings of nausea, vomiting, fever, or chills. - Physical Exam Vital Signs Temp Pulse Resp BP 97.5 F L 74 18 156/73 H 08/04/17 09:29 08/04/17 09:29 08/04/17 09:29 08/04/17 09:29 General: Alert, Oriented x3, Cooperative, No apparent distress Extremities: Capillary Refill Less than 3 Seconds, No Calf Tenderness - negative stephan and iverson sign, Diminished Peripheral Pulses - DP pulses palpable and PT pulses nonpalpable due to lower extremity edema, Edema - Lower extremity edema Skin: Ulcer/ Wound - Chronic ulcer to the plantar posterior aspect of the right heel. Surgical debridement was completed June 14. Continued improvement appreciated. There is a small amount of adherent slough as well as fibrin to the area. There continues to be no maceration this week. There is no extending cellulitis, no purulence, no malodor, no increase in warmth, no probing to bone, no undermining. Wound Measurements and Assessment WC - Nurse 1 - General Ulcer Measurement Start: 08/04/17 09:29 Freq: Status: Active Protocol: Activity Type Activity Date Activity User E-Sign Co-Sign Detail Recorded Client Recorded Date Recorded By Document 08/04/17 09:29 RB [id number] 08/04/17 09:41 RB 08/04/17 09:29 Wound Center Nurse 1 [Ulcer Assessment] #2- RT HEEL -Combined with other wound No -Current Size (cm) - Length 2.5 -Current Size (cm) - Width 2.3 -Current Size (cm) - Depth 0.5 -Total Square Cm 5.75 -Photo Taken No -Tunneling No -Undermining/Tunneling No -Circular Undermining No -Classification - Thickness Full Thickness without Exposed Support Structure -Exudate Amt Small (1-33%) -Exudate Type Serosanguineous -Wound Margin Thickened & Rolled Under -Granulation Amt Medium (34-66%) -Granulation Quality Rotonda -Slough/Fibrin Yes -Necrosis Amt Small (1-33%) -Necrotic Tissue Type Adherent Slough -Structure Exposed N/A -Texture (Miguelina-wound Skin Appearance) Assessed -Moisture (Miguelina-wound Skin Appearance Maceration ) -Color (Miguelina-wound Skin Appearance) Assessed -Temperature (Miguelina-wound Skin No Abnormality Appearance) (Pt Warm) -Tenderness on Palpation (Miguelina-wound No Skin Appearance) -Ulcer Cleansing Wound Cleanser -Foul Odor after Cleansing No -Anesthetic Used 4% Lidocaine Solution [Edema Assessment] -Lower Limb Edema Present Yes -Right Calf (cm) 33.5 -Right Ankle (cm) 21.6 WC - Nurse 2 - General Ulcer CM Notes Start: 08/04/17 09:29 Freq: Status: Active Protocol: Activity Type Activity Date Activity User E-Sign Co-Sign Detail Recorded Client Recorded Date Recorded By Document 08/04/17 09:57 [id number] 08/04/17 10:24 08/04/17 09:57 Wound Center Nurse 2 [Procedure/Treatment] #2- RT HEEL -Time 09:57 -Correct Patient Yes -Correct Side, Site, Position Yes -Correct Procedure Yes -Procedure Performed Yes -Type of Procedure Debridement -Clinical Debridement Subcutaneous -Post Debridement Size (cm) - Length 1.9 -Post Debridement Size (cm) - Width 1.9 -Post Debridement Size (cm) - Depth 0.4 -Total Square Cm 3.61 -Wound/Ulcer Outcome Not Healed -Ulcer Cleansing Rinsed/ Irrigated with Saline -Foul Odor after Cleansing Yes, Due to Product Use -Bioengineered Tissue Yes -Type of bioengineered Tissue GRAFIX-Core -Expiration Date 05/23/20 -Product Lot Number [id number] -Percent Used 100 -Saline Lot Number [id number] -Topical Lidocaine (%) 4 -Lidocaine (ml) 5 -Bleeding Controlled with Pressure -Treatment Response Procedure Tolerated Well [See Physician Procedure note for Specifics] Pain Scale: 0-10 Numeric [Pain] -Is Patient Pain Free? Yes Musculoskeletal: - - Patient denies tenderness with manipulation of ulcer site Neurological: - - Epicritic sensation grossly absent to lower extremity Psych/Mental Status: Normal Affect, Appropriate Debridement Note Post-Debridement Measurements/Treatment WC - Nurse 2 - General Ulcer CM Notes Start: 08/04/17 09:29 Freq: Status: Active Protocol: Activity Type Activity Date Activity User E-Sign Co-Sign Detail Recorded Client Recorded Date Recorded By Document 08/04/17 09:57 [id number] 08/04/17 10:24 08/04/17 09:57 Wound Center Nurse 2 #2- RT HEEL -Time 09:57 -Correct Patient Yes -Correct Side, Site, Position Yes -Correct Procedure Yes -Procedure Performed Yes -Type of Procedure Debridement -Clinical Debridement Subcutaneous -Post Debridement Size (cm) - Length 1.9 -Post Debridement Size (cm) - Width 1.9 -Post Debridement Size (cm) - Depth 0.4 -Total Square Cm 3.61 -Wound/Ulcer Outcome Not Healed -Ulcer Cleansing Rinsed/ Irrigated with Saline -Foul Odor after Cleansing Yes, Due to Product Use -Bioengineered Tissue Yes -Type of bioengineered Tissue GRAFIX-Core -Expiration Date 05/23/20 -Product Lot Number [id number] -Percent Used 100 -Saline Lot Number [id number] -Topical Lidocaine (%) 4 -Lidocaine (ml) 5 -Bleeding Controlled with Pressure -Treatment Response Procedure Tolerated Well Pain Scale: 0-10 Numeric Is Patient Pain Free? Yes Wound debrided: Right plantar posterior heel Laterality: Right Wound Grade/Stage: 3 Type of Debridement: Excisional debridement Anesthesia Used: 4% Lidocaine Solution Depth: in the subcutaneous layer Percentage of wound debrided: 100 Instrument Used: 5mm curette Tissue Removed: Adherent slough, fibrin Severity: Fat Layer Exposed Amount of bleeding with debridement: Mild Bleeding Controlled with: Pressure Patient tolerated procedure well Assessment/Plan Assessment: Ulcer to right heel with stable eschar. DM with neuropathy. Malnutrition. Plan: Patient was again examined and evaluated today. Patient is S/P surgical debridement with versajet of all necrotic, non-viable, and infected soft tissue with bone biopsy on June 14. Details from surgery are noted in the operative report. Angiogram performed prior to surgical debridement by Dr. Rios. Subcutaneous debridement was again completed today as described in the clinical panel. Following debridement, the sixth graffix core application was applied, followed by adaptic, steristrips, and a wound vac. This vac was set at 100 continuous flow. This will be changed at a nursing visit on Tuesday again just like last week, however the vac will be reapplied at 125 mmHg on Tuesday. The graffix core, adaptic, and steri strips should be left in place at vac change Tuesday. Patient and his were instructed to keep the dressing clean, dry, and intact. They say they understand this. Patient to continue with high protein diet and it was again stressed how important keeping blood sugar under control is to healing process. It was also again stressed to the patient how important it is to keep pressure off of his heel at all times and that this includes any type of pressure at all, as the patient has been noncompliant in the past with this. I also again informed him and his that there is possibility that although his procedure went well, there is still a chance that this can lead to extensive debridements, partial calcaneal amputations, or even more proximal amputations on the leg, among other possible outcomes. He is to use the knee scooter at all times while walking. While sitting or laying in bed he was instructed to keep the heel floating over the edge of a pillow in order to have absolutely no pressure to the area. Patient and the patient's were educated on signs and symptoms of local and systemic infection and were instructed to go to the emergency room immediately should they notice any. All questions were answered to the patient and the patient's 's satisfaction. I still continue to be concerned with the patient's compliance. They will follow -up in clinic in 1 week for further evaluation, or sooner if needed. This note was generated with [employer] dictation software. It may contain incorrect words, spelling, and punctuation that were not noted in checking the note before signing.
[2017-08-11 11:18] VITALS: BP 140/68; PULSE 73; RESP 16; TEMP 36.4; BMI 32.7
--- NOTE | 2017-08-11 12:06 | PCM.WC.PN ---
(1) Chronic ulcer of right heel Status: Acute Current Visit: No Code(s): L97.419 - Non-pressure chronic ulcer of right heel and midfoot with unspecified severity (2) Lower extremity edema Status: Chronic Current Visit: No Code(s): R60.0 - Localized edema (3) PVD (peripheral vascular disease) Status: Suspected Current Visit: No Code(s): I73.9 - Peripheral vascular disease, unspecified (4) Type 2 diabetes mellitus with diabetic polyneuropathy Status: Acute Current Visit: No Code(s): E11.42 - Type 2 diabetes mellitus with diabetic polyneuropathy Type of Wound Date of Service: 08/11/17 Chief Complaint: Chronic non healing ulcer to right posterior heel with fat layer exposed. History of Wound: This 61-year-old diabetic male presents for follow up of chronic nonhealing ulcer to right posterior heel. Patient states on February 21 he believes he stepped on a staple walking down the stairs and had a tear in his skin. This progressed over the following days into an ulcer. Patient has seen Dr. See as well as gone to [facility] wound center in the past. While at [facility], the patient was undergoing every other day dressing changes consisting of medihoney and a dry sterile dressing. The patient has a knee walker and claims to be using it, but not all the time. The also states that the patient has not keeping pressure off of his right foot as much as he should be, even after last weeks visit, although he has gotten better. Patient denies any purulence to the area. The patient denies any feelings of nausea, vomiting, chills, fever at this time. Progress of Wound: Patient presents to clinic for follow up of right heel ulcer. He presents after having another graffix application last week followed by wound vac application. His vac was changed on Tuesday by his . Patient states he has done well with this again this week. Currently, the patient denies any feelings of nausea, vomiting, fever, or chills. - Physical Exam Vital Signs Temp Pulse Resp BP 97.5 F L 73 16 140/68 H 08/11/17 11:18 08/11/17 11:18 08/11/17 11:18 08/11/17 11:18 General: Alert, Oriented x3, Cooperative, No apparent distress Extremities: Capillary Refill Less than 3 Seconds, No Calf Tenderness - Negative Wojciech and Guerrero sign, Diminished Peripheral Pulses - DP and PT pulses nonpalpable due to lower extremity edema, Edema - Lower extremity edema Skin: Ulcer/ Wound - Chronic ulcer to the plantar posterior aspect of the right heel. Surgical debridement was completed June 14. There continues to be improvement noted this week. There is a small amount of adherent slough as well as fibrin to the ulcer site base. There is small amount of maceration appreciated to the melanie-ulcer site this week. There continues to be no extending cellulitis, no purulence, no malodor, no increased warmth, no probing to bone, no undermining. Wound Measurements and Assessment WC - Nurse 1 - General Ulcer Measurement Start: 08/04/17 09:29 Freq: Status: Active Protocol: Activity Type Activity Date Activity User E-Sign Co-Sign Detail Recorded Client Recorded Date Recorded By Document 08/11/17 11:18 TN [id number] 08/11/17 11:36 TN 08/11/17 11:18 Wound Center Nurse 1 [Ulcer Assessment] #2- RT HEEL -Combined with other wound No -Current Size (cm) - Length 2.4 -Current Size (cm) - Width 1.8 -Current Size (cm) - Depth 0.3 -Total Square Cm 4.32 -Date of Last Picture (Recall this 08/11/17 field) -Photo Taken Yes -Epithelialization None Present -Tunneling No -Undermining/Tunneling No -Circular Undermining No -Classification - Thickness Full Thickness without Exposed Support Structure -Change in Wound Grade/Stage No Query Text:If change please identify the Stage/Grade in the comment (ie. S2 G3) -Exudate Amt Large (67-100%) -Exudate Type Serous -Wound Margin Distinct, Outline Attached -Granulation Amt Medium (34-66%) -Granulation Quality Red -Slough/Fibrin Yes -Necrosis Amt Large (67-100%) -Necrotic Tissue Type Adherent Slough -Structure Exposed None/Limited to Skin Breakdown -Texture (Melanie-wound Skin Appearance) Assessed Localized Edema Scarring -Moisture (Melanie-wound Skin Appearance Assessed ) Maceration -Color (Melanie-wound Skin Appearance) Assessed Palor -Temperature (Melanie-wound Skin No Abnormality Appearance) (Pt Warm) -Tenderness on Palpation (Melanie-wound No Skin Appearance) -Ulcer Cleansing Wound Cleanser -Foul Odor after Cleansing No -Anesthetic Used 4% Lidocaine Solution [Edema Assessment] -Lower Limb Edema Present No Musculoskeletal: - - Patient denies tenderness with manipulation of ulcer site Neurological: - - Epicritic sensation grossly absent to lower extremity Psych/Mental Status: Normal Affect, Appropriate Debridement Note Post-Debridement Measurements/Treatment WC - Nurse 2 - General Ulcer CM Notes Start: 08/04/17 09:29 Freq: Status: Active Protocol: Activity Type Activity Date Activity User E-Sign Co-Sign Detail Recorded Client Recorded Date Recorded By Document 08/04/17 09:57 [id number] 08/04/17 10:24 [email or web address] 08/04/17 09:57 Wound Center Nurse 2 #2- RT HEEL -Time 09:57 -Correct Patient Yes -Correct Side, Site, Position Yes -Correct Procedure Yes -Procedure Performed Yes -Type of Procedure Debridement -Clinical Debridement Subcutaneous -Post Debridement Size (cm) - Length 1.9 -Post Debridement Size (cm) - Width 1.9 -Post Debridement Size (cm) - Depth 0.4 -Total Square Cm 3.61 -Wound/Ulcer Outcome Not Healed -Ulcer Cleansing Rinsed/ Irrigated with Saline -Foul Odor after Cleansing Yes, Due to Product Use -Bioengineered Tissue Yes -Type of bioengineered Tissue GRAFIX-Core -Expiration Date 05/23/20 -Product Lot Number [id number] -Percent Used 100 -Saline Lot Number [id number] -Topical Lidocaine (%) 4 -Lidocaine (ml) 5 -Bleeding Controlled with Pressure -Treatment Response Procedure Tolerated Well Pain Scale: 0-10 Numeric Is Patient Pain Free? Yes Wound debrided: Right plantar posterior heel Laterality: Right Wound Grade/Stage: 3 Type of Debridement: Excisional debridement Anesthesia Used: 4% Lidocaine Solution Depth: in the subcutaneous layer Percentage of wound debrided: 100 Instrument Used: 5mm curette Tissue Removed: Adherent slough, fibrin Severity: Fat Layer Exposed Amount of bleeding with debridement: Mild Bleeding Controlled with: Pressure Patient tolerated procedure well Assessment/Plan Assessment: Ulcer to right heel with stable eschar. DM with neuropathy. Malnutrition. Plan: Patient was again examined and evaluated today. Patient is S/P surgical debridement with versajet of all necrotic, non-viable, and infected soft tissue with bone biopsy on June 14. Details from surgery are noted in the operative report. Angiogram performed prior to surgical debridement by Dr. Rios. Subcutaneous debridement was again completed today as described in the clinical panel. Following debridement, the eighth graffix core application was applied, followed by adaptic, steristrips, and a wound vac. This vac was set at 100 continuous flow. This will be changed at a nursing visit on Tuesday again just like last week, and the vac will be reapplied at 125 mmHg on Tuesday. The graffix core, adaptic, and steri strips should be left in place at vac change Tuesday. Patient and his were instructed to keep the dressing clean, dry, and intact. They say they understand this. Patient to continue with high protein diet and it was again stressed how important keeping blood sugar under control is to healing process. It was also again stressed to the patient how important it is to keep pressure off of his heel at all times and that this includes any type of pressure at all, as the patient has been noncompliant in the past with this. I also again informed him and his that there is possibility that although his procedure went well, there is still a chance that this can lead to extensive debridements, partial calcaneal amputations, or even more proximal amputations on the leg, among other possible outcomes. He is to use the knee scooter at all times while walking. While sitting or laying in bed he was instructed to keep the heel floating over the edge of a pillow in order to have absolutely no pressure to the area. Patient and the patient's were educated on signs and symptoms of local and systemic infection and were instructed to go to the emergency room immediately should they notice any. All questions were answered to the patient and the patient's 's satisfaction. I still continue to be concerned with the patient's compliance. They will follow-up in clinic in 1 week for further evaluation, or sooner if needed. This note was generated with [employer] dictation software. It may contain incorrect words, spelling, and punctuation that were not noted in checking the note before signing.
--- NOTE | 2017-08-11 12:11 | PN.PCM_ITS ---
(1) Chronic ulcer of right heel Status: Acute Current Visit: No Code(s): L97.419 - Non-pressure chronic ulcer of right heel and midfoot with unspecified severity (2) Lower extremity edema Status: Chronic Current Visit: No Code(s): R60.0 - Localized edema (3) PVD (peripheral vascular disease) Status: Suspected Current Visit: No Code(s): I73.9 - Peripheral vascular disease, unspecified (4) Type 2 diabetes mellitus with diabetic polyneuropathy Status: Acute Current Visit: No Code(s): E11.42 - Type 2 diabetes mellitus with diabetic polyneuropathy Type of Wound Date of Service: 08/11/17 Chief Complaint: Chronic non healing ulcer to right posterior heel with fat layer exposed. History of Wound: This 61-year-old diabetic male presents for follow up of chronic nonhealing ulcer to right posterior heel. Patient states on February 21 he believes he stepped on a staple walking down the stairs and had a tear in his skin. This progressed over the following days into an ulcer. Patient has seen Dr. See as well as gone to [facility] wound center in the past. While at [facility], the patient was undergoing every other day dressing changes consisting of medihoney and a dry sterile dressing. The patient has a knee walker and claims to be using it, but not all the time. The also states that the patient has not keeping pressure off of his right foot as much as he should be, even after last weeks visit, although he has gotten better. Patient denies any purulence to the area. The patient denies any feelings of nausea, vomiting, chills, fever at this time. Progress of Wound: Patient presents to clinic for follow up of right heel ulcer. He presents after having another graffix application last week followed by wound vac application. His vac was changed on Tuesday by his . Patient states he has done well with this again this week. Currently, the patient denies any feelings of nausea, vomiting, fever, or chills. - Physical Exam Vital Signs Temp Pulse Resp BP 97.5 F L 73 16 140/68 H 08/11/17 11:18 08/11/17 11:18 08/11/17 11:18 08/11/17 11:18 General: Alert, Oriented x3, Cooperative, No apparent distress Extremities: Capillary Refill Less than 3 Seconds, No Calf Tenderness - Negative Wojciech and Guerrero sign, Diminished Peripheral Pulses - DP and PT pulses nonpalpable due to lower extremity edema, Edema - Lower extremity edema Skin: Ulcer/ Wound - Chronic ulcer to the plantar posterior aspect of the right heel. Surgical debridement was completed June 14. There continues to be improvement noted this week. There is a small amount of adherent slough as well as fibrin to the ulcer site base. There is small amount of maceration appreciated to the melanie-ulcer site this week. There continues to be no extending cellulitis, no purulence, no malodor, no increased warmth, no probing to bone, no undermining. Wound Measurements and Assessment WC - Nurse 1 - General Ulcer Measurement Start: 08/04/17 09:29 Freq: Status: Active Protocol: Activity Type Activity Date Activity User E-Sign Co-Sign Detail Recorded Client Recorded Date Recorded By Document 08/11/17 11:18 TN [id number] 08/11/17 11:36 TN 08/11/17 11:18 Wound Center Nurse 1 [Ulcer Assessment] #2- RT HEEL -Combined with other wound No -Current Size (cm) - Length 2.4 -Current Size (cm) - Width 1.8 -Current Size (cm) - Depth 0.3 -Total Square Cm 4.32 -Date of Last Picture (Recall this 08/11/17 field) -Photo Taken Yes -Epithelialization None Present -Tunneling No -Undermining/Tunneling No -Circular Undermining No -Classification - Thickness Full Thickness without Exposed Support Structure -Change in Wound Grade/Stage No Query Text:If change please identify the Stage/Grade in the comment (ie. S2 G3) -Exudate Amt Large (67-100%) -Exudate Type Serous -Wound Margin Distinct, Outline Attached -Granulation Amt Medium (34-66%) -Granulation Quality Red -Slough/Fibrin Yes -Necrosis Amt Large (67-100%) -Necrotic Tissue Type Adherent Slough -Structure Exposed None/Limited to Skin Breakdown -Texture (Melanie-wound Skin Appearance) Assessed Localized Edema Scarring -Moisture (Melanie-wound Skin Appearance Assessed ) Maceration -Color (Melanie-wound Skin Appearance) Assessed Palor -Temperature (Melanie-wound Skin No Abnormality Appearance) (Pt Warm) -Tenderness on Palpation (Melanie-wound No Skin Appearance) -Ulcer Cleansing Wound Cleanser -Foul Odor after Cleansing No -Anesthetic Used 4% Lidocaine Solution [Edema Assessment] -Lower Limb Edema Present No Musculoskeletal: - - Patient denies tenderness with manipulation of ulcer site Neurological: - - Epicritic sensation grossly absent to lower extremity Psych/Mental Status: Normal Affect, Appropriate Debridement Note Post-Debridement Measurements/Treatment WC - Nurse 2 - General Ulcer CM Notes Start: 08/04/17 09:29 Freq: Status: Active Protocol: Activity Type Activity Date Activity User E-Sign Co-Sign Detail Recorded Client Recorded Date Recorded By Document 08/04/17 09:57 [id number] 08/04/17 10:24 [email or web address] 08/04/17 09:57 Wound Center Nurse 2 #2- RT HEEL -Time 09:57 -Correct Patient Yes -Correct Side, Site, Position Yes -Correct Procedure Yes -Procedure Performed Yes -Type of Procedure Debridement -Clinical Debridement Subcutaneous -Post Debridement Size (cm) - Length 1.9 -Post Debridement Size (cm) - Width 1.9 -Post Debridement Size (cm) - Depth 0.4 -Total Square Cm 3.61 -Wound/Ulcer Outcome Not Healed -Ulcer Cleansing Rinsed/ Irrigated with Saline -Foul Odor after Cleansing Yes, Due to Product Use -Bioengineered Tissue Yes -Type of bioengineered Tissue GRAFIX-Core -Expiration Date 05/23/20 -Product Lot Number [id number] -Percent Used 100 -Saline Lot Number [id number] -Topical Lidocaine (%) 4 -Lidocaine (ml) 5 -Bleeding Controlled with Pressure -Treatment Response Procedure Tolerated Well Pain Scale: 0-10 Numeric Is Patient Pain Free? Yes Wound debrided: Right plantar posterior heel Laterality: Right Wound Grade/Stage: 3 Type of Debridement: Excisional debridement Anesthesia Used: 4% Lidocaine Solution Depth: in the subcutaneous layer Percentage of wound debrided: 100 Instrument Used: 5mm curette Tissue Removed: Adherent slough, fibrin Severity: Fat Layer Exposed Amount of bleeding with debridement: Mild Bleeding Controlled with: Pressure Patient tolerated procedure well Assessment/Plan Assessment: Ulcer to right heel with stable eschar. DM with neuropathy. Malnutrition. Plan: Patient was again examined and evaluated today. Patient is S/P surgical debridement with versajet of all necrotic, non-viable, and infected soft tissue with bone biopsy on June 14. Details from surgery are noted in the operative report. Angiogram performed prior to surgical debridement by Dr. Rios. Subcutaneous debridement was again completed today as described in the clinical panel. Following debridement, the eighth graffix core application was applied, followed by adaptic, steristrips, and a wound vac. This vac was set at 100 continuous flow. This will be changed at a nursing visit on Tuesday again just like last week, and the vac will be reapplied at 125 mmHg on Tuesday. The graffix core, adaptic, and steri strips should be left in place at vac change Tuesday. Patient and his were instructed to keep the dressing clean, dry, and intact. They say they understand this. Patient to continue with high protein diet and it was again stressed how important keeping blood sugar under control is to healing process. It was also again stressed to the patient how important it is to keep pressure off of his heel at all times and that this includes any type of pressure at all, as the patient has been noncompliant in the past with this. I also again informed him and his that there is possibility that although his procedure went well, there is still a chance that this can lead to extensive debridements, partial calcaneal amputations, or even more proximal amputations on the leg, among other possible outcomes. He is to use the knee scooter at all times while walking. While sitting or laying in bed he was instructed to keep the heel floating over the edge of a pillow in order to have absolutely no pressure to the area. Patient and the patient's were educated on signs and symptoms of local and systemic infection and were instructed to go to the emergency room immediately should they notice any. All questions were answered to the patient and the patient's 's satisfaction. I still continue to be concerned with the patient's compliance. They will follow -up in clinic in 1 week for further evaluation, or sooner if needed. This note was generated with [employer] dictation software. It may contain incorrect words, spelling, and punctuation that were not noted in checking the note before signing.
[2017-08-15 12:01] VITALS: BP 152/88; PULSE 73; RESP 16; TEMP 36.8; BMI 32.7
[2017-08-18 09:47] VITALS: BP 132/68; PULSE 81; RESP 16; TEMP 36.6; BMI 32.7
--- NOTE | 2017-08-18 10:13 | PCM.WC.PN ---
(1) Chronic ulcer of right heel Status: Acute Current Visit: No Code(s): L97.419 - Non-pressure chronic ulcer of right heel and midfoot with unspecified severity (2) Lower extremity edema Status: Chronic Current Visit: No Code(s): R60.0 - Localized edema (3) PVD (peripheral vascular disease) Status: Suspected Current Visit: No Code(s): I73.9 - Peripheral vascular disease, unspecified (4) Type 2 diabetes mellitus with diabetic polyneuropathy Status: Acute Current Visit: No Code(s): E11.42 - Type 2 diabetes mellitus with diabetic polyneuropathy Type of Wound Date of Service: 08/18/17 Chief Complaint: Chronic non healing ulcer to right posterior heel with fat layer exposed. History of Wound: This 61-year-old diabetic male presents for follow up of chronic nonhealing ulcer to right posterior heel. Patient states on February 21 he believes he stepped on a staple walking down the stairs and had a tear in his skin. This progressed over the following days into an ulcer. Patient has seen Dr. See as well as gone to [facility] wound center in the past. While at [facility], the patient was undergoing every other day dressing changes consisting of medihoney and a dry sterile dressing. The patient has a knee walker and claims to be using it, but not all the time. The also states that the patient has not keeping pressure off of his right foot as much as he should be, even after last weeks visit, although he has gotten better. Patient denies any purulence to the area. The patient denies any feelings of nausea, vomiting, chills, fever at this time. Progress of Wound: Patient presents to clinic for follow up of right heel ulcer. He presents after having another graffix application last week followed by wound vac application. His vac was changed on Tuesday. Patient states he has done well with this again this week. Currently, the patient denies any feelings of nausea, vomiting, fever, or chills. - Physical Exam Vital Signs Temp Pulse Resp BP 97.8 F 81 16 132/68 H 08/18/17 09:47 08/18/17 09:47 08/18/17 09:47 08/18/17 09:47 General: Alert, Oriented x3, Cooperative, No apparent distress Extremities: Capillary Refill Less than 3 Seconds, No Calf Tenderness - Negative Wojciech and Guerrero sign, Diminished Peripheral Pulses - DP and PT pulses nonpalpable due to lower extremity edema, Edema - Lower extremity edema Skin: Ulcer/ Wound - Ulcer to the plantar posterior aspect of the right heel. Surgical debridement completed June 14. Slow improvement again appreciated this week in the appearance of the ulcer. There is a small amount of adherent slough as well as fibrin to the ulcer base. Very slight amount of maceration appreciated around the ulcer. There continues to be no extending cellulitis, no purulence, no malodor, no increased warmth, no probing to bone, and no undermining. Wound Measurements and Assessment WC - Nurse 1 - General Ulcer Measurement Start: 08/04/17 09:29 Freq: Status: Active Protocol: Activity Type Activity Date Activity User E-Sign Co-Sign Detail Recorded Client Recorded Date Recorded By Document 08/15/17 12:01 VA [id number] 08/15/17 12:32 MT Document 08/18/17 09:47 [facility] [id number] 08/18/17 09:57 BM 08/15/17 08/18/17 12:01 09:47 Wound Center Nurse 1 [Ulcer Assessment] #2- RT HEEL -Combined with other wound No No -Current Size (cm) - Length 2 1.4 -Current Size (cm) - Width 1.5 1.9 -Current Size (cm) - Depth 0.1 0.5 -Total Square Cm 3.0 2.66 -Date of Last Picture (Recall this 08/18/17 field) -Photo Taken No Yes -Epithelialization Small 1-33% None Present -Tunneling No No -Undermining/Tunneling No No -Circular Undermining No No -Exudate Amt Small (1-33%) None Present (0 %) -Exudate Type Serosanguineous -Wound Margin Thickened Distinct, Outline Attached -Granulation Amt Large (67-100%) Large (67-100%) -Granulation Quality Red [place] -Slough/Fibrin No No -Necrosis Amt None Present (0 %) -Structure Exposed N/A -Texture (Miguelina-wound Skin Appearance) Assessed Scarring Callus -Moisture (Miguelina-wound Skin Appearance Assessed Maceration ) Maceration -Color (Miguelina-wound Skin Appearance) Assessed Palor -Temperature (Miguelina-wound Skin No Abnormality No Abnormality Appearance) (Pt Warm) (Pt Warm) -Tenderness on Palpation (Miguelina-wound No No Skin Appearance) -Ulcer Cleansing surrounding Wound Cleanser skin washed with soap and water -Foul Odor after Cleansing No No -Anesthetic Used 5% Lidocaine Gel [Edema Assessment] -Lower Limb Edema Present NA No -Right Calf (cm) 33.4 -Right Ankle (cm) 21.2 WC - Nurse 2 - General Ulcer CM Notes Start: 08/04/17 09:29 Freq: Status: Active Protocol: Activity Type Activity Date Activity User E-Sign Co-Sign Detail Recorded Client Recorded Date Recorded By Document 08/18/17 10:04 [id number] 08/18/17 10:09 08/18/17 10:04 Wound Center Nurse 2 [Procedure/Treatment] #2- RT HEEL -Time 10:04 -Correct Patient Yes -Correct Side, Site, Position Yes -Correct Procedure Yes -Procedure Performed Yes -Type of Procedure Debridement -Clinical Debridement Subcutaneous -Post Debridement Size (cm) - Length 2.0 -Post Debridement Size (cm) - Width 1.8 -Post Debridement Size (cm) - Depth 0.3 -Total Square Cm 3.60 -Wound/Ulcer Outcome Not Healed -Ulcer Cleansing Not Cleansed -Foul Odor after Cleansing No -Bleeding Controlled with Pressure -Treatment Response Procedure Tolerated Well [See Physician Procedure note for Specifics] Pain Scale: 0-10 Numeric [Pain] -Is Patient Pain Free? Yes Musculoskeletal: - - Patient denies tenderness with manipulation of ulcer site Neurological: - - Epicritic sensation grossly absent to lower extremity Psych/Mental Status: Normal Affect, Appropriate Debridement Note Post-Debridement Measurements/Treatment - Nurse 2 - General Ulcer CM Notes Start: 08/04/17 09:29 Freq: Status: Active Protocol: Activity Type Activity Date Activity User E-Sign Co-Sign Detail Recorded Client Recorded Date Recorded By Document 08/04/17 09:57 [id number] 08/04/17 10:24 JS Document 08/11/17 12:03 CS [id number] 08/11/17 12:07 CS Document 08/18/17 10:04 [id number] 08/18/17 10:09 08/04/17 08/11/17 08/18/17 09:57 12:03 10:04 Wound Center Nurse 2 #2- RT HEEL -Time 09:57 11:50 10:04 -Correct Patient Yes Yes Yes -Correct Side, Site, Position Yes Yes Yes -Correct Procedure Yes Yes Yes -Procedure Performed Yes Yes Yes -Type of Procedure Debridement Debridement Debridement -Clinical Debridement Subcutaneous Subcutaneous Subcutaneous -Post Debridement Size (cm) - Length 1.9 1.9 2.0 -Post Debridement Size (cm) - Width 1.9 2.1 1.8 -Post Debridement Size (cm) - Depth 0.4 0.3 0.3 -Total Square Cm 3.61 3.99 3.60 -Wound/Ulcer Outcome Not Healed Not Healed Not Healed -Ulcer Cleansing Rinsed/ Rinsed/ Not Cleansed Irrigated with Irrigated with Saline Saline -Foul Odor after Cleansing Yes, Due to No No Product Use -Bioengineered Tissue Yes Yes -Type of bioengineered Tissue GRAFIX-Core GRAFIX-Core -Expiration Date 05/23/20 05/23/20 -Product Lot Number [id number] -Percent Used 100 100 -Saline Lot Number [id number] -Topical Lidocaine (%) 4 4 -Lidocaine (ml) 5 5 -Bleeding Controlled with Pressure NA Pressure -Treatment Response Procedure Procedure Procedure Tolerated Well Tolerated Well Tolerated Well Pain Scale: 0-10 Numeric Is Patient Pain Free? Yes Yes Yes Wound debrided: Right plantar posterior heel Laterality: Right Wound Grade/Stage: 3 Type of Debridement: Excisional debridement Anesthesia Used: 4% Lidocaine Solution Depth: in the subcutaneous layer Percentage of wound debrided: 100 Instrument Used: 5mm curette Tissue Removed: Adherent slough, fibrin Severity: Fat Layer Exposed Amount of bleeding with debridement: Mild Bleeding Controlled with: Pressure Patient tolerated procedure well Assessment/Plan Assessment: Ulcer to right heel with stable eschar. DM with neuropathy. Malnutrition. Plan: Patient was again examined and evaluated today. Patient is S/P surgical debridement with versajet of all necrotic, non-viable, and infected soft tissue with bone biopsy on June 14. Details from surgery are noted in the operative report. Angiogram performed prior to surgical debridement by Dr. Rios. Subcutaneous debridement was again completed today as described in the clinical panel. Following debridement, the vac was set at 125 continuous flow. This will be changed at a nursing visit on Tuesday again just like last week. We will take a one week break from the graffix core, and then resume again next week. Patient and his were instructed to keep the dressing clean, dry, and intact. They say they understand this. Patient to continue with high protein diet and it was again stressed how important keeping blood sugar under control is to healing process. It was also again stressed to the patient how important it is to keep pressure off of his heel at all times and that this includes any type of pressure at all, as the patient has been noncompliant in the past with this. Patient asks today if he can start driving. I informed him that he could not and discussed why this was a bad idea with the area his ulcer is in. I also again informed him and his that there is possibility that although his procedure went well, there is still a chance that this can lead to extensive debridements, partial calcaneal amputations, or even more proximal amputations on the leg, among other possible outcomes. He is to use the knee scooter at all times while walking. While sitting or laying in bed he was instructed to keep the heel floating over the edge of a pillow in order to have absolutely no pressure to the area. Patient and the patient's were educated on signs and symptoms of local and systemic infection and were instructed to go to the emergency room immediately should they notice any. All questions were answered to the patient and the patient's 's satisfaction. I still continue to be concerned with the patient's compliance. They will follow-up in clinic in 1 week for further evaluation, or sooner if needed. This note was generated with [employer] dictation software. It may contain incorrect words, spelling, and punctuation that were not noted in checking the note before signing.
--- NOTE | 2017-08-18 10:19 | PN.PCM_ITS ---
(1) Chronic ulcer of right heel Status: Acute Current Visit: No Code(s): L97.419 - Non-pressure chronic ulcer of right heel and midfoot with unspecified severity (2) Lower extremity edema Status: Chronic Current Visit: No Code(s): R60.0 - Localized edema (3) PVD (peripheral vascular disease) Status: Suspected Current Visit: No Code(s): I73.9 - Peripheral vascular disease, unspecified (4) Type 2 diabetes mellitus with diabetic polyneuropathy Status: Acute Current Visit: No Code(s): E11.42 - Type 2 diabetes mellitus with diabetic polyneuropathy Type of Wound Date of Service: 08/18/17 Chief Complaint: Chronic non healing ulcer to right posterior heel with fat layer exposed. History of Wound: This 61-year-old diabetic male presents for follow up of chronic nonhealing ulcer to right posterior heel. Patient states on February 21 he believes he stepped on a staple walking down the stairs and had a tear in his skin. This progressed over the following days into an ulcer. Patient has seen Dr. See as well as gone to [facility] wound center in the past. While at the [facility], the patient was undergoing every other day dressing changes consisting of medihoney and a dry sterile dressing. The patient has a knee walker and claims to be using it, but not all the time. The also states that the patient has not keeping pressure off of his right foot as much as he should be, even after last weeks visit, although he has gotten better. Patient denies any purulence to the area. The patient denies any feelings of nausea, vomiting, chills, fever at this time. Progress of Wound: Patient presents to clinic for follow up of right heel ulcer. He presents after having another graffix application last week followed by wound vac application. His vac was changed on Tuesday. Patient states he has done well with this again this week. Currently, the patient denies any feelings of nausea, vomiting, fever, or chills. - Physical Exam Vital Signs Temp Pulse Resp BP 97.8 F 81 16 132/68 H 08/18/17 09:47 08/18/17 09:47 08/18/17 09:47 08/18/17 09:47 General: Alert, Oriented x3, Cooperative, No apparent distress Extremities: Capillary Refill Less than 3 Seconds, No Calf Tenderness - Negative Wojciech and Guerrero sign, Diminished Peripheral Pulses - DP and PT pulses nonpalpable due to lower extremity edema, Edema - Lower extremity edema Skin: Ulcer/ Wound - Ulcer to the plantar posterior aspect of the right heel. Surgical debridement completed June 14. Slow improvement again appreciated this week in the appearance of the ulcer. There is a small amount of adherent slough as well as fibrin to the ulcer base. Very slight amount of maceration appreciated around the ulcer. There continues to be no extending cellulitis, no purulence, no malodor, no increased warmth, no probing to bone, and no undermining. Wound Measurements and Assessment WC - Nurse 1 - General Ulcer Measurement Start: 08/04/17 09:29 Freq: Status: Active Protocol: Activity Type Activity Date Activity User E-Sign Co-Sign Detail Recorded Client Recorded Date Recorded By Document 08/15/17 12:01 IN [id number] 08/15/17 12:32 MT Document 08/18/17 09:47 [facility] [id number] 08/18/17 09:57 BM 08/15/17 08/18/17 12:01 09:47 Wound Center Nurse 1 [Ulcer Assessment] #2- RT HEEL -Combined with other wound No No -Current Size (cm) - Length 2 1.4 -Current Size (cm) - Width 1.5 1.9 -Current Size (cm) - Depth 0.1 0.5 -Total Square Cm 3.0 2.66 -Date of Last Picture (Recall this 08/18/17 field) -Photo Taken No Yes -Epithelialization Small 1-33% None Present -Tunneling No No -Undermining/Tunneling No No -Circular Undermining No No -Exudate Amt Small (1-33%) None Present (0 %) -Exudate Type Serosanguineous -Wound Margin Thickened Distinct, Outline Attached -Granulation Amt Large (67-100%) Large (67-100%) -Granulation Quality Red [place] -Slough/Fibrin No No -Necrosis Amt None Present (0 %) -Structure Exposed N/A -Texture (Miguelina-wound Skin Appearance) Assessed Scarring Callus -Moisture (Miguelina-wound Skin Appearance Assessed Maceration ) Maceration -Color (Miguelina-wound Skin Appearance) Assessed Palor -Temperature (Miguelina-wound Skin No Abnormality No Abnormality Appearance) (Pt Warm) (Pt Warm) -Tenderness on Palpation (Miguelina-wound No No Skin Appearance) -Ulcer Cleansing surrounding Wound Cleanser skin washed with soap and water -Foul Odor after Cleansing No No -Anesthetic Used 5% Lidocaine Gel [Edema Assessment] -Lower Limb Edema Present NA No -Right Calf (cm) 33.4 -Right Ankle (cm) 21.2 WC - Nurse 2 - General Ulcer CM Notes Start: 08/04/17 09:29 Freq: Status: Active Protocol: Activity Type Activity Date Activity User E-Sign Co-Sign Detail Recorded Client Recorded Date Recorded By Document 08/18/17 10:04 [id number] 08/18/17 10:09 08/18/17 10:04 Wound Center Nurse 2 [Procedure/Treatment] #2- RT HEEL -Time 10:04 -Correct Patient Yes -Correct Side, Site, Position Yes -Correct Procedure Yes -Procedure Performed Yes -Type of Procedure Debridement -Clinical Debridement Subcutaneous -Post Debridement Size (cm) - Length 2.0 -Post Debridement Size (cm) - Width 1.8 -Post Debridement Size (cm) - Depth 0.3 -Total Square Cm 3.60 -Wound/Ulcer Outcome Not Healed -Ulcer Cleansing Not Cleansed -Foul Odor after Cleansing No -Bleeding Controlled with Pressure -Treatment Response Procedure Tolerated Well [See Physician Procedure note for Specifics] Pain Scale: 0-10 Numeric [Pain] -Is Patient Pain Free? Yes Musculoskeletal: - - Patient denies tenderness with manipulation of ulcer site Neurological: - - Epicritic sensation grossly absent to lower extremity Psych/Mental Status: Normal Affect, Appropriate Debridement Note Post-Debridement Measurements/Treatment - Nurse 2 - General Ulcer CM Notes Start: 08/04/17 09:29 Freq: Status: Active Protocol: Activity Type Activity Date Activity User E-Sign Co-Sign Detail Recorded Client Recorded Date Recorded By Document 08/04/17 09:57 [id number] 08/04/17 10:24 JS Document 08/11/17 12:03 CS [id number] 08/11/17 12:07 CS Document 08/18/17 10:04 [id number] 08/18/17 10:09 08/04/17 08/11/17 08/18/17 09:57 12:03 10:04 Wound Center Nurse 2 #2- RT HEEL -Time 09:57 11:50 10:04 -Correct Patient Yes Yes Yes -Correct Side, Site, Position Yes Yes Yes -Correct Procedure Yes Yes Yes -Procedure Performed Yes Yes Yes -Type of Procedure Debridement Debridement Debridement -Clinical Debridement Subcutaneous Subcutaneous Subcutaneous -Post Debridement Size (cm) - Length 1.9 1.9 2.0 -Post Debridement Size (cm) - Width 1.9 2.1 1.8 -Post Debridement Size (cm) - Depth 0.4 0.3 0.3 -Total Square Cm 3.61 3.99 3.60 -Wound/Ulcer Outcome Not Healed Not Healed Not Healed -Ulcer Cleansing Rinsed/ Rinsed/ Not Cleansed Irrigated with Irrigated with Saline Saline -Foul Odor after Cleansing Yes, Due to No No Product Use -Bioengineered Tissue Yes Yes -Type of bioengineered Tissue GRAFIX-Core GRAFIX-Core -Expiration Date 05/23/20 05/23/20 -Product Lot Number [id number] -Percent Used 100 100 -Saline Lot Number [id number] -Topical Lidocaine (%) 4 4 -Lidocaine (ml) 5 5 -Bleeding Controlled with Pressure NA Pressure -Treatment Response Procedure Procedure Procedure Tolerated Well Tolerated Well Tolerated Well Pain Scale: 0-10 Numeric Is Patient Pain Free? Yes Yes Yes Wound debrided: Right plantar posterior heel Laterality: Right Wound Grade/Stage: 3 Type of Debridement: Excisional debridement Anesthesia Used: 4% Lidocaine Solution Depth: in the subcutaneous layer Percentage of wound debrided: 100 Instrument Used: 5mm curette Tissue Removed: Adherent slough, fibrin Severity: Fat Layer Exposed Amount of bleeding with debridement: Mild Bleeding Controlled with: Pressure Patient tolerated procedure well Assessment/Plan Assessment: Ulcer to right heel with stable eschar. DM with neuropathy. Malnutrition. Plan: Patient was again examined and evaluated today. Patient is S/P surgical debridement with versajet of all necrotic, non-viable, and infected soft tissue with bone biopsy on June 14. Details from surgery are noted in the operative report. Angiogram performed prior to surgical debridement by Dr. Rios. Subcutaneous debridement was again completed today as described in the clinical panel. Following debridement, the vac was set at 125 continuous flow. This will be changed at a nursing visit on Tuesday again just like last week. We will take a one week break from the graffix core, and then resume again next week. Patient and his were instructed to keep the dressing clean, dry, and intact. They say they understand this. Patient to continue with high protein diet and it was again stressed how important keeping blood sugar under control is to healing process. It was also again stressed to the patient how important it is to keep pressure off of his heel at all times and that this includes any type of pressure at all, as the patient has been noncompliant in the past with this. Patient asks today if he can start driving. I informed him that he could not and discussed why this was a bad idea with the area his ulcer is in. I also again informed him and his that there is possibility that although his procedure went well, there is still a chance that this can lead to extensive debridements, partial calcaneal amputations, or even more proximal amputations on the leg, among other possible outcomes. He is to use the knee scooter at all times while walking. While sitting or laying in bed he was instructed to keep the heel floating over the edge of a pillow in order to have absolutely no pressure to the area. Patient and the patient's were educated on signs and symptoms of local and systemic infection and were instructed to go to the emergency room immediately should they notice any. All questions were answered to the patient and the patient's 's satisfaction. I still continue to be concerned with the patient's compliance. They will follow-up in clinic in 1 week for further evaluation, or sooner if needed. This note was generated with [employer] dictation software. It may contain incorrect words, spelling, and punctuation that were not noted in checking the note before signing.
== END 2017-08-20 23:59 ==
LOC: WC 09:30
PROVIDERS: Visit Provider Podiatrist
DX: E11.621 Type 2 diabetes mellitus with foot ulcer (principal); E11.42 Type 2 diabetes mellitus with diabetic polyneuropathy; E11.51 Type 2 diabetes mellitus with diabetic peripheral angiopathy without gangrene; L97.412 Non-pressure chronic ulcer of right heel and midfoot with fat layer exposed; R60.0 Localized edema
CPT/HCPCS: 11042; 15275; 97605; Q4132

== ENCOUNTER 2017-09-15 09:30 | Outpatient (RCR) | payer MEDICARE, SELFPAY ==
[2017-08-21 00:35] VITALS: BP 132/68; PULSE 81; RESP 16; TEMP 36.6; BMI 32.7
[2017-08-25 11:28] VITALS: BP 133/70; PULSE 92; RESP 18; TEMP 35.8; BMI 32.7
--- NOTE | 2017-08-25 13:53 | PCM.WC.PN ---
(1) Chronic ulcer of right heel Status: Acute Current Visit: No Code(s): L97.419 - Non-pressure chronic ulcer of right heel and midfoot with unspecified severity (2) Lower extremity edema Status: Chronic Current Visit: No Code(s): R60.0 - Localized edema (3) PVD (peripheral vascular disease) Status: Suspected Current Visit: No Code(s): I73.9 - Peripheral vascular disease, unspecified (4) Type 2 diabetes mellitus with diabetic polyneuropathy Status: Acute Current Visit: No Code(s): E11.42 - Type 2 diabetes mellitus with diabetic polyneuropathy Type of Wound Date of Service: 08/25/17 Chief Complaint: Chronic non healing ulcer to right posterior heel with fat layer exposed. History of Wound: This 61-year-old diabetic male presents for follow up of chronic nonhealing ulcer to right posterior heel. Patient states on February 21 he believes he stepped on a staple walking down the stairs and had a tear in his skin. This progressed over the following days into an ulcer. Patient has seen Dr. See as well as gone to [facility] wound center in the past. While at [facility], the patient was undergoing every other day dressing changes consisting of medihoney and a dry sterile dressing. The patient has a knee walker and claims to be using it, but not all the time. The also states that the patient has not keeping pressure off of his right foot as much as he should be, even after last weeks visit, although he has gotten better. Patient denies any purulence to the area. The patient denies any feelings of nausea, vomiting, chills, fever at this time. Progress of Wound: Patient presents to clinic for follow up of right heel ulcer. His vac was changed on Tuesday. Patient states he has done well again this week. Currently, the patient denies any feelings of nausea, vomiting, fever, or chills. - Physical Exam Vital Signs Temp Pulse Resp BP 96.5 F L 92 18 133/70 H 08/25/17 11:28 08/25/17 11:28 08/25/17 11:28 08/25/17 11:28 General: Alert, Oriented x3, Cooperative, No apparent distress Extremities: Capillary Refill Less than 3 Seconds, No Calf Tenderness - Negative Wojciech and Guerrero sign, Diminished Peripheral Pulses - DP and PT pulses nonpalpable due to lower extremity edema, Edema - Lower extremity edema Skin: Ulcer/ Wound - Ulcer to the plantar posterior aspect of the right heel. Surgical debridement was completed June 14. Improvement noted again this week in appearance in depth of the ulcer. There is a small amount of adherent slough as well as fibrin to the ulcer base. Very small amount of maceration still appreciated around the ulcer site. There continues to be no extending cellulitis, no purulence, no malodor, no increased warmth, no probing to bone, and no undermining to the ulcer site. Wound Measurements and Assessment WC - Nurse 1 - General Ulcer Measurement Start: 08/25/17 11:28 Freq: Status: Active Protocol: Activity Type Activity Date Activity User E-Sign Co-Sign Detail Recorded Client Recorded Date Recorded By Document 08/25/17 11:28 [id number] 08/25/17 11:31 08/25/17 11:28 Wound Center Nurse 1 [Ulcer Assessment] #2- RT HEEL -Combined with other wound No -Current Size (cm) - Length 1.9 -Current Size (cm) - Width 1.5 -Current Size (cm) - Depth 0.6 -Total Square Cm 2.85 -Photo Taken No -Epithelialization None Present -Tunneling No -Undermining/Tunneling No -Circular Undermining No -Classification - Thickness Full Thickness without Exposed Support Structure -Exudate Amt Medium (34-66%) -Exudate Type Serosanguineous -Wound Margin Distinct, Outline Attached -Granulation Amt Large (67-100%) -Granulation Quality Red -Slough/Fibrin Yes -Necrosis Amt Small (1-33%) -Necrotic Tissue Type Adherent Slough -Structure Exposed Fascia Fat Layer Exposed -Texture (Miguelina-wound Skin Appearance) Assessed Scarring -Moisture (Miguelina-wound Skin Appearance Maceration ) -Color (Miguelina-wound Skin Appearance) No Abnormality Assessed -Temperature (Miguelina-wound Skin No Abnormality Appearance) (Pt Warm) -Tenderness on Palpation (Miguelina-wound No Skin Appearance) -Ulcer Cleansing Rinsed/ Irrigated with Saline -Foul Odor after Cleansing No -Anesthetic Used 4% Lidocaine Solution [Edema Assessment] -Lower Limb Edema Present Yes -Right Calf (cm) 31.5 -Right Ankle (cm) 21.5 - Nurse 2 - General Ulcer CM Notes Start: 08/25/17 11:28 Freq: Status: Active Protocol: Activity Type Activity Date Activity User E-Sign Co-Sign Detail Recorded Client Recorded Date Recorded By Document 08/25/17 12:04 [id number] 08/25/17 12:05 08/25/17 12:04 Wound Center Nurse 2 [Procedure/Treatment] #2- RT HEEL -Time 12:04 -Correct Patient Yes -Correct Side, Site, Position Yes -Correct Procedure Yes -Procedure Performed Yes -Type of Procedure Debridement -Clinical Debridement Subcutaneous -Post Debridement Size (cm) - Length 1.8 -Post Debridement Size (cm) - Width 1.8 -Post Debridement Size (cm) - Depth 0.3 -Total Square Cm 3.24 -Wound/Ulcer Outcome Not Healed -Ulcer Cleansing Not Cleansed -Foul Odor after Cleansing No -Bioengineered Tissue Yes -Type of bioengineered Tissue GRAFIX-Core -Expiration Date 05/31/20 -Product Lot Number [id number] -Percent Used 100 -Bleeding Controlled with NA -Treatment Response Procedure Tolerated Well [See Physician Procedure note for Specifics] Pain Scale: 0-10 Numeric [Pain] -Is Patient Pain Free? Yes Musculoskeletal: - - Patient denies tenderness to manipulation of ulcer site Neurological: - - Epicritic sensation grossly absent to lower extremity Psych/Mental Status: Normal Affect, Appropriate Debridement Note Post-Debridement Measurements/Treatment WC - Nurse 2 - General Ulcer CM Notes Start: 08/25/17 11:28 Freq: Status: Active Protocol: Activity Type Activity Date Activity User E-Sign Co-Sign Detail Recorded Client Recorded Date Recorded By Document 08/25/17 12:04 [id number] 08/25/17 12:05 08/25/17 12:04 Wound Center Nurse 2 #2- RT HEEL -Time 12:04 -Correct Patient Yes -Correct Side, Site, Position Yes -Correct Procedure Yes -Procedure Performed Yes -Type of Procedure Debridement -Clinical Debridement Subcutaneous -Post Debridement Size (cm) - Length 1.8 -Post Debridement Size (cm) - Width 1.8 -Post Debridement Size (cm) - Depth 0.3 -Total Square Cm 3.24 -Wound/Ulcer Outcome Not Healed -Ulcer Cleansing Not Cleansed -Foul Odor after Cleansing No -Bioengineered Tissue Yes -Type of bioengineered Tissue GRAFIX-Core -Expiration Date 05/31/20 -Product Lot Number [id number] -Percent Used 100 -Bleeding Controlled with NA -Treatment Response Procedure Tolerated Well Pain Scale: 0-10 Numeric Is Patient Pain Free? Yes Wound debrided: Right plantar posterior heel Laterality: Right Wound Grade/Stage: 3 Type of Debridement: Excisional debridement Anesthesia Used: 4% Lidocaine Solution Depth: in the subcutaneous layer Percentage of wound debrided: 100 Instrument Used: 5mm curette Tissue Removed: Adherent slough, fibrin Severity: Fat Layer Exposed Amount of bleeding with debridement: Mild Bleeding Controlled with: Pressure Patient tolerated procedure well Assessment/Plan Assessment: Ulcer to right heel with stable eschar. DM with neuropathy. Malnutrition. Plan: Patient was again examined and evaluated today. Patient is S/P surgical debridement with versajet of all necrotic, non-viable, and infected soft tissue with bone biopsy on June 14. Details from surgery are noted in the operative report. Angiogram performed prior to surgical debridement by Dr. Rios. Subcutaneous debridement was again completed today as described in the clinical panel. Following debridement, another graffix core was applied, followed by wound veil, steristrips, and a wound vac set at 100 mmHg continuous flow initially. This will be changed at a nursing visit on Tuesday again just like last week and the vac will be increased to 125 mmHg continuous flow. Patient and his were instructed to keep the dressing clean, dry, and intact. They say they understand this. Patient to continue with high protein diet and it was again stressed how important keeping blood sugar under control is to healing process. It was also again stressed to the patient how important it is to keep pressure off of his heel at all times and that this includes any type of pressure at all, as the patient has been noncompliant in the past with this. Patient asks today if he can start driving. I informed him that he could not and discussed why this was a bad idea with the area his ulcer is in. I also again informed him and his that there is possibility that although his procedure went well, there is still a chance that this can lead to extensive debridements, partial calcaneal amputations, or even more proximal amputations on the leg, among other possible outcomes. He is to use the knee scooter at all times while walking. While sitting or laying in bed he was instructed to keep the heel floating over the edge of a pillow in order to have absolutely no pressure to the area. Patient and the patient's were educated on signs and symptoms of local and systemic infection and were instructed to go to the emergency room immediately should they notice any. All questions were answered to the patient and the patient's 's satisfaction. I still continue to be concerned with the patient's compliance. They will follow-up in clinic in 1 week for further evaluation, or sooner if needed. This note was generated with [employer] dictation software. It may contain incorrect words, spelling, and punctuation that were not noted in checking the note before signing.
--- NOTE | 2017-08-25 13:59 | PN.PCM_ITS ---
(1) Chronic ulcer of right heel Status: Acute Current Visit: No Code(s): L97.419 - Non-pressure chronic ulcer of right heel and midfoot with unspecified severity (2) Lower extremity edema Status: Chronic Current Visit: No Code(s): R60.0 - Localized edema (3) PVD (peripheral vascular disease) Status: Suspected Current Visit: No Code(s): I73.9 - Peripheral vascular disease, unspecified (4) Type 2 diabetes mellitus with diabetic polyneuropathy Status: Acute Current Visit: No Code(s): E11.42 - Type 2 diabetes mellitus with diabetic polyneuropathy Type of Wound Date of Service: 08/25/17 Chief Complaint: Chronic non healing ulcer to right posterior heel with fat layer exposed. History of Wound: This 61-year-old diabetic male presents for follow up of chronic nonhealing ulcer to right posterior heel. Patient states on February 21 he believes he stepped on a staple walking down the stairs and had a tear in his skin. This progressed over the following days into an ulcer. Patient has seen Dr. See as well as gone to [facility] wound center in the past. While at [facility], the patient was undergoing every other day dressing changes consisting of medihoney and a dry sterile dressing. The patient has a knee walker and claims to be using it, but not all the time. The also states that the patient has not keeping pressure off of his right foot as much as he should be, even after last weeks visit, although he has gotten better. Patient denies any purulence to the area. The patient denies any feelings of nausea, vomiting, chills, fever at this time. Progress of Wound: Patient presents to clinic for follow up of right heel ulcer. His vac was changed on Tuesday. Patient states he has done well again this week. Currently, the patient denies any feelings of nausea, vomiting, fever, or chills. - Physical Exam Vital Signs Temp Pulse Resp BP 96.5 F L 92 18 133/70 H 08/25/17 11:28 08/25/17 11:28 08/25/17 11:28 08/25/17 11:28 General: Alert, Oriented x3, Cooperative, No apparent distress Extremities: Capillary Refill Less than 3 Seconds, No Calf Tenderness - Negative Wojciech and Guerrero sign, Diminished Peripheral Pulses - DP and PT pulses nonpalpable due to lower extremity edema, Edema - Lower extremity edema Skin: Ulcer/ Wound - Ulcer to the plantar posterior aspect of the right heel. Surgical debridement was completed June 14. Improvement noted again this week in appearance in depth of the ulcer. There is a small amount of adherent slough as well as fibrin to the ulcer base. Very small amount of maceration still appreciated around the ulcer site. There continues to be no extending cellulitis, no purulence, no malodor, no increased warmth, no probing to bone, and no undermining to the ulcer site. Wound Measurements and Assessment WC - Nurse 1 - General Ulcer Measurement Start: 08/25/17 11:28 Freq: Status: Active Protocol: Activity Type Activity Date Activity User E-Sign Co-Sign Detail Recorded Client Recorded Date Recorded By Document 08/25/17 11:28 [id number] 08/25/17 11:31 08/25/17 11:28 Wound Center Nurse 1 [Ulcer Assessment] #2- RT HEEL -Combined with other wound No -Current Size (cm) - Length 1.9 -Current Size (cm) - Width 1.5 -Current Size (cm) - Depth 0.6 -Total Square Cm 2.85 -Photo Taken No -Epithelialization None Present -Tunneling No -Undermining/Tunneling No -Circular Undermining No -Classification - Thickness Full Thickness without Exposed Support Structure -Exudate Amt Medium (34-66%) -Exudate Type Serosanguineous -Wound Margin Distinct, Outline Attached -Granulation Amt Large (67-100%) -Granulation Quality Red -Slough/Fibrin Yes -Necrosis Amt Small (1-33%) -Necrotic Tissue Type Adherent Slough -Structure Exposed Fascia Fat Layer Exposed -Texture (Miguelina-wound Skin Appearance) Assessed Scarring -Moisture (Miguelina-wound Skin Appearance Maceration ) -Color (Miguelina-wound Skin Appearance) No Abnormality Assessed -Temperature (Miguelina-wound Skin No Abnormality Appearance) (Pt Warm) -Tenderness on Palpation (Miguelina-wound No Skin Appearance) -Ulcer Cleansing Rinsed/ Irrigated with Saline -Foul Odor after Cleansing No -Anesthetic Used 4% Lidocaine Solution [Edema Assessment] -Lower Limb Edema Present Yes -Right Calf (cm) 31.5 -Right Ankle (cm) 21.5 - Nurse 2 - General Ulcer CM Notes Start: 08/25/17 11:28 Freq: Status: Active Protocol: Activity Type Activity Date Activity User E-Sign Co-Sign Detail Recorded Client Recorded Date Recorded By Document 08/25/17 12:04 [id number] 08/25/17 12:05 08/25/17 12:04 Wound Center Nurse 2 [Procedure/Treatment] #2- RT HEEL -Time 12:04 -Correct Patient Yes -Correct Side, Site, Position Yes -Correct Procedure Yes -Procedure Performed Yes -Type of Procedure Debridement -Clinical Debridement Subcutaneous -Post Debridement Size (cm) - Length 1.8 -Post Debridement Size (cm) - Width 1.8 -Post Debridement Size (cm) - Depth 0.3 -Total Square Cm 3.24 -Wound/Ulcer Outcome Not Healed -Ulcer Cleansing Not Cleansed -Foul Odor after Cleansing No -Bioengineered Tissue Yes -Type of bioengineered Tissue GRAFIX-Core -Expiration Date 05/31/20 -Product Lot Number [id number] -Percent Used 100 -Bleeding Controlled with NA -Treatment Response Procedure Tolerated Well [See Physician Procedure note for Specifics] Pain Scale: 0-10 Numeric [Pain] -Is Patient Pain Free? Yes Musculoskeletal: - - Patient denies tenderness to manipulation of ulcer site Neurological: - - Epicritic sensation grossly absent to lower extremity Psych/Mental Status: Normal Affect, Appropriate Debridement Note Post-Debridement Measurements/Treatment WC - Nurse 2 - General Ulcer CM Notes Start: 08/25/17 11:28 Freq: Status: Active Protocol: Activity Type Activity Date Activity User E-Sign Co-Sign Detail Recorded Client Recorded Date Recorded By Document 08/25/17 12:04 [id number] 08/25/17 12:05 08/25/17 12:04 Wound Center Nurse 2 #2- RT HEEL -Time 12:04 -Correct Patient Yes -Correct Side, Site, Position Yes -Correct Procedure Yes -Procedure Performed Yes -Type of Procedure Debridement -Clinical Debridement Subcutaneous -Post Debridement Size (cm) - Length 1.8 -Post Debridement Size (cm) - Width 1.8 -Post Debridement Size (cm) - Depth 0.3 -Total Square Cm 3.24 -Wound/Ulcer Outcome Not Healed -Ulcer Cleansing Not Cleansed -Foul Odor after Cleansing No -Bioengineered Tissue Yes -Type of bioengineered Tissue GRAFIX-Core -Expiration Date 05/31/20 -Product Lot Number [id number] -Percent Used 100 -Bleeding Controlled with NA -Treatment Response Procedure Tolerated Well Pain Scale: 0-10 Numeric Is Patient Pain Free? Yes Wound debrided: Right plantar posterior heel Laterality: Right Wound Grade/Stage: 3 Type of Debridement: Excisional debridement Anesthesia Used: 4% Lidocaine Solution Depth: in the subcutaneous layer Percentage of wound debrided: 100 Instrument Used: 5mm curette Tissue Removed: Adherent slough, fibrin Severity: Fat Layer Exposed Amount of bleeding with debridement: Mild Bleeding Controlled with: Pressure Patient tolerated procedure well Assessment/Plan Assessment: Ulcer to right heel with stable eschar. DM with neuropathy. Malnutrition. Plan: Patient was again examined and evaluated today. Patient is S/P surgical debridement with versajet of all necrotic, non-viable, and infected soft tissue with bone biopsy on June 14. Details from surgery are noted in the operative report. Angiogram performed prior to surgical debridement by Dr. Rios. Subcutaneous debridement was again completed today as described in the clinical panel. Following debridement, another graffix core was applied, followed by wound veil, steristrips, and a wound vac set at 100 mmHg continuous flow initially. This will be changed at a nursing visit on Tuesday again just like last week and the vac will be increased to 125 mmHg continuous flow. Patient and his were instructed to keep the dressing clean, dry, and intact. They say they understand this. Patient to continue with high protein diet and it was again stressed how important keeping blood sugar under control is to healing process. It was also again stressed to the patient how important it is to keep pressure off of his heel at all times and that this includes any type of pressure at all, as the patient has been noncompliant in the past with this. Patient asks today if he can start driving. I informed him that he could not and discussed why this was a bad idea with the area his ulcer is in. I also again informed him and his that there is possibility that although his procedure went well, there is still a chance that this can lead to extensive debridements, partial calcaneal amputations, or even more proximal amputations on the leg, among other possible outcomes. He is to use the knee scooter at all times while walking. While sitting or laying in bed he was instructed to keep the heel floating over the edge of a pillow in order to have absolutely no pressure to the area. Patient and the patient's were educated on signs and symptoms of local and systemic infection and were instructed to go to the emergency room immediately should they notice any. All questions were answered to the patient and the patient's 's satisfaction. I still continue to be concerned with the patient's compliance. They will follow-up in clinic in 1 week for further evaluation, or sooner if needed. This note was generated with [employer] dictation software. It may contain incorrect words, spelling, and punctuation that were not noted in checking the note before signing.
[2017-09-01 09:28] VITALS: BP 151/84; PULSE 79; RESP 18; TEMP 36.2; BMI 32.7
--- NOTE | 2017-09-01 10:12 | PCM.WC.PN ---
(1) Chronic ulcer of right heel Status: Acute Current Visit: No Code(s): L97.419 - Non-pressure chronic ulcer of right heel and midfoot with unspecified severity (2) Lower extremity edema Status: Chronic Current Visit: No Code(s): R60.0 - Localized edema (3) PVD (peripheral vascular disease) Status: Suspected Current Visit: No Code(s): I73.9 - Peripheral vascular disease, unspecified (4) Type 2 diabetes mellitus with diabetic polyneuropathy Status: Acute Current Visit: No Code(s): E11.42 - Type 2 diabetes mellitus with diabetic polyneuropathy Type of Wound Date of Service: 09/01/17 Chief Complaint: Chronic non healing ulcer to right posterior heel with fat layer exposed. History of Wound: This 61-year-old diabetic male presents for follow up of chronic nonhealing ulcer to right posterior heel. Patient states on February 21 he believes he stepped on a staple walking down the stairs and had a tear in his skin. This progressed over the following days into an ulcer. Patient has seen Dr. See as well as gone to [facility] wound center in the past. While at [facility], the patient was undergoing every other day dressing changes consisting of medihoney and a dry sterile dressing. The patient has a knee walker and claims to be using it, but not all the time. The also states that the patient has not keeping pressure off of his right foot as much as he should be, even after last weeks visit, although he has gotten better. Patient denies any purulence to the area. The patient denies any feelings of nausea, vomiting, chills, fever at this time. Progress of Wound: Patient presents to clinic for follow up of right heel ulcer. His vac was changed on Tuesday. Patient states he has done well again this week. Currently, the patient denies any feelings of nausea, vomiting, fever, or chills. - Physical Exam Vital Signs Temp Pulse Resp BP 97.1 F L 79 18 151/84 H 09/01/17 09:28 09/01/17 09:28 09/01/17 09:28 09/01/17 09:28 General: Alert, Oriented x3, Cooperative, No apparent distress Extremities: Capillary Refill Less than 3 Seconds, No Calf Tenderness - Negative Wojciech and Guerrero sign, Diminished Peripheral Pulses - DP and PT pulses nonpalpable due to lower extremity edema, Edema - Lower extremity edema Skin: Ulcer/ Wound - Ulcer plantar posterior aspect right heel. Surgical debridement was completed on June 14. Slow and steady improvement was appreciated again this week. There continues to be a small amount of adherent slough is as well as fibrin and some surrounding hyperkeratotic tissue to the ulcer base. Very small amount of maceration also noted around the periphery. There continues to be no standing cellulitis, no purulence, no malodor, no increase in warmth, no probing to bone, no undermining to the ulcer site. Wound Measurements and Assessment WC - Nurse 1 - General Ulcer Measurement Start: 08/25/17 11:28 Freq: Status: Active Protocol: Activity Type Activity Date Activity User E-Sign Co-Sign Detail Recorded Client Recorded Date Recorded By Document 09/01/17 09:28 [id number] 09/01/17 09:35 09/01/17 09:28 Wound Center Nurse 1 [Ulcer Assessment] #2- RT HEEL -Combined with other wound No -Current Size (cm) - Length 1.9 -Current Size (cm) - Width 1.2 -Current Size (cm) - Depth 0.3 -Total Square Cm 2.28 -Photo Taken No -Epithelialization Small 1-33% -Tunneling No -Undermining/Tunneling No -Circular Undermining No -Classification - Thickness Full Thickness without Exposed Support Structure -Exudate Amt Medium (34-66%) -Exudate Type Serosanguineous -Wound Margin Distinct, Outline Attached -Granulation Amt Large (67-100%) -Granulation Quality [place] -Slough/Fibrin Yes -Necrosis Amt Small (1-33%) -Necrotic Tissue Type Adherent Slough -Structure Exposed Fascia Fat Layer Exposed -Texture (Melanie-wound Skin Appearance) Scarring -Moisture (Melanie-wound Skin Appearance Maceration ) -Color (Melanie-wound Skin Appearance) No Abnormality Assessed -Temperature (Melanie-wound Skin No Abnormality Appearance) (Pt Warm) -Tenderness on Palpation (Melanie-wound No Skin Appearance) -Ulcer Cleansing HIBICLENS -Foul Odor after Cleansing No -Anesthetic Used 4% Lidocaine Solution [Edema Assessment] -Lower Limb Edema Present Yes -Right Calf (cm) 33.5 -Right Ankle (cm) 22.0 WC - Nurse 2 - General Ulcer CM Notes Start: 08/25/17 11:28 Freq: Status: Active Protocol: Activity Type Activity Date Activity User E-Sign Co-Sign Detail Recorded Client Recorded Date Recorded By Document 09/01/17 09:46 [id number] 09/01/17 10:07 09/01/17 09:46 Wound Center Nurse 2 [Procedure/Treatment] #2- RT HEEL -Time 10:04 -Correct Patient Yes -Correct Side, Site, Position Yes -Correct Procedure Yes -Procedure Performed Yes -Type of Procedure Debridement -Clinical Debridement Subcutaneous -Post Debridement Size (cm) - Length 1.4 -Post Debridement Size (cm) - Width 1.6 -Post Debridement Size (cm) - Depth 0.3 -Total Square Cm 2.24 -Wound/Ulcer Outcome Not Healed -Ulcer Cleansing Rinsed/ Irrigated with Saline -Foul Odor after Cleansing No -Bioengineered Tissue Yes -Type of bioengineered Tissue GRAFIX-Core -Expiration Date 05/31/20 -Product Lot Number [id number] -Percent Used 100 -Saline Lot Number [id number] -Bleeding Controlled with NA -Treatment Response Procedure Tolerated Well [See Physician Procedure note for Specifics] Pain Scale: 0-10 Numeric [Pain] -Is Patient Pain Free? Yes Musculoskeletal: - - Patient denies any tenderness with manipulation of ulcer site Neurological: - - Epicritic sensation grossly absent to lower extremity Psych/Mental Status: Normal Affect, Appropriate Debridement Note Post-Debridement Measurements/Treatment WC - Nurse 2 - General Ulcer CM Notes Start: 08/25/17 11:28 Freq: Status: Active Protocol: Activity Type Activity Date Activity User E-Sign Co-Sign Detail Recorded Client Recorded Date Recorded By Document 08/25/17 12:04 [id number] 08/25/17 12:05 Document 09/01/17 09:46 [id number] 09/01/17 10:07 08/25/17 09/01/17 12:04 09:46 Wound Center Nurse 2 #2- RT HEEL -Time 12:04 10:04 -Correct Patient Yes Yes -Correct Side, Site, Position Yes Yes -Correct Procedure Yes Yes -Procedure Performed Yes Yes -Type of Procedure Debridement Debridement -Clinical Debridement Subcutaneous Subcutaneous -Post Debridement Size (cm) - Length 1.8 1.4 -Post Debridement Size (cm) - Width 1.8 1.6 -Post Debridement Size (cm) - Depth 0.3 0.3 -Total Square Cm 3.24 2.24 -Wound/Ulcer Outcome Not Healed Not Healed -Ulcer Cleansing Not Cleansed Rinsed/ Irrigated with Saline -Foul Odor after Cleansing No No -Bioengineered Tissue Yes Yes -Type of bioengineered Tissue GRAFIX-Core GRAFIX-Core -Expiration Date 05/31/20 05/31/20 -Product Lot Number [id number] -Percent Used 100 100 -Saline Lot Number [id number] -Bleeding Controlled with NA NA -Treatment Response Procedure Procedure Tolerated Well Tolerated Well Pain Scale: 0-10 Numeric Is Patient Pain Free? Yes Yes Wound debrided: Right plantar posterior heel Laterality: Right Wound Grade/Stage: 3 Type of Debridement: Excisional debridement Anesthesia Used: 4% Lidocaine Solution Depth: in the subcutaneous layer Percentage of wound debrided: 100 Instrument Used: 5mm curette Tissue Removed: Adherent slough, fibrin Severity: Fat Layer Exposed Amount of bleeding with debridement: Mild Bleeding Controlled with: Pressure Patient tolerated procedure well Assessment/Plan Assessment: Ulcer to right heel with stable eschar. DM with neuropathy. Malnutrition. Plan: Patient was again examined and evaluated today. Patient is S/P surgical debridement with versajet of all necrotic, non-viable, and infected soft tissue with bone biopsy on June 14. Details from surgery are noted in the operative report. Angiogram performed prior to surgical debridement by Dr. Rios. Subcutaneous debridement was again completed today as described in the clinical panel. Following debridement, another graffix core was applied, followed by wound veil, steristrips, and a dry sterile dressing. Patient and his were instructed to keep the dressing from the adaptic/steristrips and under intact and were able to reinforce the top layers as needed depending on drainage amount. We will take a one week vac holiday to help with some of the slight macertion melanie ulcer. Patient and his were instructed to keep the dressing clean, dry, and intact. They say they understand this. Patient to continue with high protein diet and it was again stressed how important keeping blood sugar under control is to healing process. It was also again stressed to the patient how important it is to keep pressure off of his heel at all times and that this includes any type of pressure at all, as the patient has been noncompliant in the past with this. Patient asks today if he can start driving. I informed him that he could not and discussed why this was a bad idea with the area his ulcer is in. I also again informed him and his that there is possibility that although his procedure went well, there is still a chance that this can lead to extensive debridements, partial calcaneal amputations, or even more proximal amputations on the leg, among other possible outcomes. He is to use the knee scooter at all times while walking. While sitting or laying in bed he was instructed to keep the heel floating over the edge of a pillow in order to have absolutely no pressure to the area. Patient and the patient's were educated on signs and symptoms of local and systemic infection and were instructed to go to the emergency room immediately should they notice any. All questions were answered to the patient and the patient's 's satisfaction. I still continue to be concerned with the patient's compliance. They will follow-up in clinic in 1 week for further evaluation, or sooner if needed. This note was generated with [email or web address] dictation software. It may contain incorrect words, spelling, and punctuation that were not noted in checking the note before signing.
--- NOTE | 2017-09-01 10:19 | PN.PCM_ITS ---
(1) Chronic ulcer of right heel Status: Acute Current Visit: No Code(s): L97.419 - Non-pressure chronic ulcer of right heel and midfoot with unspecified severity (2) Lower extremity edema Status: Chronic Current Visit: No Code(s): R60.0 - Localized edema (3) PVD (peripheral vascular disease) Status: Suspected Current Visit: No Code(s): I73.9 - Peripheral vascular disease, unspecified (4) Type 2 diabetes mellitus with diabetic polyneuropathy Status: Acute Current Visit: No Code(s): E11.42 - Type 2 diabetes mellitus with diabetic polyneuropathy Type of Wound Date of Service: 09/01/17 Chief Complaint: Chronic non healing ulcer to right posterior heel with fat layer exposed. History of Wound: This 61-year-old diabetic male presents for follow up of chronic nonhealing ulcer to right posterior heel. Patient states on February 21 he believes he stepped on a staple walking down the stairs and had a tear in his skin. This progressed over the following days into an ulcer. Patient has seen Dr. See as well as gone to [facility] wound center in the past. While at [facility], the patient was undergoing every other day dressing changes consisting of medihoney and a dry sterile dressing. The patient has a knee walker and claims to be using it, but not all the time. The also states that the patient has not keeping pressure off of his right foot as much as he should be, even after last weeks visit, although he has gotten better. Patient denies any purulence to the area. The patient denies any feelings of nausea, vomiting, chills, fever at this time. Progress of Wound: Patient presents to clinic for follow up of right heel ulcer. His vac was changed on Tuesday. Patient states he has done well again this week. Currently, the patient denies any feelings of nausea, vomiting, fever, or chills. - Physical Exam Vital Signs Temp Pulse Resp BP 97.1 F L 79 18 151/84 H 09/01/17 09:28 09/01/17 09:28 09/01/17 09:28 09/01/17 09:28 General: Alert, Oriented x3, Cooperative, No apparent distress Extremities: Capillary Refill Less than 3 Seconds, No Calf Tenderness - Negative Wojciech and Guerrero sign, Diminished Peripheral Pulses - DP and PT pulses nonpalpable due to lower extremity edema, Edema - Lower extremity edema Skin: Ulcer/ Wound - Ulcer plantar posterior aspect right heel. Surgical debridement was completed on June 14. Slow and steady improvement was appreciated again this week. There continues to be a small amount of adherent slough is as well as fibrin and some surrounding hyperkeratotic tissue to the ulcer base. Very small amount of maceration also noted around the periphery. There continues to be no standing cellulitis, no purulence, no malodor, no increase in warmth, no probing to bone, no undermining to the ulcer site. Wound Measurements and Assessment WC - Nurse 1 - General Ulcer Measurement Start: 08/25/17 11:28 Freq: Status: Active Protocol: Activity Type Activity Date Activity User E-Sign Co-Sign Detail Recorded Client Recorded Date Recorded By Document 09/01/17 09:28 [id number] 09/01/17 09:35 09/01/17 09:28 Wound Center Nurse 1 [Ulcer Assessment] #2- RT HEEL -Combined with other wound No -Current Size (cm) - Length 1.9 -Current Size (cm) - Width 1.2 -Current Size (cm) - Depth 0.3 -Total Square Cm 2.28 -Photo Taken No -Epithelialization Small 1-33% -Tunneling No -Undermining/Tunneling No -Circular Undermining No -Classification - Thickness Full Thickness without Exposed Support Structure -Exudate Amt Medium (34-66%) -Exudate Type Serosanguineous -Wound Margin Distinct, Outline Attached -Granulation Amt Large (67-100%) -Granulation Quality [place] -Slough/Fibrin Yes -Necrosis Amt Small (1-33%) -Necrotic Tissue Type Adherent Slough -Structure Exposed Fascia Fat Layer Exposed -Texture (Melanie-wound Skin Appearance) Scarring -Moisture (Melanie-wound Skin Appearance Maceration ) -Color (Melanie-wound Skin Appearance) No Abnormality Assessed -Temperature (Melanie-wound Skin No Abnormality Appearance) (Pt Warm) -Tenderness on Palpation (Melanie-wound No Skin Appearance) -Ulcer Cleansing HIBICLENS -Foul Odor after Cleansing No -Anesthetic Used 4% Lidocaine Solution [Edema Assessment] -Lower Limb Edema Present Yes -Right Calf (cm) 33.5 -Right Ankle (cm) 22.0 WC - Nurse 2 - General Ulcer CM Notes Start: 08/25/17 11:28 Freq: Status: Active Protocol: Activity Type Activity Date Activity User E-Sign Co-Sign Detail Recorded Client Recorded Date Recorded By Document 09/01/17 09:46 [id number] 09/01/17 10:07 09/01/17 09:46 Wound Center Nurse 2 [Procedure/Treatment] #2- RT HEEL -Time 10:04 -Correct Patient Yes -Correct Side, Site, Position Yes -Correct Procedure Yes -Procedure Performed Yes -Type of Procedure Debridement -Clinical Debridement Subcutaneous -Post Debridement Size (cm) - Length 1.4 -Post Debridement Size (cm) - Width 1.6 -Post Debridement Size (cm) - Depth 0.3 -Total Square Cm 2.24 -Wound/Ulcer Outcome Not Healed -Ulcer Cleansing Rinsed/ Irrigated with Saline -Foul Odor after Cleansing No -Bioengineered Tissue Yes -Type of bioengineered Tissue GRAFIX-Core -Expiration Date 05/31/20 -Product Lot Number [id number] -Percent Used 100 -Saline Lot Number [id number] -Bleeding Controlled with NA -Treatment Response Procedure Tolerated Well [See Physician Procedure note for Specifics] Pain Scale: 0-10 Numeric [Pain] -Is Patient Pain Free? Yes Musculoskeletal: - - Patient denies any tenderness with manipulation of ulcer site Neurological: - - Epicritic sensation grossly absent to lower extremity Psych/Mental Status: Normal Affect, Appropriate Debridement Note Post-Debridement Measurements/Treatment WC - Nurse 2 - General Ulcer CM Notes Start: 08/25/17 11:28 Freq: Status: Active Protocol: Activity Type Activity Date Activity User E-Sign Co-Sign Detail Recorded Client Recorded Date Recorded By Document 08/25/17 12:04 [id number] 08/25/17 12:05 Document 09/01/17 09:46 [id number] 09/01/17 10:07 08/25/17 09/01/17 12:04 09:46 Wound Center Nurse 2 #2- RT HEEL -Time 12:04 10:04 -Correct Patient Yes Yes -Correct Side, Site, Position Yes Yes -Correct Procedure Yes Yes -Procedure Performed Yes Yes -Type of Procedure Debridement Debridement -Clinical Debridement Subcutaneous Subcutaneous -Post Debridement Size (cm) - Length 1.8 1.4 -Post Debridement Size (cm) - Width 1.8 1.6 -Post Debridement Size (cm) - Depth 0.3 0.3 -Total Square Cm 3.24 2.24 -Wound/Ulcer Outcome Not Healed Not Healed -Ulcer Cleansing Not Cleansed Rinsed/ Irrigated with Saline -Foul Odor after Cleansing No No -Bioengineered Tissue Yes Yes -Type of bioengineered Tissue GRAFIX-Core GRAFIX-Core -Expiration Date 05/31/20 05/31/20 -Product Lot Number [id number] -Percent Used 100 100 -Saline Lot Number [id number] -Bleeding Controlled with NA NA -Treatment Response Procedure Procedure Tolerated Well Tolerated Well Pain Scale: 0-10 Numeric Is Patient Pain Free? Yes Yes Wound debrided: Right plantar posterior heel Laterality: Right Wound Grade/Stage: 3 Type of Debridement: Excisional debridement Anesthesia Used: 4% Lidocaine Solution Depth: in the subcutaneous layer Percentage of wound debrided: 100 Instrument Used: 5mm curette Tissue Removed: Adherent slough, fibrin Severity: Fat Layer Exposed Amount of bleeding with debridement: Mild Bleeding Controlled with: Pressure Patient tolerated procedure well Assessment/Plan Assessment: Ulcer to right heel with stable eschar. DM with neuropathy. Malnutrition. Plan: Patient was again examined and evaluated today. Patient is S/P surgical debridement with versajet of all necrotic, non-viable, and infected soft tissue with bone biopsy on June 14. Details from surgery are noted in the operative report. Angiogram performed prior to surgical debridement by Dr. Rios. Subcutaneous debridement was again completed today as described in the clinical panel. Following debridement, another graffix core was applied, followed by wound veil, steristrips, and a dry sterile dressing. Patient and his were instructed to keep the dressing from the adaptic/steristrips and under intact and were able to reinforce the top layers as needed depending on drainage amount. We will take a one week vac holiday to help with some of the slight macertion melanie ulcer. Patient and his were instructed to keep the dressing clean, dry, and intact. They say they understand this. Patient to continue with high protein diet and it was again stressed how important keeping blood sugar under control is to healing process. It was also again stressed to the patient how important it is to keep pressure off of his heel at all times and that this includes any type of pressure at all, as the patient has been noncompliant in the past with this. Patient asks today if he can start driving. I informed him that he could not and discussed why this was a bad idea with the area his ulcer is in. I also again informed him and his that there is possibility that although his procedure went well, there is still a chance that this can lead to extensive debridements, partial calcaneal amputations, or even more proximal amputations on the leg, among other possible outcomes. He is to use the knee scooter at all times while walking. While sitting or laying in bed he was instructed to keep the heel floating over the edge of a pillow in order to have absolutely no pressure to the area. Patient and the patient's were educated on signs and symptoms of local and systemic infection and were instructed to go to the emergency room immediately should they notice any. All questions were answered to the patient and the patient's 's satisfaction. I still continue to be concerned with the patient's compliance. They will follow -up in clinic in 1 week for further evaluation, or sooner if needed. This note was generated with [employer] dictation software. It may contain incorrect words, spelling, and punctuation that were not noted in checking the note before signing.
[2017-09-08 09:37] VITALS: BP 130/75; PULSE 84; RESP 18; TEMP 36.4; BMI 32.7
--- NOTE | 2017-09-08 10:35 | PCM.WC.PN ---
(1) Chronic ulcer of right heel Status: Acute Current Visit: No Code(s): L97.419 - Non-pressure chronic ulcer of right heel and midfoot with unspecified severity (2) Lower extremity edema Status: Chronic Current Visit: No Code(s): R60.0 - Localized edema (3) PVD (peripheral vascular disease) Status: Suspected Current Visit: No Code(s): I73.9 - Peripheral vascular disease, unspecified (4) Type 2 diabetes mellitus with diabetic polyneuropathy Status: Acute Current Visit: No Code(s): E11.42 - Type 2 diabetes mellitus with diabetic polyneuropathy Type of Wound Date of Service: 09/08/17 Chief Complaint: Chronic non healing ulcer to right posterior heel with fat layer exposed. History of Wound: This 61-year-old diabetic male presents for follow up of chronic nonhealing ulcer to right posterior heel. Patient states on February 21 he believes he stepped on a staple walking down the stairs and had a tear in his skin. This progressed over the following days into an ulcer. Patient has seen Dr. See as well as gone to [facility] wound center in the past. While at [facility], the patient was undergoing every other day dressing changes consisting of medihoney and a dry sterile dressing. The patient has a knee walker and claims to be using it, but not all the time. The also states that the patient has not keeping pressure off of his right foot as much as he should be, even after last weeks visit, although he has gotten better. Patient denies any purulence to the area. The patient denies any feelings of nausea, vomiting, chills, fever at this time. Progress of Wound: Patient presents to clinic for follow up of right heel ulcer. Patient and say they only had to reinforce the dressing once on Tuesday. Patient states he has done well again this week. He says he has done his best to keep weight off of the area but his says there were times where he still has pressure on his heel. Currently, the patient denies any feelings of nausea, vomiting, fever, or chills. - Physical Exam Vital Signs Temp Pulse Resp BP 97.5 F L 84 18 130/75 H 09/08/17 09:37 09/08/17 09:37 09/08/17 09:37 09/08/17 09:37 General: Alert, Oriented x3, Cooperative, No apparent distress Extremities: Capillary Refill Less than 3 Seconds, No Calf Tenderness, Diminished Peripheral Pulses - DP and PT pulses nonpalpable due to lower extremity edema, Edema - Lower extremity edema Skin: Ulcer/ Wound - Ulcer plantar posterior aspect of the right heel. Surgical debridement was completed June 14. There continues to be slow's and steady improvement each week. Base remains a mixture of adherent slough, fibrin, and hyperkeratotic tissue surrounding the periphery. There continues to be no extending cellulitis, no purulence, no malodor, no increased warmth, no probing to bone, no undermining appreciated to the ulcer site. Wound Measurements and Assessment WC - Nurse 1 - General Ulcer Measurement Start: 08/25/17 11:28 Freq: Status: Active Protocol: Activity Type Activity Date Activity User E-Sign Co-Sign Detail Recorded Client Recorded Date Recorded By Document 09/08/17 09:37 [id number] 09/08/17 09:49 09/08/17 09:37 Wound Center Nurse 1 [Ulcer Assessment] #2- RT HEEL -Combined with other wound No -Current Size (cm) - Length 1.0 -Current Size (cm) - Width 1.3 -Current Size (cm) - Depth 0.3 -Total Square Cm 1.30 -Photo Taken No -Epithelialization Small 1-33% -Tunneling No -Undermining/Tunneling No -Circular Undermining No -Classification - Thickness Full Thickness without Exposed Support Structure -Exudate Amt Medium (34-66%) -Exudate Type Serosanguineous -Wound Margin Distinct, Outline Attached -Granulation Amt Large (67-100%) -Granulation Quality Red -Slough/Fibrin Yes -Necrosis Amt Small (1-33%) -Necrotic Tissue Type Adherent Slough -Structure Exposed Fascia Fat Layer Exposed -Texture (Miguelina-wound Skin Appearance) Callus Scarring -Moisture (Miguelina-wound Skin Appearance Assessed ) Dry/Scaly -Color (Miguelina-wound Skin Appearance) No Abnormality -Temperature (Miguelina-wound Skin No Abnormality Appearance) (Pt Warm) -Tenderness on Palpation (Miguelina-wound No Skin Appearance) -Ulcer Cleansing Rinsed/ Irrigated with Saline -Foul Odor after Cleansing No -Anesthetic Used 5% Lidocaine Gel [Edema Assessment] -Lower Limb Edema Present Yes -Right Calf (cm) 32.0 -Right Ankle (cm) 22.5 - Nurse 2 - General Ulcer CM Notes Start: 08/25/17 11:28 Freq: Status: Active Protocol: Activity Type Activity Date Activity User E-Sign Co-Sign Detail Recorded Client Recorded Date Recorded By Document 09/08/17 10:01 [id number] 09/08/17 10:10 09/08/17 10:01 Wound Center Nurse 2 [Procedure/Treatment] #2- RT HEEL -Time 10:01 -Correct Patient Yes -Correct Side, Site, Position Yes -Correct Procedure Yes -Procedure Performed Yes -Type of Procedure Debridement -Clinical Debridement Subcutaneous -Post Debridement Size (cm) - Length 1.4 -Post Debridement Size (cm) - Width 1.4 -Post Debridement Size (cm) - Depth 0.3 -Total Square Cm 1.96 -Wound/Ulcer Outcome Not Healed -Ulcer Cleansing Rinsed/ Irrigated with Saline -Foul Odor after Cleansing No -Bioengineered Tissue Yes -Type of bioengineered Tissue GRAFIX-Core -Expiration Date 05/31/20 -Product Lot Number [id number] -Percent Used 100 -Saline Lot Number [id number] -Bleeding Controlled with Pressure -Treatment Response Procedure Tolerated Well [See Physician Procedure note for Specifics] Pain Scale: 0-10 Numeric [Pain] -Is Patient Pain Free? Yes Musculoskeletal: - - Patient denies any tenderness with manipulation of ulcer site Neurological: - - Epicritic sensation grossly absent to lower extremity Psych/Mental Status: Normal Affect, Appropriate Debridement Note Post-Debridement Measurements/Treatment - Nurse 2 - General Ulcer CM Notes Start: 08/25/17 11:28 Freq: Status: Active Protocol: Activity Type Activity Date Activity User E-Sign Co-Sign Detail Recorded Client Recorded Date Recorded By Document 08/25/17 12:04 [id number] 08/25/17 12:05 CS Document 09/01/17 09:46 [id number] 09/01/17 10:07 CS Document 09/08/17 10:01 [id number] 09/08/17 10:10 08/25/17 09/01/17 09/08/17 12:04 09:46 10:01 Wound Center Nurse 2 #2- RT HEEL -Time 12:04 10:04 10:01 -Correct Patient Yes Yes Yes -Correct Side, Site, Position Yes Yes Yes -Correct Procedure Yes Yes Yes -Procedure Performed Yes Yes Yes -Type of Procedure Debridement Debridement Debridement -Clinical Debridement Subcutaneous Subcutaneous Subcutaneous -Post Debridement Size (cm) - Length 1.8 1.4 1.4 -Post Debridement Size (cm) - Width 1.8 1.6 1.4 -Post Debridement Size (cm) - Depth 0.3 0.3 0.3 -Total Square Cm 3.24 2.24 1.96 -Wound/Ulcer Outcome Not Healed Not Healed Not Healed -Ulcer Cleansing Not Cleansed Rinsed/ Rinsed/ Irrigated with Irrigated with Saline Saline -Foul Odor after Cleansing No No No -Bioengineered Tissue Yes Yes Yes -Type of bioengineered Tissue GRAFIX-Core GRAFIX-Core GRAFIX-Core -Expiration Date 05/31/20 05/31/20 05/31/20 -Product Lot Number [id number] -Percent Used 100 100 100 -Saline Lot Number [id number] -Bleeding Controlled with NA NA Pressure -Treatment Response Procedure Procedure Procedure Tolerated Well Tolerated Well Tolerated Well Pain Scale: 0-10 Numeric Is Patient Pain Free? Yes Yes Yes Wound debrided: Right plantar posterior heel Laterality: Right Wound Grade/Stage: 3 Type of Debridement: Excisional debridement Anesthesia Used: 4% Lidocaine Solution Depth: in the subcutaneous layer Percentage of wound debrided: 100 Instrument Used: 5mm curette Tissue Removed: Adherent slough, fibrin Severity: Fat Layer Exposed Amount of bleeding with debridement: Mild Bleeding Controlled with: Pressure Patient tolerated procedure well Assessment/Plan Assessment: Ulcer to right heel with stable eschar. DM with neuropathy. Malnutrition. Plan: Patient was again examined and evaluated today. Patient is S/P surgical debridement with versajet of all necrotic, non-viable, and infected soft tissue with bone biopsy on June 14. Details from surgery are noted in the operative report. Angiogram performed prior to surgical debridement by Dr. Rios. Subcutaneous debridement was again completed today as described in the clinical panel. Following debridement, the last graffix core was applied, followed by wound veil, steristrips, and a dry sterile dressing. Patient and his were instructed to keep the dressing from the adaptic/steristrips and under intact and were able to reinforce the top layers as needed depending on drainage amount. We will take another one week vac holiday. Patient and his were instructed to keep the dressing clean, dry, and intact. They say they understand this. Patient to continue with high protein diet and it was again stressed how important keeping blood sugar under control is to healing process. It was also again stressed to the patient how important it is to keep pressure off of his heel at all times and that this includes any type of pressure at all, as the patient has been noncompliant in the past with this. Patient asks today if he can start driving. I informed him that he could not and discussed why this was a bad idea with the area his ulcer is in. I also again informed him and his that there is possibility that although his procedure went well, there is still a chance that this can lead to extensive debridements, partial calcaneal amputations, or even more proximal amputations on the leg, among other possible outcomes. He is to use the knee scooter at all times while walking. While sitting or laying in bed he was instructed to keep the heel floating over the edge of a pillow in order to have absolutely no pressure to the area. Patient and the patient's were educated on signs and symptoms of local and systemic infection and were instructed to go to the emergency room immediately should they notice any. All questions were answered to the patient and the patient's 's satisfaction. I still continue to be concerned with the patient's compliance. They will follow-up in clinic in 1 week for further evaluation, or sooner if needed. This note was generated with [employer] software. It may contain incorrect words, spelling, and punctuation that were not noted in checking the note before signing.
--- NOTE | 2017-09-08 10:42 | PN.PCM_ITS ---
(1) Chronic ulcer of right heel Status: Acute Current Visit: No Code(s): L97.419 - Non-pressure chronic ulcer of right heel and midfoot with unspecified severity (2) Lower extremity edema Status: Chronic Current Visit: No Code(s): R60.0 - Localized edema (3) PVD (peripheral vascular disease) Status: Suspected Current Visit: No Code(s): I73.9 - Peripheral vascular disease, unspecified (4) Type 2 diabetes mellitus with diabetic polyneuropathy Status: Acute Current Visit: No Code(s): E11.42 - Type 2 diabetes mellitus with diabetic polyneuropathy Type of Wound Date of Service: 09/08/17 Chief Complaint: Chronic non healing ulcer to right posterior heel with fat layer exposed. History of Wound: This 61-year-old diabetic male presents for follow up of chronic nonhealing ulcer to right posterior heel. Patient states on February 21 he believes he stepped on a staple walking down the stairs and had a tear in his skin. This progressed over the following days into an ulcer. Patient has seen Dr. See as well as gone to [facility] wound center in the past. While at [facility], the patient was undergoing every other day dressing changes consisting of medihoney and a dry sterile dressing. The patient has a knee walker and claims to be using it, but not all the time. The also states that the patient has not keeping pressure off of his right foot as much as he should be, even after last weeks visit, although he has gotten better. Patient denies any purulence to the area. The patient denies any feelings of nausea, vomiting, chills, fever at this time. Progress of Wound: Patient presents to clinic for follow up of right heel ulcer. Patient and say they only had to reinforce the dressing once on Tuesday. Patient states he has done well again this week. He says he has done his best to keep weight off of the area but his says there were times where he still has pressure on his heel. Currently, the patient denies any feelings of nausea, vomiting, fever, or chills. - Physical Exam Vital Signs Temp Pulse Resp BP 97.5 F L 84 18 130/75 H 09/08/17 09:37 09/08/17 09:37 09/08/17 09:37 09/08/17 09:37 General: Alert, Oriented x3, Cooperative, No apparent distress Extremities: Capillary Refill Less than 3 Seconds, No Calf Tenderness, Diminished Peripheral Pulses - DP and PT pulses nonpalpable due to lower extremity edema, Edema - Lower extremity edema Skin: Ulcer/ Wound - Ulcer plantar posterior aspect of the right heel. Surgical debridement was completed June 14. There continues to be slow's and steady improvement each week. Base remains a mixture of adherent slough, fibrin , and hyperkeratotic tissue surrounding the periphery. There continues to be no extending cellulitis, no purulence, no malodor, no increased warmth, no probing to bone, no undermining appreciated to the ulcer site. Wound Measurements and Assessment WC - Nurse 1 - General Ulcer Measurement Start: 08/25/17 11:28 Freq: Status: Active Protocol: Activity Type Activity Date Activity User E-Sign Co-Sign Detail Recorded Client Recorded Date Recorded By Document 09/08/17 09:37 [id number] 09/08/17 09:49 09/08/17 09:37 Wound Center Nurse 1 [Ulcer Assessment] #2- RT HEEL -Combined with other wound No -Current Size (cm) - Length 1.0 -Current Size (cm) - Width 1.3 -Current Size (cm) - Depth 0.3 -Total Square Cm 1.30 -Photo Taken No -Epithelialization Small 1-33% -Tunneling No -Undermining/Tunneling No -Circular Undermining No -Classification - Thickness Full Thickness without Exposed Support Structure -Exudate Amt Medium (34-66%) -Exudate Type Serosanguineous -Wound Margin Distinct, Outline Attached -Granulation Amt Large (67-100%) -Granulation Quality Red -Slough/Fibrin Yes -Necrosis Amt Small (1-33%) -Necrotic Tissue Type Adherent Slough -Structure Exposed Fascia Fat Layer Exposed -Texture (Miguelina-wound Skin Appearance) Callus Scarring -Moisture (Miguelina-wound Skin Appearance Assessed ) Dry/Scaly -Color (Miguelnia-wound Skin Appearance) No Abnormality -Temperature (Miguelina-wound Skin No Abnormality Appearance) (Pt Warm) -Tenderness on Palpation (Miguelina-wound No Skin Appearance) -Ulcer Cleansing Rinsed/ Irrigated with Saline -Foul Odor after Cleansing No -Anesthetic Used 5% Lidocaine Gel [Edema Assessment] -Lower Limb Edema Present Yes -Right Calf (cm) 32.0 -Right Ankle (cm) 22.5 - Nurse 2 - General Ulcer CM Notes Start: 08/25/17 11:28 Freq: Status: Active Protocol: Activity Type Activity Date Activity User E-Sign Co-Sign Detail Recorded Client Recorded Date Recorded By Document 09/08/17 10:01 [id number] 09/08/17 10:10 09/08/17 10:01 Wound Center Nurse 2 [Procedure/Treatment] #2- RT HEEL -Time 10:01 -Correct Patient Yes -Correct Side, Site, Position Yes -Correct Procedure Yes -Procedure Performed Yes -Type of Procedure Debridement -Clinical Debridement Subcutaneous -Post Debridement Size (cm) - Length 1.4 -Post Debridement Size (cm) - Width 1.4 -Post Debridement Size (cm) - Depth 0.3 -Total Square Cm 1.96 -Wound/Ulcer Outcome Not Healed -Ulcer Cleansing Rinsed/ Irrigated with Saline -Foul Odor after Cleansing No -Bioengineered Tissue Yes -Type of bioengineered Tissue GRAFIX-Core -Expiration Date 05/31/20 -Product Lot Number [id number] -Percent Used 100 -Saline Lot Number [id number] -Bleeding Controlled with Pressure -Treatment Response Procedure Tolerated Well [See Physician Procedure note for Specifics] Pain Scale: 0-10 Numeric [Pain] -Is Patient Pain Free? Yes Musculoskeletal: - - Patient denies any tenderness with manipulation of ulcer site Neurological: - - Epicritic sensation grossly absent to lower extremity Psych/Mental Status: Normal Affect, Appropriate Debridement Note Post-Debridement Measurements/Treatment - Nurse 2 - General Ulcer CM Notes Start: 08/25/17 11:28 Freq: Status: Active Protocol: Activity Type Activity Date Activity User E-Sign Co-Sign Detail Recorded Client Recorded Date Recorded By Document 08/25/17 12:04 [id number] 08/25/17 12:05 CS Document 09/01/17 09:46 [id number] 09/01/17 10:07 CS Document 09/08/17 10:01 [id number] 09/08/17 10:10 08/25/17 09/01/17 09/08/17 12:04 09:46 10:01 Wound Center Nurse 2 #2- RT HEEL -Time 12:04 10:04 10:01 -Correct Patient Yes Yes Yes -Correct Side, Site, Position Yes Yes Yes -Correct Procedure Yes Yes Yes -Procedure Performed Yes Yes Yes -Type of Procedure Debridement Debridement Debridement -Clinical Debridement Subcutaneous Subcutaneous Subcutaneous -Post Debridement Size (cm) - Length 1.8 1.4 1.4 -Post Debridement Size (cm) - Width 1.8 1.6 1.4 -Post Debridement Size (cm) - Depth 0.3 0.3 0.3 -Total Square Cm 3.24 2.24 1.96 -Wound/Ulcer Outcome Not Healed Not Healed Not Healed -Ulcer Cleansing Not Cleansed Rinsed/ Rinsed/ Irrigated with Irrigated with Saline Saline -Foul Odor after Cleansing No No No -Bioengineered Tissue Yes Yes Yes -Type of bioengineered Tissue GRAFIX-Core GRAFIX-Core GRAFIX-Core -Expiration Date 05/31/20 05/31/20 05/31/20 -Product Lot Number [id number] -Percent Used 100 100 100 -Saline Lot Number [id number] -Bleeding Controlled with NA NA Pressure -Treatment Response Procedure Procedure Procedure Tolerated Well Tolerated Well Tolerated Well Pain Scale: 0-10 Numeric Is Patient Pain Free? Yes Yes Yes Wound debrided: Right plantar posterior heel Laterality: Right Wound Grade/Stage: 3 Type of Debridement: Excisional debridement Anesthesia Used: 4% Lidocaine Solution Depth: in the subcutaneous layer Percentage of wound debrided: 100 Instrument Used: 5mm curette Tissue Removed: Adherent slough, fibrin Severity: Fat Layer Exposed Amount of bleeding with debridement: Mild Bleeding Controlled with: Pressure Patient tolerated procedure well Assessment/Plan Assessment: Ulcer to right heel with stable eschar. DM with neuropathy. Malnutrition. Plan: Patient was again examined and evaluated today. Patient is S/P surgical debridement with versajet of all necrotic, non-viable, and infected soft tissue with bone biopsy on June 14. Details from surgery are noted in the operative report. Angiogram performed prior to surgical debridement by Dr. Rios. Subcutaneous debridement was again completed today as described in the clinical panel. Following debridement, the last graffix core was applied, followed by wound veil, steristrips, and a dry sterile dressing. Patient and his were instructed to keep the dressing from the adaptic/steristrips and under intact and were able to reinforce the top layers as needed depending on drainage amount. We will take another one week vac holiday. Patient and his were instructed to keep the dressing clean, dry, and intact. They say they understand this. Patient to continue with high protein diet and it was again stressed how important keeping blood sugar under control is to healing process. It was also again stressed to the patient how important it is to keep pressure off of his heel at all times and that this includes any type of pressure at all, as the patient has been noncompliant in the past with this. Patient asks today if he can start driving. I informed him that he could not and discussed why this was a bad idea with the area his ulcer is in. I also again informed him and his that there is possibility that although his procedure went well, there is still a chance that this can lead to extensive debridements, partial calcaneal amputations, or even more proximal amputations on the leg, among other possible outcomes. He is to use the knee scooter at all times while walking. While sitting or laying in bed he was instructed to keep the heel floating over the edge of a pillow in order to have absolutely no pressure to the area. Patient and the patient's were educated on signs and symptoms of local and systemic infection and were instructed to go to the emergency room immediately should they notice any. All questions were answered to the patient and the patient's 's satisfaction. I still continue to be concerned with the patient's compliance. They will follow-up in clinic in 1 week for further evaluation, or sooner if needed. This note was generated with [employer] software. It may contain incorrect words, spelling, and punctuation that were not noted in checking the note before signing.
[2017-09-15 09:53] VITALS: BP 131/63; PULSE 69; RESP 18; TEMP 36.8; BMI 32.7
--- NOTE | 2017-09-15 09:56 | WC ---
Pt grafix not removed due adherence to wound
--- NOTE | 2017-09-15 10:16 | PCM.WC.PN ---
(1) Chronic ulcer of right heel Status: Acute Current Visit: No Code(s): L97.419 - Non-pressure chronic ulcer of right heel and midfoot with unspecified severity (2) Lower extremity edema Status: Chronic Current Visit: No Code(s): R60.0 - Localized edema (3) PVD (peripheral vascular disease) Status: Suspected Current Visit: No Code(s): I73.9 - Peripheral vascular disease, unspecified (4) Type 2 diabetes mellitus with diabetic polyneuropathy Status: Acute Current Visit: No Code(s): E11.42 - Type 2 diabetes mellitus with diabetic polyneuropathy Type of Wound Date of Service: 09/15/17 Chief Complaint: Chronic non healing ulcer to right posterior heel with fat layer exposed. History of Wound: This 61-year-old diabetic male presents for follow up of chronic nonhealing ulcer to right posterior heel. Patient states on February 21 he believes he stepped on a staple walking down the stairs and had a tear in his skin. This progressed over the following days into an ulcer. Patient has seen Dr. See as well as gone to [facility] wound center in the past. While at [facility], the patient was undergoing every other day dressing changes consisting of medihoney and a dry sterile dressing. The patient has a knee walker and claims to be using it, but not all the time. The also states that the patient has not keeping pressure off of his right foot as much as he should be, even after last weeks visit, although he has gotten better. Patient denies any purulence to the area. The patient denies any feelings of nausea, vomiting, chills, fever at this time. Progress of Wound: Patient presents to clinic for follow up of right heel ulcer. Patient states he has done well again this week. He says he has done his best to keep weight off of the area but his says there were times where he still has pressure on his heel and he went out to get the mail a couple of times. Currently, the patient denies any feelings of nausea, vomiting, fever, or chills. - Physical Exam Vital Signs Temp Pulse Resp BP 98.3 F 69 18 131/63 H 09/15/17 09:53 09/15/17 09:53 09/15/17 09:53 09/15/17 09:53 General: Alert, Oriented x3, Cooperative, No apparent distress Extremities: Capillary Refill Less than 3 Seconds, No Calf Tenderness, Diminished Peripheral Pulses - DP and PT pulses nonpalpable due to slight lower extremity edema, Edema - Lower extremity edema Skin: Ulcer/ Wound - Ulcer to the plantar posterior aspect of the right heel. Surgical debridement was completed June 14. There continues to be slow and steady progress each week. Base continues to be a mixture of adherent slough, fibrin, and hyperkeratotic tissue surrounding the periphery. There continues to be no extending cellulitis, no purulence, no malodor, no increase in warmth, no probing to bone, no undermining appreciated at this time. Wound Measurements and Assessment WC - Nurse 1 - General Ulcer Measurement Start: 08/25/17 11:28 Freq: Status: Active Protocol: Activity Type Activity Date Activity User E-Sign Co-Sign Detail Recorded Client Recorded Date Recorded By Document 09/15/17 09:53 RB [id number] 09/15/17 09:57 RB 09/15/17 09:53 Wound Center Nurse 1 [Ulcer Assessment] #2- RT HEEL -Combined with other wound No -Photo Taken No -Tunneling No -Undermining/Tunneling No -Circular Undermining No -Classification - Thickness Full Thickness without Exposed Support Structure -Exudate Amt Small (1-33%) -Exudate Type Serosanguineous -Wound Margin Thickened & Rolled Under -Granulation Amt Large (67-100%) -Granulation Quality [place] -Slough/Fibrin Yes -Necrosis Amt Small (1-33%) -Necrotic Tissue Type Adherent Slough -Structure Exposed N/A -Texture (Miguelina-wound Skin Appearance) Assessed -Moisture (Miguelina-wound Skin Appearance Assessed ) -Color (Miguelina-wound Skin Appearance) Assessed -Temperature (Miguelina-wound Skin No Abnormality Appearance) (Pt Warm) -Tenderness on Palpation (Miguelina-wound No Skin Appearance) -Ulcer Cleansing Rinsed/ Irrigated with Saline -Foul Odor after Cleansing No -Anesthetic Used 5% Lidocaine Gel [Edema Assessment] -Lower Limb Edema Present Yes -Right Calf (cm) 34 -Right Ankle (cm) 21.2 09/15/17 09:56 Wound Center by Jhoana Juarez Pt grafix not removed due adherence to wound Initialized on 09/15/17 09:56 - END OF NOTE WC - Nurse 2 - General Ulcer CM Notes Start: 08/25/17 11:28 Freq: Status: Active Protocol: Activity Type Activity Date Activity User E-Sign Co-Sign Detail Recorded Client Recorded Date Recorded By Document 09/15/17 10:08 [id number] 09/15/17 10:09 09/15/17 10:08 Wound Center Nurse 2 [Procedure/Treatment] #2- RT HEEL -Time 10:09 -Correct Patient Yes -Correct Side, Site, Position Yes -Correct Procedure Yes -Procedure Performed Yes -Type of Procedure Debridement -Clinical Debridement Subcutaneous -Post Debridement Size (cm) - Length 1.1 -Post Debridement Size (cm) - Width 0.9 -Post Debridement Size (cm) - Depth 0.2 -Total Square Cm 0.99 -Wound/Ulcer Outcome Not Healed -Ulcer Cleansing Not Cleansed -Foul Odor after Cleansing No -Bioengineered Tissue No -Bleeding Controlled with NA -Treatment Response Procedure Tolerated Well [See Physician Procedure note for Specifics] Pain Scale: 0-10 Numeric [Pain] -Is Patient Pain Free? Yes Musculoskeletal: - - Denies tenderness with manipulation of ulcer site Neurological: - - Epicritic sensation grossly absent to lower extremity Psych/Mental Status: Normal Affect, Appropriate Debridement Note Post-Debridement Measurements/Treatment WC - Nurse 2 - General Ulcer CM Notes Start: 08/25/17 11:28 Freq: Status: Active Protocol: Activity Type Activity Date Activity User E-Sign Co-Sign Detail Recorded Client Recorded Date Recorded By Document 08/25/17 12:04 [id number] 08/25/17 12:05 Document 09/01/17 09:46 [id number] 09/01/17 10:07 Document 09/08/17 10:01 [id number] 09/08/17 10:10 Document 09/15/17 10:08 [id number] 09/15/17 10:09 08/25/17 09/01/17 09/08/17 12:04 09:46 10:01 Wound Center Nurse 2 #2- RT HEEL -Time 12:04 10:04 10:01 -Correct Patient Yes Yes Yes -Correct Side, Site, Position Yes Yes Yes -Correct Procedure Yes Yes Yes -Procedure Performed Yes Yes Yes -Type of Procedure Debridement Debridement Debridement -Clinical Debridement Subcutaneous Subcutaneous Subcutaneous -Post Debridement Size (cm) - Length 1.8 1.4 1.4 -Post Debridement Size (cm) - Width 1.8 1.6 1.4 -Post Debridement Size (cm) - Depth 0.3 0.3 0.3 -Total Square Cm 3.24 2.24 1.96 -Wound/Ulcer Outcome Not Healed Not Healed Not Healed -Ulcer Cleansing Not Cleansed Rinsed/ Rinsed/ Irrigated with Irrigated with Saline Saline -Foul Odor after Cleansing No No No -Bioengineered Tissue Yes Yes Yes -Type of bioengineered Tissue GRAFIX-Core GRAFIX-Core GRAFIX-Core -Expiration Date 05/31/20 05/31/20 05/31/20 -Product Lot Number [id number] -Percent Used 100 100 100 -Saline Lot Number [id number] -Bleeding Controlled with NA NA Pressure -Treatment Response Procedure Procedure Procedure Tolerated Well Tolerated Well Tolerated Well Pain Scale: 0-10 Numeric Is Patient Pain Free? Yes Yes Yes 09/15/17 10:08 Wound Center Nurse 2 #2- RT HEEL -Time 10:09 -Correct Patient Yes -Correct Side, Site, Position Yes -Correct Procedure Yes -Procedure Performed Yes -Type of Procedure Debridement -Clinical Debridement Subcutaneous -Post Debridement Size (cm) - Length 1.1 -Post Debridement Size (cm) - Width 0.9 -Post Debridement Size (cm) - Depth 0.2 -Total Square Cm 0.99 -Wound/Ulcer Outcome Not Healed -Ulcer Cleansing Not Cleansed -Foul Odor after Cleansing No -Bioengineered Tissue No -Type of bioengineered Tissue -Expiration Date -Product Lot Number -Percent Used -Saline Lot Number -Bleeding Controlled with NA -Treatment Response Procedure Tolerated Well Pain Scale: 0-10 Numeric Is Patient Pain Free? Yes Wound debrided: Right plantar posterior heel Laterality: Right Wound Grade/Stage: 3 Type of Debridement: Excisional debridement Anesthesia Used: 4% Lidocaine Solution Depth: in the subcutaneous layer Percentage of wound debrided: 100 Instrument Used: 3mm curette, #15 blade Tissue Removed: Adherent slough, fibrin, hyperkeratotic tissue Severity: Fat Layer Exposed Amount of bleeding with debridement: Mild Bleeding Controlled with: Pressure Patient tolerated procedure well Assessment/Plan Assessment: Ulcer to right heel with stable eschar. DM with neuropathy. Malnutrition. Plan: Patient was again examined and evaluated today. Patient is S/P surgical debridement with versajet of all necrotic, non-viable, and infected soft tissue with bone biopsy on June 14. Details from surgery are noted in the operative report. Angiogram performed prior to surgical debridement by Dr. Rios. Subcutaneous debridement was again completed today as described in the clinical panel. Following debridement, slightly moistoned guero applied to ulcer base, followed by a dry sterile dressing. Patient and his were instructed to change this dressing daily. Patient and his were instructed to keep the dressing clean, dry, and intact. They say they understand this. Patient to continue with high protein diet and it was again stressed how important keeping blood sugar under control is to healing process. It was also again stressed to the patient how important it is to keep pressure off of his heel at all times and that this includes any type of pressure at all, as the patient has been noncompliant in the past with this. Patient's informs me that he has been going out to get the mail. Patient asks when he can start driving. I informed him that he could not right now and discussed why this was a bad idea with the area his ulcer is in. I also again informed him and his that there is possibility that although his procedure went well, there is still a chance that this can lead to extensive debridements, partial calcaneal amputations, or even more proximal amputations on the leg, among other possible outcomes. He is to use the knee scooter at all times while walking. While sitting or laying in bed he was instructed to keep the heel floating over the edge of a pillow in order to have absolutely no pressure to the area. Patient and the patient's were educated on signs and symptoms of local and systemic infection and were instructed to go to the emergency room immediately should they notice any. All questions were answered to the patient and the patient's 's satisfaction. I still continue to be concerned with the patient's compliance. They will follow-up in clinic in 1 week for further evaluation, or sooner if needed. This note was generated with [employer] software. It may contain incorrect words, spelling, and punctuation that were not noted in checking the note before signing.
--- NOTE | 2017-09-15 10:23 | PN.PCM_ITS ---
(1) Chronic ulcer of right heel Status: Acute Current Visit: No Code(s): L97.419 - Non-pressure chronic ulcer of right heel and midfoot with unspecified severity (2) Lower extremity edema Status: Chronic Current Visit: No Code(s): R60.0 - Localized edema (3) PVD (peripheral vascular disease) Status: Suspected Current Visit: No Code(s): I73.9 - Peripheral vascular disease, unspecified (4) Type 2 diabetes mellitus with diabetic polyneuropathy Status: Acute Current Visit: No Code(s): E11.42 - Type 2 diabetes mellitus with diabetic polyneuropathy Type of Wound Date of Service: 09/15/17 Chief Complaint: Chronic non healing ulcer to right posterior heel with fat layer exposed. History of Wound: This 61-year-old diabetic male presents for follow up of chronic nonhealing ulcer to right posterior heel. Patient states on February 21 he believes he stepped on a staple walking down the stairs and had a tear in his skin. This progressed over the following days into an ulcer. Patient has seen Dr. See as well as gone to [facility] wound center in the past. While at [facility], the patient was undergoing every other day dressing changes consisting of medihoney and a dry sterile dressing. The patient has a knee walker and claims to be using it, but not all the time. The also states that the patient has not keeping pressure off of his right foot as much as he should be, even after last weeks visit, although he has gotten better. Patient denies any purulence to the area. The patient denies any feelings of nausea, vomiting, chills, fever at this time. Progress of Wound: Patient presents to clinic for follow up of right heel ulcer. Patient states he has done well again this week. He says he has done his best to keep weight off of the area but his says there were times where he still has pressure on his heel and he went out to get the mail a couple of times. Currently, the patient denies any feelings of nausea, vomiting, fever, or chills. - Physical Exam Vital Signs Temp Pulse Resp BP 98.3 F 69 18 131/63 H 09/15/17 09:53 09/15/17 09:53 09/15/17 09:53 09/15/17 09:53 General: Alert, Oriented x3, Cooperative, No apparent distress Extremities: Capillary Refill Less than 3 Seconds, No Calf Tenderness, Diminished Peripheral Pulses - DP and PT pulses nonpalpable due to slight lower extremity edema, Edema - Lower extremity edema Skin: Ulcer/ Wound - Ulcer to the plantar posterior aspect of the right heel. Surgical debridement was completed June 14. There continues to be slow and steady progress each week. Base continues to be a mixture of adherent slough, fibrin, and hyperkeratotic tissue surrounding the periphery. There continues to be no extending cellulitis, no purulence, no malodor, no increase in warmth, no probing to bone, no undermining appreciated at this time. Wound Measurements and Assessment WC - Nurse 1 - General Ulcer Measurement Start: 08/25/17 11:28 Freq: Status: Active Protocol: Activity Type Activity Date Activity User E-Sign Co-Sign Detail Recorded Client Recorded Date Recorded By Document 09/15/17 09:53 RB [id number] 09/15/17 09:57 RB 09/15/17 09:53 Wound Center Nurse 1 [Ulcer Assessment] #2- RT HEEL -Combined with other wound No -Photo Taken No -Tunneling No -Undermining/Tunneling No -Circular Undermining No -Classification - Thickness Full Thickness without Exposed Support Structure -Exudate Amt Small (1-33%) -Exudate Type Serosanguineous -Wound Margin Thickened & Rolled Under -Granulation Amt Large (67-100%) -Granulation Quality [place] -Slough/Fibrin Yes -Necrosis Amt Small (1-33%) -Necrotic Tissue Type Adherent Slough -Structure Exposed N/A -Texture (Miguelina-wound Skin Appearance) Assessed -Moisture (Miguelina-wound Skin Appearance Assessed ) -Color (Miguelina-wound Skin Appearance) Assessed -Temperature (Miguelina-wound Skin No Abnormality Appearance) (Pt Warm) -Tenderness on Palpation (Miguelina-wound No Skin Appearance) -Ulcer Cleansing Rinsed/ Irrigated with Saline -Foul Odor after Cleansing No -Anesthetic Used 5% Lidocaine Gel [Edema Assessment] -Lower Limb Edema Present Yes -Right Calf (cm) 34 -Right Ankle (cm) 21.2 09/15/17 09:56 Wound Center by Jhoana Juarez Pt grafix not removed due adherence to wound Initialized on 09/15/17 09:56 - END OF NOTE WC - Nurse 2 - General Ulcer CM Notes Start: 08/25/17 11:28 Freq: Status: Active Protocol: Activity Type Activity Date Activity User E-Sign Co-Sign Detail Recorded Client Recorded Date Recorded By Document 09/15/17 10:08 [id number] 09/15/17 10:09 09/15/17 10:08 Wound Center Nurse 2 [Procedure/Treatment] #2- RT HEEL -Time 10:09 -Correct Patient Yes -Correct Side, Site, Position Yes -Correct Procedure Yes -Procedure Performed Yes -Type of Procedure Debridement -Clinical Debridement Subcutaneous -Post Debridement Size (cm) - Length 1.1 -Post Debridement Size (cm) - Width 0.9 -Post Debridement Size (cm) - Depth 0.2 -Total Square Cm 0.99 -Wound/Ulcer Outcome Not Healed -Ulcer Cleansing Not Cleansed -Foul Odor after Cleansing No -Bioengineered Tissue No -Bleeding Controlled with NA -Treatment Response Procedure Tolerated Well [See Physician Procedure note for Specifics] Pain Scale: 0-10 Numeric [Pain] -Is Patient Pain Free? Yes Musculoskeletal: - - Denies tenderness with manipulation of ulcer site Neurological: - - Epicritic sensation grossly absent to lower extremity Psych/Mental Status: Normal Affect, Appropriate Debridement Note Post-Debridement Measurements/Treatment WC - Nurse 2 - General Ulcer CM Notes Start: 08/25/17 11:28 Freq: Status: Active Protocol: Activity Type Activity Date Activity User E-Sign Co-Sign Detail Recorded Client Recorded Date Recorded By Document 08/25/17 12:04 [id number] 08/25/17 12:05 Document 09/01/17 09:46 [id number] 09/01/17 10:07 Document 09/08/17 10:01 [id number] 09/08/17 10:10 Document 09/15/17 10:08 [id number] 09/15/17 10:09 08/25/17 09/01/17 09/08/17 12:04 09:46 10:01 Wound Center Nurse 2 #2- RT HEEL -Time 12:04 10:04 10:01 -Correct Patient Yes Yes Yes -Correct Side, Site, Position Yes Yes Yes -Correct Procedure Yes Yes Yes -Procedure Performed Yes Yes Yes -Type of Procedure Debridement Debridement Debridement -Clinical Debridement Subcutaneous Subcutaneous Subcutaneous -Post Debridement Size (cm) - Length 1.8 1.4 1.4 -Post Debridement Size (cm) - Width 1.8 1.6 1.4 -Post Debridement Size (cm) - Depth 0.3 0.3 0.3 -Total Square Cm 3.24 2.24 1.96 -Wound/Ulcer Outcome Not Healed Not Healed Not Healed -Ulcer Cleansing Not Cleansed Rinsed/ Rinsed/ Irrigated with Irrigated with Saline Saline -Foul Odor after Cleansing No No No -Bioengineered Tissue Yes Yes Yes -Type of bioengineered Tissue GRAFIX-Core GRAFIX-Core GRAFIX-Core -Expiration Date 05/31/20 05/31/20 05/31/20 -Product Lot Number [id number] -Percent Used 100 100 100 -Saline Lot Number [id number] -Bleeding Controlled with NA NA Pressure -Treatment Response Procedure Procedure Procedure Tolerated Well Tolerated Well Tolerated Well Pain Scale: 0-10 Numeric Is Patient Pain Free? Yes Yes Yes 09/15/17 10:08 Wound Center Nurse 2 #2- RT HEEL -Time 10:09 -Correct Patient Yes -Correct Side, Site, Position Yes -Correct Procedure Yes -Procedure Performed Yes -Type of Procedure Debridement -Clinical Debridement Subcutaneous -Post Debridement Size (cm) - Length 1.1 -Post Debridement Size (cm) - Width 0.9 -Post Debridement Size (cm) - Depth 0.2 -Total Square Cm 0.99 -Wound/Ulcer Outcome Not Healed -Ulcer Cleansing Not Cleansed -Foul Odor after Cleansing No -Bioengineered Tissue No -Type of bioengineered Tissue -Expiration Date -Product Lot Number -Percent Used -Saline Lot Number -Bleeding Controlled with NA -Treatment Response Procedure Tolerated Well Pain Scale: 0-10 Numeric Is Patient Pain Free? Yes Wound debrided: Right plantar posterior heel Laterality: Right Wound Grade/Stage: 3 Type of Debridement: Excisional debridement Anesthesia Used: 4% Lidocaine Solution Depth: in the subcutaneous layer Percentage of wound debrided: 100 Instrument Used: 3mm curette, #15 blade Tissue Removed: Adherent slough, fibrin, hyperkeratotic tissue Severity: Fat Layer Exposed Amount of bleeding with debridement: Mild Bleeding Controlled with: Pressure Patient tolerated procedure well Assessment/Plan Assessment: Ulcer to right heel with stable eschar. DM with neuropathy. Malnutrition. Plan: Patient was again examined and evaluated today. Patient is S/P surgical debridement with versajet of all necrotic, non-viable, and infected soft tissue with bone biopsy on June 14. Details from surgery are noted in the operative report. Angiogram performed prior to surgical debridement by Dr. Rios. Subcutaneous debridement was again completed today as described in the clinical panel. Following debridement, slightly moistoned guero applied to ulcer base, followed by a dry sterile dressing. Patient and his were instructed to change this dressing daily. Patient and his were instructed to keep the dressing clean, dry, and intact. They say they understand this. Patient to continue with high protein diet and it was again stressed how important keeping blood sugar under control is to healing process. It was also again stressed to the patient how important it is to keep pressure off of his heel at all times and that this includes any type of pressure at all, as the patient has been noncompliant in the past with this. Patient's informs me that he has been going out to get the mail. Patient asks when he can start driving. I informed him that he could not right now and discussed why this was a bad idea with the area his ulcer is in. I also again informed him and his that there is possibility that although his procedure went well, there is still a chance that this can lead to extensive debridements, partial calcaneal amputations, or even more proximal amputations on the leg, among other possible outcomes. He is to use the knee scooter at all times while walking. While sitting or laying in bed he was instructed to keep the heel floating over the edge of a pillow in order to have absolutely no pressure to the area. Patient and the patient's were educated on signs and symptoms of local and systemic infection and were instructed to go to the emergency room immediately should they notice any. All questions were answered to the patient and the patient's 's satisfaction. I still continue to be concerned with the patient's compliance. They will follow -up in clinic in 1 week for further evaluation, or sooner if needed. This note was generated with [employer] software. It may contain incorrect words, spelling, and punctuation that were not noted in checking the note before signing.
== END 2017-09-20 23:59 ==
LOC: WC 09:30
PROVIDERS: Visit Provider Podiatrist
DX: E11.621 Type 2 diabetes mellitus with foot ulcer (principal); L97.412 Non-pressure chronic ulcer of right heel and midfoot with fat layer exposed; E11.42 Type 2 diabetes mellitus with diabetic polyneuropathy; E11.51 Type 2 diabetes mellitus with diabetic peripheral angiopathy without gangrene; R60.0 Localized edema; E46 Unspecified protein-calorie malnutrition
CPT/HCPCS: 11042; 15275; Q4132

== ENCOUNTER 2017-10-20 10:30 | Outpatient (RCR) | payer MEDICARE, SELFPAY ==
[2017-09-21 00:37] VITALS: BP 131/63; PULSE 69; RESP 18; TEMP 36.8; BMI 32.7
[2017-09-22 09:53] VITALS: BP 144/75; PULSE 79; RESP 18; TEMP 36.1; BMI 32.7
--- NOTE | 2017-09-22 10:05 | PCM.WC.PN ---
(1) Chronic ulcer of right heel Status: Acute Current Visit: No Code(s): L97.419 - Non-pressure chronic ulcer of right heel and midfoot with unspecified severity (2) Lower extremity edema Status: Chronic Current Visit: No Code(s): R60.0 - Localized edema (3) PVD (peripheral vascular disease) Status: Suspected Current Visit: No Code(s): I73.9 - Peripheral vascular disease, unspecified (4) Type 2 diabetes mellitus with diabetic polyneuropathy Status: Acute Current Visit: No Code(s): E11.42 - Type 2 diabetes mellitus with diabetic polyneuropathy Type of Wound Date of Service: 09/22/17 Chief Complaint: Chronic non healing ulcer to right posterior heel with fat layer exposed. History of Wound: This 61-year-old diabetic male presents for follow up of chronic nonhealing ulcer to right posterior heel. Patient states on February 21 he believes he stepped on a staple walking down the stairs and had a tear in his skin. This progressed over the following days into an ulcer. Patient has seen Dr. See as well as gone to [facility] wound center in the past. While at [facility], the patient was undergoing every other day dressing changes consisting of medihoney and a dry sterile dressing. The patient has a knee walker and claims to be using it, but not all the time. The also states that the patient has not keeping pressure off of his right foot as much as he should be, even after last weeks visit, although he has gotten better. Patient denies any purulence to the area. The patient denies any feelings of nausea, vomiting, chills, fever at this time. Progress of Wound: Patient presents to clinic for follow up of right heel ulcer. Patient and did well with dressing changes the past week with guero. Patient admits again to having pressure on his heel/foot. Currently, the patient denies any feelings of nausea, vomiting, fever, or chills. - Physical Exam Vital Signs Temp Pulse Resp BP 96.9 F L 79 18 144/75 H 09/22/17 09:53 09/22/17 09:53 09/22/17 09:53 09/22/17 09:53 General: Alert, Oriented x3, Cooperative, No apparent distress Extremities: Capillary Refill Less than 3 Seconds, No Calf Tenderness - Negative Wojciech and Guerrero sign, Diminished Peripheral Pulses - DP and PT pulses nonpalpable due to slight lower extremity edema, Edema - Lower extremity edema Skin: Ulcer/ Wound - Ulcer to plantar posterior aspect of right heel. Surgical debridement was completed June 14. Ulcer site appears stable since last week. Base continues to be a mixture of adherent slough, fibrin, as well as some slightly increased hyperkeratotic tissue surrounding the periphery, more so than previous weeks. There continues to be no extending cellulitis, no purulence, no malodor, no increase in warmth, no probing to bone, and no undermining appreciated at this time Wound Measurements and Assessment WC - Nurse 1 - General Ulcer Measurement Start: 09/22/17 09:53 Freq: Status: Active Protocol: Activity Type Activity Date Activity User E-Sign Co-Sign Detail Recorded Client Recorded Date Recorded By Document 09/22/17 09:53 [id number] 09/22/17 09:55 TM 09/22/17 09:53 Wound Center Nurse 1 [Ulcer Assessment] #2- RT HEEL -Combined with other wound No -Current Size (cm) - Length 1.0 -Current Size (cm) - Width 0.6 -Current Size (cm) - Depth 0.3 -Total Square Cm 0.60 -Photo Taken No -Epithelialization Small 1-33% -Tunneling No -Undermining/Tunneling No -Circular Undermining No -Classification - Thickness Full Thickness without Exposed Support Structure -Exudate Amt Small (1-33%) -Exudate Type Serosanguineous -Wound Margin Distinct, Outline Attached -Granulation Amt Large (67-100%) -Granulation Quality [place] -Slough/Fibrin Yes -Necrosis Amt Small (1-33%) -Necrotic Tissue Type Adherent Slough -Structure Exposed Fascia Fat Layer Exposed -Texture (Miguelina-wound Skin Appearance) Assessed Callus Scarring -Moisture (Miguelina-wound Skin Appearance Dry/Scaly ) -Color (Miguelina-wound Skin Appearance) No Abnormality Assessed -Temperature (Miguelina-wound Skin No Abnormality Appearance) (Pt Warm) -Tenderness on Palpation (Miguelina-wound No Skin Appearance) -Ulcer Cleansing Rinsed/ Irrigated with Saline -Foul Odor after Cleansing No -Anesthetic Used 4% Lidocaine Solution [Edema Assessment] -Lower Limb Edema Present Yes -Right Calf (cm) 33.0 -Right Ankle (cm) 21.5 WC - Nurse 2 - General Ulcer CM Notes Start: 09/22/17 09:53 Freq: Status: Active Protocol: Activity Type Activity Date Activity User E-Sign Co-Sign Detail Recorded Client Recorded Date Recorded By Document 09/22/17 09:56 [id number] 09/22/17 10:01 09/22/17 09:56 Wound Center Nurse 2 [Procedure/Treatment] #2- RT HEEL -Time 09:56 -Correct Patient Yes -Correct Side, Site, Position Yes -Correct Procedure Yes -Procedure Performed Yes -Type of Procedure Debridement -Clinical Debridement Subcutaneous -Post Debridement Size (cm) - Length 1.1 -Post Debridement Size (cm) - Width 0.9 -Post Debridement Size (cm) - Depth 0.2 -Total Square Cm 0.99 -Wound/Ulcer Outcome Not Healed -Ulcer Cleansing Not Cleansed -Foul Odor after Cleansing No -Bioengineered Tissue No -Bleeding Controlled with NA -Treatment Response Procedure Tolerated Well [See Physician Procedure note for Specifics] Pain Scale: 0-10 Numeric [Pain] -Is Patient Pain Free? Yes Musculoskeletal: - - Denies tenderness with manipulation of ulcer site Neurological: - - Epicritic sensation grossly absent to lower extremity Psych/Mental Status: Normal Affect, Appropriate Debridement Note Post-Debridement Measurements/Treatment - Nurse 2 - General Ulcer CM Notes Start: 09/22/17 09:53 Freq: Status: Active Protocol: Activity Type Activity Date Activity User E-Sign Co-Sign Detail Recorded Client Recorded Date Recorded By Document 09/22/17 09:56 [id number] 09/22/17 10:01 09/22/17 09:56 Wound Center Nurse 2 #2- RT HEEL -Time 09:56 -Correct Patient Yes -Correct Side, Site, Position Yes -Correct Procedure Yes -Procedure Performed Yes -Type of Procedure Debridement -Clinical Debridement Subcutaneous -Post Debridement Size (cm) - Length 1.1 -Post Debridement Size (cm) - Width 0.9 -Post Debridement Size (cm) - Depth 0.2 -Total Square Cm 0.99 -Wound/Ulcer Outcome Not Healed -Ulcer Cleansing Not Cleansed -Foul Odor after Cleansing No -Bioengineered Tissue No -Bleeding Controlled with NA -Treatment Response Procedure Tolerated Well Pain Scale: 0-10 Numeric Is Patient Pain Free? Yes Wound debrided: Right plantar posterior heel Laterality: Right Wound Grade/Stage: 3 Type of Debridement: Excisional debridement Anesthesia Used: 4% Lidocaine Solution Depth: Down to and including healthy tissue, in the subcutaneous layer Percentage of wound debrided: 100 Instrument Used: 3mm curette, #15 blade Tissue Removed: Adherent slough, fibrin, hyperkeratotic tissue Severity: Fat Layer Exposed Amount of bleeding with debridement: Mild Bleeding Controlled with: Pressure Patient tolerated procedure well Assessment/Plan Assessment: Ulcer to right heel with stable eschar. DM with neuropathy. Malnutrition. Plan: Patient was again examined and evaluated today. Patient is S/P surgical debridement with versajet of all necrotic, non-viable, and infected soft tissue with bone biopsy on June 14. Details from surgery are noted in the operative report. Angiogram performed prior to surgical debridement by Dr. Rios. Subcutaneous debridement was again completed today as described in the clinical panel. Following debridement, slightly moistoned guero applied to ulcer base, followed by a dry sterile dressing. Patient and his were instructed to change this dressing daily. Patient and his were instructed to keep the dressing clean, dry, and intact again this week. Patient to continue with high protein diet and it was again stressed how important keeping blood sugar under control is to healing process. They say his primary care started him on metformin and his blood sugars have been off lately, but they are getting things under control. It was also again stressed to the patient how important it is to keep pressure off of his heel at all times and that this includes any type of pressure at all, as the patient has been noncompliant in the past with this. Patient again walked and placed pressure on his foot/heel again this past week. I discussed at length again today how much this delays the healing process. Patient asks when he can start driving. I informed him that he could not right now and discussed why this was a bad idea with the area his ulcer is in. I also again informed him and his that there is possibility that although his procedure went well, there is still a chance that this can lead to extensive debridements, partial calcaneal amputations, or even more proximal amputations on the leg, among other possible outcomes. He is to use the knee scooter at all times while walking. While sitting or laying in bed he was instructed to keep the heel floating over the edge of a pillow in order to have absolutely no pressure to the area. Patient and the patient's were educated on signs and symptoms of local and systemic infection and were instructed to go to the emergency room immediately should they notice any. All questions were answered to the patient and the patient's 's satisfaction. I still continue to be concerned with the patient's compliance. They will follow-up in clinic in 1 week for further evaluation, or sooner if needed. This note was generated with [employer] dictation software. It may contain incorrect words, spelling, and punctuation that were not noted in checking the note before signing.
--- NOTE | 2017-09-22 10:09 | PN.PCM_ITS ---
(1) Chronic ulcer of right heel Status: Acute Current Visit: No Code(s): L97.419 - Non-pressure chronic ulcer of right heel and midfoot with unspecified severity (2) Lower extremity edema Status: Chronic Current Visit: No Code(s): R60.0 - Localized edema (3) PVD (peripheral vascular disease) Status: Suspected Current Visit: No Code(s): I73.9 - Peripheral vascular disease, unspecified (4) Type 2 diabetes mellitus with diabetic polyneuropathy Status: Acute Current Visit: No Code(s): E11.42 - Type 2 diabetes mellitus with diabetic polyneuropathy Type of Wound Date of Service: 09/22/17 Chief Complaint: Chronic non healing ulcer to right posterior heel with fat layer exposed. History of Wound: This 61-year-old diabetic male presents for follow up of chronic nonhealing ulcer to right posterior heel. Patient states on February 21 he believes he stepped on a staple walking down the stairs and had a tear in his skin. This progressed over the following days into an ulcer. Patient has seen Dr. See as well as gone to [facility] wound center in the past. While at [facility], the patient was undergoing every other day dressing changes consisting of medihoney and a dry sterile dressing. The patient has a knee walker and claims to be using it, but not all the time. The also states that the patient has not keeping pressure off of his right foot as much as he should be, even after last weeks visit, although he has gotten better. Patient denies any purulence to the area. The patient denies any feelings of nausea, vomiting, chills, fever at this time. Progress of Wound: Patient presents to clinic for follow up of right heel ulcer. Patient and did well with dressing changes the past week with guero. Patient admits again to having pressure on his heel/foot. Currently, the patient denies any feelings of nausea, vomiting, fever, or chills. - Physical Exam Vital Signs Temp Pulse Resp BP 96.9 F L 79 18 144/75 H 09/22/17 09:53 09/22/17 09:53 09/22/17 09:53 09/22/17 09:53 General: Alert, Oriented x3, Cooperative, No apparent distress Extremities: Capillary Refill Less than 3 Seconds, No Calf Tenderness - Negative Wojciech and Guerrero sign, Diminished Peripheral Pulses - DP and PT pulses nonpalpable due to slight lower extremity edema, Edema - Lower extremity edema Skin: Ulcer/ Wound - Ulcer to plantar posterior aspect of right heel. Surgical debridement was completed June 14. Ulcer site appears stable since last week. Base continues to be a mixture of adherent slough, fibrin, as well as some slightly increased hyperkeratotic tissue surrounding the periphery, more so than previous weeks. There continues to be no extending cellulitis, no purulence, no malodor, no increase in warmth, no probing to bone, and no undermining appreciated at this time Wound Measurements and Assessment WC - Nurse 1 - General Ulcer Measurement Start: 09/22/17 09:53 Freq: Status: Active Protocol: Activity Type Activity Date Activity User E-Sign Co-Sign Detail Recorded Client Recorded Date Recorded By Document 09/22/17 09:53 [id number] 09/22/17 09:55 TM 09/22/17 09:53 Wound Center Nurse 1 [Ulcer Assessment] #2- RT HEEL -Combined with other wound No -Current Size (cm) - Length 1.0 -Current Size (cm) - Width 0.6 -Current Size (cm) - Depth 0.3 -Total Square Cm 0.60 -Photo Taken No -Epithelialization Small 1-33% -Tunneling No -Undermining/Tunneling No -Circular Undermining No -Classification - Thickness Full Thickness without Exposed Support Structure -Exudate Amt Small (1-33%) -Exudate Type Serosanguineous -Wound Margin Distinct, Outline Attached -Granulation Amt Large (67-100%) -Granulation Quality [place] -Slough/Fibrin Yes -Necrosis Amt Small (1-33%) -Necrotic Tissue Type Adherent Slough -Structure Exposed Fascia Fat Layer Exposed -Texture (Miguelina-wound Skin Appearance) Assessed Callus Scarring -Moisture (Miguelina-wound Skin Appearance Dry/Scaly ) -Color (Miguelina-wound Skin Appearance) No Abnormality Assessed -Temperature (Miguelina-wound Skin No Abnormality Appearance) (Pt Warm) -Tenderness on Palpation (Miguelina-wound No Skin Appearance) -Ulcer Cleansing Rinsed/ Irrigated with Saline -Foul Odor after Cleansing No -Anesthetic Used 4% Lidocaine Solution [Edema Assessment] -Lower Limb Edema Present Yes -Right Calf (cm) 33.0 -Right Ankle (cm) 21.5 WC - Nurse 2 - General Ulcer CM Notes Start: 09/22/17 09:53 Freq: Status: Active Protocol: Activity Type Activity Date Activity User E-Sign Co-Sign Detail Recorded Client Recorded Date Recorded By Document 09/22/17 09:56 [id number] 09/22/17 10:01 09/22/17 09:56 Wound Center Nurse 2 [Procedure/Treatment] #2- RT HEEL -Time 09:56 -Correct Patient Yes -Correct Side, Site, Position Yes -Correct Procedure Yes -Procedure Performed Yes -Type of Procedure Debridement -Clinical Debridement Subcutaneous -Post Debridement Size (cm) - Length 1.1 -Post Debridement Size (cm) - Width 0.9 -Post Debridement Size (cm) - Depth 0.2 -Total Square Cm 0.99 -Wound/Ulcer Outcome Not Healed -Ulcer Cleansing Not Cleansed -Foul Odor after Cleansing No -Bioengineered Tissue No -Bleeding Controlled with NA -Treatment Response Procedure Tolerated Well [See Physician Procedure note for Specifics] Pain Scale: 0-10 Numeric [Pain] -Is Patient Pain Free? Yes Musculoskeletal: - - Denies tenderness with manipulation of ulcer site Neurological: - - Epicritic sensation grossly absent to lower extremity Psych/Mental Status: Normal Affect, Appropriate Debridement Note Post-Debridement Measurements/Treatment - Nurse 2 - General Ulcer CM Notes Start: 09/22/17 09:53 Freq: Status: Active Protocol: Activity Type Activity Date Activity User E-Sign Co-Sign Detail Recorded Client Recorded Date Recorded By Document 09/22/17 09:56 [id number] 09/22/17 10:01 09/22/17 09:56 Wound Center Nurse 2 #2- RT HEEL -Time 09:56 -Correct Patient Yes -Correct Side, Site, Position Yes -Correct Procedure Yes -Procedure Performed Yes -Type of Procedure Debridement -Clinical Debridement Subcutaneous -Post Debridement Size (cm) - Length 1.1 -Post Debridement Size (cm) - Width 0.9 -Post Debridement Size (cm) - Depth 0.2 -Total Square Cm 0.99 -Wound/Ulcer Outcome Not Healed -Ulcer Cleansing Not Cleansed -Foul Odor after Cleansing No -Bioengineered Tissue No -Bleeding Controlled with NA -Treatment Response Procedure Tolerated Well Pain Scale: 0-10 Numeric Is Patient Pain Free? Yes Wound debrided: Right plantar posterior heel Laterality: Right Wound Grade/Stage: 3 Type of Debridement: Excisional debridement Anesthesia Used: 4% Lidocaine Solution Depth: Down to and including healthy tissue, in the subcutaneous layer Percentage of wound debrided: 100 Instrument Used: 3mm curette, #15 blade Tissue Removed: Adherent slough, fibrin, hyperkeratotic tissue Severity: Fat Layer Exposed Amount of bleeding with debridement: Mild Bleeding Controlled with: Pressure Patient tolerated procedure well Assessment/Plan Assessment: Ulcer to right heel with stable eschar. DM with neuropathy. Malnutrition. Plan: Patient was again examined and evaluated today. Patient is S/P surgical debridement with versajet of all necrotic, non-viable, and infected soft tissue with bone biopsy on June 14. Details from surgery are noted in the operative report. Angiogram performed prior to surgical debridement by Dr. Rios. Subcutaneous debridement was again completed today as described in the clinical panel. Following debridement, slightly moistoned guero applied to ulcer base, followed by a dry sterile dressing. Patient and his were instructed to change this dressing daily. Patient and his were instructed to keep the dressing clean, dry, and intact again this week. Patient to continue with high protein diet and it was again stressed how important keeping blood sugar under control is to healing process. They say his primary care started him on metformin and his blood sugars have been off lately, but they are getting things under control. It was also again stressed to the patient how important it is to keep pressure off of his heel at all times and that this includes any type of pressure at all, as the patient has been noncompliant in the past with this. Patient again walked and placed pressure on his foot/heel again this past week. I discussed at length again today how much this delays the healing process. Patient asks when he can start driving. I informed him that he could not right now and discussed why this was a bad idea with the area his ulcer is in. I also again informed him and his that there is possibility that although his procedure went well, there is still a chance that this can lead to extensive debridements, partial calcaneal amputations, or even more proximal amputations on the leg, among other possible outcomes. He is to use the knee scooter at all times while walking. While sitting or laying in bed he was instructed to keep the heel floating over the edge of a pillow in order to have absolutely no pressure to the area. Patient and the patient's were educated on signs and symptoms of local and systemic infection and were instructed to go to the emergency room immediately should they notice any. All questions were answered to the patient and the patient's 's satisfaction. I still continue to be concerned with the patient's compliance. They will follow -up in clinic in 1 week for further evaluation, or sooner if needed. This note was generated with [employer] dictation software. It may contain incorrect words, spelling, and punctuation that were not noted in checking the note before signing.
[2017-09-29 08:27] VITALS: BP 147/74; PULSE 76; RESP 18; TEMP 32.8; BMI 32.7
--- NOTE | 2017-09-29 09:58 | PCM.WC.PN ---
(1) Chronic ulcer of right heel Status: Acute Current Visit: No Code(s): L97.419 - Non-pressure chronic ulcer of right heel and midfoot with unspecified severity (2) Lower extremity edema Status: Chronic Current Visit: No Code(s): R60.0 - Localized edema (3) PVD (peripheral vascular disease) Status: Suspected Current Visit: No Code(s): I73.9 - Peripheral vascular disease, unspecified (4) Type 2 diabetes mellitus with diabetic polyneuropathy Status: Acute Current Visit: No Code(s): E11.42 - Type 2 diabetes mellitus with diabetic polyneuropathy Type of Wound Date of Service: 09/29/17 Chief Complaint: Chronic non healing ulcer to right posterior heel with fat layer exposed. History of Wound: This 61-year-old diabetic male presents for follow up of chronic nonhealing ulcer to right posterior heel. Patient states on February 21 he believes he stepped on a staple walking down the stairs and had a tear in his skin. This progressed over the following days into an ulcer. Patient has seen Dr. See as well as gone to [facility] wound center in the past. While at [facility], the patient was undergoing every other day dressing changes consisting of medihoney and a dry sterile dressing. The patient has a knee walker and claims to be using it, but not all the time. The also states that the patient has not keeping pressure off of his right foot as much as he should be, even after last weeks visit, although he has gotten better. Patient denies any purulence to the area. The patient denies any feelings of nausea, vomiting, chills, fever at this time. Progress of Wound: Patient presents to clinic for follow up of right heel ulcer. Patient and did well with dressing changes the past week with guero. Patient admits again to having pressure on his heel/foot. He has not been using his knee scooter and has been sleeping in his recliner. Currently, the patient denies any feelings of nausea, vomiting, fever, or chills. - Physical Exam Vital Signs Temp Pulse Resp BP 91.1 F L 76 18 147/74 H 09/29/17 08:27 09/29/17 08:27 09/29/17 08:27 09/29/17 08:27 General: Alert, Oriented x3, Cooperative, No apparent distress Extremities: Capillary Refill Less than 3 Seconds, No Calf Tenderness - Negative Wojciech and Guerrero sign, Diminished Peripheral Pulses - DP and PT pulses nonpalpable due to slight lower extremity edema, Edema - Lower extremity edema Skin: Ulcer/ Wound - Ulcer to plantar posterior aspect of right heel. Surgical debridement was completed June 14. Ulcer has very slightly improved since last week. The base continues to be a mixture of adherent slough and fibrin. There is a slightly more hyperkeratotic tissue buildup around the ulcer periphery this week showing that the patient has been applying pressure to the heel. There continues to be no extending cellulitis, no purulence, no malodor, no increased warmth, no probing to bone, and no undermining appreciated at this time. Wound Measurements and Assessment WC - Nurse 1 - General Ulcer Measurement Start: 09/22/17 09:53 Freq: Status: Active Protocol: Activity Type Activity Date Activity User E-Sign Co-Sign Detail Recorded Client Recorded Date Recorded By Document 09/29/17 08:27 DL [id number] 09/29/17 08:33 DL 09/29/17 08:27 Wound Center Nurse 1 [Ulcer Assessment] #2- RT HEEL -Current Size (cm) - Length 0.7 -Current Size (cm) - Width 0.5 -Current Size (cm) - Depth 0.2 -Total Square Cm 0.35 -Photo Taken No -Exudate Amt None Present (0 %) -Wound Margin Thickened & Rolled Under -Granulation Amt Small (1-33%) -Granulation Quality [place] -Necrosis Amt Small (1-33%) -Necrotic Tissue Type Adherent Slough -Structure Exposed N/A -Texture (Miguelina-wound Skin Appearance) Callus Scarring -Moisture (Miguelina-wound Skin Appearance Dry/Scaly ) -Color (Miguelina-wound Skin Appearance) No Abnormality -Ulcer Cleansing Rinsed/ Irrigated with Saline -Foul Odor after Cleansing No -Anesthetic Used 4% Lidocaine Solution [Edema Assessment] -Right Calf (cm) 32 -Right Ankle (cm) 20.3 - Nurse 2 - General Ulcer CM Notes Start: 09/22/17 09:53 Freq: Status: Active Protocol: Activity Type Activity Date Activity User E-Sign Co-Sign Detail Recorded Client Recorded Date Recorded By Document 09/29/17 09:05 [id number] 09/29/17 09:06 09/29/17 09:05 Wound Center Nurse 2 [Procedure/Treatment] #2- RT HEEL -Time 09:06 -Correct Patient Yes -Correct Side, Site, Position Yes -Correct Procedure Yes -Procedure Performed Yes -Type of Procedure Debridement -Clinical Debridement Subcutaneous -Post Debridement Size (cm) - Length 1.0 -Post Debridement Size (cm) - Width 0.6 -Post Debridement Size (cm) - Depth 0.2 -Total Square Cm 0.60 -Wound/Ulcer Outcome Not Healed -Ulcer Cleansing Not Cleansed -Foul Odor after Cleansing No -Bioengineered Tissue No -Bleeding Controlled with Pressure -Treatment Response Procedure Tolerated Well [See Physician Procedure note for Specifics] Pain Scale: 0-10 Numeric [Pain] -Is Patient Pain Free? Yes Musculoskeletal: - - Patient denies tenderness with manipulation of ulcer site Neurological: - - Epicritic sensation grossly absent to lower extremity Psych/Mental Status: Normal Affect, Appropriate Debridement Note Post-Debridement Measurements/Treatment WC - Nurse 2 - General Ulcer CM Notes Start: 09/22/17 09:53 Freq: Status: Active Protocol: Activity Type Activity Date Activity User E-Sign Co-Sign Detail Recorded Client Recorded Date Recorded By Document 09/22/17 09:56 [id number] 09/22/17 10:01 Document 09/29/17 09:05 [id number] 09/29/17 09:06 09/22/1718 09:56 09:05 Wound Center Nurse 2 #2- RT HEEL -Time 09:56 09:06 -Correct Patient Yes Yes -Correct Side, Site, Position Yes Yes -Correct Procedure Yes Yes -Procedure Performed Yes Yes -Type of Procedure Debridement Debridement -Clinical Debridement Subcutaneous Subcutaneous -Post Debridement Size (cm) - Length 1.1 1.0 -Post Debridement Size (cm) - Width 0.9 0.6 -Post Debridement Size (cm) - Depth 0.2 0.2 -Total Square Cm 0.99 0.60 -Wound/Ulcer Outcome Not Healed Not Healed -Ulcer Cleansing Not Cleansed Not Cleansed -Foul Odor after Cleansing No No -Bioengineered Tissue No No -Bleeding Controlled with NA Pressure -Treatment Response Procedure Procedure Tolerated Well Tolerated Well Pain Scale: 0-10 Numeric Is Patient Pain Free? Yes Yes Wound debrided: Right plantar posterior heel Laterality: Right Wound Grade/Stage: 3 Type of Debridement: Excisional debridement Anesthesia Used: 4% Lidocaine Solution Depth: Down to and including healthy tissue, in the subcutaneous layer Percentage of wound debrided: 100 Instrument Used: 3mm curette, #15 blade Tissue Removed: Adherent slough, fibrin, hyperkeratotic tissue Severity: Fat Layer Exposed Amount of bleeding with debridement: Mild Bleeding Controlled with: Pressure Patient tolerated procedure well Assessment/Plan Assessment: Ulcer to right heel with stable eschar. DM with neuropathy. Malnutrition. Plan: Patient was again examined and evaluated today. Patient is S/P surgical debridement with versajet of all necrotic, non-viable, and infected soft tissue with bone biopsy on June 14. Details from surgery are noted in the operative report. Angiogram performed prior to surgical debridement by Dr. Rios. Subcutaneous debridement was again completed today as described in the clinical panel. Following debridement, slightly moistoned guero applied to ulcer base, followed by a dry sterile dressing. Patient and his were instructed to change this dressing daily. Patient and his were instructed to keep the dressing clean, dry, and intact again this week. Patient to continue with high protein diet and it was again stressed how important keeping blood sugar under control is to healing process. It was also again stressed to the patient how important it is to keep pressure off of his heel at all times and that this includes any type of pressure at all, as the patient has been noncompliant in the past with this. Patient presents to clinic again today walking with a cane with pressure to heel. The callus buildup around the ulcer shows the patient has not been compliant in keep pressure off of his heel. I discussed at length again today how much this delays the healing process. Patient asks when he can start driving. I informed him that he could not right now and discussed why this was a bad idea with the area his ulcer is in. I also again informed him and his that there is possibility that although his procedure went well, there is still a chance that this can lead to extensive debridements, partial calcaneal amputations, or even more proximal amputations on the leg, among other possible outcomes. He is to use the knee scooter at all times while walking. While sitting or laying in bed he was instructed to keep the heel floating over the edge of a pillow in order to have absolutely no pressure to the area. Patient and the patient's were educated on signs and symptoms of local and systemic infection and were instructed to go to the emergency room immediately should they notice any. All questions were answered to the patient and the patient's 's satisfaction. I still continue to be concerned with the patient's compliance. They will follow-up in clinic in 1 week for further evaluation, or sooner if needed. This note was generated with [employer] dictation software. It may contain incorrect words, spelling, and punctuation that were not noted in checking the note before signing.
--- NOTE | 2017-09-29 10:02 | PN.PCM_ITS ---
(1) Chronic ulcer of right heel Status: Acute Current Visit: No Code(s): L97.419 - Non-pressure chronic ulcer of right heel and midfoot with unspecified severity (2) Lower extremity edema Status: Chronic Current Visit: No Code(s): R60.0 - Localized edema (3) PVD (peripheral vascular disease) Status: Suspected Current Visit: No Code(s): I73.9 - Peripheral vascular disease, unspecified (4) Type 2 diabetes mellitus with diabetic polyneuropathy Status: Acute Current Visit: No Code(s): E11.42 - Type 2 diabetes mellitus with diabetic polyneuropathy Type of Wound Date of Service: 09/29/17 Chief Complaint: Chronic non healing ulcer to right posterior heel with fat layer exposed. History of Wound: This 61-year-old diabetic male presents for follow up of chronic nonhealing ulcer to right posterior heel. Patient states on February 21 he believes he stepped on a staple walking down the stairs and had a tear in his skin. This progressed over the following days into an ulcer. Patient has seen Dr. See as well as gone to [facility] wound center in the past. While at [facility], the patient was undergoing every other day dressing changes consisting of medihoney and a dry sterile dressing. The patient has a knee walker and claims to be using it, but not all the time. The also states that the patient has not keeping pressure off of his right foot as much as he should be, even after last weeks visit, although he has gotten better. Patient denies any purulence to the area. The patient denies any feelings of nausea, vomiting, chills, fever at this time. Progress of Wound: Patient presents to clinic for follow up of right heel ulcer. Patient and did well with dressing changes the past week with guero. Patient admits again to having pressure on his heel/foot. He has not been using his knee scooter and has been sleeping in his recliner. Currently, the patient denies any feelings of nausea, vomiting, fever, or chills. - Physical Exam Vital Signs Temp Pulse Resp BP 91.1 F L 76 18 147/74 H 09/29/17 08:27 09/29/17 08:27 09/29/17 08:27 09/29/17 08:27 General: Alert, Oriented x3, Cooperative, No apparent distress Extremities: Capillary Refill Less than 3 Seconds, No Calf Tenderness - Negative Wojciech and Guerrero sign, Diminished Peripheral Pulses - DP and PT pulses nonpalpable due to slight lower extremity edema, Edema - Lower extremity edema Skin: Ulcer/ Wound - Ulcer to plantar posterior aspect of right heel. Surgical debridement was completed June 14. Ulcer has very slightly improved since last week. The base continues to be a mixture of adherent slough and fibrin. There is a slightly more hyperkeratotic tissue buildup around the ulcer periphery this week showing that the patient has been applying pressure to the heel. There continues to be no extending cellulitis, no purulence, no malodor, no increased warmth, no probing to bone, and no undermining appreciated at this time. Wound Measurements and Assessment WC - Nurse 1 - General Ulcer Measurement Start: 09/22/17 09:53 Freq: Status: Active Protocol: Activity Type Activity Date Activity User E-Sign Co-Sign Detail Recorded Client Recorded Date Recorded By Document 09/29/17 08:27 DL [id number] 09/29/17 08:33 DL 09/29/17 08:27 Wound Center Nurse 1 [Ulcer Assessment] #2- RT HEEL -Current Size (cm) - Length 0.7 -Current Size (cm) - Width 0.5 -Current Size (cm) - Depth 0.2 -Total Square Cm 0.35 -Photo Taken No -Exudate Amt None Present (0 %) -Wound Margin Thickened & Rolled Under -Granulation Amt Small (1-33%) -Granulation Quality Trilla -Necrosis Amt Small (1-33%) -Necrotic Tissue Type Adherent Slough -Structure Exposed N/A -Texture (Miguelina-wound Skin Appearance) Callus Scarring -Moisture (Miguelina-wound Skin Appearance Dry/Scaly ) -Color (Miguelina-wound Skin Appearance) No Abnormality -Ulcer Cleansing Rinsed/ Irrigated with Saline -Foul Odor after Cleansing No -Anesthetic Used 4% Lidocaine Solution [Edema Assessment] -Right Calf (cm) 32 -Right Ankle (cm) 20.3 - Nurse 2 - General Ulcer CM Notes Start: 09/22/17 09:53 Freq: Status: Active Protocol: Activity Type Activity Date Activity User E-Sign Co-Sign Detail Recorded Client Recorded Date Recorded By Document 09/29/17 09:05 [id number] 09/29/17 09:06 09/29/17 09:05 Wound Center Nurse 2 [Procedure/Treatment] #2- RT HEEL -Time 09:06 -Correct Patient Yes -Correct Side, Site, Position Yes -Correct Procedure Yes -Procedure Performed Yes -Type of Procedure Debridement -Clinical Debridement Subcutaneous -Post Debridement Size (cm) - Length 1.0 -Post Debridement Size (cm) - Width 0.6 -Post Debridement Size (cm) - Depth 0.2 -Total Square Cm 0.60 -Wound/Ulcer Outcome Not Healed -Ulcer Cleansing Not Cleansed -Foul Odor after Cleansing No -Bioengineered Tissue No -Bleeding Controlled with Pressure -Treatment Response Procedure Tolerated Well [See Physician Procedure note for Specifics] Pain Scale: 0-10 Numeric [Pain] -Is Patient Pain Free? Yes Musculoskeletal: - - Patient denies tenderness with manipulation of ulcer site Neurological: - - Epicritic sensation grossly absent to lower extremity Psych/Mental Status: Normal Affect, Appropriate Debridement Note Post-Debridement Measurements/Treatment WC - Nurse 2 - General Ulcer CM Notes Start: 09/22/17 09:53 Freq: Status: Active Protocol: Activity Type Activity Date Activity User E-Sign Co-Sign Detail Recorded Client Recorded Date Recorded By Document 09/22/17 09:56 [id number] 09/22/17 10:01 Document 09/29/17 09:05 [id number] 09/29/17 09:06 09/22/1718 09:56 09:05 Wound Center Nurse 2 #2- RT HEEL -Time 09:56 09:06 -Correct Patient Yes Yes -Correct Side, Site, Position Yes Yes -Correct Procedure Yes Yes -Procedure Performed Yes Yes -Type of Procedure Debridement Debridement -Clinical Debridement Subcutaneous Subcutaneous -Post Debridement Size (cm) - Length 1.1 1.0 -Post Debridement Size (cm) - Width 0.9 0.6 -Post Debridement Size (cm) - Depth 0.2 0.2 -Total Square Cm 0.99 0.60 -Wound/Ulcer Outcome Not Healed Not Healed -Ulcer Cleansing Not Cleansed Not Cleansed -Foul Odor after Cleansing No No -Bioengineered Tissue No No -Bleeding Controlled with NA Pressure -Treatment Response Procedure Procedure Tolerated Well Tolerated Well Pain Scale: 0-10 Numeric Is Patient Pain Free? Yes Yes Wound debrided: Right plantar posterior heel Laterality: Right Wound Grade/Stage: 3 Type of Debridement: Excisional debridement Anesthesia Used: 4% Lidocaine Solution Depth: Down to and including healthy tissue, in the subcutaneous layer Percentage of wound debrided: 100 Instrument Used: 3mm curette, #15 blade Tissue Removed: Adherent slough, fibrin, hyperkeratotic tissue Severity: Fat Layer Exposed Amount of bleeding with debridement: Mild Bleeding Controlled with: Pressure Patient tolerated procedure well Assessment/Plan Assessment: Ulcer to right heel with stable eschar. DM with neuropathy. Malnutrition. Plan: Patient was again examined and evaluated today. Patient is S/P surgical debridement with versajet of all necrotic, non-viable, and infected soft tissue with bone biopsy on June 14. Details from surgery are noted in the operative report. Angiogram performed prior to surgical debridement by Dr. Rios. Subcutaneous debridement was again completed today as described in the clinical panel. Following debridement, slightly moistoned guero applied to ulcer base, followed by a dry sterile dressing. Patient and his were instructed to change this dressing daily. Patient and his were instructed to keep the dressing clean, dry, and intact again this week. Patient to continue with high protein diet and it was again stressed how important keeping blood sugar under control is to healing process. It was also again stressed to the patient how important it is to keep pressure off of his heel at all times and that this includes any type of pressure at all, as the patient has been noncompliant in the past with this. Patient presents to clinic again today walking with a cane with pressure to heel. The callus buildup around the ulcer shows the patient has not been compliant in keep pressure off of his heel. I discussed at length again today how much this delays the healing process. Patient asks when he can start driving. I informed him that he could not right now and discussed why this was a bad idea with the area his ulcer is in. I also again informed him and his that there is possibility that although his procedure went well, there is still a chance that this can lead to extensive debridements, partial calcaneal amputations, or even more proximal amputations on the leg, among other possible outcomes. He is to use the knee scooter at all times while walking. While sitting or laying in bed he was instructed to keep the heel floating over the edge of a pillow in order to have absolutely no pressure to the area. Patient and the patient's were educated on signs and symptoms of local and systemic infection and were instructed to go to the emergency room immediately should they notice any. All questions were answered to the patient and the patient's 's satisfaction. I still continue to be concerned with the patient's compliance. They will follow-up in clinic in 1 week for further evaluation, or sooner if needed. This note was generated with [employer] dictation software. It may contain incorrect words, spelling, and punctuation that were not noted in checking the note before signing.
[2017-10-06 09:46] VITALS: BP 141/69; PULSE 85; RESP 18; TEMP 36.6; BMI 32.7
--- NOTE | 2017-10-06 10:17 | PCM.WC.PN ---
(1) Chronic ulcer of right heel Status: Acute Current Visit: No Code(s): L97.419 - Non-pressure chronic ulcer of right heel and midfoot with unspecified severity (2) Lower extremity edema Status: Chronic Current Visit: No Code(s): R60.0 - Localized edema (3) PVD (peripheral vascular disease) Status: Suspected Current Visit: No Code(s): I73.9 - Peripheral vascular disease, unspecified (4) Type 2 diabetes mellitus with diabetic polyneuropathy Status: Acute Current Visit: No Code(s): E11.42 - Type 2 diabetes mellitus with diabetic polyneuropathy Type of Wound Date of Service: 10/06/17 Chief Complaint: Chronic non healing ulcer to right posterior heel with fat layer exposed. History of Wound: This 61-year-old diabetic male presents for follow up of chronic nonhealing ulcer to right posterior heel. Patient states on February 21 he believes he stepped on a staple walking down the stairs and had a tear in his skin. This progressed over the following days into an ulcer. Patient has seen Dr. See as well as gone to [facility] wound center in the past. While at [facility], the patient was undergoing every other day dressing changes consisting of medihoney and a dry sterile dressing. The patient has a knee walker and claims to be using it, but not all the time. The also states that the patient has not keeping pressure off of his right foot as much as he should be, even after last weeks visit, although he has gotten better. Patient denies any purulence to the area. The patient denies any feelings of nausea, vomiting, chills, fever at this time. Progress of Wound: Patient presents to clinic for follow up of right heel ulcer. Patient and did well with dressing changes the past week with guero. Patient admits again to having pressure on his heel/foot. He has not been using his knee scooter and has been sleeping in his recliner still. Currently, the patient denies any feelings of nausea, vomiting, fever, or chills. - Physical Exam Vital Signs Temp Pulse Resp BP 97.9 F 85 18 141/69 H 10/06/17 09:46 10/06/17 09:46 10/06/17 09:46 10/06/17 09:46 General: Alert, Oriented x3, Cooperative, No apparent distress Extremities: Capillary Refill Less than 3 Seconds, No Calf Tenderness - Negative Wojciech and Guerrero sign, Diminished Peripheral Pulses - DP and PT pulses nonpalpable due to slight lower extremity edema, Edema - Lower extremity edema Skin: Ulcer/ Wound - Ulcer to plantar posterior aspect of right heel. Surgical debridement was completed June 14. Another slight improvement appreciated again this week. The base continues to be a mixture of adherent slough and fibrin. There continues to be slight hyperkeratotic buildup around the ulcer periphery this week. There continues to be no extending cellulitis, no purulence, no malodor, no increase in warmth, no probing to bone, no tracking, and no undermining appreciated at this time. Wound Measurements and Assessment WC - Nurse 1 - General Ulcer Measurement Start: 09/22/17 09:53 Freq: Status: Active Protocol: Activity Type Activity Date Activity User E-Sign Co-Sign Detail Recorded Client Recorded Date Recorded By Document 10/06/17 09:46 [id number] 10/06/17 09:48 10/06/17 09:46 Wound Center Nurse 1 [Ulcer Assessment] #2- RT HEEL -Combined with other wound No -Current Size (cm) - Length 0.7 -Current Size (cm) - Width 0.5 -Current Size (cm) - Depth 0.3 -Total Square Cm 0.35 -Photo Taken No -Epithelialization Small 1-33% -Tunneling No -Undermining/Tunneling No -Circular Undermining No -Classification - Thickness Full Thickness without Exposed Support Structure -Exudate Amt Small (1-33%) -Exudate Type Serosanguineous -Wound Margin Distinct, Outline Attached -Granulation Amt Large (67-100%) -Granulation Quality [place] -Slough/Fibrin Yes -Necrosis Amt Small (1-33%) -Necrotic Tissue Type Adherent Slough -Structure Exposed Fascia Fat Layer Exposed -Texture (Miguelina-wound Skin Appearance) Assessed Callus -Moisture (Miguelina-wound Skin Appearance Assessed ) Dry/Scaly -Color (Miguelina-wound Skin Appearance) No Abnormality Assessed -Temperature (Miguelina-wound Skin No Abnormality Appearance) (Pt Warm) -Tenderness on Palpation (Miguelina-wound No Skin Appearance) -Ulcer Cleansing Rinsed/ Irrigated with Saline -Foul Odor after Cleansing No -Anesthetic Used 5% Lidocaine Gel [Edema Assessment] -Lower Limb Edema Present Yes -Right Calf (cm) 37.5 -Right Ankle (cm) 21.5 - Nurse 2 - General Ulcer CM Notes Start: 09/22/17 09:53 Freq: Status: Active Protocol: Activity Type Activity Date Activity User E-Sign Co-Sign Detail Recorded Client Recorded Date Recorded By Document 10/06/17 10:06 [id number] 10/06/17 10:14 10/06/17 10:06 Wound Center Nurse 2 [Procedure/Treatment] #2- RT HEEL -Time 10:08 -Correct Patient Yes -Correct Side, Site, Position Yes -Correct Procedure Yes -Procedure Performed Yes -Type of Procedure Debridement -Clinical Debridement Subcutaneous -Post Debridement Size (cm) - Length 1.2 -Post Debridement Size (cm) - Width 0.5 -Post Debridement Size (cm) - Depth 0.2 -Total Square Cm 0.60 -Wound/Ulcer Outcome Not Healed -Ulcer Cleansing Not Cleansed -Foul Odor after Cleansing No -Bioengineered Tissue No -Bleeding Controlled with NA -Treatment Response Procedure Tolerated Well [See Physician Procedure note for Specifics] Pain Scale: 0-10 Numeric [Pain] -Is Patient Pain Free? Yes Musculoskeletal: - - Patient denies any tenderness with manipulation of ulcer site Neurological: - - Epicritic sensation grossly absent to lower extremity Psych/Mental Status: Normal Affect, Appropriate Debridement Note Post-Debridement Measurements/Treatment - Nurse 2 - General Ulcer CM Notes Start: 09/22/17 09:53 Freq: Status: Active Protocol: Activity Type Activity Date Activity User E-Sign Co-Sign Detail Recorded Client Recorded Date Recorded By Document 09/22/17 09:56 [id number] 09/22/17 10:01 Document 09/29/17 09:05 [id number] 09/29/17 09:06 Document 10/06/17 10:06 [id number] 10/06/17 10:14 09/22/17 09/29/17 10/06/17 09:56 09:05 10:06 Wound Center Nurse 2 #2- RT HEEL -Time 09:56 09:06 10:08 -Correct Patient Yes Yes Yes -Correct Side, Site, Position Yes Yes Yes -Correct Procedure Yes Yes Yes -Procedure Performed Yes Yes Yes -Type of Procedure Debridement Debridement Debridement -Clinical Debridement Subcutaneous Subcutaneous Subcutaneous -Post Debridement Size (cm) - Length 1.1 1.0 1.2 -Post Debridement Size (cm) - Width 0.9 0.6 0.5 -Post Debridement Size (cm) - Depth 0.2 0.2 0.2 -Total Square Cm 0.99 0.60 0.60 -Wound/Ulcer Outcome Not Healed Not Healed Not Healed -Ulcer Cleansing Not Cleansed Not Cleansed Not Cleansed -Foul Odor after Cleansing No No No -Bioengineered Tissue No No No -Bleeding Controlled with NA Pressure NA -Treatment Response Procedure Procedure Procedure Tolerated Well Tolerated Well Tolerated Well Pain Scale: 0-10 Numeric Is Patient Pain Free? Yes Yes Yes Wound debrided: Right plantar posterior heel Laterality: Right Wound Grade/Stage: 3 Type of Debridement: Excisional debridement Anesthesia Used: 4% Lidocaine Solution Depth: Down to and including healthy tissue, in the subcutaneous layer Percentage of wound debrided: 100 Instrument Used: 3mm curette, #15 blade Tissue Removed: Adherent slough, fibrin, hyperkeratotic tissue Severity: Fat Layer Exposed Amount of bleeding with debridement: Mild Bleeding Controlled with: Pressure Patient tolerated procedure well Assessment/Plan Assessment: Ulcer to right heel with stable eschar. DM with neuropathy. Malnutrition. Plan: Patient was again examined and evaluated today. Patient is S/P surgical debridement with versajet of all necrotic, non-viable, and infected soft tissue with bone biopsy on June 14. Details from surgery are noted in the operative report. Angiogram performed prior to surgical debridement by Dr. Rios. Subcutaneous debridement was again completed today as described in the clinical panel this week. Following debridement, slightly moistoned guero applied to ulcer base, followed by a dry sterile dressing. Patient and his were instructed to change this dressing daily. Patient and his were instructed to keep the dressing clean, dry, and intact again this week. Patient to continue with high protein diet and it was again stressed how important keeping blood sugar under control is to healing process. It was also again stressed to the patient how important it is to keep pressure off of his heel at all times and that this includes any type of pressure at all, as the patient has been noncompliant in the past with this. Patient presents to clinic again today walking with a cane with pressure to heel. I advised him again this week to utilize his knee scooter. The callus buildup around the ulcer shows the patient has not been compliant in keep pressure off of his heel. I discussed at length again today how much this delays the healing process. Patient asks when he can start driving. I informed him that he could not right now and discussed why this was a bad idea with the area his ulcer is in. I also again informed him and his that there is possibility that although his procedure went well, there is still a chance that this can lead to extensive debridements, partial calcaneal amputations, or even more proximal amputations on the leg, among other possible outcomes. He is to use the knee scooter at all times while walking. While sitting or laying in bed he was instructed to keep the heel floating over the edge of a pillow in order to have absolutely no pressure to the area. Patient and the patient's were educated on signs and symptoms of local and systemic infection and were instructed to go to the emergency room immediately should they notice any. All questions were answered to the patient and the patient's 's satisfaction. I still continue to be concerned with the patient's compliance. They will follow-up in clinic in 1 week for further evaluation, or sooner if needed. This note was generated with [employer] dictation software. It may contain incorrect words, spelling, and punctuation that were not noted in checking the note before signing.
[2017-10-13 09:28] VITALS: BP 155/76; PULSE 80; RESP 18; TEMP 36.8; BMI 32.7
--- NOTE | 2017-10-13 10:35 | PCM.WC.PN ---
(1) Chronic ulcer of right heel Status: Acute Current Visit: No Code(s): L97.419 - Non-pressure chronic ulcer of right heel and midfoot with unspecified severity (2) Lower extremity edema Status: Chronic Current Visit: No Code(s): R60.0 - Localized edema (3) PVD (peripheral vascular disease) Status: Suspected Current Visit: No Code(s): I73.9 - Peripheral vascular disease, unspecified (4) Type 2 diabetes mellitus with diabetic polyneuropathy Status: Acute Current Visit: No Code(s): E11.42 - Type 2 diabetes mellitus with diabetic polyneuropathy Type of Wound Date of Service: 10/13/17 Chief Complaint: Chronic non healing ulcer to right posterior heel with fat layer exposed. History of Wound: This 61-year-old diabetic male presents for follow up of chronic nonhealing ulcer to right posterior heel. Patient states on February 21 he believes he stepped on a staple walking down the stairs and had a tear in his skin. This progressed over the following days into an ulcer. Patient has seen Dr. See as well as gone to [facility] wound center in the past. While at [facility], the patient was undergoing every other day dressing changes consisting of medihoney and a dry sterile dressing. The patient has a knee walker and claims to be using it, but not all the time. The also states that the patient has not keeping pressure off of his right foot as much as he should be, even after last weeks visit, although he has gotten better. Patient denies any purulence to the area. The patient denies any feelings of nausea, vomiting, chills, fever at this time. Progress of Wound: Patient presents to clinic for follow up of right heel ulcer. Patient and did well with dressing changes the past week with guero. Patient admits again to having pressure on his heel/foot. He has not been using his knee scooter and has been sleeping in his recliner still. Currently, the patient denies any feelings of nausea, vomiting, fever, or chills. - Physical Exam Vital Signs Temp Pulse Resp BP 98.2 F 80 18 155/76 H 10/13/17 09:28 10/13/17 09:28 10/13/17 09:28 10/13/17 09:28 General: Alert, Oriented x3, Cooperative, No apparent distress Extremities: Capillary Refill Less than 3 Seconds, No Calf Tenderness - Negative Wojciech and Guerrero sign, Diminished Peripheral Pulses - DP and PT pulses nonpalpable due to slight lower extremity edema, Edema - Lower extremity edema Skin: Ulcer/ Wound - Ulcer to plantar posterior aspect of right heel. Surgical debridement was completed June 14. Slight improvement and ulcer measurements noted again this week. The base continues to be a mixture of adherent slough and fibrin as well as some surrounding hyperkeratotic tissue again this week. There is no surrounding cellulitis, no purulence, no malodor, no increased warmth, no probing to bone, no tracking, no undermining noted at this time. Wound Measurements and Assessment WC - Nurse 1 - General Ulcer Measurement Start: 09/22/17 09:53 Freq: Status: Active Protocol: Activity Type Activity Date Activity User E-Sign Co-Sign Detail Recorded Client Recorded Date Recorded By Document 10/13/17 09:28 [facility] [id number] 10/13/17 09:35 [facility] 10/13/17 09:28 Wound Center Nurse 1 [Ulcer Assessment] #2- RT HEEL -Combined with other wound No -Current Size (cm) - Length 0.4 -Current Size (cm) - Width 0.5 -Current Size (cm) - Depth 0.3 -Total Square Cm 0.20 -Date of Last Picture (Recall this 10/13/17 field) -Photo Taken No -Epithelialization None Present -Tunneling No -Undermining/Tunneling No -Circular Undermining No -Exudate Amt Small (1-33%) -Exudate Type Serous -Wound Margin Distinct, Outline Attached -Granulation Amt Small (1-33%) -Granulation Quality [place] -Slough/Fibrin Yes -Necrosis Amt Large (67-100%) -Necrotic Tissue Type Adherent Slough -Texture (Miguelina-wound Skin Appearance) Callus -Moisture (Miguelina-wound Skin Appearance Dry/Scaly ) -Color (Miguelina-wound Skin Appearance) Assessed -Temperature (Miguelina-wound Skin No Abnormality Appearance) (Pt Warm) -Tenderness on Palpation (Miguelina-wound No Skin Appearance) -Ulcer Cleansing Rinsed/ Irrigated with Saline -Foul Odor after Cleansing No -Anesthetic Used 5% Lidocaine Gel [Edema Assessment] -Lower Limb Edema Present Yes -Left Calf (cm) 30.7 -Left Ankle (cm) 21.6 WC - Nurse 2 - General Ulcer CM Notes Start: 09/22/17 09:53 Freq: Status: Active Protocol: Activity Type Activity Date Activity User E-Sign Co-Sign Detail Recorded Client Recorded Date Recorded By Document 10/13/17 10:11 [id number] 10/13/17 10:15 10/13/17 10:11 Wound Center Nurse 2 [Procedure/Treatment] #2- RT HEEL -Time 10:11 -Correct Patient Yes -Correct Side, Site, Position Yes -Correct Procedure Yes -Procedure Performed Yes -Type of Procedure Debridement -Clinical Debridement Subcutaneous -Post Debridement Size (cm) - Length 0.7 -Post Debridement Size (cm) - Width 0.5 -Post Debridement Size (cm) - Depth 0.2 -Total Square Cm 0.35 -Wound/Ulcer Outcome Not Healed -Ulcer Cleansing Not Cleansed -Foul Odor after Cleansing No -Bioengineered Tissue No -Bleeding Controlled with NA -Treatment Response Procedure Tolerated Well [See Physician Procedure note for Specifics] Pain Scale: 0-10 Numeric [Pain] -Is Patient Pain Free? Yes Musculoskeletal: - - Patient denies any tenderness with manipulation of ulcer site Neurological: - - Epicritic sensation grossly absent to lower extremity Psych/Mental Status: Normal Affect, Appropriate Debridement Note Post-Debridement Measurements/Treatment - Nurse 2 - General Ulcer CM Notes Start: 09/22/17 09:53 Freq: Status: Active Protocol: Activity Type Activity Date Activity User E-Sign Co-Sign Detail Recorded Client Recorded Date Recorded By Document 09/22/17 09:56 [id number] 09/22/17 10:01 Document 09/29/17 09:05 [id number] 09/29/17 09:06 CS Document 10/06/17 10:06 [id number] 10/06/17 10:14 Document 10/13/17 10:11 [id number] 10/13/17 10:15 09/22/17 09/29/17 10/06/17 09:56 09:05 10:06 Wound Center Nurse 2 #2- RT HEEL -Time 09:56 09:06 10:08 -Correct Patient Yes Yes Yes -Correct Side, Site, Position Yes Yes Yes -Correct Procedure Yes Yes Yes -Procedure Performed Yes Yes Yes -Type of Procedure Debridement Debridement Debridement -Clinical Debridement Subcutaneous Subcutaneous Subcutaneous -Post Debridement Size (cm) - Length 1.1 1.0 1.2 -Post Debridement Size (cm) - Width 0.9 0.6 0.5 -Post Debridement Size (cm) - Depth 0.2 0.2 0.2 -Total Square Cm 0.99 0.60 0.60 -Wound/Ulcer Outcome Not Healed Not Healed Not Healed -Ulcer Cleansing Not Cleansed Not Cleansed Not Cleansed -Foul Odor after Cleansing No No No -Bioengineered Tissue No No No -Bleeding Controlled with NA Pressure NA -Treatment Response Procedure Procedure Procedure Tolerated Well Tolerated Well Tolerated Well Pain Scale: 0-10 Numeric Is Patient Pain Free? Yes Yes Yes 10/13/17 10:11 Wound Center Nurse 2 #2- RT HEEL -Time 10:11 -Correct Patient Yes -Correct Side, Site, Position Yes -Correct Procedure Yes -Procedure Performed Yes -Type of Procedure Debridement -Clinical Debridement Subcutaneous -Post Debridement Size (cm) - Length 0.7 -Post Debridement Size (cm) - Width 0.5 -Post Debridement Size (cm) - Depth 0.2 -Total Square Cm 0.35 -Wound/Ulcer Outcome Not Healed -Ulcer Cleansing Not Cleansed -Foul Odor after Cleansing No -Bioengineered Tissue No -Bleeding Controlled with NA -Treatment Response Procedure Tolerated Well Pain Scale: 0-10 Numeric Is Patient Pain Free? Yes Wound debrided: Right plantar posterior heel Laterality: Right Wound Grade/Stage: 3 Type of Debridement: Excisional debridement Anesthesia Used: 4% Lidocaine Solution Depth: Down to and including healthy tissue, in the subcutaneous layer Percentage of wound debrided: 100 Instrument Used: 3mm curette, #15 blade Tissue Removed: Adherent slough, fibrin, hyperkeratotic tissue Severity: Fat Layer Exposed Amount of bleeding with debridement: Mild Bleeding Controlled with: Pressure Patient tolerated procedure well Assessment/Plan Assessment: Ulcer to right heel with stable eschar. DM with neuropathy. Malnutrition. Plan: Patient was again examined and evaluated today. Patient is S/P surgical debridement with versajet of all necrotic, non-viable, and infected soft tissue with bone biopsy on June 14. Details from surgery are noted in the operative report. Angiogram performed prior to surgical debridement by Dr. Rios. A subcutaneous debridement was again completed today as described in the clinical panel this week. Following debridement, slightly moistoned guero applied to ulcer base, followed by a dry sterile dressing. Patient and his were instructed to change this dressing daily. Patient and his were instructed to keep the dressing clean, dry, and intact again this week. Patient to continue with high protein diet. Tight glycemic control was discussed agian. It was also again stressed to the patient how important it is to keep pressure off of his heel at all times and that this includes any type of pressure at all, as the patient has been noncompliant in the past with this. Patient presents to clinic again today walking with a cane with pressure to heel again this week. I even pointed it out to him and told him to look at the pressure he is applying and he also has a shoe on. I advised him again this week to utilize his knee scooter. The callus buildup around the ulcer shows the patient has not been compliant in keep pressure off of his heel. I discussed at length again today how much this delays the healing process. I also again informed him and his that there is possibility that although his surgical procedure went well in May, there is still a chance that this can lead to extensive debridements, partial calcaneal amputations, or even more proximal amputations on the leg, among other possible outcomes. He is to use the knee scooter at all times while walking. While sitting or laying in bed he was instructed to keep the heel floating over the edge of a pillow in order to have absolutely no pressure to the area. Patient and the patient's were educated on signs and symptoms of local and systemic infection and were instructed to go to the emergency room immediately should they notice any. All questions were answered to the patient and the patient's 's satisfaction. I still continue to be concerned with the patient's compliance. They will follow-up in clinic in 1 week for further evaluation, or sooner if needed. This note was generated with [employer] dictation software. It may contain incorrect words, spelling, and punctuation that were not noted in checking the note before signing.
[2017-10-20 10:55] VITALS: BP 159/70; PULSE 82; RESP 16; TEMP 35.6; BMI 32.7
--- NOTE | 2017-10-20 11:38 | PCM.WC.PN ---
(1) Chronic ulcer of right heel Status: Acute Current Visit: No Code(s): L97.419 - Non-pressure chronic ulcer of right heel and midfoot with unspecified severity (2) Lower extremity edema Status: Chronic Current Visit: No Code(s): R60.0 - Localized edema (3) PVD (peripheral vascular disease) Status: Suspected Current Visit: No Code(s): I73.9 - Peripheral vascular disease, unspecified (4) Type 2 diabetes mellitus with diabetic polyneuropathy Status: Acute Current Visit: No Code(s): E11.42 - Type 2 diabetes mellitus with diabetic polyneuropathy Type of Wound Date of Service: 10/20/17 Chief Complaint: Chronic non healing ulcer to right posterior heel with fat layer exposed. History of Wound: This 61-year-old diabetic male presents for follow up of chronic nonhealing ulcer to right posterior heel. Patient states on February 21 he believes he stepped on a staple walking down the stairs and had a tear in his skin. This progressed over the following days into an ulcer. Patient has seen Dr. See as well as gone to [facility] wound center in the past. While at [facility], the patient was undergoing every other day dressing changes consisting of medihoney and a dry sterile dressing. The patient has a knee walker and claims to be using it, but not all the time. The also states that the patient has not keeping pressure off of his right foot as much as he should be, even after last weeks visit, although he has gotten better. Patient denies any purulence to the area. The patient denies any feelings of nausea, vomiting, chills, fever at this time. Progress of Wound: Patient presents to clinic for follow up of right heel ulcer. Patient and did well with dressing changes the past week with guero. Patient continues to place pressure to heel throughout the week. Currently, the patient denies any feelings of nausea, vomiting, fever, or chills. - Physical Exam Vital Signs Temp Pulse Resp BP 96.0 F L 82 16 159/70 H 10/20/17 10:55 10/20/17 10:55 10/20/17 10:55 10/20/17 10:55 General: Alert, Oriented x3, Cooperative, No apparent distress Extremities: Capillary Refill Less than 3 Seconds, No Calf Tenderness - Negative Wojciech and Guerrero sign, Diminished Peripheral Pulses - DP and PT pulses nonpalpable due to slight lower extremity edema, Edema - Lower extremity edema Skin: Ulcer/ Wound - Ulcer to plantar posterior aspect of right heel. Surgical debridement was completed June 14. Ulcer remains stable since last week. The base continues to be a mixture of adherent slough and fibrin. There continues to be hyperkeratotic tissue surrounding the ulcer site again this week, even slightly more than last week. There continues to be no surrounding cellulitis, no purulence, no malodor, no increase in warmth, no probing to bone, no tracking, no undermining at this time. Wound Measurements and Assessment WC - Nurse 1 - General Ulcer Measurement Start: 09/22/17 09:53 Freq: Status: Active Protocol: Activity Type Activity Date Activity User E-Sign Co-Sign Detail Recorded Client Recorded Date Recorded By Document 10/20/17 10:55 [id number] 10/20/17 10:59 10/20/17 10:55 Wound Center Nurse 1 [Ulcer Assessment] #2- RT HEEL -Combined with other wound No -Current Size (cm) - Length 0.7 -Current Size (cm) - Width 0.4 -Current Size (cm) - Depth 0.2 -Total Square Cm 0.28 -Epithelialization Small 1-33% -Tunneling No -Undermining/Tunneling No -Circular Undermining No -Classification - Thickness Full Thickness without Exposed Support Structure -Exudate Amt Small (1-33%) -Exudate Type Serosanguineous -Wound Margin Distinct, Outline Attached -Granulation Amt Large (67-100%) -Granulation Quality Red -Slough/Fibrin Yes -Necrosis Amt Small (1-33%) -Necrotic Tissue Type Adherent Slough -Structure Exposed Fascia Fat Layer Exposed -Texture (Miguelina-wound Skin Appearance) Assessed Callus Scarring -Moisture (Miguelina-wound Skin Appearance Assessed ) Dry/Scaly -Color (Miguelina-wound Skin Appearance) No Abnormality Assessed -Temperature (Miguelina-wound Skin No Abnormality Appearance) (Pt Warm) -Tenderness on Palpation (Miguelina-wound No Skin Appearance) -Ulcer Cleansing Rinsed/ Irrigated with Saline -Foul Odor after Cleansing No -Anesthetic Used 5% Lidocaine Gel [Edema Assessment] -Lower Limb Edema Present Yes -Right Calf (cm) 33.5 -Right Ankle (cm) 22.7 WC - Nurse 2 - General Ulcer CM Notes Start: 09/22/17 09:53 Freq: Status: Active Protocol: Activity Type Activity Date Activity User E-Sign Co-Sign Detail Recorded Client Recorded Date Recorded By Document 10/20/17 11:07 [id number] 10/20/17 11:11 10/20/17 11:07 Wound Center Nurse 2 [Procedure/Treatment] #2- RT HEEL -Time 11:07 -Correct Patient Yes -Correct Side, Site, Position Yes -Correct Procedure Yes -Procedure Performed Yes -Type of Procedure Debridement -Clinical Debridement Subcutaneous -Post Debridement Size (cm) - Length 0.7 -Post Debridement Size (cm) - Width 0.4 -Post Debridement Size (cm) - Depth 0.2 -Total Square Cm 0.28 -Wound/Ulcer Outcome Not Healed -Ulcer Cleansing Not Cleansed -Foul Odor after Cleansing No -Bioengineered Tissue No -Bleeding Controlled with NA -Treatment Response Procedure Tolerated Well [See Physician Procedure note for Specifics] Pain Scale: 0-10 Numeric [Pain] -Is Patient Pain Free? Yes Musculoskeletal: - - Patient denies tenderness with manipulation of ulcer site Neurological: - - Epicritic sensation grossly absent to lower extremity Psych/Mental Status: Normal Affect, Appropriate Debridement Note Post-Debridement Measurements/Treatment - Nurse 2 - General Ulcer CM Notes Start: 09/22/17 09:53 Freq: Status: Active Protocol: Activity Type Activity Date Activity User E-Sign Co-Sign Detail Recorded Client Recorded Date Recorded By Document 09/22/17 09:56 [id number] 09/22/17 10:01 CS Document 09/29/17 09:05 [id number] 09/29/17 09:06 CS Document 10/06/17 10:06 CS [id number] 10/06/17 10:14 CS Document 10/13/17 10:11 CS [id number] 10/13/17 10:15 CS Document 10/20/17 11:07 [id number] 10/20/17 11:11 CS 09/22/17 09/29/17 10/06/17 09:56 09:05 10:06 Wound Center Nurse 2 #2- RT HEEL -Time 09:56 09:06 10:08 -Correct Patient Yes Yes Yes -Correct Side, Site, Position Yes Yes Yes -Correct Procedure Yes Yes Yes -Procedure Performed Yes Yes Yes -Type of Procedure Debridement Debridement Debridement -Clinical Debridement Subcutaneous Subcutaneous Subcutaneous -Post Debridement Size (cm) - Length 1.1 1.0 1.2 -Post Debridement Size (cm) - Width 0.9 0.6 0.5 -Post Debridement Size (cm) - Depth 0.2 0.2 0.2 -Total Square Cm 0.99 0.60 0.60 -Wound/Ulcer Outcome Not Healed Not Healed Not Healed -Ulcer Cleansing Not Cleansed Not Cleansed Not Cleansed -Foul Odor after Cleansing No No No -Bioengineered Tissue No No No -Bleeding Controlled with NA Pressure NA -Treatment Response Procedure Procedure Procedure Tolerated Well Tolerated Well Tolerated Well Pain Scale: 0-10 Numeric Is Patient Pain Free? Yes Yes Yes 10/13/17 10/20/17 10:11 11:07 Wound Center Nurse 2 #2- RT HEEL -Time 10:11 11:07 -Correct Patient Yes Yes -Correct Side, Site, Position Yes Yes -Correct Procedure Yes Yes -Procedure Performed Yes Yes -Type of Procedure Debridement Debridement -Clinical Debridement Subcutaneous Subcutaneous -Post Debridement Size (cm) - Length 0.7 0.7 -Post Debridement Size (cm) - Width 0.5 0.4 -Post Debridement Size (cm) - Depth 0.2 0.2 -Total Square Cm 0.35 0.28 -Wound/Ulcer Outcome Not Healed Not Healed -Ulcer Cleansing Not Cleansed Not Cleansed -Foul Odor after Cleansing No No -Bioengineered Tissue No No -Bleeding Controlled with NA NA -Treatment Response Procedure Procedure Tolerated Well Tolerated Well Pain Scale: 0-10 Numeric Is Patient Pain Free? Yes Yes Wound debrided: Right plantar posterior heel Laterality: Right Wound Grade/Stage: 3 Type of Debridement: Excisional debridement Anesthesia Used: 4% Lidocaine Solution Depth: Down to and including healthy tissue, in the subcutaneous layer Percentage of wound debrided: 100 Instrument Used: #15 blade Tissue Removed: Adherent slough, fibrin, hyperkeratotic tissue Severity: Fat Layer Exposed Amount of bleeding with debridement: Mild Bleeding Controlled with: Pressure Patient tolerated procedure well Assessment/Plan Assessment: Ulcer to right heel with stable eschar. DM with neuropathy. Malnutrition. Plan: Patient was again examined and evaluated today. Patient is S/P surgical debridement with versajet of all necrotic, non-viable, and infected soft tissue with bone biopsy on June 14. Details from surgery are noted in the operative report. Angiogram performed prior to surgical debridement by Dr. Rios. A subcutaneous debridement was again completed today as described in the clinical panel this week. Following debridement, slightly moistoned guero applied to ulcer base, followed by a dry sterile dressing. Patient and his were instructed to change this dressing daily. Patient and his were instructed to keep the dressing clean, dry, and intact again this week. Patient to continue with high protein diet. Tight glycemic control was discussed again. It was also again stressed to the patient how important it is to keep pressure off of his heel at all times and that this includes any type of pressure at all, as the patient has been noncompliant in the past with this. Patient continues to place pressure to his heel during the week. I advised him again this week to utilize his knee scooter. The callus buildup around the ulcer shows the patient has not been compliant in keep pressure off of his heel. I told the patient and his we may switch to a TCC-EZ to better ensure compliance. I also again informed him and his that there is possibility that although his surgical procedure went well in May, there is still a chance that this can lead to extensive debridements, partial calcaneal amputations, or even more proximal amputations on the leg, among other possible outcomes. He is to use the knee scooter at all times while walking. While sitting or laying in bed he was instructed to keep the heel floating over the edge of a pillow in order to have absolutely no pressure to the area. Patient and the patient's were educated on signs and symptoms of local and systemic infection and were instructed to go to the emergency room immediately should they notice any. All questions were answered to the patient and the patient's 's satisfaction. I still continue to be concerned with the patient's compliance. They will follow-up in clinic in 1 week for further evaluation, or sooner if needed. This note was generated with [employer] dictation software. It may contain incorrect words, spelling, and punctuation that were not noted in checking the note before signing.
== END 2017-10-21 23:59 ==
LOC: WC 10:30
PROVIDERS: Visit Provider Podiatrist
DX: E11.621 Type 2 diabetes mellitus with foot ulcer (principal); E11.51 Type 2 diabetes mellitus with diabetic peripheral angiopathy without gangrene; E11.42 Type 2 diabetes mellitus with diabetic polyneuropathy; L97.412 Non-pressure chronic ulcer of right heel and midfoot with fat layer exposed; R60.0 Localized edema; Z91.19 Patient's noncompliance with other medical treatment and regimen; L84 Corns and callosities
CPT/HCPCS: 11042

== ENCOUNTER 2017-11-17 09:30 | Outpatient (RCR) | payer MEDICARE, SELFPAY ==
[2017-10-22 00:48] VITALS: BP 159/70; PULSE 82; RESP 16; TEMP 35.6; BMI 32.7
[2017-10-27 09:35] VITALS: BP 147/90; PULSE 78; RESP 16; TEMP 36.6; BMI 32.7
--- NOTE | 2017-10-27 10:13 | PN.PCM_ITS ---
(1) Chronic ulcer of right heel Status: Acute Current Visit: No Code(s): L97.419 - Non-pressure chronic ulcer of right heel and midfoot with unspecified severity (2) Lower extremity edema Status: Chronic Current Visit: No Code(s): R60.0 - Localized edema (3) PVD (peripheral vascular disease) Status: Suspected Current Visit: No Code(s): I73.9 - Peripheral vascular disease, unspecified (4) Type 2 diabetes mellitus with diabetic polyneuropathy Status: Acute Current Visit: No Code(s): E11.42 - Type 2 diabetes mellitus with diabetic polyneuropathy Type of Wound Date of Service: 10/27/17 Chief Complaint: Chronic non healing ulcer to right posterior heel with fat layer exposed. History of Wound: This 61-year-old diabetic male presents for follow up of chronic nonhealing ulcer to right posterior heel. Patient states on February 21 he believes he stepped on a staple walking down the stairs and had a tear in his skin. This progressed over the following days into an ulcer. Patient has seen Dr. See as well as gone to [facility] wound center in the past. While at [facility], [facility], the patient was undergoing every other day dressing changes consisting of medihoney and a dry sterile dressing. The patient has a knee walker and claims to be using it, but not all the time. The also states that the patient has not keeping pressure off of his right foot as much as he should be, even after last weeks visit, although he has gotten better. Patient denies any purulence to the area. The patient denies any feelings of nausea, vomiting, chills, fever at this time. Progress of Wound: Patient presents to clinic for follow up of right heel ulcer. Patient and did well with dressing changes the past week with guero. Patient continues to place pressure to heel throughout the week. He has fashioned a new shoe/sandle to take pressure off of his heel. Currently, the patient denies any feelings of nausea, vomiting, fever, or chills. - Physical Exam Vital Signs Temp Pulse Resp BP 97.9 F 78 16 147/90 H 10/27/17 09:35 10/27/17 09:35 10/27/17 09:35 10/27/17 09:35 General: Alert, Oriented x3, Cooperative, No apparent distress Extremities: Capillary Refill Less than 3 Seconds, No Calf Tenderness - Negative Wojciech and Guerrero sign, Edema - Slight lower extremity edema, Peripheral Pulses Normal - DP and PT pulses nonpalpable due to slight lower extremity edema Skin: Ulcer/ Wound - Ulcer to plantar posterior aspect of the right heel. Surgical debridement was completed June 14. Also remained stable since last week. The base continues to be a mixture of adherent slough and fibrin, as well as some slight hyperkeratotic tissue surrounding the ulcer site. There continues to be no surrounding cellulitis, no purulence, no malodor, no increased warmth, no probing to bone, no tracking, and no undermining at this time. Wound Measurements and Assessment WC - Nurse 1 - General Ulcer Measurement Start: 10/27/17 09:35 Freq: Status: Active Protocol: Activity Type Activity Date Activity User E-Sign Co-Sign Detail Recorded Client Recorded Date Recorded By Document 10/27/17 09:35 [id number] 10/27/17 09:44 TM 10/27/17 09:35 Wound Center Nurse 1 [Ulcer Assessment] #2- RT HEEL -Combined with other wound No -Current Size (cm) - Length 0.5 -Current Size (cm) - Width 0.3 -Current Size (cm) - Depth 0.2 -Total Square Cm 0.15 -Photo Taken No -Epithelialization Small 1-33% -Tunneling No -Undermining/Tunneling No -Circular Undermining No -Classification - Thickness Full Thickness without Exposed Support Structure -Exudate Amt Small (1-33%) -Exudate Type Serosanguineous -Wound Margin Distinct, Outline Attached -Granulation Amt Large (67-100%) -Granulation Quality Red -Slough/Fibrin Yes -Necrosis Amt Small (1-33%) -Necrotic Tissue Type Adherent Slough -Structure Exposed Fascia Fat Layer Exposed -Texture (Miguelina-wound Skin Appearance) Assessed Callus Scarring -Moisture (Miguelina-wound Skin Appearance Assessed ) Dry/Scaly -Color (Miguelina-wound Skin Appearance) No Abnormality Assessed -Temperature (Miguelina-wound Skin No Abnormality Appearance) (Pt Warm) -Tenderness on Palpation (Miguelina-wound No Skin Appearance) -Ulcer Cleansing Rinsed/ Irrigated with Saline -Foul Odor after Cleansing No -Anesthetic Used 5% Lidocaine Gel [Edema Assessment] -Lower Limb Edema Present Yes -Right Calf (cm) 34.7 -Right Ankle (cm) 21.7 [id number] - Nurse 2 - General Ulcer CM Notes Start: 10/27/17 09:35 Freq: Status: Active Protocol: Activity Type Activity Date Activity User E-Sign Co-Sign Detail Recorded Client Recorded Date Recorded By Document 10/27/17 09:49 [email or web address] [id number] 10/27/17 09:55 10/27/17 09:49 Wound Center Nurse 2 [Procedure/Treatment] #2- RT HEEL -Time 09:49 -Correct Patient Yes -Correct Side, Site, Position Yes -Correct Procedure Yes -Procedure Performed Yes -Type of Procedure Debridement -Clinical Debridement Subcutaneous -Post Debridement Size (cm) - Length 0.5 -Post Debridement Size (cm) - Width 0.5 -Post Debridement Size (cm) - Depth 0.2 -Total Square Cm 0.25 -Wound/Ulcer Outcome Not Healed -Ulcer Cleansing Rinsed/ Irrigated with Saline -Foul Odor after Cleansing No -Bioengineered Tissue No -Topical Lidocaine (%) 4 -Lidocaine (ml) 5 -Bleeding Controlled with NA -Treatment Response Procedure Tolerated Well [See Physician Procedure note for Specifics] Pain Scale: 0-10 Numeric [Pain] -Is Patient Pain Free? Yes Musculoskeletal: - - Patient denies tenderness with manipulation of ulcer site Neurological: - - Epicritic sensation grossly absent to lower extremity Psych/Mental Status: Normal Affect, Appropriate Debridement Note Post-Debridement Measurements/Treatment - Nurse 2 - General Ulcer CM Notes Start: 10/27/17 09:35 Freq: Status: Active Protocol: Activity Type Activity Date Activity User E-Sign Co-Sign Detail Recorded Client Recorded Date Recorded By Document 10/27/17 09:49 [email or web address] [id number] 10/27/17 09:55 10/27/17 09:49 Wound Center Nurse 2 #2- RT HEEL -Time 09:49 -Correct Patient Yes -Correct Side, Site, Position Yes -Correct Procedure Yes -Procedure Performed Yes -Type of Procedure Debridement -Clinical Debridement Subcutaneous -Post Debridement Size (cm) - Length 0.5 -Post Debridement Size (cm) - Width 0.5 -Post Debridement Size (cm) - Depth 0.2 -Total Square Cm 0.25 -Wound/Ulcer Outcome Not Healed -Ulcer Cleansing Rinsed/ Irrigated with Saline -Foul Odor after Cleansing No -Bioengineered Tissue No -Topical Lidocaine (%) 4 -Lidocaine (ml) 5 -Bleeding Controlled with NA -Treatment Response Procedure Tolerated Well Pain Scale: 0-10 Numeric Is Patient Pain Free? Yes Wound debrided: Right plantar posterior heel Laterality: Right Wound Grade/Stage: 3 Type of Debridement: Excisional debridement Anesthesia Used: 4% Lidocaine Solution Depth: Down to and including healthy tissue, in the subcutaneous layer Percentage of wound debrided: 100 Instrument Used: #15 blade, - - Tissue nipper Tissue Removed: Adherent slough, fibrin, hyperkeratotic tissue Severity: Fat Layer Exposed Amount of bleeding with debridement: Mild Bleeding Controlled with: Pressure Patient tolerated procedure well Assessment/Plan Assessment: Ulcer to right heel with stable eschar. DM with neuropathy. Malnutrition. Plan: Patient was again examined and evaluated today. Patient is S/P surgical debridement with versajet of all necrotic, non-viable, and infected soft tissue with bone biopsy on June 14. Details from surgery are noted in the operative report. Angiogram performed prior to surgical debridement by Dr. Rios. A subcutaneous debridement was again completed today as described in the clinical panel this week. Following debridement, slightly moistoned guero applied to ulcer base, followed by a dry sterile dressing. Patient and his were instructed to change this dressing daily and to make sure no old guero was left in the ulcer site before placing the next days piece. Patient and his were instructed to keep the dressing clean, dry, and intact again this week. Patient to continue with high protein diet. Tight glycemic control was discussed again. It was also again stressed to the patient how important it is to keep pressure off of his heel at all times and that this includes any type of pressure at all, as the patient has been noncompliant in the past with this. Patient continues to place pressure to his heel during the week. I advised him again this week to utilize his knee scooter. The callus buildup around the ulcer shows the patient has not been compliant in keep pressure off of his heel. I again discussed the possibility of switching to a TCC-EZ to better ensure compliance. I also again informed him and his that there is possibility that although his surgical procedure went well in May, there is still a chance that this can lead to extensive debridements, partial calcaneal amputations, or even more proximal amputations on the leg, among other possible outcomes. He is to use the knee scooter at all times while walking. While sitting or laying in bed he was instructed to keep the heel floating over the edge of a pillow in order to have absolutely no pressure to the area. He was informed to only use his newly fashioned sandle with the heel cut off to walk very short distances in the house and to not use it to walk around in. Patient and the patient's were educated on signs and symptoms of local and systemic infection and were instructed to go to the emergency room immediately should they notice any. All questions were answered to the patient and the patient's 's satisfaction. I still continue to be concerned with the patient's compliance. They will follow-up in clinic in 1 week for further evaluation, or sooner if needed. This note was generated with [employer] dictation software. It may contain incorrect words, spelling, and punctuation that were not noted in checking the note before signing.
[2017-11-03 09:56] VITALS: BP 155/79; PULSE 75; RESP 18; TEMP 36; BMI 32.7
--- NOTE | 2017-11-03 13:52 | PN.PCM_ITS ---
(1) Chronic ulcer of right heel Status: Acute Current Visit: No Code(s): L97.419 - Non-pressure chronic ulcer of right heel and midfoot with unspecified severity (2) Lower extremity edema Status: Chronic Current Visit: No Code(s): R60.0 - Localized edema (3) PVD (peripheral vascular disease) Status: Suspected Current Visit: No Code(s): I73.9 - Peripheral vascular disease, unspecified (4) Type 2 diabetes mellitus with diabetic polyneuropathy Status: Acute Current Visit: No Code(s): E11.42 - Type 2 diabetes mellitus with diabetic polyneuropathy Type of Wound Date of Service: 11/03/17 Chief Complaint: Chronic non healing ulcer to right posterior heel with fat layer exposed. History of Wound: This 61-year-old diabetic male presents for follow up of chronic nonhealing ulcer to right posterior heel. Patient states on February 21 he believes he stepped on a staple walking down the stairs and had a tear in his skin. This progressed over the following days into an ulcer. Patient has seen Dr. See as well as gone to [facility] wound center in the past. While at [facility], the patient was undergoing every other day dressing changes consisting of medihoney and a dry sterile dressing. The patient has a knee walker and claims to be using it, but not all the time. The also states that the patient has not keeping pressure off of his right foot as much as he should be, even after last weeks visit, although he has gotten better. Patient denies any purulence to the area. The patient denies any feelings of nausea, vomiting, chills, fever at this time. Progress of Wound: Patient presents to clinic for follow up of right heel ulcer. Patient and doing daily guero dressing changes. Patient continues to place pressure to heel throughout the week again this past week. Currently, the patient denies any feelings of nausea, vomiting, fever, or chills. - Physical Exam Vital Signs Temp Pulse Resp BP 96.8 F L 75 18 155/79 H 11/03/17 09:56 11/03/17 09:56 11/03/17 09:56 11/03/17 09:56 General: Alert, Oriented x3, Cooperative, No apparent distress Extremities: Capillary Refill Less than 3 Seconds, No Calf Tenderness - Negative Wojciech and Guerrero sign, Diminished Peripheral Pulses - DP and PT pulses nonpalpable due to slight lower extremity edema, Edema - Slight lower extremity edema Skin: Ulcer/ Wound - Ulcer to plantar posterior aspect of right heel. Surgical debridement was completed June 14. Ulcer remains fairly stable with slight improvement this past week. The base continues to be a mixture of adherent slough, fibrin, granular tissue, as well as some slight surrounding hyperkeratotic tissue. There continues to be no extending cellulitis, no purulence, no malodor, no increase in warmth, no probing to bone, no tracking, no undermining at this time. Wound Measurements and Assessment WC - Nurse 1 - General Ulcer Measurement Start: 10/27/17 09:35 Freq: Status: Active Protocol: Activity Type Activity Date Activity User E-Sign Co-Sign Detail Recorded Client Recorded Date Recorded By Document 11/03/17 09:56 [id number] 11/03/17 09:58 11/03/17 09:56 Wound Center Nurse 1 [Ulcer Assessment] #2- RT HEEL -Combined with other wound No -Current Size (cm) - Length 0.3 -Current Size (cm) - Width 0.3 -Current Size (cm) - Depth 0.2 -Total Square Cm 0.09 -Photo Taken No -Epithelialization Small 1-33% -Tunneling No -Undermining/Tunneling No -Circular Undermining No -Classification - Thickness Full Thickness without Exposed Support Structure -Exudate Amt Small (1-33%) -Exudate Type Serosanguineous -Wound Margin Distinct, Outline Attached -Granulation Amt Large (67-100%) -Granulation Quality [place] -Slough/Fibrin Yes -Necrosis Amt Small (1-33%) -Necrotic Tissue Type Adherent Slough -Structure Exposed Fascia Fat Layer Exposed -Texture (Miguelina-wound Skin Appearance) Assessed Callus Scarring -Moisture (Miguelina-wound Skin Appearance Assessed ) Dry/Scaly -Color (Miguelina-wound Skin Appearance) No Abnormality Assessed -Temperature (Miguelina-wound Skin No Abnormality Appearance) (Pt Warm) -Tenderness on Palpation (Miguelina-wound No Skin Appearance) -Ulcer Cleansing Rinsed/ Irrigated with Saline -Foul Odor after Cleansing No -Anesthetic Used 5% Lidocaine Gel [Edema Assessment] -Lower Limb Edema Present Yes -Right Calf (cm) 33.0 -Right Ankle (cm) 22.0 WC - Nurse 2 - General Ulcer CM Notes Start: 10/27/17 09:35 Freq: Status: Active Protocol: Activity Type Activity Date Activity User E-Sign Co-Sign Detail Recorded Client Recorded Date Recorded By Document 11/03/17 10:34 [id number] 11/03/17 10:35 11/03/17 10:34 Wound Center Nurse 2 [Procedure/Treatment] #2- RT HEEL -Time 10:34 -Correct Patient Yes -Correct Side, Site, Position Yes -Correct Procedure Yes -Procedure Performed Yes -Type of Procedure Debridement -Clinical Debridement Subcutaneous -Post Debridement Size (cm) - Length 0.5 -Post Debridement Size (cm) - Width 0.3 -Post Debridement Size (cm) - Depth 0.2 -Total Square Cm 0.15 -Wound/Ulcer Outcome Not Healed -Ulcer Cleansing Not Cleansed -Foul Odor after Cleansing No -Bioengineered Tissue No -Bleeding Controlled with NA -Treatment Response Procedure Tolerated Well [See Physician Procedure note for Specifics] Pain Scale: 0-10 Numeric [Pain] -Is Patient Pain Free? Yes Musculoskeletal: - - Patient denies tenderness with manipulation of ulcer site Neurological: - - Epicritic sensation grossly absent lower extremity Psych/Mental Status: Normal Affect, Appropriate Debridement Note Post-Debridement Measurements/Treatment - Nurse 2 - General Ulcer CM Notes Start: 10/27/17 09:35 Freq: Status: Active Protocol: Activity Type Activity Date Activity User E-Sign Co-Sign Detail Recorded Client Recorded Date Recorded By Document 10/27/17 09:49 [id number] 10/27/17 09:55 Document 11/03/17 10:34 [id number] 11/03/17 10:35 10/27/17 11/03/17 09:49 10:34 Wound Center Nurse 2 #2- RT HEEL -Time 09:49 10:34 -Correct Patient Yes Yes -Correct Side, Site, Position Yes Yes -Correct Procedure Yes Yes -Procedure Performed Yes Yes -Type of Procedure Debridement Debridement -Clinical Debridement Subcutaneous Subcutaneous -Post Debridement Size (cm) - Length 0.5 0.5 -Post Debridement Size (cm) - Width 0.5 0.3 -Post Debridement Size (cm) - Depth 0.2 0.2 -Total Square Cm 0.25 0.15 -Wound/Ulcer Outcome Not Healed Not Healed -Ulcer Cleansing Rinsed/ Not Cleansed Irrigated with Saline -Foul Odor after Cleansing No No -Bioengineered Tissue No No -Topical Lidocaine (%) 4 -Lidocaine (ml) 5 -Bleeding Controlled with NA NA -Treatment Response Procedure Procedure Tolerated Well Tolerated Well Pain Scale: 0-10 Numeric Is Patient Pain Free? Yes Yes Wound debrided: Right plantar posterior heel Laterality: Right Wound Grade/Stage: 3 Type of Debridement: Excisional debridement Anesthesia Used: 4% Lidocaine Solution Depth: in the subcutaneous layer Percentage of wound debrided: 100 Instrument Used: #15 blade Tissue Removed: Adherent slough, fibrin, hyperkeratotic tissue Severity: Fat Layer Exposed Amount of bleeding with debridement: Mild Bleeding Controlled with: Pressure Patient tolerated procedure well Assessment/Plan Assessment: Ulcer to right heel with stable eschar. DM with neuropathy. Malnutrition. Plan: Patient was again examined and evaluated today. Patient is S/P surgical debridement with versajet of all necrotic, non-viable, and infected soft tissue with bone biopsy on June 14. Details from surgery are noted in the operative report. Angiogram performed prior to surgical debridement by Dr. Rios. A subcutaneous debridement was again completed today as noted in the clinical panel. Following debridement, slightly moistoned guero applied to ulcer base, followed by a dry sterile dressing. Patient and his were instructed to change this dressing daily. Patient and his were instructed to keep the dressing clean, dry, and intact again this week. Patient to continue with high protein diet. Importance of tight glycemic control was discussed again. I stressed the imortance again of keeping pressure off of his heel at all times and that this includes any type of pressure at all, as the patient has been noncompliant in the past with this, and continued to be non compliant. Patient continues to place pressure to his heel during the week. I advised him again this week to utilize his knee scooter. The callus buildup around the ulcer shows the patient has not been compliant in keep pressure off of his heel. I again discussed the possibility of switching to a TCC-EZ to better ensure compliance. I also again informed him and his that there is possibility that although his surgical procedure went well in May, there is still a chance that this can lead to extensive debridements, partial calcaneal amputations, or even more proximal amputations on the leg, among other possible outcomes. He is to use the knee scooter at all times while walking. While sitting or laying in bed he was instructed to keep the heel floating over the edge of a pillow in order to have absolutely no pressure to the area. He was informed to only use his newly fashioned sandle with the heel cut off to walk very short distances in the house and to not use it to walk around in. Patient and the patient's were educated on signs and symptoms of local and systemic infection and were instructed to go to the emergency room immediately should they notice any. All questions were answered to the patient and the patient's 's satisfaction. I still continue to be concerned with the patient's compliance. They will follow-up in clinic in 1 week for further evaluation, or sooner if needed. This note was generated with [employer] dictation software. It may contain incorrect words, spelling, and punctuation that were not noted in checking the note before signing.
[2017-11-10 09:45] VITALS: BP 141/69; PULSE 75; RESP 18; TEMP 36.6; BMI 32.7
--- NOTE | 2017-11-10 13:46 | PCM.WC.PN ---
(1) Chronic ulcer of right heel Status: Acute Current Visit: No Code(s): L97.419 - Non-pressure chronic ulcer of right heel and midfoot with unspecified severity (2) Lower extremity edema Status: Chronic Current Visit: No Code(s): R60.0 - Localized edema (3) PVD (peripheral vascular disease) Status: Suspected Current Visit: No Code(s): I73.9 - Peripheral vascular disease, unspecified (4) Type 2 diabetes mellitus with diabetic polyneuropathy Status: Acute Current Visit: No Code(s): E11.42 - Type 2 diabetes mellitus with diabetic polyneuropathy Type of Wound Date of Service: 11/10/17 Chief Complaint: Chronic non healing ulcer to right posterior heel with fat layer exposed. History of Wound: This 61-year-old diabetic male presents for follow up of chronic nonhealing ulcer to right posterior heel. Patient states on February 21 he believes he stepped on a staple walking down the stairs and had a tear in his skin. This progressed over the following days into an ulcer. Patient has seen Dr. See as well as gone to [facility] wound center in the past. While at [facility], the patient was undergoing every other day dressing changes consisting of medihoney and a dry sterile dressing. The patient has a knee walker and claims to be using it, but not all the time. The also states that the patient has not keeping pressure off of his right foot as much as he should be, even after last weeks visit, although he has gotten better. Patient denies any purulence to the area. The patient denies any feelings of nausea, vomiting, chills, fever at this time. Progress of Wound: Patient presents to clinic for follow up of right heel ulcer. Patient and doing daily guero dressing changes. Patient says he has done a better job trying to keep pressure off of his heel this last week. Currently, the patient denies any feelings of nausea, vomiting, fever, or chills. - Physical Exam Vital Signs Temp Pulse Resp BP 98 F 75 18 141/69 H 11/10/17 09:45 11/10/17 09:45 11/10/17 09:45 11/10/17 09:45 General: Alert, Oriented x3, Cooperative, No apparent distress Extremities: Capillary Refill Less than 3 Seconds, No Calf Tenderness - Negative Wojciech and Guerrero sign, Diminished Peripheral Pulses - DP and PT pulses nonpalpable due to slight lower extremity edema, Edema - Slight lower extremity edema Skin: Ulcer/ Wound - Ulcer to plantar posterior aspect right heel. Surgical debridement was completed on June 14. Ulcer is very slightly improved since last week again. There is less hyperkeratotic tissue surrounding the ulcer site this week. The base continues to be a mixture of adherent slough, fibrin, granular tissue. There is no extending cellulitis, no purulence, no malodor, no increase in warmth, no probing to bone, no tracking, and no undermining noted at this time. Wound Measurements and Assessment WC - Nurse 1 - General Ulcer Measurement Start: 10/27/17 09:35 Freq: Status: Active Protocol: Activity Type Activity Date Activity User E-Sign Co-Sign Detail Recorded Client Recorded Date Recorded By Document 11/10/17 09:45 RB [id number] 11/10/17 09:58 RB 11/10/17 09:45 Wound Center Nurse 1 [Ulcer Assessment] #2- RT HEEL -Combined with other wound No -Current Size (cm) - Length 0.2 -Current Size (cm) - Width 0.2 -Current Size (cm) - Depth 0.1 -Total Square Cm 0.04 -Photo Taken No -Tunneling No -Undermining/Tunneling No -Circular Undermining No -Exudate Amt Small (1-33%) -Exudate Type Serosanguineous -Wound Margin Distinct, Outline Attached -Granulation Amt Large (67-100%) -Granulation Quality [employer] -Slough/Fibrin Yes -Necrosis Amt Small (1-33%) -Necrotic Tissue Type Adherent Slough -Structure Exposed N/A -Texture (Miguelina-wound Skin Appearance) Assessed Callus -Moisture (Miguelina-wound Skin Appearance Assessed ) -Color (Miguelina-wound Skin Appearance) Assessed -Temperature (Miguelina-wound Skin No Abnormality Appearance) (Pt Warm) -Tenderness on Palpation (Miguelina-wound No Skin Appearance) -Ulcer Cleansing Rinsed/ Irrigated with Saline -Foul Odor after Cleansing No -Anesthetic Used 4% Lidocaine Solution [Edema Assessment] -Lower Limb Edema Present Yes -Right Calf (cm) 33.4 -Right Ankle (cm) 21.2 WC - Nurse 2 - General Ulcer CM Notes Start: 10/27/17 09:35 Freq: Status: Active Protocol: Activity Type Activity Date Activity User E-Sign Co-Sign Detail Recorded Client Recorded Date Recorded By Document 11/10/17 10:17 [id number] 11/10/17 10:20 DV 11/10/17 10:17 Wound Center Nurse 2 [Procedure/Treatment] #2- RT HEEL -Time 10:19 -Correct Patient Yes -Correct Side, Site, Position Yes -Correct Procedure Yes -Procedure Performed Yes -Type of Procedure Debridement -Clinical Debridement Subcutaneous -Post Debridement Size (cm) - Length 0.4 -Post Debridement Size (cm) - Width 0.2 -Post Debridement Size (cm) - Depth 0.2 -Total Square Cm 0.08 -Wound/Ulcer Outcome Not Healed -Ulcer Cleansing Rinsed/ Irrigated with Saline -Foul Odor after Cleansing No -Bioengineered Tissue No -Bleeding Controlled with Pressure -Treatment Response Procedure Tolerated Well [See Physician Procedure note for Specifics] Pain Scale: 0-10 Numeric [Pain] -Is Patient Pain Free? Yes Musculoskeletal: - - Patient denies tenderness with manipulation of ulcer site Neurological: - - Epicritic sensation grossly absent to lower extremity Psych/Mental Status: Normal Affect, Appropriate Debridement Note Post-Debridement Measurements/Treatment WC - Nurse 2 - General Ulcer CM Notes Start: 10/27/17 09:35 Freq: Status: Active Protocol: Activity Type Activity Date Activity User E-Sign Co-Sign Detail Recorded Client Recorded Date Recorded By Document 10/27/17 09:49 [id number] 10/27/17 09:55 Document 11/03/17 10:34 [id number] 11/03/17 10:35 Document 11/10/17 10:17 [id number] 11/10/17 10:20 10/27/17 11/03/17 11/10/17 09:49 10:34 10:17 Wound Center Nurse 2 #2- RT HEEL -Time 09:49 10:34 10:19 -Correct Patient Yes Yes Yes -Correct Side, Site, Position Yes Yes Yes -Correct Procedure Yes Yes Yes -Procedure Performed Yes Yes Yes -Type of Procedure Debridement Debridement Debridement -Clinical Debridement Subcutaneous Subcutaneous Subcutaneous -Post Debridement Size (cm) - Length 0.5 0.5 0.4 -Post Debridement Size (cm) - Width 0.5 0.3 0.2 -Post Debridement Size (cm) - Depth 0.2 0.2 0.2 -Total Square Cm 0.25 0.15 0.08 -Wound/Ulcer Outcome Not Healed Not Healed Not Healed -Ulcer Cleansing Rinsed/ Not Cleansed Rinsed/ Irrigated with Irrigated with Saline Saline -Foul Odor after Cleansing No No No -Bioengineered Tissue No No No -Topical Lidocaine (%) 4 -Lidocaine (ml) 5 -Bleeding Controlled with NA NA Pressure -Treatment Response Procedure Procedure Procedure Tolerated Well Tolerated Well Tolerated Well Pain Scale: 0-10 Numeric Is Patient Pain Free? Yes Yes Yes Wound debrided: Right plantar posterior heel Laterality: Right Wound Grade/Stage: 3 Type of Debridement: Excisional debridement Anesthesia Used: 4% Lidocaine Solution Depth: in the subcutaneous layer Percentage of wound debrided: 100 Instrument Used: #15 blade Tissue Removed: Adherent slough, fibrin, hyperkeratotic tissue Severity: Fat Layer Exposed Amount of bleeding with debridement: Mild Bleeding Controlled with: Pressure Patient tolerated procedure well Assessment/Plan Assessment: Ulcer to right heel with stable eschar. DM with neuropathy. Malnutrition. Plan: Patient was again examined and evaluated today. Patient is S/P surgical debridement with versajet of all necrotic, non-viable, and infected soft tissue with bone biopsy on June 14. Details from surgery are noted in the operative report. Angiogram performed prior to surgical debridement by Dr. Rios. A subcutaneous debridement was again completed today as noted in the clinical panel. Following debridement, slightly moistoned guero applied to ulcer base, followed by a dry sterile dressing. Patient and his were instructed to change this dressing daily. Patient and his were instructed to keep the dressing clean, dry, and intact again this week. Patient to continue with high protein diet. Importance of tight glycemic control was discussed again. I stressed the imortance again of keeping pressure off of his heel at all times and that this includes any type of pressure at all, as the patient has been noncompliant in the past with this, and continues to be non compliant. The patient says he was better this past week about keeping pressure off of his heel. I advised him again this week to utilize his knee scooter. The callus buildup around the ulcer shows the patient has not been compliant in keep pressure off of his heel. I again discussed the possibility of switching to a TCC-EZ to better ensure compliance. I also again informed him and his that there is possibility that although his surgical procedure went well in May, there is still a chance that this can lead to extensive debridements, partial calcaneal amputations, or even more proximal amputations on the leg, among other possible outcomes. He is to use the knee scooter at all times while walking. While sitting or laying in bed he was instructed to keep the heel floating over the edge of a pillow in order to have absolutely no pressure to the area. He was informed to only use his newly fashioned sandle with the heel cut off to walk very short distances in the house and to not use it to walk around in. Patient and the patient's were educated on signs and symptoms of local and systemic infection and were instructed to go to the emergency room immediately should they notice any. All questions were answered to the patient and the patient's 's satisfaction. I still continue to be concerned with the patient's compliance. They will follow-up in clinic in 1 week for further evaluation, or sooner if needed. This note was generated with [employer] dictation software. It may contain incorrect words, spelling, and punctuation that were not noted in checking the note before signing.
--- NOTE | 2017-11-10 13:51 | PN.PCM_ITS ---
(1) Chronic ulcer of right heel Status: Acute Current Visit: No Code(s): L97.419 - Non-pressure chronic ulcer of right heel and midfoot with unspecified severity (2) Lower extremity edema Status: Chronic Current Visit: No Code(s): R60.0 - Localized edema (3) PVD (peripheral vascular disease) Status: Suspected Current Visit: No Code(s): I73.9 - Peripheral vascular disease, unspecified (4) Type 2 diabetes mellitus with diabetic polyneuropathy Status: Acute Current Visit: No Code(s): E11.42 - Type 2 diabetes mellitus with diabetic polyneuropathy Type of Wound Date of Service: 11/10/17 Chief Complaint: Chronic non healing ulcer to right posterior heel with fat layer exposed. History of Wound: This 61-year-old diabetic male presents for follow up of chronic nonhealing ulcer to right posterior heel. Patient states on February 21 he believes he stepped on a staple walking down the stairs and had a tear in his skin. This progressed over the following days into an ulcer. Patient has seen Dr. See as well as gone to [facility] wound center in the past. While at [facility], the patient was undergoing every other day dressing changes consisting of medihoney and a dry sterile dressing. The patient has a knee walker and claims to be using it, but not all the time. The also states that the patient has not keeping pressure off of his right foot as much as he should be, even after last weeks visit, although he has gotten better. Patient denies any purulence to the area. The patient denies any feelings of nausea, vomiting, chills, fever at this time. Progress of Wound: Patient presents to clinic for follow up of right heel ulcer. Patient and doing daily guero dressing changes. Patient says he has done a better job trying to keep pressure off of his heel this last week. Currently, the patient denies any feelings of nausea, vomiting, fever, or chills. - Physical Exam Vital Signs Temp Pulse Resp BP 98 F 75 18 141/69 H 11/10/17 09:45 11/10/17 09:45 11/10/17 09:45 11/10/17 09:45 General: Alert, Oriented x3, Cooperative, No apparent distress Extremities: Capillary Refill Less than 3 Seconds, No Calf Tenderness - Negative Wojciech and Guerrero sign, Diminished Peripheral Pulses - DP and PT pulses nonpalpable due to slight lower extremity edema, Edema - Slight lower extremity edema Skin: Ulcer/ Wound - Ulcer to plantar posterior aspect right heel. Surgical debridement was completed on June 14. Ulcer is very slightly improved since last week again. There is less hyperkeratotic tissue surrounding the ulcer site this week. The base continues to be a mixture of adherent slough, fibrin, granular tissue. There is no extending cellulitis, no purulence, no malodor, no increase in warmth, no probing to bone, no tracking, and no undermining noted at this time. Wound Measurements and Assessment WC - Nurse 1 - General Ulcer Measurement Start: 10/27/17 09:35 Freq: Status: Active Protocol: Activity Type Activity Date Activity User E-Sign Co-Sign Detail Recorded Client Recorded Date Recorded By Document 11/10/17 09:45 RB [id number] 11/10/17 09:58 RB 11/10/17 09:45 Wound Center Nurse 1 [Ulcer Assessment] #2- RT HEEL -Combined with other wound No -Current Size (cm) - Length 0.2 -Current Size (cm) - Width 0.2 -Current Size (cm) - Depth 0.1 -Total Square Cm 0.04 -Photo Taken No -Tunneling No -Undermining/Tunneling No -Circular Undermining No -Exudate Amt Small (1-33%) -Exudate Type Serosanguineous -Wound Margin Distinct, Outline Attached -Granulation Amt Large (67-100%) -Granulation Quality [place] -Slough/Fibrin Yes -Necrosis Amt Small (1-33%) -Necrotic Tissue Type Adherent Slough -Structure Exposed N/A -Texture (Miguelina-wound Skin Appearance) Assessed Callus -Moisture (Miguelina-wound Skin Appearance Assessed ) -Color (Miguelina-wound Skin Appearance) Assessed -Temperature (Miguelina-wound Skin No Abnormality Appearance) (Pt Warm) -Tenderness on Palpation (Miguelina-wound No Skin Appearance) -Ulcer Cleansing Rinsed/ Irrigated with Saline -Foul Odor after Cleansing No -Anesthetic Used 4% Lidocaine Solution [Edema Assessment] -Lower Limb Edema Present Yes -Right Calf (cm) 33.4 -Right Ankle (cm) 21.2 WC - Nurse 2 - General Ulcer CM Notes Start: 10/27/17 09:35 Freq: Status: Active Protocol: Activity Type Activity Date Activity User E-Sign Co-Sign Detail Recorded Client Recorded Date Recorded By Document 11/10/17 10:17 [id number] 11/10/17 10:20 DV 11/10/17 10:17 Wound Center Nurse 2 [Procedure/Treatment] #2- RT HEEL -Time 10:19 -Correct Patient Yes -Correct Side, Site, Position Yes -Correct Procedure Yes -Procedure Performed Yes -Type of Procedure Debridement -Clinical Debridement Subcutaneous -Post Debridement Size (cm) - Length 0.4 -Post Debridement Size (cm) - Width 0.2 -Post Debridement Size (cm) - Depth 0.2 -Total Square Cm 0.08 -Wound/Ulcer Outcome Not Healed -Ulcer Cleansing Rinsed/ Irrigated with Saline -Foul Odor after Cleansing No -Bioengineered Tissue No -Bleeding Controlled with Pressure -Treatment Response Procedure Tolerated Well [See Physician Procedure note for Specifics] Pain Scale: 0-10 Numeric [Pain] -Is Patient Pain Free? Yes Musculoskeletal: - - Patient denies tenderness with manipulation of ulcer site Neurological: - - Epicritic sensation grossly absent to lower extremity Psych/Mental Status: Normal Affect, Appropriate Debridement Note Post-Debridement Measurements/Treatment WC - Nurse 2 - General Ulcer CM Notes Start: 10/27/17 09:35 Freq: Status: Active Protocol: Activity Type Activity Date Activity User E-Sign Co-Sign Detail Recorded Client Recorded Date Recorded By Document 10/27/17 09:49 [id number] 10/27/17 09:55 Document 11/03/17 10:34 [id number] 11/03/17 10:35 Document 11/10/17 10:17 [id number] 11/10/17 10:20 10/27/17 11/03/17 11/10/17 09:49 10:34 10:17 Wound Center Nurse 2 #2- RT HEEL -Time 09:49 10:34 10:19 -Correct Patient Yes Yes Yes -Correct Side, Site, Position Yes Yes Yes -Correct Procedure Yes Yes Yes -Procedure Performed Yes Yes Yes -Type of Procedure Debridement Debridement Debridement -Clinical Debridement Subcutaneous Subcutaneous Subcutaneous -Post Debridement Size (cm) - Length 0.5 0.5 0.4 -Post Debridement Size (cm) - Width 0.5 0.3 0.2 -Post Debridement Size (cm) - Depth 0.2 0.2 0.2 -Total Square Cm 0.25 0.15 0.08 -Wound/Ulcer Outcome Not Healed Not Healed Not Healed -Ulcer Cleansing Rinsed/ Not Cleansed Rinsed/ Irrigated with Irrigated with Saline Saline -Foul Odor after Cleansing No No No -Bioengineered Tissue No No No -Topical Lidocaine (%) 4 -Lidocaine (ml) 5 -Bleeding Controlled with NA NA Pressure -Treatment Response Procedure Procedure Procedure Tolerated Well Tolerated Well Tolerated Well Pain Scale: 0-10 Numeric Is Patient Pain Free? Yes Yes Yes Wound debrided: Right plantar posterior heel Laterality: Right Wound Grade/Stage: 3 Type of Debridement: Excisional debridement Anesthesia Used: 4% Lidocaine Solution Depth: in the subcutaneous layer Percentage of wound debrided: 100 Instrument Used: #15 blade Tissue Removed: Adherent slough, fibrin, hyperkeratotic tissue Severity: Fat Layer Exposed Amount of bleeding with debridement: Mild Bleeding Controlled with: Pressure Patient tolerated procedure well Assessment/Plan Assessment: Ulcer to right heel with stable eschar. DM with neuropathy. Malnutrition. Plan: Patient was again examined and evaluated today. Patient is S/P surgical debridement with versajet of all necrotic, non-viable, and infected soft tissue with bone biopsy on June 14. Details from surgery are noted in the operative report. Angiogram performed prior to surgical debridement by Dr. Rios. A subcutaneous debridement was again completed today as noted in the clinical panel. Following debridement, slightly moistoned guero applied to ulcer base, followed by a dry sterile dressing. Patient and his were instructed to change this dressing daily. Patient and his were instructed to keep the dressing clean, dry, and intact again this week. Patient to continue with high protein diet. Importance of tight glycemic control was discussed again. I stressed the imortance again of keeping pressure off of his heel at all times and that this includes any type of pressure at all, as the patient has been noncompliant in the past with this, and continues to be non compliant. The patient says he was better this past week about keeping pressure off of his heel. I advised him again this week to utilize his knee scooter. The callus buildup around the ulcer shows the patient has not been compliant in keep pressure off of his heel. I again discussed the possibility of switching to a TCC-EZ to better ensure compliance. I also again informed him and his that there is possibility that although his surgical procedure went well in May, there is still a chance that this can lead to extensive debridements, partial calcaneal amputations, or even more proximal amputations on the leg, among other possible outcomes. He is to use the knee scooter at all times while walking. While sitting or laying in bed he was instructed to keep the heel floating over the edge of a pillow in order to have absolutely no pressure to the area. He was informed to only use his newly fashioned sandle with the heel cut off to walk very short distances in the house and to not use it to walk around in. Patient and the patient's were educated on signs and symptoms of local and systemic infection and were instructed to go to the emergency room immediately should they notice any. All questions were answered to the patient and the patient's 's satisfaction. I still continue to be concerned with the patient's compliance. They will follow-up in clinic in 1 week for further evaluation, or sooner if needed. This note was generated with [employer] dictation software. It may contain incorrect words, spelling, and punctuation that were not noted in checking the note before signing.
[2017-11-17 09:37] VITALS: BP 157/97; PULSE 78; RESP 16; TEMP 36.6; BMI 32.7
--- NOTE | 2017-11-17 10:24 | PCM.WC.PN ---
(1) Chronic ulcer of right heel Status: Acute Current Visit: No Code(s): L97.419 - Non-pressure chronic ulcer of right heel and midfoot with unspecified severity (2) Lower extremity edema Status: Chronic Current Visit: No Code(s): R60.0 - Localized edema (3) PVD (peripheral vascular disease) Status: Suspected Current Visit: No Code(s): I73.9 - Peripheral vascular disease, unspecified (4) Type 2 diabetes mellitus with diabetic polyneuropathy Status: Acute Current Visit: No Code(s): E11.42 - Type 2 diabetes mellitus with diabetic polyneuropathy Type of Wound Chief Complaint: Chronic non healing ulcer to right posterior heel with fat layer exposed. History of Wound: This 61-year-old diabetic male presents for follow up of chronic nonhealing ulcer to right posterior heel. Patient states on February 21 he believes he stepped on a staple walking down the stairs and had a tear in his skin. This progressed over the following days into an ulcer. Patient has seen Dr. See as well as gone to [facility] undergoing every other day dressing changes consisting of medihoney and a dry sterile dressing. The patient has a knee walker and claims to be using it, but not all the time. The also states that the patient has not keeping pressure off of his right foot as much as he should be, even after last weeks visit, although he has gotten better. Patient denies any purulence to the area. The patient denies any feelings of nausea, vomiting, chills, fever at this time. Progress of Wound: Patient presents to clinic for follow up of right heel ulcer. Patient and doing daily guero dressing changes. Currently, the patient denies any feelings of nausea, vomiting, fever, or chills. - Physical Exam Vital Signs Temp Pulse Resp BP 97.9 F 78 16 157/97 H 11/17/17 09:37 11/17/17 09:37 11/17/17 09:37 11/17/17 09:37 General: Alert, Oriented x3, Cooperative, No apparent distress Extremities: Capillary Refill Less than 3 Seconds, No Calf Tenderness - Negative Wojciech and Guerrero sign, Diminished Peripheral Pulses - DP and PT pulses nonpalpable due to slight lower extremity edema, Edema - Slight lower extremity edema Skin: Ulcer/ Wound - Ulcer to plantar posterior aspect of right heel. Surgical debridement was completed on June 14. Ulcer remains fairly stable since last week. Very small amount of hyperkeratotic tissue buildup surrounding the ulcer site. The base is noted to still be a mixture of adherent slough, fibrin, granular tissue. There continues to be no extending or surrounding cellulitis, no purulence, no malodor, no increase in warmth, no probing to bone, no tracking, and no undermining. Wound Measurements and Assessment WC - Nurse 1 - General Ulcer Measurement Start: 10/27/17 09:35 Freq: Status: Active Protocol: Activity Type Activity Date Activity User E-Sign Co-Sign Detail Recorded Client Recorded Date Recorded By Document 11/17/17 09:37 MT [id number] 11/17/17 09:40 MT 11/17/17 09:37 Wound Center Nurse 1 [Ulcer Assessment] #2- RT HEEL -Combined with other wound No -Current Size (cm) - Length 0.1 -Current Size (cm) - Width 0.1 -Current Size (cm) - Depth 0.1 -Total Square Cm 0.01 -Photo Taken No -Epithelialization Large 67-100% -Tunneling No -Undermining/Tunneling No -Circular Undermining No -Granulation Amt Large (67-100%) -Granulation Quality Pale [place] -Slough/Fibrin No -Necrosis Amt None Present (0 %) -Texture (Miguelina-wound Skin Appearance) Assessed -Moisture (Miguelina-wound Skin Appearance Assessed ) -Color (Miguelina-wound Skin Appearance) Assessed Hemosiderin Staining -Temperature (Miguelina-wound Skin No Abnormality Appearance) (Pt Warm) -Tenderness on Palpation (Miguelina-wound No Skin Appearance) -Ulcer Cleansing Rinsed/ Irrigated with Saline -Foul Odor after Cleansing No -Anesthetic Used 5% Lidocaine Gel [Edema Assessment] -Right Calf (cm) 34 -Right Ankle (cm) 21.7 WC - Nurse 2 - General Ulcer CM Notes Start: 10/27/17 09:35 Freq: Status: Active Protocol: Activity Type Activity Date Activity User E-Sign Co-Sign Detail Recorded Client Recorded Date Recorded By Document 11/17/17 09:52 DV [id number] 11/17/17 09:58 DV 11/17/17 09:52 Wound Center Nurse 2 [Procedure/Treatment] #2- RT HEEL -Time 09:52 -Correct Patient Yes -Correct Side, Site, Position Yes -Correct Procedure Yes -Procedure Performed Yes -Type of Procedure Debridement -Clinical Debridement Subcutaneous -Post Debridement Size (cm) - Length 0.4 -Post Debridement Size (cm) - Width 0.2 -Post Debridement Size (cm) - Depth 0.2 -Total Square Cm 0.08 -Wound/Ulcer Outcome Not Healed -Ulcer Cleansing Rinsed/ Irrigated with Saline -Foul Odor after Cleansing No -Bioengineered Tissue No -Bleeding Controlled with Pressure -Treatment Response Procedure Tolerated Well [See Physician Procedure note for Specifics] Pain Scale: 0-10 Numeric [Pain] -Is Patient Pain Free? Yes Musculoskeletal: - - Patient denies tenderness with manipulation of ulcer site Neurological: - - Epicritic sensation grossly absent to lower extremity Psych/Mental Status: Normal Affect, Appropriate Debridement Note Post-Debridement Measurements/Treatment WC - Nurse 2 - General Ulcer CM Notes Start: 10/27/17 09:35 Freq: Status: Active Protocol: Activity Type Activity Date Activity User E-Sign Co-Sign Detail Recorded Client Recorded Date Recorded By Document 10/27/17 09:49 [id number] 10/27/17 09:55 Document 11/03/17 10:34 [id number] 11/03/17 10:35 Document 11/10/17 10:17 DV [id number] 11/10/17 10:20 DV Document 11/17/17 09:52 DV [id number] 11/17/17 09:58 DV 10/27/17 11/03/17 11/10/17 09:49 10:34 10:17 Wound Center Nurse 2 #2- RT HEEL -Time 09:49 10:34 10:19 -Correct Patient Yes Yes Yes -Correct Side, Site, Position Yes Yes Yes -Correct Procedure Yes Yes Yes -Procedure Performed Yes Yes Yes -Type of Procedure Debridement Debridement Debridement -Clinical Debridement Subcutaneous Subcutaneous Subcutaneous -Post Debridement Size (cm) - Length 0.5 0.5 0.4 -Post Debridement Size (cm) - Width 0.5 0.3 0.2 -Post Debridement Size (cm) - Depth 0.2 0.2 0.2 -Total Square Cm 0.25 0.15 0.08 -Wound/Ulcer Outcome Not Healed Not Healed Not Healed -Ulcer Cleansing Rinsed/ Not Cleansed Rinsed/ Irrigated with Irrigated with Saline Saline -Foul Odor after Cleansing No No No -Bioengineered Tissue No No No -Topical Lidocaine (%) 4 -Lidocaine (ml) 5 -Bleeding Controlled with NA NA Pressure -Treatment Response Procedure Procedure Procedure Tolerated Well Tolerated Well Tolerated Well Pain Scale: 0-10 Numeric Is Patient Pain Free? Yes Yes Yes 11/17/17 09:52 Wound Center Nurse 2 #2- RT HEEL -Time 09:52 -Correct Patient Yes -Correct Side, Site, Position Yes -Correct Procedure Yes -Procedure Performed Yes -Type of Procedure Debridement -Clinical Debridement Subcutaneous -Post Debridement Size (cm) - Length 0.4 -Post Debridement Size (cm) - Width 0.2 -Post Debridement Size (cm) - Depth 0.2 -Total Square Cm 0.08 -Wound/Ulcer Outcome Not Healed -Ulcer Cleansing Rinsed/ Irrigated with Saline -Foul Odor after Cleansing No -Bioengineered Tissue No -Topical Lidocaine (%) -Lidocaine (ml) -Bleeding Controlled with Pressure -Treatment Response Procedure Tolerated Well Pain Scale: 0-10 Numeric Is Patient Pain Free? Yes Wound debrided: Right plantar posterior heel Laterality: Right Wound Grade/Stage: 3 Type of Debridement: Excisional debridement Anesthesia Used: 4% Lidocaine Solution Depth: in the subcutaneous layer Percentage of wound debrided: 100 Instrument Used: 3mm curette Tissue Removed: Adherent slough, fibrin, hyperkeratotic tissue Severity: Fat Layer Exposed Amount of bleeding with debridement: Mild Bleeding Controlled with: Pressure Patient tolerated procedure well Assessment/Plan Assessment: Ulcer to right heel with stable eschar. DM with neuropathy. Malnutrition. Plan: Patient was again examined and evaluated today. Patient is S/P surgical debridement with versajet of all necrotic, non-viable, and infected soft tissue with bone biopsy on June 14. Details from surgery are noted in the operative report. Angiogram performed prior to surgical debridement by Dr. Rios. A subcutaneous debridement was again completed today as noted in the clinical panel. Following debridement, slightly moistoned guero applied to ulcer base, followed by a dry sterile dressing. Patient and his were instructed to change this dressing daily. Patient and his were instructed to keep the dressing clean, dry, and intact again this week. They were again educated on how to apply the guero. They were instructed to not pack the area tightly and to make sure they get the old remaining guero out before applying the new dressing. Patient to continue with high protein diet. Importance of tight glycemic control was discussed again. I stressed the imortance again of keeping pressure off of his heel at all times and that this includes any type of pressure at all, as the patient has been noncompliant in the past with this, and continues to be non compliant. I advised him again this week to utilize his knee scooter. The callus buildup around the ulcer shows the patient has not been compliant in keep pressure off of his heel. I again discussed the possibility of switching to a TCC-EZ to better ensure compliance. I also again informed him and his that there is possibility that although his surgical procedure went well in May, there is still a chance that this can lead to extensive debridements, partial calcaneal amputations, or even more proximal amputations on the leg, among other possible outcomes. He is to use the knee scooter at all times while walking. While sitting or laying in bed he was instructed to keep the heel floating over the edge of a pillow in order to have absolutely no pressure to the area. He was informed to only use his newly fashioned sandle with the heel cut off to walk very short distances in the house and to not use it to walk around in. Patient and the patient's were educated on signs and symptoms of local and systemic infection and were instructed to go to the emergency room immediately should they notice any. All questions were answered to the patient and the patient's 's satisfaction. I still continue to be concerned with the patient's compliance. They will follow-up in clinic in 1 week for further evaluation, or sooner if needed. This note was generated with [employer] dictation software. It may contain incorrect words, spelling, and punctuation that were not noted in checking the note before signing.
--- NOTE | 2017-11-17 10:31 | PN.PCM_ITS ---
(1) Chronic ulcer of right heel Status: Acute Current Visit: No Code(s): L97.419 - Non-pressure chronic ulcer of right heel and midfoot with unspecified severity (2) Lower extremity edema Status: Chronic Current Visit: No Code(s): R60.0 - Localized edema (3) PVD (peripheral vascular disease) Status: Suspected Current Visit: No Code(s): I73.9 - Peripheral vascular disease, unspecified (4) Type 2 diabetes mellitus with diabetic polyneuropathy Status: Acute Current Visit: No Code(s): E11.42 - Type 2 diabetes mellitus with diabetic polyneuropathy Type of Wound Chief Complaint: Chronic non healing ulcer to right posterior heel with fat layer exposed. History of Wound: This 61-year-old diabetic male presents for follow up of chronic nonhealing ulcer to right posterior heel. Patient states on February 21 he believes he stepped on a staple walking down the stairs and had a tear in his skin. This progressed over the following days into an ulcer. Patient has seen Dr. See as well as gone to [facility] wound center in the past. While at [facility], the patient was undergoing every other day dressing changes consisting of medihoney and a dry sterile dressing. The patient has a knee walker and claims to be using it, but not all the time. The also states that the patient has not keeping pressure off of his right foot as much as he should be, even after last weeks visit, although he has gotten better. Patient denies any purulence to the area. The patient denies any feelings of nausea, vomiting, chills, fever at this time. Progress of Wound: Patient presents to clinic for follow up of right heel ulcer. Patient and doing daily guero dressing changes. Currently, the patient denies any feelings of nausea, vomiting, fever, or chills. - Physical Exam Vital Signs Temp Pulse Resp BP 97.9 F 78 16 157/97 H 11/17/17 09:37 11/17/17 09:37 11/17/17 09:37 11/17/17 09:37 General: Alert, Oriented x3, Cooperative, No apparent distress Extremities: Capillary Refill Less than 3 Seconds, No Calf Tenderness - Negative Wojciech and Guerrero sign, Diminished Peripheral Pulses - DP and PT pulses nonpalpable due to slight lower extremity edema, Edema - Slight lower extremity edema Skin: Ulcer/ Wound - Ulcer to plantar posterior aspect of right heel. Surgical debridement was completed on June 14. Ulcer remains fairly stable since last week. Very small amount of hyperkeratotic tissue buildup surrounding the ulcer site. The base is noted to still be a mixture of adherent slough, fibrin, granular tissue. There continues to be no extending or surrounding cellulitis, no purulence, no malodor, no increase in warmth, no probing to bone, no tracking, and no undermining. Wound Measurements and Assessment WC - Nurse 1 - General Ulcer Measurement Start: 10/27/17 09:35 Freq: Status: Active Protocol: Activity Type Activity Date Activity User E-Sign Co-Sign Detail Recorded Client Recorded Date Recorded By Document 11/17/17 09:37 MT [id number] 11/17/17 09:40 MT 11/17/17 09:37 Wound Center Nurse 1 [Ulcer Assessment] #2- RT HEEL -Combined with other wound No -Current Size (cm) - Length 0.1 -Current Size (cm) - Width 0.1 -Current Size (cm) - Depth 0.1 -Total Square Cm 0.01 -Photo Taken No -Epithelialization Large 67-100% -Tunneling No -Undermining/Tunneling No -Circular Undermining No -Granulation Amt Large (67-100%) -Granulation Quality Pale [place] -Slough/Fibrin No -Necrosis Amt None Present (0 %) -Texture (Miguelina-wound Skin Appearance) Assessed -Moisture (Miguelina-wound Skin Appearance Assessed ) -Color (Miguelina-wound Skin Appearance) Assessed Hemosiderin Staining -Temperature (Miguelina-wound Skin No Abnormality Appearance) (Pt Warm) -Tenderness on Palpation (Miguelina-wound No Skin Appearance) -Ulcer Cleansing Rinsed/ Irrigated with Saline -Foul Odor after Cleansing No -Anesthetic Used 5% Lidocaine Gel [Edema Assessment] -Right Calf (cm) 34 -Right Ankle (cm) 21.7 WC - Nurse 2 - General Ulcer CM Notes Start: 10/27/17 09:35 Freq: Status: Active Protocol: Activity Type Activity Date Activity User E-Sign Co-Sign Detail Recorded Client Recorded Date Recorded By Document 11/17/17 09:52 DV [id number] 11/17/17 09:58 DV 11/17/17 09:52 Wound Center Nurse 2 [Procedure/Treatment] #2- RT HEEL -Time 09:52 -Correct Patient Yes -Correct Side, Site, Position Yes -Correct Procedure Yes -Procedure Performed Yes -Type of Procedure Debridement -Clinical Debridement Subcutaneous -Post Debridement Size (cm) - Length 0.4 -Post Debridement Size (cm) - Width 0.2 -Post Debridement Size (cm) - Depth 0.2 -Total Square Cm 0.08 -Wound/Ulcer Outcome Not Healed -Ulcer Cleansing Rinsed/ Irrigated with Saline -Foul Odor after Cleansing No -Bioengineered Tissue No -Bleeding Controlled with Pressure -Treatment Response Procedure Tolerated Well [See Physician Procedure note for Specifics] Pain Scale: 0-10 Numeric [Pain] -Is Patient Pain Free? Yes Musculoskeletal: - - Patient denies tenderness with manipulation of ulcer site Neurological: - - Epicritic sensation grossly absent to lower extremity Psych/Mental Status: Normal Affect, Appropriate Debridement Note Post-Debridement Measurements/Treatment WC - Nurse 2 - General Ulcer CM Notes Start: 10/27/17 09:35 Freq: Status: Active Protocol: Activity Type Activity Date Activity User E-Sign Co-Sign Detail Recorded Client Recorded Date Recorded By Document 10/27/17 09:49 [id number] 10/27/17 09:55 Document 11/03/17 10:34 [id number] 11/03/17 10:35 Document 11/10/17 10:17 DV [id number] 11/10/17 10:20 DV Document 11/17/17 09:52 DV [id number] 11/17/17 09:58 DV 10/27/17 11/03/17 11/10/17 09:49 10:34 10:17 Wound Center Nurse 2 #2- RT HEEL -Time 09:49 10:34 10:19 -Correct Patient Yes Yes Yes -Correct Side, Site, Position Yes Yes Yes -Correct Procedure Yes Yes Yes -Procedure Performed Yes Yes Yes -Type of Procedure Debridement Debridement Debridement -Clinical Debridement Subcutaneous Subcutaneous Subcutaneous -Post Debridement Size (cm) - Length 0.5 0.5 0.4 -Post Debridement Size (cm) - Width 0.5 0.3 0.2 -Post Debridement Size (cm) - Depth 0.2 0.2 0.2 -Total Square Cm 0.25 0.15 0.08 -Wound/Ulcer Outcome Not Healed Not Healed Not Healed -Ulcer Cleansing Rinsed/ Not Cleansed Rinsed/ Irrigated with Irrigated with Saline Saline -Foul Odor after Cleansing No No No -Bioengineered Tissue No No No -Topical Lidocaine (%) 4 -Lidocaine (ml) 5 -Bleeding Controlled with NA NA Pressure -Treatment Response Procedure Procedure Procedure Tolerated Well Tolerated Well Tolerated Well Pain Scale: 0-10 Numeric Is Patient Pain Free? Yes Yes Yes 11/17/17 09:52 Wound Center Nurse 2 #2- RT HEEL -Time 09:52 -Correct Patient Yes -Correct Side, Site, Position Yes -Correct Procedure Yes -Procedure Performed Yes -Type of Procedure Debridement -Clinical Debridement Subcutaneous -Post Debridement Size (cm) - Length 0.4 -Post Debridement Size (cm) - Width 0.2 -Post Debridement Size (cm) - Depth 0.2 -Total Square Cm 0.08 -Wound/Ulcer Outcome Not Healed -Ulcer Cleansing Rinsed/ Irrigated with Saline -Foul Odor after Cleansing No -Bioengineered Tissue No -Topical Lidocaine (%) -Lidocaine (ml) -Bleeding Controlled with Pressure -Treatment Response Procedure Tolerated Well Pain Scale: 0-10 Numeric Is Patient Pain Free? Yes Wound debrided: Right plantar posterior heel Laterality: Right Wound Grade/Stage: 3 Type of Debridement: Excisional debridement Anesthesia Used: 4% Lidocaine Solution Depth: in the subcutaneous layer Percentage of wound debrided: 100 Instrument Used: 3mm curette Tissue Removed: Adherent slough, fibrin, hyperkeratotic tissue Severity: Fat Layer Exposed Amount of bleeding with debridement: Mild Bleeding Controlled with: Pressure Patient tolerated procedure well Assessment/Plan Assessment: Ulcer to right heel with stable eschar. DM with neuropathy. Malnutrition. Plan: Patient was again examined and evaluated today. Patient is S/P surgical debridement with versajet of all necrotic, non-viable, and infected soft tissue with bone biopsy on June 14. Details from surgery are noted in the operative report. Angiogram performed prior to surgical debridement by Dr. Rios. A subcutaneous debridement was again completed today as noted in the clinical panel. Following debridement, slightly moistoned guero applied to ulcer base, followed by a dry sterile dressing. Patient and his were instructed to change this dressing daily. Patient and his were instructed to keep the dressing clean, dry, and intact again this week. They were again educated on how to apply the guero. They were instructed to not pack the area tightly and to make sure they get the old remaining guero out before applying the new dressing. Patient to continue with high protein diet. Importance of tight glycemic control was discussed again. I stressed the imortance again of keeping pressure off of his heel at all times and that this includes any type of pressure at all, as the patient has been noncompliant in the past with this, and continues to be non compliant. I advised him again this week to utilize his knee scooter. The callus buildup around the ulcer shows the patient has not been compliant in keep pressure off of his heel. I again discussed the possibility of switching to a TCC-EZ to better ensure compliance. I also again informed him and his that there is possibility that although his surgical procedure went well in May, there is still a chance that this can lead to extensive de bridements, partial calcaneal amputations, or even more proximal amputations on the leg, among other possible outcomes. He is to use the knee scooter at all times while walking. While sitting or laying in bed he was instructed to keep the heel floating over the edge of a pillow in order to have absolutely no pressure to the area. He was informed to only use his newly fashioned sandle with the heel cut off to walk very short distances in the house and to not use it to walk around in. Patient and the patient's were educated on signs and symptoms of local and systemic infection and were instructed to go to the emergency room immediately should they notice any. All questions were answered to the patient and the patient's 's satisfaction. I still continue to be concerned with the patient's compliance. They will follow-up in clinic in 1 week for further evaluation, or sooner if needed. This note was generated with [employer] dictation software. It may contain incorrect words, spelling, and punctuation that were not noted in checking the note before signing.
== END 2017-11-20 23:59 ==
LOC: WC 09:30
PROVIDERS: Visit Provider Podiatrist
DX: E11.621 Type 2 diabetes mellitus with foot ulcer (principal); E11.42 Type 2 diabetes mellitus with diabetic polyneuropathy; E11.51 Type 2 diabetes mellitus with diabetic peripheral angiopathy without gangrene; R60.0 Localized edema; L97.412 Non-pressure chronic ulcer of right heel and midfoot with fat layer exposed; Z91.19 Patient's noncompliance with other medical treatment and regimen
CPT/HCPCS: 11042

== ENCOUNTER 2017-12-15 10:00 | Outpatient (RCR) | payer MEDICARE, SELFPAY ==
[2017-11-21 00:41] VITALS: BP 157/97; PULSE 78; RESP 16; TEMP 36.6; BMI 32.7
[2017-11-24 10:03] VITALS: BP 149/71; PULSE 79; RESP 16; TEMP 36.6; BMI 32.7
--- NOTE | 2017-11-24 13:10 | PN.PCM_ITS ---
(1) Chronic ulcer of right heel Status: Acute Current Visit: No Code(s): L97.419 - Non-pressure chronic ulcer of right heel and midfoot with unspecified severity (2) Lower extremity edema Status: Chronic Current Visit: No Code(s): R60.0 - Localized edema (3) PVD (peripheral vascular disease) Status: Suspected Current Visit: No Code(s): I73.9 - Peripheral vascular disease, unspecified (4) Type 2 diabetes mellitus with diabetic polyneuropathy Status: Acute Current Visit: No Code(s): E11.42 - Type 2 diabetes mellitus with diabetic polyneuropathy Type of Wound Chief Complaint: Chronic non healing ulcer to right posterior heel with fat layer exposed. History of Wound: This 61-year-old diabetic male presents for follow up of chronic nonhealing ulcer to right posterior heel. Patient states on February 21 he believes he stepped on a staple walking down the stairs and had a tear in his skin. This progressed over the following days into an ulcer. Patient has seen Dr. See as well as gone to [facility] wound center in the past. While at [facility], the patient was undergoing every other day dressing changes consisting of medihoney and a dry sterile dressing. The patient has a knee walker and claims to be using it, but not all the time. The also states that the patient has not keeping pressure off of his right foot as much as he should be, even after last weeks visit, although he has gotten better. Patient denies any purulence to the area. The patient denies any feelings of nausea, vomiting, chills, fever at this time. Progress of Wound: Patient presents to clinic for follow up of right heel ulcer. Patient and doing daily guero dressing changes. Ulcer stable this week. Currently, the patient denies any feelings of nausea, vomiting, fever, or chills. - Physical Exam Vital Signs Temp Pulse Resp BP 97.8 F 79 16 149/71 H 11/24/17 10:03 11/24/17 10:03 11/24/17 10:03 11/24/17 10:03 General: Alert, Oriented x3, Cooperative, No apparent distress Extremities: Capillary Refill Less than 3 Seconds, No Calf Tenderness, Diminished Peripheral Pulses - DP and PT pulses nonpalpable due to slight lower extremity edema, Edema - Slight lower extremity edema Skin: Ulcer/ Wound - Ulcer to the plantar posterior aspect of the right heel. Surgical debridement was completed on June 14. Ulcer remains fairly stable since last week. Very small amount of hyperkeratotic tissue buildup noted surrounding the ulcer site. The base is noted to still be a mixture of adherent slough, fibrin, as well as some granular tissue. There continues to be no cellulitis, no purulence, no malodor, no increase in warmth, no probing to bone, no tracking, and no undermining at this time. Wound Measurements and Assessment WC - Nurse 1 - General Ulcer Measurement Start: 11/24/17 10:03 Freq: Status: Active Protocol: Activity Type Activity Date Activity User E-Sign Co-Sign Detail Recorded Client Recorded Date Recorded By Document 11/24/17 10:03 [id number] 11/24/17 10:06 11/24/17 10:03 Wound Center Nurse 1 [Ulcer Assessment] #2- RT HEEL -Combined with other wound No -Current Size (cm) - Length 0.1 -Current Size (cm) - Width 0.1 -Current Size (cm) - Depth 0.1 -Total Square Cm 0.01 -Date of Last Picture (Recall this 11/24/17 field) -Photo Taken Yes -Epithelialization Large 67-100% -Tunneling No -Undermining/Tunneling No -Circular Undermining No -Exudate Amt None Present (0 %) -Texture (Miguelina-wound Skin Appearance) Assessed Callus -Temperature (Miguelina-wound Skin No Abnormality Appearance) (Pt Warm) -Tenderness on Palpation (Miguelina-wound No Skin Appearance) -Ulcer Cleansing Rinsed/ Irrigated with Saline -Foul Odor after Cleansing No -Anesthetic Used 5% Lidocaine Gel [Edema Assessment] -Lower Limb Edema Present No -Left Calf (cm) 33.6 -Left Ankle (cm) 22.4 WC - Nurse 2 - General Ulcer CM Notes Start: 11/24/17 10:03 Freq: Status: Active Protocol: Activity Type Activity Date Activity User E-Sign Co-Sign Detail Recorded Client Recorded Date Recorded By Document 11/24/17 10:15 DV [id number] 11/24/17 10:21 DV 11/24/17 10:15 Wound Center Nurse 2 [Procedure/Treatment] #2- RT HEEL -Time 10:17 -Correct Patient Yes -Correct Side, Site, Position Yes -Correct Procedure Yes -Procedure Performed Yes -Type of Procedure Debridement -Clinical Debridement Subcutaneous -Post Debridement Size (cm) - Length 0.8 -Post Debridement Size (cm) - Width 0.3 -Post Debridement Size (cm) - Depth 0.2 -Total Square Cm 0.24 -Wound/Ulcer Outcome Not Healed -Ulcer Cleansing Rinsed/ Irrigated with Saline -Foul Odor after Cleansing No -Bioengineered Tissue No -Bleeding Controlled with NA -Treatment Response Procedure Tolerated Well [See Physician Procedure note for Specifics] Pain Scale: 0-10 Numeric [Pain] -Is Patient Pain Free? Yes Musculoskeletal: - - Patient denies tenderness with manipulation of ulcer site Neurological: - - Epicritic sensation grossly absent to lower extremity Psych/Mental Status: Normal Affect, Appropriate Debridement Note Post-Debridement Measurements/Treatment WC - Nurse 2 - General Ulcer CM Notes Start: 11/24/17 10:03 Freq: Status: Active Protocol: Activity Type Activity Date Activity User E-Sign Co-Sign Detail Recorded Client Recorded Date Recorded By Document 11/24/17 10:15 DV [id number] 11/24/17 10:21 DV 11/24/17 10:15 Wound Center Nurse 2 #2- RT HEEL -Time 10:17 -Correct Patient Yes -Correct Side, Site, Position Yes -Correct Procedure Yes -Procedure Performed Yes -Type of Procedure Debridement -Clinical Debridement Subcutaneous -Post Debridement Size (cm) - Length 0.8 -Post Debridement Size (cm) - Width 0.3 -Post Debridement Size (cm) - Depth 0.2 -Total Square Cm 0.24 -Wound/Ulcer Outcome Not Healed -Ulcer Cleansing Rinsed/ Irrigated with Saline -Foul Odor after Cleansing No -Bioengineered Tissue No -Bleeding Controlled with NA -Treatment Response Procedure Tolerated Well Pain Scale: 0-10 Numeric Is Patient Pain Free? Yes Wound debrided: Right plantar posterior heel Laterality: Right Type of Debridement: Excisional debridement Anesthesia Used: 4% Lidocaine Solution Depth: in the subcutaneous layer Percentage of wound debrided: 100 Instrument Used: 3mm curette Tissue Removed: Adherent slough, fibrin, hyperkeratotic tissue Severity: Fat Layer Exposed Amount of bleeding with debridement: Mild Bleeding Controlled with: Pressure Patient tolerated procedure well Assessment/Plan Assessment: Ulcer to right heel with stable eschar. DM with neuropathy. Malnutrition. Plan: Patient was again examined and evaluated today. Patient is S/P surgical debridement with versajet of all necrotic, non-viable, and infected soft tissue with bone biopsy on June 14. Details from surgery are noted in the operative report. Angiogram performed prior to surgical debridement by Dr. Rios. A subcutaneous debridement was completed today as noted in the clinical panel. Following debridement, slightly moistoned guero applied to ulcer base, followed by a dry sterile dressing. Patient and his were instructed to change this dressing daily. Patient and his were instructed to keep the dressing clean, dry, and intact again this week. They were again educated on how to apply the p risma. Patient to continue with high protein diet. Importance of tight glycemic control was discussed again. I stressed the imortance again of keeping pressure off of his heel at all times and that this includes any type of pressure at all, as the patient has been noncompliant in the past with this, and continues to be non compliant. I advised him again this week to utilize his knee scooter. Increased callus buildup surrounding ulcer site was noted again this week. The callus buildup around the ulcer shows the patient has not been compliant in keep pressure off of his heel. I again discussed the possibility of switching to a TCC-EZ to better ensure compliance. I also again informed him and his that there is possibility that although his surgical procedure went well in May, there is still a chance that this can lead to extensive debridements, partial calcaneal amputations, or even more proximal amputations on the leg, among other possible outcomes. He is to use the knee scooter at all times while walking. While sitting or laying in bed he was instructed to keep the heel floating over the edge of a pillow in order to have absolutely no pressure to the area. He was informed to only use his newly fashioned sandle with the heel cut off to walk very short distances in the house and to not use it to walk around in. Patient and the patient's were educated on signs and symptoms of local and systemic infection and were instructed to go to the emergency room immediately should they notice any. All questions were answered to the patient and the patient's 's satisfaction. I still continue to be concerned with the patient's compliance. They will follow-up in clinic in 1 week for further evaluation, or sooner if needed. This note was generated with Dragon dictation software. It may contain incorrect words, spelling, and punctuation that were not noted in checking the note before signing.
[2017-12-08 09:49] VITALS: BP 161/89; PULSE 85; RESP 16; TEMP 36.1; BMI 32.7
--- NOTE | 2017-12-08 13:57 | PCM.WC.PN ---
(1) Chronic ulcer of right heel Status: Acute Current Visit: No Code(s): L97.419 - Non-pressure chronic ulcer of right heel and midfoot with unspecified severity (2) Lower extremity edema Status: Chronic Current Visit: No Code(s): R60.0 - Localized edema (3) PVD (peripheral vascular disease) Status: Suspected Current Visit: No Code(s): I73.9 - Peripheral vascular disease, unspecified (4) Type 2 diabetes mellitus with diabetic polyneuropathy Status: Acute Current Visit: No Code(s): E11.42 - Type 2 diabetes mellitus with diabetic polyneuropathy Type of Wound Chief Complaint: Chronic non healing ulcer to right posterior heel with fat layer exposed. History of Wound: This 61-year-old diabetic male presents for follow up of chronic nonhealing ulcer to right posterior heel. Patient states on February 21 he believes he stepped on a staple walking down the stairs and had a tear in his skin. This progressed over the following days into an ulcer. Patient has seen Dr. See as well as gone to [facility] wound center in the past. While at [facility], the patient was undergoing every other day dressing changes consisting of medihoney and a dry sterile dressing. The patient has a knee walker and claims to be using it, but not all the time. The also states that the patient has not keeping pressure off of his right foot as much as he should be, even after last weeks visit, although he has gotten better. Patient denies any purulence to the area. The patient denies any feelings of nausea, vomiting, chills, fever at this time. Progress of Wound: Patient presents to clinic for follow up of right heel ulcer. Patient and doing daily guero dressing changes. Ulcer improving this week. Currently, the patient denies any feelings of nausea, vomiting, fever, or chills. - Physical Exam Vital Signs Temp Pulse Resp BP 96.9 F L 85 16 161/89 H 12/08/17 09:49 12/08/17 09:49 12/08/17 09:49 12/08/17 09:49 General: Alert, Oriented x3, Cooperative, No apparent distress Extremities: Capillary Refill Less than 3 Seconds, No Calf Tenderness - Negative Wojciech and Guerrero sign, Diminished Peripheral Pulses - DP and PT pulses nonpalpable due to slight lower extremity edema, Edema - Slight lower extremity edema Skin: Ulcer/ Wound - Ulcer to the plantar posterior aspect of the right heel. Surgical debridement was completed on June 14. Ulcer improvement appreciated since last visit. Some surrounding hyperkeratotic tissue noted again today. The base is a majority of granular tissue. There continues to be no surrounding cellulitis, no purulence, no malodor, no increase in warmth, no probing to bone, no tracking, no undermining at this time. Wound Measurements and Assessment - Nurse 1 - General Ulcer Measurement Start: 11/24/17 10:03 Freq: Status: Active Protocol: Activity Type Activity Date Activity User E-Sign Co-Sign Detail Recorded Client Recorded Date Recorded By Document 12/08/17 09:49 [facility] [id number] 12/08/17 09:54 [facility] 12/08/17 09:49 Wound Center Nurse 1 [Ulcer Assessment] #2- RT HEEL -Combined with other wound No -Current Size (cm) - Length 0.1 -Current Size (cm) - Width 0.1 -Current Size (cm) - Depth 0.1 -Total Square Cm 0.01 -Epithelialization Large 67-100% -Tunneling No -Undermining/Tunneling No -Circular Undermining No -Structure Exposed N/A -Texture (Miguelina-wound Skin Appearance) Callus -Moisture (Miguelina-wound Skin Appearance Dry/Scaly ) -Color (Miguelina-wound Skin Appearance) No Abnormality Assessed -Ulcer Cleansing Rinsed/ Irrigated with Saline -Foul Odor after Cleansing No -Anesthetic Used 5% Lidocaine Gel [Edema Assessment] -Right Calf (cm) 34 -Right Ankle (cm) 21 - Nurse 2 - General Ulcer CM Notes Start: 11/24/17 10:03 Freq: Status: Active Protocol: Activity Type Activity Date Activity User E-Sign Co-Sign Detail Recorded Client Recorded Date Recorded By Document 12/08/17 10:31 DV [id number] 12/08/17 10:35 DV 12/08/17 10:31 Wound Center Nurse 2 [Procedure/Treatment] #2- RT HEEL -Time 10:33 -Correct Patient Yes -Correct Side, Site, Position Yes -Correct Procedure Yes -Procedure Performed Yes -Type of Procedure Debridement -Clinical Debridement Selective -Post Debridement Size (cm) - Length 0.3 -Post Debridement Size (cm) - Width 0.1 -Post Debridement Size (cm) - Depth 0.1 -Total Square Cm 0.03 -Wound/Ulcer Outcome Not Healed -Ulcer Cleansing Rinsed/ Irrigated with Saline -Foul Odor after Cleansing No -Bioengineered Tissue No -Bleeding Controlled with Pressure -Treatment Response Procedure Tolerated Well [See Physician Procedure note for Specifics] Pain Scale: 0-10 Numeric [Pain] -Is Patient Pain Free? Yes Musculoskeletal: - - Patient denies tenderness with manipulation of ulcer site Neurological: - - Epicritic sensation grossly absent lower extremity Psych/Mental Status: Normal Affect, Appropriate Debridement Note Post-Debridement Measurements/Treatment WC - Nurse 2 - General Ulcer CM Notes Start: 11/24/17 10:03 Freq: Status: Active Protocol: Activity Type Activity Date Activity User E-Sign Co-Sign Detail Recorded Client Recorded Date Recorded By Document 11/24/17 10:15 DV [id number] 11/24/17 10:21 DV Document 12/08/17 10:31 DV [id number] 12/08/17 10:35 DV 11/24/17 12/08/17 10:15 10:31 Wound Center Nurse 2 #2- RT HEEL -Time 10:17 10:33 -Correct Patient Yes Yes -Correct Side, Site, Position Yes Yes -Correct Procedure Yes Yes -Procedure Performed Yes Yes -Type of Procedure Debridement Debridement -Clinical Debridement Subcutaneous Selective -Post Debridement Size (cm) - Length 0.8 0.3 -Post Debridement Size (cm) - Width 0.3 0.1 -Post Debridement Size (cm) - Depth 0.2 0.1 -Total Square Cm 0.24 0.03 -Wound/Ulcer Outcome Not Healed Not Healed -Ulcer Cleansing Rinsed/ Rinsed/ Irrigated with Irrigated with Saline Saline -Foul Odor after Cleansing No No -Bioengineered Tissue No No -Bleeding Controlled with NA Pressure -Treatment Response Procedure Procedure Tolerated Well Tolerated Well Pain Scale: 0-10 Numeric Is Patient Pain Free? Yes Yes Wound debrided: Right plantar posterior heel Laterality: Right Type of Debridement: Selective debridement Anesthesia Used: 4% Lidocaine Solution Depth: in the subcutaneous layer Percentage of wound debrided: 100 Instrument Used: #15 blade Tissue Removed: Hyperkeratotic tissue, fibrin Severity: Fat Layer Exposed Amount of bleeding with debridement: Mild Bleeding Controlled with: Pressure Patient tolerated procedure well Assessment/Plan Assessment: Ulcer to right heel with stable eschar. DM with neuropathy. Malnutrition. Plan: Patient was again examined and evaluated today. Patient is S/P surgical debridement with versajet of all necrotic, non-viable, and infected soft tissue with bone biopsy on June 14. Details from surgery are noted in the operative report. Angiogram performed prior to surgical debridement by Dr. Rios. A selective debridement was completed today as noted in the clinical panel. Following debridement, slightly moistoned guero applied to ulcer base, followed by a dry sterile dressing. Patient and his were instructed to change this dressing daily. Patient and his were instructed to keep the dressing clean, dry, and intact again this week. Patient to continue with high protein diet. Importance of tight glycemic control was discussed again. I stressed the imortance again of keeping pressure off of his heel at all times and that this includes any type of pressure at all, as the patient has been noncompliant in the past with this, and continues to be non compliant. I advised him again this week to utilize his knee scooter. Increased callus buildup surrounding ulcer site was noted again this week. The callus buildup around the ulcer shows the patient has not been compliant in keep pressure off of his heel. I again discussed the possibility of switching to a TCC-EZ to better ensure compliance. I also again informed him and his that there is possibility that although his surgical procedure went well in May, there is still a chance that this can lead to extensive debridements, partial calcaneal amputations, or even more proximal amputations on the leg, among other possible outcomes. He is to use the knee scooter at all times while walking. While sitting or laying in bed he was instructed to keep the heel floating over the edge of a pillow in order to have absolutely no pressure to the area. He was informed to only use his newly fashioned sandle with the heel cut off to walk very short distances in the house and to not use it to walk around in. Patient and the patient's were educated on signs and symptoms of local and systemic infection and were instructed to go to the emergency room immediately should they notice any. All questions were answered to the patient and the patient's 's satisfaction. I still continue to be concerned with the patient's compliance. They will follow-up in clinic in 1 week for further evaluation, or sooner if needed. This note was generated with Dragon dictation software. It may contain incorrect words, spelling, and punctuation that were not noted in checking the note before signing.
--- NOTE | 2017-12-08 14:01 | PN.PCM_ITS ---
(1) Chronic ulcer of right heel Status: Acute Current Visit: No Code(s): L97.419 - Non-pressure chronic ulcer of right heel and midfoot with unspecified severity (2) Lower extremity edema Status: Chronic Current Visit: No Code(s): R60.0 - Localized edema (3) PVD (peripheral vascular disease) Status: Suspected Current Visit: No Code(s): I73.9 - Peripheral vascular disease, unspecified (4) Type 2 diabetes mellitus with diabetic polyneuropathy Status: Acute Current Visit: No Code(s): E11.42 - Type 2 diabetes mellitus with diabetic polyneuropathy Type of Wound Chief Complaint: Chronic non healing ulcer to right posterior heel with fat layer exposed. History of Wound: This 61-year-old diabetic male presents for follow up of chronic nonhealing ulcer to right posterior heel. Patient states on February 21 he believes he stepped on a staple walking down the stairs and had a tear in his skin. This progressed over the following days into an ulcer. Patient has seen Dr. See as well as gone to [facility] wound center in the past. While at [facility], the patient was undergoing every other day dressing changes consisting of medihoney and a dry sterile dressing. The patient has a knee walker and claims to be using it, but not all the time. The also states that the patient has not keeping pressure off of his right foot as much as he should be, even after last weeks visit, although he has gotten better. Patient denies any purulence to the area. The patient denies any feelings of nausea, vomiting, chills, fever at this time. Progress of Wound: Patient presents to clinic for follow up of right heel ulcer. Patient and doing daily guero dressing changes. Ulcer improving this week. Currently, the patient denies any feelings of nausea, vomiting, fever, or chills. - Physical Exam Vital Signs Temp Pulse Resp BP 96.9 F L 85 16 161/89 H 12/08/17 09:49 12/08/17 09:49 12/08/17 09:49 12/08/17 09:49 General: Alert, Oriented x3, Cooperative, No apparent distress Extremities: Capillary Refill Less than 3 Seconds, No Calf Tenderness - Negative Wojciech and Guerrero sign, Diminished Peripheral Pulses - DP and PT pulses nonpalpable due to slight lower extremity edema, Edema - Slight lower extremity edema Skin: Ulcer/ Wound - Ulcer to the plantar posterior aspect of the right heel. Surgical debridement was completed on June 14. Ulcer improvement appreciated since last visit. Some surrounding hyperkeratotic tissue noted again today. The base is a majority of granular tissue. There continues to be no surrounding cellulitis, no purulence, no malodor, no increase in warmth, no probing to bone, no tracking, no undermining at this time. Wound Measurements and Assessment - Nurse 1 - General Ulcer Measurement Start: 11/24/17 10:03 Freq: Status: Active Protocol: Activity Type Activity Date Activity User E-Sign Co-Sign Detail Recorded Client Recorded Date Recorded By Document 12/08/17 09:49 [facility] [id number] 12/08/17 09:54 [facility] 12/08/17 09:49 Wound Center Nurse 1 [Ulcer Assessment] #2- RT HEEL -Combined with other wound No -Current Size (cm) - Length 0.1 -Current Size (cm) - Width 0.1 -Current Size (cm) - Depth 0.1 -Total Square Cm 0.01 -Epithelialization Large 67-100% -Tunneling No -Undermining/Tunneling No -Circular Undermining No -Structure Exposed N/A -Texture (Miguelina-wound Skin Appearance) Callus -Moisture (Miguelina-wound Skin Appearance Dry/Scaly ) -Color (Miguelina-wound Skin Appearance) No Abnormality Assessed -Ulcer Cleansing Rinsed/ Irrigated with Saline -Foul Odor after Cleansing No -Anesthetic Used 5% Lidocaine Gel [Edema Assessment] -Right Calf (cm) 34 -Right Ankle (cm) 21 - Nurse 2 - General Ulcer CM Notes Start: 11/24/17 10:03 Freq: Status: Active Protocol: Activity Type Activity Date Activity User E-Sign Co-Sign Detail Recorded Client Recorded Date Recorded By Document 12/08/17 10:31 DV [id number] 12/08/17 10:35 DV 12/08/17 10:31 Wound Center Nurse 2 [Procedure/Treatment] #2- RT HEEL -Time 10:33 -Correct Patient Yes -Correct Side, Site, Position Yes -Correct Procedure Yes -Procedure Performed Yes -Type of Procedure Debridement -Clinical Debridement Selective -Post Debridement Size (cm) - Length 0.3 -Post Debridement Size (cm) - Width 0.1 -Post Debridement Size (cm) - Depth 0.1 -Total Square Cm 0.03 -Wound/Ulcer Outcome Not Healed -Ulcer Cleansing Rinsed/ Irrigated with Saline -Foul Odor after Cleansing No -Bioengineered Tissue No -Bleeding Controlled with Pressure -Treatment Response Procedure Tolerated Well [See Physician Procedure note for Specifics] Pain Scale: 0-10 Numeric [Pain] -Is Patient Pain Free? Yes Musculoskeletal: - - Patient denies tenderness with manipulation of ulcer site Neurological: - - Epicritic sensation grossly absent lower extremity Psych/Mental Status: Normal Affect, Appropriate Debridement Note Post-Debridement Measurements/Treatment WC - Nurse 2 - General Ulcer CM Notes Start: 11/24/17 10:03 Freq: Status: Active Protocol: Activity Type Activity Date Activity User E-Sign Co-Sign Detail Recorded Client Recorded Date Recorded By Document 11/24/17 10:15 DV [id number] 11/24/17 10:21 DV Document 12/08/17 10:31 DV [id number] 12/08/17 10:35 DV 11/24/17 12/08/17 10:15 10:31 Wound Center Nurse 2 #2- RT HEEL -Time 10:17 10:33 -Correct Patient Yes Yes -Correct Side, Site, Position Yes Yes -Correct Procedure Yes Yes -Procedure Performed Yes Yes -Type of Procedure Debridement Debridement -Clinical Debridement Subcutaneous Selective -Post Debridement Size (cm) - Length 0.8 0.3 -Post Debridement Size (cm) - Width 0.3 0.1 -Post Debridement Size (cm) - Depth 0.2 0.1 -Total Square Cm 0.24 0.03 -Wound/Ulcer Outcome Not Healed Not Healed -Ulcer Cleansing Rinsed/ Rinsed/ Irrigated with Irrigated with Saline Saline -Foul Odor after Cleansing No No -Bioengineered Tissue No No -Bleeding Controlled with NA Pressure -Treatment Response Procedure Procedure Tolerated Well Tolerated Well Pain Scale: 0-10 Numeric Is Patient Pain Free? Yes Yes Wound debrided: Right plantar posterior heel Laterality: Right Type of Debridement: Selective debridement Anesthesia Used: 4% Lidocaine Solution Depth: in the subcutaneous layer Percentage of wound debrided: 100 Instrument Used: #15 blade Tissue Removed: Hyperkeratotic tissue, fibrin Severity: Fat Layer Exposed Amount of bleeding with debridement: Mild Bleeding Controlled with: Pressure Patient tolerated procedure well Assessment/Plan Assessment: Ulcer to right heel with stable eschar. DM with neuropathy. Malnutrition. Plan: Patient was again examined and evaluated today. Patient is S/P surgical debridement with versajet of all necrotic, non-viable, and infected soft tissue with bone biopsy on June 14. Details from surgery are noted in the operative report. Angiogram performed prior to surgical debridement by Dr. Rios. A selective debridement was completed today as noted in the clinical panel. Following debridement, slightly moistoned guero applied to ulcer base, followed by a dry sterile dressing. Patient and his were instructed to change this dressing daily. Patient and his were instructed to keep the dressing clean, dry, and intact again this week. Patient to continue with high protein diet. Importance of tight glycemic control was discussed again. I stressed the imortance again of keeping pressure off of his heel at all times and that this includes any type of pressure at all, as the patient has been noncompliant in the past with this, and continues to be non compliant. I advised him again this week to utilize his knee scooter. Increased callus buildup surrounding ulcer site was noted again this week. The callus buildup around the ulcer shows the patient has not been compliant in keep pressure off of his heel. I again discussed the possibility of switching to a TCC-EZ to better ensure compliance. I also again informed him and his that there is possibility that although his surgical procedure went well in May, there is still a chance that this can lead to extensive debridements, partial calcaneal amputations, or even more proximal amputations on the leg, among other possible outcomes. He is to use the knee scooter at all times while walking. While sitting or laying in bed he was instructed to keep the heel floating over the edge of a pillow in order to have absolutely no pressure to the area. He was informed to only use his newly fashioned sandle with the heel cut off to walk very short distances in the house and to not use it to walk around in. Patient and the patient's were educated on signs and symptoms of local and systemic infection and were instructed to go to the emergency room immediately should they notice any. All questions were answered to the patient and the patient's 's satisfaction. I still continue to be concerned with the patient's compliance. They will follow- up in clinic in 1 week for further evaluation, or sooner if needed. This note was generated with Dragon dictation software. It may contain incorrect words, spelling, and punctuation that were not noted in checking the note before signing.
[2017-12-15 10:10] VITALS: BP 148/73; PULSE 84; RESP 16; TEMP 36.6; BMI 32.7
--- NOTE | 2017-12-15 12:20 | PCM.WC.PN ---
(1) Chronic ulcer of right heel Status: Acute Current Visit: No Code(s): L97.419 - Non-pressure chronic ulcer of right heel and midfoot with unspecified severity (2) Lower extremity edema Status: Chronic Current Visit: No Code(s): R60.0 - Localized edema (3) PVD (peripheral vascular disease) Status: Suspected Current Visit: No Code(s): I73.9 - Peripheral vascular disease, unspecified (4) Type 2 diabetes mellitus with diabetic polyneuropathy Status: Acute Current Visit: No Code(s): E11.42 - Type 2 diabetes mellitus with diabetic polyneuropathy Type of Wound Chief Complaint: Chronic non healing ulcer to right posterior heel with fat layer exposed. History of Wound: This 61-year-old diabetic male presents for follow up of chronic nonhealing ulcer to right posterior heel. Patient states on February 21 he believes he stepped on a staple walking down the stairs and had a tear in his skin. This progressed over the following days into an ulcer. Patient has seen Dr. See as well as gone to [facility] wound center in the past. While at [facility], the patient was undergoing every other day dressing changes consisting of medihoney and a dry sterile dressing. The patient has a knee walker and claims to be using it, but not all the time. The also states that the patient has not keeping pressure off of his right foot as much as he should be, even after last weeks visit, although he has gotten better. Patient denies any purulence to the area. The patient denies any feelings of nausea, vomiting, chills, fever at this time. Progress of Wound: Patient presents to clinic for follow up of right heel ulcer. Patient and doing daily guero dressing changes. Ulcer stable. Currently, the patient denies any feelings of nausea, vomiting, fever, or chills. - Physical Exam Vital Signs Temp Pulse Resp BP 98 F 84 16 148/73 H 12/15/17 10:10 12/15/17 10:10 12/15/17 10:10 12/15/17 10:10 General: Alert, Oriented x3, Cooperative, No apparent distress Extremities: Capillary Refill Less than 3 Seconds, No Calf Tenderness - Negative Wojciech and Guerrero sign, Diminished Peripheral Pulses - DP and PT pulses nonpalpable due to slight lower extremity edema, Edema - Slight lower extremity edema Skin: Ulcer/ Wound - Ulcer to the plantar posterior aspect of the right heel. Surgical debridement was completed on June 14. Ulcer shown to be stable since last week. There remains surrounding hyperkeratotic tissue around and overlying the ulcer site today. The base is majority of granular tissue. There continues to be some slight adherent slough and fibrin. There continues to be no surrounding or extending cellulitis, no purulence, no malodor, no increase in warmth, no probing to bone, no tracking, and no undermining at this time. Wound Measurements and Assessment WC - Nurse 1 - General Ulcer Measurement Start: 11/24/17 10:03 Freq: Status: Active Protocol: Activity Type Activity Date Activity User E-Sign Co-Sign Detail Recorded Client Recorded Date Recorded By Document 12/15/17 10:10 MT [id number] 12/15/17 10:14 MT 12/15/17 10:10 Wound Center Nurse 1 [Ulcer Assessment] #2- RT HEEL -Combined with other wound No -Current Size (cm) - Length 0.1 -Current Size (cm) - Width 0.1 -Current Size (cm) - Depth 0.1 -Total Square Cm 0.01 -Photo Taken No -Epithelialization Large 67-100% -Tunneling No -Undermining/Tunneling No -Circular Undermining No -Exudate Amt Small (1-33%) -Exudate Type Serous -Wound Margin Distinct, Outline Attached -Granulation Amt None Present (0 %) -Slough/Fibrin Yes -Necrosis Amt None Present (0 %) -Texture (Miguelina-wound Skin Appearance) Callus Scarring -Moisture (Miguelina-wound Skin Appearance Dry/Scaly ) -Color (Miguelina-wound Skin Appearance) Assessed -Temperature (Miguelina-wound Skin No Abnormality Appearance) (Pt Warm) -Tenderness on Palpation (Miguelina-wound No Skin Appearance) -Ulcer Cleansing Rinsed/ Irrigated with Saline -Foul Odor after Cleansing No -Anesthetic Used 4% Lidocaine Solution [Edema Assessment] -Lower Limb Edema Present Yes -Right Calf (cm) 34.5 -Right Ankle (cm) 21.5 WC - Nurse 2 - General Ulcer CM Notes Start: 11/24/17 10:03 Freq: Status: Active Protocol: Activity Type Activity Date Activity User E-Sign Co-Sign Detail Recorded Client Recorded Date Recorded By Document 12/15/17 10:36 DV [id number] 12/15/17 10:41 DV 12/15/17 10:36 Wound Center Nurse 2 [Procedure/Treatment] #2- RT HEEL -Time 10:37 -Correct Patient Yes -Correct Side, Site, Position Yes -Correct Procedure Yes -Procedure Performed Yes -Type of Procedure Debridement -Clinical Debridement Subcutaneous -Post Debridement Size (cm) - Length 0.4 -Post Debridement Size (cm) - Width 0.2 -Post Debridement Size (cm) - Depth 0.1 -Total Square Cm 0.08 -Wound/Ulcer Outcome Not Healed -Ulcer Cleansing Rinsed/ Irrigated with Saline -Foul Odor after Cleansing No -Bioengineered Tissue No -Bleeding Controlled with Pressure -Treatment Response Procedure Tolerated Well [See Physician Procedure note for Specifics] Pain Scale: 0-10 Numeric [Pain] -Is Patient Pain Free? Yes Musculoskeletal: - - Patient denies tenderness with manipulation of ulcer site Neurological: - - Epicritic sensation grossly absent to lower extremity Psych/Mental Status: Normal Affect, Appropriate Debridement Note Post-Debridement Measurements/Treatment WC - Nurse 2 - General Ulcer CM Notes Start: 11/24/17 10:03 Freq: Status: Active Protocol: Activity Type Activity Date Activity User E-Sign Co-Sign Detail Recorded Client Recorded Date Recorded By Document 11/24/17 10:15 DV [id number] 11/24/17 10:21 DV Document 12/08/17 10:31 DV [id number] 12/08/17 10:35 DV Document 12/15/17 10:36 DV [id number] 12/15/17 10:41 DV 11/24/17 12/08/17 12/15/17 10:15 10:31 10:36 Wound Center Nurse 2 #2- RT HEEL -Time 10:17 10:33 10:37 -Correct Patient Yes Yes Yes -Correct Side, Site, Position Yes Yes Yes -Correct Procedure Yes Yes Yes -Procedure Performed Yes Yes Yes -Type of Procedure Debridement Debridement Debridement -Clinical Debridement Subcutaneous Selective Subcutaneous -Post Debridement Size (cm) - Length 0.8 0.3 0.4 -Post Debridement Size (cm) - Width 0.3 0.1 0.2 -Post Debridement Size (cm) - Depth 0.2 0.1 0.1 -Total Square Cm 0.24 0.03 0.08 -Wound/Ulcer Outcome Not Healed Not Healed Not Healed -Ulcer Cleansing Rinsed/ Rinsed/ Rinsed/ Irrigated with Irrigated with Irrigated with Saline Saline Saline -Foul Odor after Cleansing No No No -Bioengineered Tissue No No No -Bleeding Controlled with NA Pressure Pressure -Treatment Response Procedure Procedure Procedure Tolerated Well Tolerated Well Tolerated Well Pain Scale: 0-10 Numeric Is Patient Pain Free? Yes Yes Yes Wound debrided: Right plantar posterior heel Laterality: Right Type of Debridement: Excisional debridement Anesthesia Used: 4% Lidocaine Solution Depth: in the subcutaneous layer Percentage of wound debrided: 100 Instrument Used: #15 blade Tissue Removed: Adherent slough, fibrin, hyperkeratotic tissue Severity: Fat Layer Exposed Amount of bleeding with debridement: Mild Bleeding Controlled with: Pressure Patient tolerated procedure well Assessment/Plan Assessment: Ulcer to right heel with stable eschar. DM with neuropathy. Malnutrition. Plan: Patient was again examined and evaluated today. Patient is S/P surgical debridement with versajet of all necrotic, non-viable, and infected soft tissue with bone biopsy on June 14. Details from surgery are noted in the operative report. Angiogram performed prior to surgical debridement by Dr. Rios. A subcutaneous debridement was completed today as noted in the clinical panel. Following debridement, slightly moistoned guero applied to ulcer base, followed by a dry sterile dressing. Patient and his were instructed to change this dressing daily. Patient and his were instructed to keep the dressing clean, dry, and intact again this week. Patient to continue with high protein diet. Importance of tight glycemic control was discussed again. I stressed the imortance again of keeping pressure off of his heel at all times and that this includes any type of pressure at all, as the patient has been noncompliant in the past with this, and continues to be non compliant. Increased callus buildup surrounding ulcer site was noted again this week. The callus buildup around the ulcer shows the patient has not been compliant in keep pressure off of his heel. I again discussed the possibility of switching to a TCC-EZ to better ensure compliance. I also again informed him and his that there is possibility that although his surgical procedure went well in May, there is still a chance that this can lead to extensive debridements, partial calcaneal amputations, or even more proximal amputations on the leg, among other possible outcomes. He is to use the knee scooter at all times while walking. While sitting or laying in bed he was instructed to keep the heel floating over the edge of a pillow in order to have absolutely no pressure to the area. He was informed to only use his newly fashioned sandle with the heel cut off to walk very short distances in the house and to not use it to walk around in. Patient and the patient's were educated on signs and symptoms of local and systemic infection and were instructed to go to the emergency room immediately should they notice any. All questions were answered to the patient and the patient's 's satisfaction. I still continue to be concerned with the patient's compliance. They will follow-up in clinic in 1 week for further evaluation, or sooner if needed. This note was generated with [employer] dictation software. It may contain incorrect words, spelling, and punctuation that were not noted in checking the note before signing.
--- NOTE | 2017-12-15 12:25 | PN.PCM_ITS ---
(1) Chronic ulcer of right heel Status: Acute Current Visit: No Code(s): L97.419 - Non-pressure chronic ulcer of right heel and midfoot with unspecified severity (2) Lower extremity edema Status: Chronic Current Visit: No Code(s): R60.0 - Localized edema (3) PVD (peripheral vascular disease) Status: Suspected Current Visit: No Code(s): I73.9 - Peripheral vascular disease, unspecified (4) Type 2 diabetes mellitus with diabetic polyneuropathy Status: Acute Current Visit: No Code(s): E11.42 - Type 2 diabetes mellitus with diabetic polyneuropathy Type of Wound Chief Complaint: Chronic non healing ulcer to right posterior heel with fat layer exposed. History of Wound: This 61-year-old diabetic male presents for follow up of chronic nonhealing ulcer to right posterior heel. Patient states on February 21 he believes he stepped on a staple walking down the stairs and had a tear in his skin. This progressed over the following days into an ulcer. Patient has seen Dr. See as well as gone to [facility] wound center in the past. While at [facility], the patient was undergoing every other day dressing changes consisting of medihoney and a dry sterile dressing. The patient has a knee walker and claims to be using it, but not all the time. The also states that the patient has not keeping pressure off of his right foot as much as he should be, even after last weeks visit, although he has gotten better. Patient denies any purulence to the area. The patient denies any feelings of nausea, vomiting, chills, fever at this time. Progress of Wound: Patient presents to clinic for follow up of right heel ulcer. Patient and doing daily guero dressing changes. Ulcer stable. Currently, the patient denies any feelings of nausea, vomiting, fever, or chills. - Physical Exam Vital Signs Temp Pulse Resp BP 98 F 84 16 148/73 H 12/15/17 10:10 12/15/17 10:10 12/15/17 10:10 12/15/17 10:10 General: Alert, Oriented x3, Cooperative, No apparent distress Extremities: Capillary Refill Less than 3 Seconds, No Calf Tenderness - Negative Wojciech and Guerrero sign, Diminished Peripheral Pulses - DP and PT pulses nonpalpable due to slight lower extremity edema, Edema - Slight lower extremity edema Skin: Ulcer/ Wound - Ulcer to the plantar posterior aspect of the right heel. Surgical debridement was completed on June 14. Ulcer shown to be stable since last week. There remains surrounding hyperkeratotic tissue around and overlying the ulcer site today. The base is majority of granular tissue. There continues to be some slight adherent slough and fibrin. There continues to be no surrounding or extending cellulitis, no purulence, no malodor, no increase in warmth, no probing to bone, no tracking, and no undermining at this time. Wound Measurements and Assessment WC - Nurse 1 - General Ulcer Measurement Start: 11/24/17 10:03 Freq: Status: Active Protocol: Activity Type Activity Date Activity User E-Sign Co-Sign Detail Recorded Client Recorded Date Recorded By Document 12/15/17 10:10 MT [id number] 12/15/17 10:14 MT 12/15/17 10:10 Wound Center Nurse 1 [Ulcer Assessment] #2- RT HEEL -Combined with other wound No -Current Size (cm) - Length 0.1 -Current Size (cm) - Width 0.1 -Current Size (cm) - Depth 0.1 -Total Square Cm 0.01 -Photo Taken No -Epithelialization Large 67-100% -Tunneling No -Undermining/Tunneling No -Circular Undermining No -Exudate Amt Small (1-33%) -Exudate Type Serous -Wound Margin Distinct, Outline Attached -Granulation Amt None Present (0 %) -Slough/Fibrin Yes -Necrosis Amt None Present (0 %) -Texture (Miguelina-wound Skin Appearance) Callus Scarring -Moisture (Miguelina-wound Skin Appearance Dry/Scaly ) -Color (Miguelina-wound Skin Appearance) Assessed -Temperature (Miguelina-wound Skin No Abnormality Appearance) (Pt Warm) -Tenderness on Palpation (Miguelina-wound No Skin Appearance) -Ulcer Cleansing Rinsed/ Irrigated with Saline -Foul Odor after Cleansing No -Anesthetic Used 4% Lidocaine Solution [Edema Assessment] -Lower Limb Edema Present Yes -Right Calf (cm) 34.5 -Right Ankle (cm) 21.5 WC - Nurse 2 - General Ulcer CM Notes Start: 11/24/17 10:03 Freq: Status: Active Protocol: Activity Type Activity Date Activity User E-Sign Co-Sign Detail Recorded Client Recorded Date Recorded By Document 12/15/17 10:36 DV [id number] 12/15/17 10:41 DV 12/15/17 10:36 Wound Center Nurse 2 [Procedure/Treatment] #2- RT HEEL -Time 10:37 -Correct Patient Yes -Correct Side, Site, Position Yes -Correct Procedure Yes -Procedure Performed Yes -Type of Procedure Debridement -Clinical Debridement Subcutaneous -Post Debridement Size (cm) - Length 0.4 -Post Debridement Size (cm) - Width 0.2 -Post Debridement Size (cm) - Depth 0.1 -Total Square Cm 0.08 -Wound/Ulcer Outcome Not Healed -Ulcer Cleansing Rinsed/ Irrigated with Saline -Foul Odor after Cleansing No -Bioengineered Tissue No -Bleeding Controlled with Pressure -Treatment Response Procedure Tolerated Well [See Physician Procedure note for Specifics] Pain Scale: 0-10 Numeric [Pain] -Is Patient Pain Free? Yes Musculoskeletal: - - Patient denies tenderness with manipulation of ulcer site Neurological: - - Epicritic sensation grossly absent to lower extremity Psych/Mental Status: Normal Affect, Appropriate Debridement Note Post-Debridement Measurements/Treatment WC - Nurse 2 - General Ulcer CM Notes Start: 11/24/17 10:03 Freq: Status: Active Protocol: Activity Type Activity Date Activity User E-Sign Co-Sign Detail Recorded Client Recorded Date Recorded By Document 11/24/17 10:15 DV [id number] 11/24/17 10:21 DV Document 12/08/17 10:31 DV [id number] 12/08/17 10:35 DV Document 12/15/17 10:36 DV [id number] 12/15/17 10:41 DV 11/24/17 12/08/17 12/15/17 10:15 10:31 10:36 Wound Center Nurse 2 #2- RT HEEL -Time 10:17 10:33 10:37 -Correct Patient Yes Yes Yes -Correct Side, Site, Position Yes Yes Yes -Correct Procedure Yes Yes Yes -Procedure Performed Yes Yes Yes -Type of Procedure Debridement Debridement Debridement -Clinical Debridement Subcutaneous Selective Subcutaneous -Post Debridement Size (cm) - Length 0.8 0.3 0.4 -Post Debridement Size (cm) - Width 0.3 0.1 0.2 -Post Debridement Size (cm) - Depth 0.2 0.1 0.1 -Total Square Cm 0.24 0.03 0.08 -Wound/Ulcer Outcome Not Healed Not Healed Not Healed -Ulcer Cleansing Rinsed/ Rinsed/ Rinsed/ Irrigated with Irrigated with Irrigated with Saline Saline Saline -Foul Odor after Cleansing No No No -Bioengineered Tissue No No No -Bleeding Controlled with NA Pressure Pressure -Treatment Response Procedure Procedure Procedure Tolerated Well Tolerated Well Tolerated Well Pain Scale: 0-10 Numeric Is Patient Pain Free? Yes Yes Yes Wound debrided: Right plantar posterior heel Laterality: Right Type of Debridement: Excisional debridement Anesthesia Used: 4% Lidocaine Solution Depth: in the subcutaneous layer Percentage of wound debrided: 100 Instrument Used: #15 blade Tissue Removed: Adherent slough, fibrin, hyperkeratotic tissue Severity: Fat Layer Exposed Amount of bleeding with debridement: Mild Bleeding Controlled with: Pressure Patient tolerated procedure well Assessment/Plan Assessment: Ulcer to right heel with stable eschar. DM with neuropathy. Malnutrition. Plan: Patient was again examined and evaluated today. Patient is S/P surgical debridement with versajet of all necrotic, non-viable, and infected soft tissue with bone biopsy on June 14. Details from surgery are noted in the operative report. Angiogram performed prior to surgical debridement by Dr. Rios. A subcutaneous debridement was completed today as noted in the clinical panel. Following debridement, slightly moistoned guero applied to ulcer base, followed by a dry sterile dressing. Patient and his were instructed to change this dressing daily. Patient and his were instructed to keep the dressing clean, dry, and intact again this week. Patient to continue with high protein diet. Importance of tight glycemic control was discussed again. I stressed the imortance again of keeping pressure off of his heel at all times and that this includes any type of pressure at all, as the patient has been noncompliant in the past with this, and continues to be non compliant. Increased callus buildup surrounding ulcer site was noted again this week. The callus buildup around the ulcer shows the patient has not been compliant in keep pressure off of his heel. I again discussed the possibility of switching to a TCC-EZ to better ensure compliance. I also again informed him and his that there is possibility that although his surgical procedure went well in May, there is still a chance that this can lead to extensive debridements, partial calcaneal amputations, or even more proximal amputations on the leg, among other possible outcomes. He is to use the knee scooter at all times while walking. While sitting or laying in bed he was instructed to keep the heel floating over the edge of a pillow in order to have absolutely no pressure to the area. He was informed to only use his newly fashioned sandle with the heel cut off to walk very short distances in the house and to not use it to walk around in. Patient and the patient's were educated on signs and symptoms of local and systemic infection and were instructed to go to the emergency room immediately should they notice any. All questions were answered to the patient and the patient's 's satisfaction. I still continue to be concerned with the patient's compliance. They will follow- up in clinic in 1 week for further evaluation, or sooner if needed. This note was generated with [employer] dictation software. It may contain incorrect words, spelling, and punctuation that were not noted in checking the note before signing.
== END 2017-12-21 23:59 ==
LOC: WC 10:00
PROVIDERS: Referring Provider Podiatrist; Visit Provider Podiatrist
DX: E11.621 Type 2 diabetes mellitus with foot ulcer (principal); R60.0 Localized edema; E11.51 Type 2 diabetes mellitus with diabetic peripheral angiopathy without gangrene; E11.42 Type 2 diabetes mellitus with diabetic polyneuropathy; L97.412 Non-pressure chronic ulcer of right heel and midfoot with fat layer exposed; Z91.19 Patient's noncompliance with other medical treatment and regimen
CPT/HCPCS: 11042; 97597

== ENCOUNTER 2018-01-06 09:45 | Outpatient (RCR) | payer MEDICARE, SELFPAY ==
[2017-12-22 00:47] VITALS: BP 148/73; PULSE 84; RESP 16; TEMP 36.6; BMI 32.7
[2017-12-22 09:36] VITALS: BP 149/72; PULSE 86; RESP 16; TEMP 36.6; BMI 32.7
--- NOTE | 2017-12-22 12:56 | PN.PCM_ITS ---
(1) Chronic ulcer of right heel Status: Acute Current Visit: No Code(s): L97.419 - Non-pressure chronic ulcer of right heel and midfoot with unspecified severity (2) Lower extremity edema Status: Chronic Current Visit: No Code(s): R60.0 - Localized edema (3) PVD (peripheral vascular disease) Status: Suspected Current Visit: No Code(s): I73.9 - Peripheral vascular disease, unspecified (4) Type 2 diabetes mellitus with diabetic polyneuropathy Status: Acute Current Visit: No Code(s): E11.42 - Type 2 diabetes mellitus with diabetic polyneuropathy Type of Wound Chief Complaint: Chronic non healing ulcer to right posterior heel with fat layer exposed. History of Wound: This 61-year-old diabetic male presents for follow up of chronic nonhealing ulcer to right posterior heel. Patient states on February 21 he believes he stepped on a staple walking down the stairs and had a tear in his skin. This progressed over the following days into an ulcer. Patient has seen Dr. See as well as gone to [facility] wound center in the past. While at [facility], the patient was undergoing every other day dressing changes consisting of medihoney and a dry sterile dressing. The patient has a knee walker and claims to be using it, but not all the time. The also states that the patient has not keeping pressure off of his right foot as much as he should be, even after last weeks visit, although he has gotten better. Patient denies any purulence to the area. The patient denies any feelings of nausea, vomiting, chills, fever at this time. Progress of Wound: Patient presents to clinic for follow up of right heel ulcer. Patient and doing daily dressing changes. Ulcer stable. Currently, the patient denies any feelings of nausea, vomiting, fever, or chills. - Physical Exam Vital Signs Temp Pulse Resp BP 97.8 F 86 16 149/72 H 12/22/17 09:36 12/22/17 09:36 12/22/17 09:36 12/22/17 09:36 General: Alert, Oriented x3, Cooperative, No apparent distress Extremities: Capillary Refill Less than 3 Seconds, No Calf Tenderness - Negative Wojciech and Guerrero sign, Diminished Peripheral Pulses - DP and PT pulses nonpalpable due to slight lower extremity edema, Edema - Slight lower extremity edema Skin: Ulcer/ Wound - Ulcer to the plantar posterior aspect of the right heel. Surgical debridement was completed on June 14. Ulcer stable since last week. There continues to be some slight surrounding hyperkeratotic tissue around the ulcer site. The base continues to be a mixture of adherent slough, fibrin, as well as majority granular tissue. There is no surrounding or extending cellulitis, no purulence, no malodor, no increase in warmth, no probing to bone, no tracking, no undermining Wound Measurements and Assessment WC - Nurse 1 - General Ulcer Measurement Start: 12/22/17 09:36 Freq: Status: Active Protocol: Activity Type Activity Date Activity User E-Sign Co-Sign Detail Recorded Client Recorded Date Recorded By Document 12/22/17 09:36 [facility] [id number] 12/22/17 09:42 [facility] 12/22/17 09:36 Wound Center Nurse 1 [Ulcer Assessment] #2- RT HEEL -Combined with other wound No -Current Size (cm) - Length 0.3 -Current Size (cm) - Width 0.3 -Current Size (cm) - Depth 0.1 -Total Square Cm 0.09 -Photo Taken No -Epithelialization None Present -Tunneling No -Undermining/Tunneling No -Circular Undermining No -Exudate Amt Small (1-33%) -Exudate Type Serosanguineous -Wound Margin Distinct, Outline Attached -Granulation Amt Large (67-100%) -Granulation Quality Red -Slough/Fibrin No -Necrosis Amt None Present (0 %) -Texture (Miguelina-wound Skin Appearance) Callus Scarring -Moisture (Miguelina-wound Skin Appearance Dry/Scaly ) -Color (Miguelina-wound Skin Appearance) Assessed -Temperature (Miguelina-wound Skin No Abnormality Appearance) (Pt Warm) -Tenderness on Palpation (Miguelina-wound No Skin Appearance) -Ulcer Cleansing Rinsed/ Irrigated with Saline -Foul Odor after Cleansing No -Anesthetic Used 4% Lidocaine Solution [Edema Assessment] -Lower Limb Edema Present Yes -Right Calf (cm) 34 -Right Ankle (cm) 21.5 WC - Nurse 2 - General Ulcer CM Notes Start: 12/22/17 09:36 Freq: Status: Active Protocol: Activity Type Activity Date Activity User E-Sign Co-Sign Detail Recorded Client Recorded Date Recorded By Document 11/01/18 10:09 DV [id number] 12/22/17 10:10 DV 12/22/17 10:09 Wound Center Nurse 2 [Procedure/Treatment] #2- RT HEEL -Time 10:09 -Correct Patient Yes -Correct Side, Site, Position Yes -Correct Procedure Yes -Procedure Performed Yes -Type of Procedure Debridement -Clinical Debridement Subcutaneous -Post Debridement Size (cm) - Length 0.4 -Post Debridement Size (cm) - Width 0.2 -Post Debridement Size (cm) - Depth 0.1 -Total Square Cm 0.08 -Wound/Ulcer Outcome Not Healed -Ulcer Cleansing Rinsed/ Irrigated with Saline -Foul Odor after Cleansing No -Bioengineered Tissue No -Bleeding Controlled with Pressure -Treatment Response Procedure Tolerated Well [See Physician Procedure note for Specifics] Pain Scale: 0-10 Numeric [Pain] -Is Patient Pain Free? Yes Musculoskeletal: - - Patient denies tenderness with manipulation of ulcer site Neurological: - - Epicritic sensation grossly absent to lower extremity Psych/Mental Status: Normal Affect, Appropriate Debridement Note Post-Debridement Measurements/Treatment WC - Nurse 2 - General Ulcer CM Notes Start: 12/22/17 09:36 Freq: Status: Active Protocol: Activity Type Activity Date Activity User E-Sign Co-Sign Detail Recorded Client Recorded Date Recorded By Document 12/22/17 10:09 [id number] 12/22/17 10:10 DV 12/22/17 10:09 Wound Center Nurse 2 #2- RT HEEL -Time 10:09 -Correct Patient Yes -Correct Side, Site, Position Yes -Correct Procedure Yes -Procedure Performed Yes -Type of Procedure Debridement -Clinical Debridement Subcutaneous -Post Debridement Size (cm) - Length 0.4 -Post Debridement Size (cm) - Width 0.2 -Post Debridement Size (cm) - Depth 0.1 -Total Square Cm 0.08 -Wound/Ulcer Outcome Not Healed -Ulcer Cleansing Rinsed/ Irrigated with Saline -Foul Odor after Cleansing No -Bioengineered Tissue No -Bleeding Controlled with Pressure -Treatment Response Procedure Tolerated Well Pain Scale: 0-10 Numeric Is Patient Pain Free? Yes Wound debrided: Right plantar posterior heel Laterality: Right Type of Debridement: Excisional debridement Anesthesia Used: 4% Lidocaine Solution Depth: in the subcutaneous layer Percentage of wound debrided: 100 Instrument Used: #15 blade Tissue Removed: Adherent slough, fibrin, hyperkeratotic tissue Severity: Fat Layer Exposed Amount of bleeding with debridement: Mild Bleeding Controlled with: Pressure Patient tolerated procedure well Assessment/Plan Assessment: Ulcer to right heel with stable eschar. DM with neuropathy. Malnutrition. Plan: Patient was again examined and evaluated today. Patient is S/P surgical debridement with versajet of all necrotic, non-viable, and infected soft tissue with bone biopsy on June 14. Details from surgery are noted in the operative report. Angiogram performed prior to surgical debridement by Dr. Rios. A subcutaneous debridement was completed today as noted in the clinical panel. Following debridement, slightly moistoned guero applied to ulcer base, followed by a dry sterile dressing. Patient and his were instructed to change this dressing daily. Patient and his were instructed to keep the dressing clean, dry, and intact again this week. Patient to continue with high protein diet. Importance of tight glycemic control was discussed again. I stressed the imortance again of keeping pressure off of his heel at all times and that this includes any type of pressure at all, as the patient has been noncompliant in the past with this, and continues to be non compliant. Increased callus buildup surrounding ulcer site was noted again this week. The callus buildup around the ulcer shows the patient has not been compliant in keep pressure off of his heel. I again discussed the possibility of switching to a TCC-EZ to better ensure compliance. I also again informed him and his that there is possibility that although his surgical procedure went well in May, there is still a chance that this can lead to extensive debridements, partial calcaneal amputations, or even more proximal amputations on the leg, among other possible outcomes. While sitting or laying in bed he was instructed to keep the heel floating over the edge of a pillow in order to have absolutely no pressure to the area. He was informed to only use his newly fashioned sandle with the heel cut off to walk very short distances in the house and to not use it to walk around in. Patient and the patient's were educated on signs and symptoms of local and systemic infection and were instructed to go to the emergency room immediately should they notice any. All questions were answered to the patient and the patient's 's satisfaction. I still continue to be concerned with the patient's compliance. They will follow-up in clinic in 1 week for further evaluation, or sooner if needed. This note was generated with [employer] software. It may contain incorrect words, spelling, and punctuation that were not noted in checking the note before signing.
[2018-01-06 10:05] VITALS: BP 156/78; PULSE 59; RESP 16; TEMP 35.9; BMI 32.7
--- NOTE | 2018-01-06 10:57 | PCM.WC.PN ---
(1) Chronic ulcer of right heel Status: Acute Current Visit: Yes Code(s): L97.419 - Non-pressure chronic ulcer of right heel and midfoot with unspecified severity (2) Non-pressure chronic ulcer of right heel and midfoot with unspecified severity Status: Acute Current Visit: Yes Code(s): L97.419 - Non-pressure chronic ulcer of right heel and midfoot with unspecified severity (3) Type 2 diabetes mellitus with diabetic polyneuropathy Status: Chronic Current Visit: Yes Code(s): E11.42 - Type 2 diabetes mellitus with diabetic polyneuropathy (4) Lower extremity edema Status: Chronic Current Visit: Yes Code(s): R60.0 - Localized edema (5) PVD (peripheral vascular disease) Status: Suspected Current Visit: Yes Code(s): I73.9 - Peripheral vascular disease, unspecified Type of Wound Chief Complaint: Chronic non healing ulcer to right posterior heel with fat layer exposed. History of Wound: This 61-year-old diabetic male presents for follow up of chronic nonhealing ulcer to right posterior heel. Patient states on February 21 he believes he stepped on a staple walking down the stairs and had a tear in his skin. This progressed over the following days into an ulcer. Patient has seen Dr. See as well as gone to [facility] wound center in the past. While at [facility], the patient was undergoing every other day dressing changes consisting of medihoney and a dry sterile dressing. The patient has a knee walker and claims to be using it, but not all the time. The also states that the patient has not keeping pressure off of his right foot as much as he should be, even after last weeks visit, although he has gotten better. Patient denies any purulence to the area. The patient denies any feelings of nausea, vomiting, chills, fever at this time. Progress of Wound: Ulcer is healed discharge from the wound center follow-up as needed - Physical Exam Vital Signs Temp Pulse Resp BP 96.6 F L 59 L 16 156/78 H 01/06/18 10:05 01/06/18 10:05 01/06/18 10:05 01/06/18 10:05 General: Oriented x3, Cooperative, Well developed HEENT: Atraumatic, PERRLA Oral: Moist Mucosa Neck: Supple, No JVD Lungs: Clear to auscultation, Normal air movement Cardiovascular: Regular rate, Regular Rhythm Abdomen: Bowel Sounds Present, Soft, Non Tender, No Hepato-splenomegaly Extremities: No clubbing, No edema, - - Right heel ulcer Wound Measurements and Assessment WC - Nurse 1 - General Ulcer Measurement Start: 12/22/17 09:36 Freq: Status: Active Protocol: Activity Type Activity Date Activity User E-Sign Co-Sign Detail Recorded Client Recorded Date Recorded By Document 01/06/18 10:05 [facility] [id number] 01/06/18 10:07 [facility] 01/06/18 10:05 Wound Center Nurse 1 [Ulcer Assessment] #2- RT HEEL -Combined with other wound No -Current Size (cm) - Length 0.1 -Current Size (cm) - Width 0.1 -Current Size (cm) - Depth 0.1 -Total Square Cm 0.01 -Date of Last Picture (Recall this 01/06/18 field) -Photo Taken Yes -Epithelialization Large 67-100% [Edema Assessment] -Lower Limb Edema Present Yes -Right Calf (cm) 33.5 -Right Ankle (cm) 23.2 - Nurse 2 - General Ulcer CM Notes Start: 12/22/17 09:36 Freq: Status: Active Protocol: Activity Type Activity Date Activity User E-Sign Co-Sign Detail Recorded Client Recorded Date Recorded By Document 01/06/18 10:14 [id number] 01/06/18 10:17 MW 01/06/18 10:14 Wound Center Nurse 2 [Procedure/Treatment] #2- RT HEEL -Time 10:15 -Correct Patient Yes -Correct Side, Site, Position Yes -Correct Procedure Yes -Post Debridement Size (cm) - Length 0 -Post Debridement Size (cm) - Width 0 -Post Debridement Size (cm) - Depth 0 -Total Square Cm 0 -Wound/Ulcer Outcome Healed- Epithelialized -Ulcer Cleansing Not Cleansed -Foul Odor after Cleansing No -Bleeding Controlled with NA -Treatment Response Procedure Tolerated Well [See Physician Procedure note for Specifics] Pain Scale: 0-10 Numeric [Pain] -Is Patient Pain Free? Yes Musculoskeletal: No Tenderness to Palpation of Joints or Extremities Lymphatic: No Cervical, Supraclavicular, or Inguinal Adenopathy Neurological: Cranial nerves II-XII grossly intact, Neuro grossly intact Psych/Mental Status: Normal Affect, Appropriate Debridement Note Post-Debridement Measurements/Treatment WC - Nurse 2 - General Ulcer CM Notes Start: 12/22/17 09:36 Freq: Status: Active Protocol: Activity Type Activity Date Activity User E-Sign Co-Sign Detail Recorded Client Recorded Date Recorded By Document 12/22/17 10:09 DV [id number] 12/22/17 10:10 DV Document 01/06/18 10:14 MW [id number] 01/06/18 10:17 MW 12/22/17 01/06/18 10:09 10:14 Wound Center Nurse 2 #2- RT HEEL -Time 10:09 10:15 -Correct Patient Yes Yes -Correct Side, Site, Position Yes Yes -Correct Procedure Yes Yes -Procedure Performed Yes -Type of Procedure Debridement -Clinical Debridement Subcutaneous -Post Debridement Size (cm) - Length 0.4 0 -Post Debridement Size (cm) - Width 0.2 0 -Post Debridement Size (cm) - Depth 0.1 0 -Total Square Cm 0.08 0 -Wound/Ulcer Outcome Not Healed Healed- Epithelialized -Ulcer Cleansing Rinsed/ Not Cleansed Irrigated with Saline -Foul Odor after Cleansing No No -Bioengineered Tissue No -Bleeding Controlled with Pressure NA -Treatment Response Procedure Procedure Tolerated Well Tolerated Well Pain Scale: 0-10 Numeric Is Patient Pain Free? Yes Yes Wound debrided: Heel ulcer No debridement was completed today Assessment/Plan Active Problems Chronic ulcer of right heel (Acute) Lower extremity edema (Chronic) Type 2 diabetes mellitus with diabetic polyneuropathy (Chronic) Non-pressure chronic ulcer of right heel and midfoot with unspecified severity (Acute) Assessment: Ulcer to right heel with stable eschar. DM with neuropathy. Malnutrition. Plan: Right heel ulcer resolved. Discharge from the wound center follow-up as needed. Follow-up with podiatry for proper fitting shoe with a special heel to fit better. Patient to buy a mandolin to debride callus off of his heel and bunions.
--- NOTE | 2018-01-06 11:01 | PN.PCM_ITS ---
(1) Chronic ulcer of right heel Status: Acute Current Visit: Yes Code(s): L97.419 - Non-pressure chronic ulcer of right heel and midfoot with unspecified severity (2) Non-pressure chronic ulcer of right heel and midfoot with unspecified severity Status: Acute Current Visit: Yes Code(s): L97.419 - Non-pressure chronic ulcer of right heel and midfoot with unspecified severity (3) Type 2 diabetes mellitus with diabetic polyneuropathy Status: Chronic Current Visit: Yes Code(s): E11.42 - Type 2 diabetes mellitus with diabetic polyneuropathy (4) Lower extremity edema Status: Chronic Current Visit: Yes Code(s): R60.0 - Localized edema (5) PVD (peripheral vascular disease) Status: Suspected Current Visit: Yes Code(s): I73.9 - Peripheral vascular disease, unspecified Type of Wound Chief Complaint: Chronic non healing ulcer to right posterior heel with fat layer exposed. History of Wound: This 61-year-old diabetic male presents for follow up of chronic nonhealing ulcer to right posterior heel. Patient states on February 21 he believes he stepped on a staple walking down the stairs and had a tear in his skin. This progressed over the following days into an ulcer. Patient has seen Dr. See as well as gone to [facility] wound center in the past. While at [facility], the patient was undergoing every other day dressing changes consisting of medihoney and a dry sterile dressing. The patient has a knee walker and claims to be using it, but not all the time. The also states that the patient has not keeping pressure off of his right foot as much as he should be, even after last weeks visit, although he has gotten better. Patient denies any purulence to the area. The patient denies any feelings of nausea, vomiting, chills, fever at this time. Progress of Wound: Ulcer is healed discharge from the wound center follow-up as needed - Physical Exam Vital Signs Temp Pulse Resp BP 96.6 F L 59 L 16 156/78 H 01/06/18 10:05 01/06/18 10:05 01/06/18 10:05 01/06/18 10:05 General: Oriented x3, Cooperative, Well developed HEENT: Atraumatic, PERRLA Oral: Moist Mucosa Neck: Supple, No JVD Lungs: Clear to auscultation, Normal air movement Cardiovascular: Regular rate, Regular Rhythm Abdomen: Bowel Sounds Present, Soft, Non Tender, No Hepato-splenomegaly Extremities: No clubbing, No edema, - - Right heel ulcer Wound Measurements and Assessment WC - Nurse 1 - General Ulcer Measurement Start: 12/22/17 09:36 Freq: Status: Active Protocol: Activity Type Activity Date Activity User E-Sign Co-Sign Detail Recorded Client Recorded Date Recorded By Document 01/06/18 10:05 [facility] [id number] 01/06/18 10:07 [facility] 01/06/18 10:05 Wound Center Nurse 1 [Ulcer Assessment] #2- RT HEEL -Combined with other wound No -Current Size (cm) - Length 0.1 -Current Size (cm) - Width 0.1 -Current Size (cm) - Depth 0.1 -Total Square Cm 0.01 -Date of Last Picture (Recall this 01/06/18 field) -Photo Taken Yes -Epithelialization Large 67-100% [Edema Assessment] -Lower Limb Edema Present Yes -Right Calf (cm) 33.5 -Right Ankle (cm) 23.2 - Nurse 2 - General Ulcer CM Notes Start: 12/22/17 09:36 Freq: Status: Active Protocol: Activity Type Activity Date Activity User E-Sign Co-Sign Detail Recorded Client Recorded Date Recorded By Document 01/06/18 10:14 [id number] 01/06/18 10:17 MW 01/06/18 10:14 Wound Center Nurse 2 [Procedure/Treatment] #2- RT HEEL -Time 10:15 -Correct Patient Yes -Correct Side, Site, Position Yes -Correct Procedure Yes -Post Debridement Size (cm) - Length 0 -Post Debridement Size (cm) - Width 0 -Post Debridement Size (cm) - Depth 0 -Total Square Cm 0 -Wound/Ulcer Outcome Healed- Epithelialized -Ulcer Cleansing Not Cleansed -Foul Odor after Cleansing No -Bleeding Controlled with NA -Treatment Response Procedure Tolerated Well [See Physician Procedure note for Specifics] Pain Scale: 0-10 Numeric [Pain] -Is Patient Pain Free? Yes Musculoskeletal: No Tenderness to Palpation of Joints or Extremities Lymphatic: No Cervical, Supraclavicular, or Inguinal Adenopathy Neurological: Cranial nerves II-XII grossly intact, Neuro grossly intact Psych/Mental Status: Normal Affect, Appropriate Debridement Note Post-Debridement Measurements/Treatment WC - Nurse 2 - General Ulcer CM Notes Start: 12/22/17 09:36 Freq: Status: Active Protocol: Activity Type Activity Date Activity User E-Sign Co-Sign Detail Recorded Client Recorded Date Recorded By Document 12/22/17 10:09 DV [id number] 12/22/17 10:10 DV Document 01/06/18 10:14 MW [id number] 01/06/18 10:17 MW 12/22/17 01/06/18 10:09 10:14 Wound Center Nurse 2 #2- RT HEEL -Time 10:09 10:15 -Correct Patient Yes Yes -Correct Side, Site, Position Yes Yes -Correct Procedure Yes Yes -Procedure Performed Yes -Type of Procedure Debridement -Clinical Debridement Subcutaneous -Post Debridement Size (cm) - Length 0.4 0 -Post Debridement Size (cm) - Width 0.2 0 -Post Debridement Size (cm) - Depth 0.1 0 -Total Square Cm 0.08 0 -Wound/Ulcer Outcome Not Healed Healed- Epithelialized -Ulcer Cleansing Rinsed/ Not Cleansed Irrigated with Saline -Foul Odor after Cleansing No No -Bioengineered Tissue No -Bleeding Controlled with Pressure NA -Treatment Response Procedure Procedure Tolerated Well Tolerated Well Pain Scale: 0-10 Numeric Is Patient Pain Free? Yes Yes Wound debrided: Heel ulcer No debridement was completed today Assessment/Plan Active Problems Chronic ulcer of right heel (Acute) Lower extremity edema (Chronic) Type 2 diabetes mellitus with diabetic polyneuropathy (Chronic) Non-pressure chronic ulcer of right heel and midfoot with unspecified severity (Acute) Assessment: Ulcer to right heel with stable eschar. DM with neuropathy. Malnutrition. Plan: Right heel ulcer resolved. Discharge from the wound center follow-up as needed. Follow-up with podiatry for proper fitting shoe with a special heel to fit better. Patient to buy a mandolin to debride callus off of his heel and bunions.
== END 2018-01-20 23:59 ==
LOC: WC 09:45
PROVIDERS: Family Provider Family Medicine; PCP Family Medicine; Referring Provider Podiatrist; Visit Provider Podiatrist
DX: E11.621 Type 2 diabetes mellitus with foot ulcer (principal); E11.51 Type 2 diabetes mellitus with diabetic peripheral angiopathy without gangrene; R60.0 Localized edema; L97.412 Non-pressure chronic ulcer of right heel and midfoot with fat layer exposed; E11.42 Type 2 diabetes mellitus with diabetic polyneuropathy; Z91.19 Patient's noncompliance with other medical treatment and regimen
CPT/HCPCS: 11042; 99212; G0463